=== PATIENT | male | born 1985 | race Caucasian/White ===

== ENCOUNTER → 2016-08-17 | Outpatient (REF) | payer OTHER ==
[~2016-08-17] MED LIST: /ESCI10TA PEG; ABIL5TAB5 PO; Escitalopram Oxalate PO; LEXA1TAB PO; LEXA1TAB2 PO; MULTCAP PO; VIST25CA PO; VITA200015 PO
[2016-08-17 17:10] LABS: MEAN CORPUSCULAR HEMOGLOBIN 29.7 pg (27.0-33.0); MEAN CORPUSCULAR HGB CONC 34.7 g/dl (32.0-36.5); MEAN CORPUSCULAR VOLUME 85.6 fl (80.0-96.0); RED CELL DISTRIBUTION WIDTH 13.1 % (11.5-14.5); WHITE BLOOD COUNT 6.6 K/mm3 (4.0-10.0)
[2016-08-17 17:11] LABS: ALBUMIN 3.9 GM/DL (3.2-5.2); ALBUMIN/GLOBULIN RATIO 1.15 (1.00-1.93); ALKALINE PHOSPHATASE 95 U/L (45-117); ALT/SGPT 34 U/L (12-78); ANION GAP 6 MEQ/L (8-16); AST/SGOT 20 U/L (15-37); BILIRUBIN,TOTAL 0.6 MG/DL (0.2-1.0); BLOOD UREA NITROGEN 13 MG/DL (7-18); CALCIUM LEVEL 8.6 MG/DL (8.5-10.1); CARBON DIOXIDE LEVEL 30 MEQ/L (21-32); CHLORIDE LEVEL 105 MEQ/L (98-107); CREATININE FOR GFR 1.03 MG/DL (0.70-1.30); GLOMERULAR FILTRATION RATE > 60.0 (>60); GLUCOSE, FASTING 92 MG/DL (70-105); POTASSIUM SERUM 4.3 MEQ/L (3.5-5.1); SODIUM LEVEL 141 MEQ/L (136-145); TOTAL PROTEIN 7.3 GM/DL (6.4-8.2)
== END ==
LOC: M SFHCLERA 10:53
PROVIDERS: ATTEND Family Medicine
DX: Z85.51 Personal history of malignant neoplasm of bladder (principal); Z87.898 Personal history of other specified conditions; F19.10 Other psychoactive substance abuse, uncomplicated

== ENCOUNTER → 2016-09-19 | Outpatient (REF) | payer BC, OTHER ==
[~2016-09-19] MED LIST changes: +ABIL1TAB11 PO; -ABIL5TAB5 PO
== END ==
LOC: M SMT 13:11
PROVIDERS: ATTEND Nurse Practitioner Women's Health
DX: Z85.51 Personal history of malignant neoplasm of bladder (principal)

== ENCOUNTER 2017-05-07 17:02 | Inpatient (IN) | payer OTHER, BC ==
[2017-05-07] MEDS: NS 1,000 ML IV ×3 (17:44→23:15)
[2017-05-07 17:49] LABS: HEMATOCRIT 43.1 % (42.0-52.0); HEMOGLOBIN 15.3 g/dl (14.0-18.0); MEAN CORPUSCULAR HEMOGLOBIN 28.6 pg (27.0-33.0); MEAN CORPUSCULAR HGB CONC 35.5 g/dl (32.0-36.5); MEAN CORPUSCULAR VOLUME 80.6 fl (80.0-96.0); PLATELET COUNT, AUTOMATED 224 10^3/uL (150-450); RED BLOOD COUNT 5.35 10^6/uL (4.30-6.10); RED CELL DISTRIBUTION WIDTH 12.2 % (11.5-14.5); WHITE BLOOD COUNT 8.1 10^3/uL (4.0-10.0)
[2017-05-07 18:18] LABS: AMPHETAMINES LEVEL URINE NEGATIVE (NEGATIVE); BARBITURATES URINE NEGATIVE (NEGATIVE); BENZODIAZEPINES URINE POSITIVE (NEGATIVE); CANNABINOIDS URINE NEGATIVE (NEGATIVE); COCAINE METABOLITE URINE NEGATIVE (NEGATIVE); METHADONE URINE NEGATIVE (NEGATIVE); OPIATES URINE NEGATIVE (NEGATIVE); PHENCYCLIDINE URINE NEGATIVE (NEGATIVE)
[2017-05-07] MEDS: ONDANSETRON 4MG/2ML VIAL (J2405) IV (18:18)
[2017-05-07] MEDS: LORazepam 2 MG/ML VIAL (J2060) IV ×5 (18:20→21:52)
[2017-05-07] MEDS: CHARCOAL ACTIVATED LIQUID 25 GM/120 ML BTL PO (18:20)
[2017-05-07 18:27] LABS: ALBUMIN 3.7 GM/DL (3.2-5.2); ALBUMIN/GLOBULIN RATIO 1.03 (1.00-1.93); ALKALINE PHOSPHATASE 120 U/L (45-117); ALT/SGPT 157 U/L (12-78); ANION GAP 10 MEQ/L (8-16); AST/SGOT 46 U/L (7-37); BILIRUBIN,DIRECT 0.2 MG/DL (0.0-0.2); BILIRUBIN,TOTAL 0.6 MG/DL (0.2-1.0); BLOOD UREA NITROGEN 8 MG/DL (7-18); CALCIUM LEVEL 8.3 MG/DL (8.5-10.1); CARBON DIOXIDE LEVEL 25 MEQ/L (21-32); CHLORIDE LEVEL 108 MEQ/L (98-107); CREATININE FOR GFR 0.84 MG/DL (0.70-1.30); ETHYL ALCOHOL (ETHANOL) < 0.003 % (0.000-0.010); GLOMERULAR FILTRATION RATE > 60.0 (>60); GLUCOSE, FASTING 91 MG/DL (70-100); POTASSIUM SERUM 3.6 MEQ/L (3.5-5.1); SALICYLATE LEVEL < 1.7 MG/DL (5.0-30.0); SODIUM LEVEL 143 MEQ/L (136-145); TOTAL PROTEIN 7.3 GM/DL (6.4-8.2)
[2017-05-07 18:30] LABS: INR 1.07
[2017-05-07 18:34] LABS: ACETAMINOPHEN LEVEL 352.6 UG/ML (10.0-30.0)
[2017-05-07] MEDS: ACETYLCYSTEINE IV ×2 (19:34→21:37)
[2017-05-07] MEDS: D5W IV ×2 (19:34→21:37)
[2017-05-07 20:02] LABS: ACETAMINOPHEN LEVEL 646.5 UG/ML (10.0-30.0)
[2017-05-07 21:05] LABS: CPK CREATINE PHOSPHOKINASE 239 U/L (39-308); MB/CK RELATIVE INDEX 0.41 (< OR =4)
[2017-05-07 22:14] LABS: VENOUS BASE EXCESS -5.5 (-2.0-2.0); VENOUS HCO3 19.2 MEQ/L (23.0-27.0); VENOUS O2 SATURATION 96.4 % (60.0-80.0); VENOUS PARTIAL PRESSURE O2 79.8 mmHg (30.0-50.0); VENOUS PH 7.356 UNITS (7.330-7.430); VENOUS TOTAL CO2 20.2 MEQ/L (24.0-28.0)
[2017-05-07] MEDS: ACETYLCYSTEINE 20% 30 ML VIAL PO (22:18)
[2017-05-07 22:31] LABS: INR 1.35
[2017-05-07 22:32] LABS: PARTIAL THROMBOPLASTIN TIME 36.4 SECONDS (26.8-37.9)
[2017-05-07 22:42] LABS: ALBUMIN 3.4 GM/DL (3.2-5.2); ALBUMIN/GLOBULIN RATIO 0.89 (1.00-1.93); ALKALINE PHOSPHATASE 99 U/L (45-117); ALT/SGPT 142 U/L (12-78); ANION GAP 10 MEQ/L (8-16); AST/SGOT 36 U/L (7-37); BILIRUBIN,TOTAL 0.6 MG/DL (0.2-1.0); BLOOD UREA NITROGEN 6 MG/DL (7-18); CALCIUM LEVEL 7.1 MG/DL (8.5-10.1); CARBON DIOXIDE LEVEL 24 MEQ/L (21-32); CHLORIDE LEVEL 111 MEQ/L (98-107); CREATININE FOR GFR 0.95 MG/DL (0.70-1.30); GLOMERULAR FILTRATION RATE > 60.0 (>60); GLUCOSE, FASTING 194 MG/DL (70-100); PHOSPHORUS LEVEL 1.9 MG/DL (2.5-4.9); POTASSIUM SERUM 3.3 MEQ/L (3.5-5.1); SODIUM LEVEL 145 MEQ/L (136-145); TOTAL PROTEIN 7.2 GM/DL (6.4-8.2)
[2017-05-07 22:48] LABS: LACTIC ACID SEPSIS PROTOCOL 3.4 MMOL/L (0.4-2.0)
[2017-05-07] MEDS ORDERED: ACETYLCYSTEINE IV (23:45)
[2017-05-07] MEDS ORDERED: D5W IV (23:45)
[2017-05-08] MEDS: SODIUM PHOSPHATE INJ 30 MMOL in D5W 500 ML IV (00:35)
[2017-05-08] MEDS: KCL 40MEQ in NS 1000ML 1,000 ML IV (00:39)
[2017-05-08 01:34] LABS: INR 1.34; PROTHROMBIN TIME 16.9 SECONDS (12.4-14.5)
[2017-05-08 01:35] LABS: PARTIAL THROMBOPLASTIN TIME 37.1 SECONDS (26.8-37.9)
[2017-05-08 01:43] LABS: ALBUMIN 3.4 GM/DL (3.2-5.2); ALBUMIN/GLOBULIN RATIO 0.89 (1.00-1.93); ALKALINE PHOSPHATASE 102 U/L (45-117); ALT/SGPT 152 U/L (12-78); ANION GAP 9 MEQ/L (8-16); AST/SGOT 35 U/L (7-37); BILIRUBIN,TOTAL 0.5 MG/DL (0.2-1.0); BLOOD UREA NITROGEN 5 MG/DL (7-18); CALCIUM LEVEL 7.3 MG/DL (8.5-10.1); CARBON DIOXIDE LEVEL 23 MEQ/L (21-32); CHLORIDE LEVEL 112 MEQ/L (98-107); CPK CREATINE PHOSPHOKINASE 273 U/L (39-308); GLOMERULAR FILTRATION RATE > 60.0 (>60); GLUCOSE, FASTING 169 MG/DL (70-100); PHOSPHORUS LEVEL 2.2 MG/DL (2.5-4.9); POTASSIUM SERUM 3.5 MEQ/L (3.5-5.1); SODIUM LEVEL 144 MEQ/L (136-145); TOTAL PROTEIN 7.2 GM/DL (6.4-8.2)
[2017-05-08 01:44] LABS: ACETAMINOPHEN LEVEL 394.1 UG/ML (10.0-30.0)
[2017-05-08] MEDS: D5W IV ×2 (01:49→17:38)
[2017-05-08] MEDS: ACETYLCYSTEINE 20% 30 ML VIAL PO ×5 (01:49→18:19)
[2017-05-08] MEDS: ACETYLCYSTEINE IV ×2 (01:49→17:38)
[2017-05-08 02:34] LABS: LACTIC ACID SEPSIS PROTOCOL 2.6 MMOL/L (0.4-2.0)
[2017-05-08 05:58] LABS: BEDSIDE GLUCOSE 125 MG/DL (70-105)
[2017-05-08 06:02] LABS: VENOUS BASE EXCESS -4.1 (-2.0-2.0); VENOUS HCO3 20.3 MEQ/L (23.0-27.0); VENOUS O2 SATURATION 99.3 % (60.0-80.0); VENOUS PARTIAL PRESSURE CO2 35.3 mmHg (38.0-50.0); VENOUS PARTIAL PRESSURE O2 158.4 mmHg (30.0-50.0); VENOUS PH 7.378 UNITS (7.330-7.430); VENOUS STANDARD HCO3 21.2 MEQ/L; VENOUS TOTAL CO2 21.4 MEQ/L (24.0-28.0)
[2017-05-08 06:03] LABS: BASO % 0.3 % (0.0-1.0); HEMATOCRIT 40.9 % (42.0-52.0); HEMOGLOBIN 14.3 g/dl (14.0-18.0); IMMATURE GRANULOCYTE % 0.3 % (0-0); LYMPH # 2.5 10^3/uL (1.5-6.5); MEAN CORPUSCULAR HEMOGLOBIN 28.3 pg (27.0-33.0); MONO # 0.8 10^3/uL (0.0-0.8); MONO % 11.4 % (0.0-5.0); NEUTROPHILS # 3.8 10^3/uL (1.8-7.7); PLATELET COUNT, AUTOMATED 210 10^3/uL (150-450); RED BLOOD COUNT 5.05 10^6/uL (4.30-6.10); RED CELL DISTRIBUTION WIDTH 12.5 % (11.5-14.5); WHITE BLOOD COUNT 7.2 10^3/uL (4.0-10.0)
[2017-05-08 06:20] LABS: INR 1.38; PROTHROMBIN TIME 17.3 SECONDS (12.4-14.5)
[2017-05-08 06:21] LABS: PARTIAL THROMBOPLASTIN TIME 40.5 SECONDS (26.8-37.9)
[2017-05-08 06:24] LABS: ALBUMIN 3.4 GM/DL (3.2-5.2); ALBUMIN/GLOBULIN RATIO 0.97 (1.00-1.93); ALKALINE PHOSPHATASE 98 U/L (45-117); ALT/SGPT 139 U/L (12-78); ANION GAP 12 MEQ/L (8-16); AST/SGOT 33 U/L (7-37); BILIRUBIN,TOTAL 0.5 MG/DL (0.2-1.0); BLOOD UREA NITROGEN 5 MG/DL (7-18); CALCIUM LEVEL 7.2 MG/DL (8.5-10.1); CARBON DIOXIDE LEVEL 22 MEQ/L (21-32); CHLORIDE LEVEL 111 MEQ/L (98-107); CREATININE FOR GFR 0.73 MG/DL (0.70-1.30); GLOMERULAR FILTRATION RATE > 60.0 (>60); GLUCOSE, FASTING 116 MG/DL (70-100); MAGNESIUM LEVEL 2.1 MG/DL (1.8-2.4); PHOSPHORUS LEVEL 4.1 MG/DL (2.5-4.9); POTASSIUM SERUM 3.3 MEQ/L (3.5-5.1); SODIUM LEVEL 145 MEQ/L (136-145); TOTAL PROTEIN 6.9 GM/DL (6.4-8.2)
[2017-05-08] MEDS: POTASSIUM CHLORIDE 10 MEQ SR TABLET PO ×4 (09:02→15:44)
[2017-05-08 11:44] LABS: BEDSIDE GLUCOSE 124 MG/DL (70-105)
[2017-05-08 12:28] LABS: INR 1.31; PROTHROMBIN TIME 16.6 SECONDS (12.4-14.5)
[2017-05-08 12:29] LABS: PARTIAL THROMBOPLASTIN TIME 40.7 SECONDS (26.8-37.9)
[2017-05-08 12:44] LABS: ALBUMIN 3.4 GM/DL (3.2-5.2); ALKALINE PHOSPHATASE 96 U/L (45-117); ALT/SGPT 128 U/L (12-78); ANION GAP 9 MEQ/L (8-16); AST/SGOT 31 U/L (7-37); BILIRUBIN,TOTAL 0.5 MG/DL (0.2-1.0); BLOOD UREA NITROGEN 6 MG/DL (7-18); CALCIUM LEVEL 7.7 MG/DL (8.5-10.1); CARBON DIOXIDE LEVEL 24 MEQ/L (21-32); CHLORIDE LEVEL 109 MEQ/L (98-107); CREATININE FOR GFR 0.83 MG/DL (0.70-1.30); GLOMERULAR FILTRATION RATE > 60.0 (>60); GLUCOSE, FASTING 94 MG/DL (70-100); PHOSPHORUS LEVEL 2.4 MG/DL (2.5-4.9); POTASSIUM SERUM 3.3 MEQ/L (3.5-5.1); SODIUM LEVEL 142 MEQ/L (136-145); TOTAL PROTEIN 6.8 GM/DL (6.4-8.2)
[2017-05-08 18:17] LABS: INR 1.31; PROTHROMBIN TIME 16.6 SECONDS (12.4-14.5)
[2017-05-08 18:19] LABS: PARTIAL THROMBOPLASTIN TIME 40.5 SECONDS (26.8-37.9)
[2017-05-08 18:36] LABS: ALBUMIN 3.4 GM/DL (3.2-5.2); ALBUMIN/GLOBULIN RATIO 1.06 (1.00-1.93); ALKALINE PHOSPHATASE 93 U/L (45-117); ALT/SGPT 117 U/L (12-78); ANION GAP 10 MEQ/L (8-16); AST/SGOT 30 U/L (7-37); BILIRUBIN,TOTAL 0.6 MG/DL (0.2-1.0); BLOOD UREA NITROGEN 4 MG/DL (7-18); CALCIUM LEVEL 7.8 MG/DL (8.5-10.1); CARBON DIOXIDE LEVEL 21 MEQ/L (21-32); CHLORIDE LEVEL 111 MEQ/L (98-107); CREATININE FOR GFR 0.78 MG/DL (0.70-1.30); GLOMERULAR FILTRATION RATE > 60.0 (>60); GLUCOSE, FASTING 107 MG/DL (70-100); PHOSPHORUS LEVEL 2.5 MG/DL (2.5-4.9); POTASSIUM SERUM 3.4 MEQ/L (3.5-5.1); SODIUM LEVEL 142 MEQ/L (136-145); TOTAL PROTEIN 6.6 GM/DL (6.4-8.2)
[2017-05-08 18:39] LABS: ACETAMINOPHEN LEVEL 32.3 UG/ML (10.0-30.0)
[2017-05-09 00:20] LABS: INR 1.42; PROTHROMBIN TIME 17.7 SECONDS (12.4-14.5)
[2017-05-09 00:21] LABS: PARTIAL THROMBOPLASTIN TIME 41.1 SECONDS (26.8-37.9)
[2017-05-09 00:25] LABS: ACETAMINOPHEN LEVEL 7.8 UG/ML (10.0-30.0)
[2017-05-09 00:39] LABS: ALBUMIN 3.1 GM/DL (3.2-5.2); ALBUMIN/GLOBULIN RATIO 0.94 (1.00-1.93); ALKALINE PHOSPHATASE 90 U/L (45-117); ALT/SGPT 103 U/L (12-78); ANION GAP 8 MEQ/L (8-16); AST/SGOT 25 U/L (7-37); BILIRUBIN,TOTAL 0.7 MG/DL (0.2-1.0); BLOOD UREA NITROGEN 4 MG/DL (7-18); CALCIUM LEVEL 7.3 MG/DL (8.5-10.1); CARBON DIOXIDE LEVEL 25 MEQ/L (21-32); CHLORIDE LEVEL 110 MEQ/L (98-107); CREATININE FOR GFR 0.68 MG/DL (0.70-1.30); GLOMERULAR FILTRATION RATE > 60.0 (>60); GLUCOSE, FASTING 98 MG/DL (70-100); PHOSPHORUS LEVEL 2.5 MG/DL (2.5-4.9); POTASSIUM SERUM 3.4 MEQ/L (3.5-5.1); SODIUM LEVEL 143 MEQ/L (136-145); TOTAL PROTEIN 6.4 GM/DL (6.4-8.2)
[2017-05-09 06:03] LABS: INR 1.44; PROTHROMBIN TIME 17.9 SECONDS (12.4-14.5)
[2017-05-09 06:04] LABS: PARTIAL THROMBOPLASTIN TIME 40.5 SECONDS (26.8-37.9)
[2017-05-09] MEDS: PHYTONADIONE 5 MG TAB PO (06:17)
[2017-05-09 06:30] LABS: ACETAMINOPHEN LEVEL 2.1 UG/ML (10.0-30.0); ALBUMIN 3.1 GM/DL (3.2-5.2); ALBUMIN/GLOBULIN RATIO 0.94 (1.00-1.93); ALKALINE PHOSPHATASE 85 U/L (45-117); ALT/SGPT 102 U/L (12-78); ANION GAP 9 MEQ/L (8-16); AST/SGOT 30 U/L (7-37); BILIRUBIN,TOTAL 0.8 MG/DL (0.2-1.0); BLOOD UREA NITROGEN 3 MG/DL (7-18); CALCIUM LEVEL 7.7 MG/DL (8.5-10.1); CARBON DIOXIDE LEVEL 24 MEQ/L (21-32); CHLORIDE LEVEL 110 MEQ/L (98-107); CREATININE FOR GFR 0.68 MG/DL (0.70-1.30); GLOMERULAR FILTRATION RATE > 60.0 (>60); GLUCOSE, FASTING 110 MG/DL (70-100); PHOSPHORUS LEVEL 2.4 MG/DL (2.5-4.9); POTASSIUM SERUM 3.4 MEQ/L (3.5-5.1); SODIUM LEVEL 143 MEQ/L (136-145); TOTAL PROTEIN 6.4 GM/DL (6.4-8.2)
[2017-05-09 10:25] LABS: KETONE, URINE AUTO RFX NEGATIVE (NEGATIVE); LEUKOCYTE ESTERASE UR AUTO RFX NEGATIVE (NEGATIVE); MUCUS, URINE RFX SMALL (NEGATIVE); NITRITE, URINE AUTO RFX NEGATIVE (NEGATIVE); RBC, URINE AUTO RFX 2 /HPF (0-3); SPECIFIC GRAVITY UR AUTO RFX 1.002 (1.002-1.035); SQUAM EPITHELIAL CELL UR AURFX 0 /HPF (0-6); WBC, URINE AUTO RFX 1 /HPF (0-3)
[2017-05-09 12:50] LABS: INR 1.34; PROTHROMBIN TIME 16.9 SECONDS (12.4-14.5)
[2017-05-09 12:51] LABS: PARTIAL THROMBOPLASTIN TIME 38.1 SECONDS (26.8-37.9)
[2017-05-09 13:11] LABS: ACETAMINOPHEN LEVEL < 2.0 UG/ML (10.0-30.0)
[2017-05-09 13:13] LABS: ALBUMIN 3.7 GM/DL (3.2-5.2); ALBUMIN/GLOBULIN RATIO 1.03 (1.00-1.93); ALKALINE PHOSPHATASE 99 U/L (45-117); ALT/SGPT 105 U/L (12-78); ANION GAP 9 MEQ/L (8-16); AST/SGOT 32 U/L (7-37); BILIRUBIN,TOTAL 0.7 MG/DL (0.2-1.0); BLOOD UREA NITROGEN 2 MG/DL (7-18); CALCIUM LEVEL 8.1 MG/DL (8.5-10.1); CARBON DIOXIDE LEVEL 26 MEQ/L (21-32); CHLORIDE LEVEL 107 MEQ/L (98-107); CREATININE FOR GFR 0.63 MG/DL (0.70-1.30); GLOMERULAR FILTRATION RATE > 60.0 (>60); GLUCOSE, FASTING 83 MG/DL (70-100); POTASSIUM SERUM 3.5 MEQ/L (3.5-5.1); SODIUM LEVEL 142 MEQ/L (136-145); TOTAL PROTEIN 7.3 GM/DL (6.4-8.2)
[2017-05-09] MEDS: NICOTINE 14 MG/24 HR TRANSDERMAL TD (14:26)
[2017-05-09 18:56] LABS: INR 1.24; PROTHROMBIN TIME 15.8 SECONDS (12.4-14.5)
[2017-05-09 19:04] LABS: ACETAMINOPHEN LEVEL < 2.0 UG/ML (10.0-30.0)
[2017-05-09 19:04] LABS: ALBUMIN 3.7 GM/DL (3.2-5.2); ALBUMIN/GLOBULIN RATIO 1.12 (1.00-1.93); ALKALINE PHOSPHATASE 108 U/L (45-117); ALT/SGPT 102 U/L (12-78); ANION GAP 10 MEQ/L (8-16); AST/SGOT 28 U/L (7-37); BILIRUBIN,TOTAL 0.5 MG/DL (0.2-1.0); BLOOD UREA NITROGEN 4 MG/DL (7-18); CALCIUM LEVEL 8.1 MG/DL (8.5-10.1); CARBON DIOXIDE LEVEL 24 MEQ/L (21-32); CHLORIDE LEVEL 109 MEQ/L (98-107); CREATININE FOR GFR 0.77 MG/DL (0.70-1.30); GLOMERULAR FILTRATION RATE > 60.0 (>60); GLUCOSE, FASTING 144 MG/DL (70-100); PHOSPHORUS LEVEL 2.1 MG/DL (2.5-4.9); POTASSIUM SERUM 3.3 MEQ/L (3.5-5.1); SODIUM LEVEL 143 MEQ/L (136-145)
[2017-05-10 00:15] LABS: ALBUMIN 3.6 GM/DL (3.2-5.2); ALKALINE PHOSPHATASE 98 U/L (45-117); ALT/SGPT 96 U/L (12-78); ANION GAP 7 MEQ/L (8-16); AST/SGOT 23 U/L (7-37); BILIRUBIN,TOTAL 0.5 MG/DL (0.2-1.0); BLOOD UREA NITROGEN 4 MG/DL (7-18); CALCIUM LEVEL 7.9 MG/DL (8.5-10.1); CARBON DIOXIDE LEVEL 27 MEQ/L (21-32); CHLORIDE LEVEL 108 MEQ/L (98-107); CREATININE FOR GFR 0.67 MG/DL (0.70-1.30); GLOMERULAR FILTRATION RATE > 60.0 (>60); GLUCOSE, FASTING 93 MG/DL (70-100); PHOSPHORUS LEVEL 3.4 MG/DL (2.5-4.9); POTASSIUM SERUM 3.4 MEQ/L (3.5-5.1); SODIUM LEVEL 142 MEQ/L (136-145); TOTAL PROTEIN 7.2 GM/DL (6.4-8.2)
[2017-05-10 00:16] LABS: INR 1.17; PROTHROMBIN TIME 15.1 SECONDS (12.4-14.5)
[2017-05-10 00:17] LABS: PARTIAL THROMBOPLASTIN TIME 37.2 SECONDS (26.8-37.9)
[2017-05-10 07:10] LABS: BASO % 0.5 % (0.0-1.0); EOS # 0.3 10^3/uL (0.0-0.50); EOS % 5.4 % (0.0-3.0); HEMATOCRIT 40.6 % (42.0-52.0); HEMOGLOBIN 14.4 g/dl (14.0-18.0); IMMATURE GRANULOCYTE % 0.3 % (0-3.0); LYMPH # 1.7 10^3/uL (1.5-6.5); LYMPH % 28.2 % (24.0-44.0); MEAN CORPUSCULAR HEMOGLOBIN 28.9 pg (27.0-33.0); MEAN CORPUSCULAR HGB CONC 35.5 g/dl (32.0-36.5); MEAN CORPUSCULAR VOLUME 81.5 fl (80.0-96.0); MONO # 0.5 10^3/uL (0.0-0.8); MONO % 8.6 % (0.0-5.0); NEUTROPHILS # 3.5 10^3/uL (1.8-7.7); PLATELET COUNT, AUTOMATED 194 10^3/uL (150-450); RED BLOOD COUNT 4.98 10^6/uL (4.30-6.10); RED CELL DISTRIBUTION WIDTH 12.7 % (11.5-14.5); WHITE BLOOD COUNT 6.1 10^3/uL (4.0-10.0)
[2017-05-10 07:17] LABS: ALBUMIN 3.4 GM/DL (3.2-5.2); ALBUMIN/GLOBULIN RATIO 0.94 (1.00-1.93); ALKALINE PHOSPHATASE 96 U/L (45-117); ALT/SGPT 84 U/L (12-78); ANION GAP 6 MEQ/L (8-16); AST/SGOT 22 U/L (7-37); BILIRUBIN,TOTAL 0.7 MG/DL (0.2-1.0); BLOOD UREA NITROGEN 5 MG/DL (7-18); C REACTIVE PROTEIN QUANTITATIV < 0.30 MG/DL (0.00-0.30); CALCIUM LEVEL 8.2 MG/DL (8.5-10.1); CARBON DIOXIDE LEVEL 28 MEQ/L (21-32); CHLORIDE LEVEL 108 MEQ/L (98-107); CREATININE FOR GFR 0.54 MG/DL (0.70-1.30); GLOMERULAR FILTRATION RATE > 60.0 (>60); GLUCOSE, FASTING 94 MG/DL (70-100); POTASSIUM SERUM 3.4 MEQ/L (3.5-5.1); SODIUM LEVEL 142 MEQ/L (136-145)
[2017-05-10 07:19] LABS: INR 1.14; PROTHROMBIN TIME 14.8 SECONDS (12.4-14.5)
[2017-05-10 08:52] LABS: ERYTHROCYTE SEDIMENTATION RATE 4 mm/hr (0-15)
[2017-05-10] MEDS: NICOTINE 14 MG/24 HR TRANSDERMAL TD (09:02)
[2017-05-10] MEDS: PHYTONADIONE 5 MG TAB PO (09:02)
== END 2017-05-10 11:15 | DRG 812 ==
LOC: M MSPAV 05-09 18:14 → M ICU 05-08 02:24 → M ED 17:02 → M ED INP 20:00
DX: T39.1X2A Poisoning by 4-Aminophenol derivatives, intentional self-harm, initial encounter (principal); E87.2 Acidosis; R45.851 Suicidal ideations; T43.222A Poisoning by selective serotonin reuptake inhibitors, intentional self-harm, initial encounter; F32.9 Major depressive disorder, single episode, unspecified; F11.90 Opioid use, unspecified, uncomplicated; F10.10 Alcohol abuse, uncomplicated; Z79.899 Other long term (current) drug therapy; Z85.51 Personal history of malignant neoplasm of bladder; I10 Essential (primary) hypertension; F17.200 Nicotine dependence, unspecified, uncomplicated; F60.89 Other specific personality disorders; B18.2 Chronic viral hepatitis C; X83.8XXA Intentional self-harm by other specified means, initial encounter; Y92.009 Unspecified place in unspecified non-institutional (private) residence as the place of occurrence of the external cause

== ENCOUNTER 2017-05-10 11:26 | Inpatient (IN) | payer OTHER ==
[2017-05-10] MEDS ORDERED: IBUPROFEN 400 MG TAB PO (17:00)
[2017-05-10] MEDS ORDERED: MAALOX 30 ML SUSP *UDC PO (17:00)
[2017-05-10] MEDS: SERTRALINE HCL 25 MG TABLET PO (17:46)
[2017-05-10] MEDS: hydrOXYzine 25 MG TAB PO ×2 (17:47→21:58)
[2017-05-11] MEDS: SERTRALINE HCL 25 MG TABLET PO (08:31)
[2017-05-11] MEDS: INFLUENZA QUADRIVALENT PF VACCINE 0.5ML SYRINGE (90686) IM (08:32)
[2017-05-11] MEDS: hydrOXYzine 25 MG TAB PO ×2 (11:16→21:06)
[2017-05-11] MEDS: NICOTINE 21MG/24HR 1 EA TRANSDERMAL TD (11:16)
[2017-05-11 12:01] LABS: ALBUMIN 3.7 GM/DL (3.2-5.2); ALBUMIN/GLOBULIN RATIO 1.06 (1.00-1.93); ALKALINE PHOSPHATASE 103 U/L (45-117); ALT/SGPT 68 U/L (12-78); ANION GAP 7 MEQ/L (8-16); AST/SGOT 19 U/L (7-37); BILIRUBIN,TOTAL 0.5 MG/DL (0.2-1.0); BLOOD UREA NITROGEN 11 MG/DL (7-18); CALCIUM LEVEL 8.6 MG/DL (8.5-10.1); CARBON DIOXIDE LEVEL 31 MEQ/L (21-32); CHLORIDE LEVEL 103 MEQ/L (98-107); CREATININE FOR GFR 0.79 MG/DL (0.70-1.30); GLOMERULAR FILTRATION RATE > 60.0 (>60); GLUCOSE, FASTING 89 MG/DL (70-100); POTASSIUM SERUM 3.7 MEQ/L (3.5-5.1); SODIUM LEVEL 141 MEQ/L (136-145); TOTAL PROTEIN 7.2 GM/DL (6.4-8.2)
[2017-05-11] MEDS: MOM 30ML SUSPENSION UDC PO (16:38)
[2017-05-12 07:50] LABS: ALBUMIN 3.5 GM/DL (3.2-5.2); ALBUMIN/GLOBULIN RATIO 1.09 (1.00-1.93); ALKALINE PHOSPHATASE 94 U/L (45-117); ALT/SGPT 54 U/L (12-78); ANION GAP 7 MEQ/L (8-16); AST/SGOT 14 U/L (7-37); BILIRUBIN,TOTAL 0.4 MG/DL (0.2-1.0); BLOOD UREA NITROGEN 10 MG/DL (7-18); CALCIUM LEVEL 8.2 MG/DL (8.5-10.1); CARBON DIOXIDE LEVEL 29 MEQ/L (21-32); CHLORIDE LEVEL 107 MEQ/L (98-107); GLOMERULAR FILTRATION RATE > 60.0 (>60); GLUCOSE, FASTING 87 MG/DL (70-100); POTASSIUM SERUM 4.1 MEQ/L (3.5-5.1); SODIUM LEVEL 143 MEQ/L (136-145); TOTAL PROTEIN 6.7 GM/DL (6.4-8.2)
[2017-05-12] MEDS: SERTRALINE HCL 25 MG TABLET PO (08:11)
[2017-05-12] MEDS: NICOTINE 21MG/24HR 1 EA TRANSDERMAL TD (08:12)
[2017-05-12] MEDS: traZODone 50 MG TAB PO (21:07)
[2017-05-12] MEDS: hydrOXYzine 25 MG TAB PO (21:08)
[2017-05-13] MEDS: SERTRALINE HCL 25 MG TABLET PO (08:11)
[2017-05-13] MEDS: NICOTINE 21MG/24HR 1 EA TRANSDERMAL TD (08:13)
[2017-05-13] MEDS: traZODone 50 MG TAB PO (21:02)
[2017-05-14] MEDS: NICOTINE 21MG/24HR 1 EA TRANSDERMAL TD (08:31)
[2017-05-14] MEDS: SERTRALINE HCL 25 MG TABLET PO (08:32)
[2017-05-14 10:35] LABS: HEPATITIS B SURFACE ANTIBODY POSITIVE (POSITIVE)
[2017-05-14 10:42] LABS: HEPATITIS B SURFACE ANTIGEN NEGATIVE (NEGATIVE)
[2017-05-14] MEDS: hydrOXYzine 25 MG TAB PO (17:30)
[2017-05-14] MEDS: traZODone 50 MG TAB PO (20:43)
[2017-05-15 07:40] LABS: HEMATOCRIT 44.4 % (42.0-52.0); HEMOGLOBIN 14.7 g/dl (14.0-18.0); MEAN CORPUSCULAR HEMOGLOBIN 27.9 pg (27.0-33.0); MEAN CORPUSCULAR HGB CONC 33.1 g/dl (32.0-36.5); MEAN CORPUSCULAR VOLUME 84.3 fl (80.0-96.0); PLATELET COUNT, AUTOMATED 234 10^3/uL (150-450); RED BLOOD COUNT 5.27 10^6/uL (4.30-6.10); WHITE BLOOD COUNT 6.3 10^3/uL (4.0-10.0)
[2017-05-15 08:06] LABS: ALPHA 2-MACROGLOBULIN 91 mg/dL (110-276); ALT 57 IU/L (0-55); APOLIPOPROTEIN A-1 117 mg/dL (101-178); FIBROSIS SCORE 0.03 (0.00-0.21); GGT 27 IU/L (0-65); HAPTOGLOBIN 166 mg/dL (34-200); HEPATITIS B CORE ANTIBODY IGG Negative (Negative); NECROINFLAM SCORE 0.25 (0.00-0.17); NECROINFLAMM GRADE A0-A1 (.); TOTAL BILIRUBIN 0.3 mg/dL (0.0-1.2)
[2017-05-15 08:13] LABS: ALBUMIN 3.6 GM/DL (3.2-5.2); ALBUMIN/GLOBULIN RATIO 0.95 (1.00-1.93); ALKALINE PHOSPHATASE 93 U/L (45-117); ALT/SGPT 40 U/L (12-78); ANION GAP 3 MEQ/L (8-16); AST/SGOT 15 U/L (7-37); BILIRUBIN,TOTAL 0.3 MG/DL (0.2-1.0); BLOOD UREA NITROGEN 6 MG/DL (7-18); CALCIUM LEVEL 8.3 MG/DL (8.5-10.1); CARBON DIOXIDE LEVEL 33 MEQ/L (21-32); CHLORIDE LEVEL 107 MEQ/L (98-107); CREATININE FOR GFR 0.76 MG/DL (0.70-1.30); GLOMERULAR FILTRATION RATE > 60.0 (>60); GLUCOSE, FASTING 86 MG/DL (70-100); POTASSIUM SERUM 4.1 MEQ/L (3.5-5.1); SODIUM LEVEL 143 MEQ/L (136-145); TOTAL PROTEIN 7.4 GM/DL (6.4-8.2)
[2017-05-15] MEDS: NICOTINE 21MG/24HR 1 EA TRANSDERMAL TD (08:18)
[2017-05-15] MEDS: SERTRALINE HCL 25 MG TABLET PO (08:18)
[2017-05-15] MEDS: MULTIVITAMINS/MINERALS THERAP 1 TAB PO (10:37)
[2017-05-15] MEDS: hydrOXYzine 25 MG TAB PO ×3 (10:37→21:35)
[2017-05-15] MEDS: traZODone 50 MG TAB PO (21:35)
[2017-05-16] MEDS: MULTIVITAMINS/MINERALS THERAP 1 TAB PO (08:25)
[2017-05-16] MEDS: SERTRALINE HCL 25 MG TABLET PO (08:25)
[2017-05-16] MEDS: NICOTINE 21MG/24HR 1 EA TRANSDERMAL TD (08:26)
[2017-05-16] MEDS: hydrOXYzine 25 MG TAB PO ×3 (09:24→18:46)
[2017-05-16] MEDS: traZODone 50 MG TAB PO (20:36)
[2017-05-17 07:46] LABS: ANION GAP 4 MEQ/L (8-16); BLOOD UREA NITROGEN 7 MG/DL (7-18); CALCIUM LEVEL 8.7 MG/DL (8.5-10.1); CARBON DIOXIDE LEVEL 32 MEQ/L (21-32); CHLORIDE LEVEL 107 MEQ/L (98-107); CREATININE FOR GFR 0.78 MG/DL (0.70-1.30); GLOMERULAR FILTRATION RATE > 60.0 (>60); GLUCOSE, FASTING 87 MG/DL (70-100); POTASSIUM SERUM 4.4 MEQ/L (3.5-5.1); SODIUM LEVEL 143 MEQ/L (136-145)
[2017-05-17] MEDS: MULTIVITAMINS/MINERALS THERAP 1 TAB PO (08:36)
[2017-05-17] MEDS: SERTRALINE HCL 25 MG TABLET PO ×2 (08:36→11:08)
[2017-05-17] MEDS: NICOTINE 21MG/24HR 1 EA TRANSDERMAL TD (08:37)
[2017-05-17] MEDS: hydrOXYzine 25 MG TAB PO ×2 (10:08→14:01)
[2017-05-17] MEDS: ARIPiprazole MONOHYDRATE 400 MG INJ (ABILIFY)(J0401) IM (14:02)
[2017-05-17] MEDS: traZODone 50 MG TAB PO (21:41)
[2017-05-18 00:06] LABS: HEPATITIS C QUANTITATION 1160 IU/mL (.); HEPATITIS C VIRUS GENOTYPE 3 (.)
[2017-05-18] MEDS: MULTIVITAMINS/MINERALS THERAP 1 TAB PO (08:19)
[2017-05-18] MEDS: SERTRALINE HCL 50 MG TAB PO (08:19)
[2017-05-18] MEDS: NICOTINE 21MG/24HR 1 EA TRANSDERMAL TD (08:20)
[2017-05-18] MEDS: hydrOXYzine 25 MG TAB PO ×2 (10:07→16:19)
[2017-05-19] MEDS: SERTRALINE HCL 50 MG TAB PO (08:18)
[2017-05-19] MEDS: NICOTINE 21MG/24HR 1 EA TRANSDERMAL TD (08:18)
[2017-05-19] MEDS: MULTIVITAMINS/MINERALS THERAP 1 TAB PO (08:18)
[2017-05-19] MEDS: hydrOXYzine 25 MG TAB PO ×2 (09:11→13:54)
[2017-05-19] MEDS: OLANZapine 5 MG TAB PO (17:11)
[2017-05-20] MEDS: MULTIVITAMINS/MINERALS THERAP 1 TAB PO (08:08)
[2017-05-20] MEDS: OLANZapine 5 MG TAB PO ×2 (08:08→15:11)
[2017-05-20] MEDS: SERTRALINE HCL 50 MG TAB PO (08:08)
[2017-05-20] MEDS: NICOTINE 21MG/24HR 1 EA TRANSDERMAL TD (08:08)
[2017-05-21] MEDS: SERTRALINE HCL 50 MG TAB PO (08:16)
[2017-05-21] MEDS: MULTIVITAMINS/MINERALS THERAP 1 TAB PO (08:16)
[2017-05-21] MEDS: NICOTINE 21MG/24HR 1 EA TRANSDERMAL TD (08:17)
[2017-05-21] MEDS: hydrOXYzine 25 MG TAB PO ×2 (09:35→17:04)
[2017-05-21] MEDS: OLANZapine 5 MG TAB PO (20:17)
[2017-05-21] MEDS: traZODone 50 MG TAB PO (20:17)
[2017-05-22] MEDS: MULTIVITAMINS/MINERALS THERAP 1 TAB PO (08:06)
[2017-05-22] MEDS: SERTRALINE HCL 50 MG TAB PO (08:06)
[2017-05-22] MEDS: NICOTINE 21MG/24HR 1 EA TRANSDERMAL TD (08:07)
[2017-05-22] MEDS: hydrOXYzine 25 MG TAB PO ×2 (09:48→20:19)
[2017-05-22] MEDS: OLANZapine 5 MG TAB PO ×2 (13:05→20:18)
[2017-05-22] MEDS: traZODone 50 MG TAB PO (20:19)
[2017-05-23] MEDS: SERTRALINE HCL 50 MG TAB PO (08:55)
[2017-05-23] MEDS: NICOTINE 21MG/24HR 1 EA TRANSDERMAL TD (08:56)
[2017-05-23] MEDS: MULTIVITAMINS/MINERALS THERAP 1 TAB PO (08:56)
[2017-05-23] MEDS: hydrOXYzine 25 MG TAB PO ×3 (11:36→20:24)
[2017-05-23] MEDS: traZODone 50 MG TAB PO (20:24)
[2017-05-23] MEDS: OLANZapine 5 MG TAB PO (20:24)
[2017-05-24] MEDS: SERTRALINE HCL 50 MG TAB PO (05:33)
[2017-05-24] MEDS: NICOTINE 21MG/24HR 1 EA TRANSDERMAL TD (05:33)
[2017-05-24] MEDS: OLANZapine 5 MG TAB PO (05:33)
[2017-05-24] MEDS: hydrOXYzine 25 MG TAB PO (05:33)
[2017-05-24] MEDS: MULTIVITAMINS/MINERALS THERAP 1 TAB PO (05:33)
== END 2017-05-24 06:00 | DRG 753 ==
LOC: M PSY 11:26
DX: F31.9 Bipolar disorder, unspecified (principal); F10.10 Alcohol abuse, uncomplicated; F41.9 Anxiety disorder, unspecified; F15.90 Other stimulant use, unspecified, uncomplicated; B18.2 Chronic viral hepatitis C; F17.200 Nicotine dependence, unspecified, uncomplicated; E87.6 Hypokalemia

== ENCOUNTER 2017-08-06 08:08 | Inpatient (IN) | payer OTHER ==
[2017-08-06] MEDS: NS 1,000 ML IV ×3 (08:15→12:45)
[2017-08-06 08:19] LABS: BASO % 0.5 % (0.0-1.0); EOS # 0.1 10^3/uL (0.0-0.50); EOS % 1.4 % (0.0-3.0); HEMATOCRIT 48.7 % (42.0-52.0); HEMOGLOBIN 17.1 g/dl (13.5-17.5); IMMATURE GRANULOCYTE % 0.5 % (0-3.0); LYMPH # 2.2 10^3/uL (1.5-6.5); LYMPH % 26.3 % (24.0-44.0); MEAN CORPUSCULAR HEMOGLOBIN 28.2 pg (27.0-33.0); MEAN CORPUSCULAR HGB CONC 35.1 g/dl (32.0-36.5); MEAN CORPUSCULAR VOLUME 80.4 fl (80.0-96.0); MONO # 0.8 10^3/uL (0.0-0.8); MONO % 9.5 % (0.0-5.0); NEUTROPHILS # 5.1 10^3/uL (1.8-7.7); NEUTROPHILS % 61.8 % (36.0-66.0); PLATELET COUNT, AUTOMATED 225 10^3/uL (150-450); RED BLOOD COUNT 6.06 10^6/uL (4.30-6.10); RED CELL DISTRIBUTION WIDTH 13.2 % (11.5-14.5); WHITE BLOOD COUNT 8.3 10^3/uL (4.0-10.0)
[2017-08-06] MEDS: CHARCOAL ACTIVATED LIQUID 25 GM/120 ML BTL PO (08:40)
[2017-08-06 08:54] LABS: ALBUMIN 4.3 GM/DL (3.2-5.2); ALBUMIN/GLOBULIN RATIO 1.02 (1.00-1.93); ALKALINE PHOSPHATASE 131 U/L (45-117); ALT/SGPT 188 U/L (12-78); ANION GAP 8 MEQ/L (8-16); AST/SGOT 78 U/L (7-37); BILIRUBIN,DIRECT 0.5 MG/DL (0.0-0.2); BILIRUBIN,TOTAL 1.5 MG/DL (0.2-1.0); BLOOD UREA NITROGEN 15 MG/DL (7-18); CALCIUM LEVEL 8.8 MG/DL (8.5-10.1); CARBON DIOXIDE LEVEL 25 MEQ/L (21-32); CHLORIDE LEVEL 107 MEQ/L (98-107); ETHYL ALCOHOL (ETHANOL) < 0.003 % (0.000-0.010); GLOMERULAR FILTRATION RATE > 60.0 (>60); GLUCOSE, FASTING 122 MG/DL (70-100); POTASSIUM SERUM 3.8 MEQ/L (3.5-5.1); SALICYLATE LEVEL < 1.7 MG/DL (5.0-30.0); SODIUM LEVEL 140 MEQ/L (136-145); TOTAL PROTEIN 8.5 GM/DL (6.4-8.2)
[2017-08-06 08:57] LABS: ACETAMINOPHEN LEVEL < 2.0 UG/ML (10.0-30.0)
[2017-08-06 13:07] LABS: AMPHETAMINES LEVEL URINE POSITIVE (NEGATIVE); BARBITURATES URINE NEGATIVE (NEGATIVE); BENZODIAZEPINES URINE NEGATIVE (NEGATIVE); CANNABINOIDS URINE NEGATIVE (NEGATIVE); COCAINE METABOLITE URINE NEGATIVE (NEGATIVE); METHADONE URINE NEGATIVE (NEGATIVE); OPIATES URINE NEGATIVE (NEGATIVE); PHENCYCLIDINE URINE NEGATIVE (NEGATIVE)
[2017-08-06 13:12] LABS: ALBUMIN 3.3 GM/DL (3.2-5.2); ALBUMIN/GLOBULIN RATIO 0.92 (1.00-1.93); ALKALINE PHOSPHATASE 101 U/L (45-117); ALT/SGPT 146 U/L (12-78); AST/SGOT 55 U/L (7-37); BILIRUBIN,DIRECT 0.3 MG/DL (0.0-0.2); CPK CREATINE PHOSPHOKINASE 238 U/L (39-308); TOTAL PROTEIN 6.9 GM/DL (6.4-8.2); TROPONIN I < 0.02 NG/ML (< 0.10)
[2017-08-06 13:14] LABS: CK-MB VALUE MASS < 1.0 NG/ML (<3.6); MB/CK RELATIVE INDEX 0.42 (< OR =4)
[2017-08-06] MEDS ORDERED: ACETAMINOPHEN TAB 650MG DOSE (2X325MG) PO (15:30)
[2017-08-06] MEDS ORDERED: MOM 30ML SUSPENSION UDC PO (15:30)
[2017-08-06] MEDS ORDERED: traZODone 50 MG TAB PO (15:30)
[2017-08-06] MEDS ORDERED: MAALOX 30 ML SUSP *UDC PO (15:30)
[2017-08-07] MEDS ORDERED: traZODone 100 MG TAB PO (12:15)
[2017-08-07] MEDS ORDERED: PILL CRUSHER/CUTTER 1 EACH XX (12:30)
[2017-08-07] MEDS: buPROPion **XL** TABLET 150MG (WELLBUTRIN XL) PO (12:51)
[2017-08-07] MEDS: lamoTRIgine 100MG TAB PO (12:51)
[2017-08-07] MEDS: NICOTINE 21MG/24HR 1 EA TRANSDERMAL TD (12:52)
[2017-08-07] MEDS: busPIRone 10 MG TAB PO (16:17)
[2017-08-07] MEDS: MIRTAZAPINE 7.5MG PER 1/2 TABLET PO (20:26)
[2017-08-08] MEDS: NICOTINE 21MG/24HR 1 EA TRANSDERMAL TD (09:15)
[2017-08-08] MEDS: buPROPion **XL** TABLET 150MG (WELLBUTRIN XL) PO (09:15)
[2017-08-08] MEDS: lamoTRIgine 100MG TAB PO (09:15)
[2017-08-08] MEDS: busPIRone 10 MG TAB PO (09:15)
[2017-08-08] MEDS: OLANZapine 5 MG TAB PO ×2 (11:38→21:32)
[2017-08-08] MEDS: MIRTAZAPINE 7.5MG PER 1/2 TABLET PO (21:32)
[2017-08-09] MEDS: buPROPion **XL** TABLET 150MG (WELLBUTRIN XL) PO (08:59)
[2017-08-09] MEDS: lamoTRIgine 100MG TAB PO (08:59)
[2017-08-09] MEDS: NICOTINE 21MG/24HR 1 EA TRANSDERMAL TD (08:59)
[2017-08-09] MEDS: OLANZapine 5 MG TAB PO (09:56)
[2017-08-09] MEDS: ARIPiprazole MONOHYDRATE 400 MG INJ (ABILIFY)(J0401) IM (14:24)
[2017-08-13] MEDS ORDERED: ARIPiprazole MONOHYDRATE 400 MG INJ (ABILIFY)(J0401) IM (09:00)
== END 2017-08-09 14:27 | disposition home or self-care (01) | DRG 753 ==
LOC: M ED 08:08 → M ED INP 15:15 → M PSY 16:15
DX: F31.9 Bipolar disorder, unspecified (principal); G47.00 Insomnia, unspecified; F41.9 Anxiety disorder, unspecified; F10.10 Alcohol abuse, uncomplicated; F11.90 Opioid use, unspecified, uncomplicated; Z79.899 Other long term (current) drug therapy; I10 Essential (primary) hypertension; B18.2 Chronic viral hepatitis C; F17.200 Nicotine dependence, unspecified, uncomplicated

== ENCOUNTER → 2018-01-14 | Outpatient (CLI) | payer OTHER | LOC: M OUTALCOH 09:16 | DX: F15.20 Other stimulant dependence, uncomplicated (principal) ==

== ENCOUNTER → 2018-01-14 | Outpatient (CLI) | payer OTHER ==
[2018-01-14 20:44] LABS: ALBUMIN 4.2 GM/DL (3.2-5.2); ALKALINE PHOSPHATASE 115 U/L (45-117); ALT/SGPT 417 U/L (12-78); ANION GAP 9 MEQ/L (8-16); AST/SGOT 54 U/L (7-37); BILIRUBIN,TOTAL 0.7 MG/DL (0.2-1.0); BLOOD UREA NITROGEN 9 MG/DL (7-18); CALCIUM LEVEL 9.2 MG/DL (8.5-10.1); CARBON DIOXIDE LEVEL 28 MEQ/L (21-32); CHLORIDE LEVEL 105 MEQ/L (98-107); CREATININE FOR GFR 1.13 MG/DL (0.70-1.30); GLOMERULAR FILTRATION RATE > 60.0 (>60); GLUCOSE, FASTING 94 MG/DL (70-100); POTASSIUM SERUM 4.3 MEQ/L (3.5-5.1); SODIUM LEVEL 142 MEQ/L (136-145); TOTAL PROTEIN 7.7 GM/DL (6.4-8.2)
== END ==
LOC: M LRY 15:00
DX: K72.90 Hepatic failure, unspecified without coma (principal)
CPT/HCPCS: 80053

== ENCOUNTER 2018-01-25 11:19 | Outpatient (RCR) | payer OTHER | END 2018-01-30 | LOC: M OUTALCOH 11:19 | DX: F15.20 Other stimulant dependence, uncomplicated (principal); F17.200 Nicotine dependence, unspecified, uncomplicated ==

== ENCOUNTER → 2018-01-30 | Outpatient (REF) | payer MEDICAID ==
[2018-01-30 20:07] LABS: ALBUMIN/GLOBULIN RATIO 1.03 (1.00-1.93); ALKALINE PHOSPHATASE 102 U/L (45-117); ALT/SGPT 141 U/L (12-78); ANION GAP 9 MEQ/L (8-16); AST/SGOT 56 U/L (7-37); BILIRUBIN,TOTAL 0.7 MG/DL (0.2-1.0); BLOOD UREA NITROGEN 11 MG/DL (7-18); CARBON DIOXIDE LEVEL 27 MEQ/L (21-32); CHLORIDE LEVEL 105 MEQ/L (98-107); GLOMERULAR FILTRATION RATE > 60.0 (>60); GLUCOSE, FASTING 64 MG/DL (70-100); POTASSIUM SERUM 4.3 MEQ/L (3.5-5.1); SODIUM LEVEL 141 MEQ/L (136-145); TOTAL PROTEIN 7.9 GM/DL (6.4-8.2)
[2018-01-30 20:18] LABS: AMORPHOUS SEDIMENT LARGE (NEGATIVE); APPEARANCE, URINE TURBID (CLEAR); BACTERIA, URINE AUTO NEGATIVE (NEGATIVE); BILIRUBIN, URINE AUTO NEGATIVE (NEGATIVE); BLOOD, URINE BLOOD NEGATIVE (NEGATIVE); COLOR, URINE YELLOW (YELLOW); GLUCOSE, URINE (UA) AUTO NEGATIVE (NEGATIVE); KETONE, URINE AUTO NEGATIVE (NEGATIVE); LEUKOCYTE ESTERASE, URINE AUTO NEGATIVE (NEGATIVE); MUCUS, URINE SMALL (NEGATIVE); NITRITE, URINE AUTO NEGATIVE (NEGATIVE); PROTEIN, URINE AUTO NEGATIVE (NEGATIVE); RBC, URINE AUTO 1 /HPF (0-3); SPECIFIC GRAVITY URINE AUTO 1.029 (1.002-1.035); SQUAMOUS EPITHELIAL CELL UR AU 0 /HPF (0-6); WBC, URINE AUTO 1 /HPF (0-3)
[2018-02-04 14:09] LABS: HEPATITIS C QUANTITATION 263940 IU/mL (.)
== END ==
LOC: M SFHCLERA 16:56
DX: B19.20 Unspecified viral hepatitis C without hepatic coma (principal); Z85.51 Personal history of malignant neoplasm of bladder

== ENCOUNTER 2018-02-01 15:00 | Outpatient (RCR) | payer OTHER | END 2018-03-01 | LOC: M OUTALCOH 02-05 09:00 | DX: F15.20 Other stimulant dependence, uncomplicated (principal); F17.200 Nicotine dependence, unspecified, uncomplicated ==

== ENCOUNTER → 2018-02-13 | Outpatient (REF) | payer MEDICAID ==
[2018-02-13 12:03] LABS: ALBUMIN 3.9 GM/DL (3.2-5.2); ALBUMIN/GLOBULIN RATIO 1.05 (1.00-1.93); ALKALINE PHOSPHATASE 99 U/L (45-117); ALT/SGPT 118 U/L (12-78); AST/SGOT 32 U/L (7-37); BILIRUBIN,DIRECT 0.1 MG/DL (0.0-0.2); BILIRUBIN,TOTAL 0.4 MG/DL (0.2-1.0); TOTAL PROTEIN 7.6 GM/DL (6.4-8.2)
== END ==
LOC: M SFHCLERA 07:51
DX: B19.20 Unspecified viral hepatitis C without hepatic coma (principal)

== ENCOUNTER → 2018-02-28 | Outpatient (REF) | payer MEDICAID, OTHER ==
[2018-02-28 14:18] LABS: APPEARANCE, URINE CLEAR (CLEAR); BACTERIA, URINE AUTO NEGATIVE (NEGATIVE); BILIRUBIN, URINE AUTO NEGATIVE (NEGATIVE); BLOOD, URINE BLOOD NEGATIVE (NEGATIVE); COLOR, URINE AMBER (YELLOW); GLUCOSE, URINE (UA) AUTO NEGATIVE (NEGATIVE); KETONE, URINE AUTO NEGATIVE (NEGATIVE); LEUKOCYTE ESTERASE, URINE AUTO NEGATIVE (NEGATIVE); MUCUS, URINE SMALL (NEGATIVE); NITRITE, URINE AUTO NEGATIVE (NEGATIVE); PROTEIN, URINE AUTO 1+ mg/dL (NEGATIVE); RBC, URINE AUTO 0 /HPF (0-3); SQUAMOUS EPITHELIAL CELL UR AU 0 /HPF (0-6); WBC, URINE AUTO 0 /HPF (0-3)
== END ==
LOC: M SMT 13:18
DX: Z85.51 Personal history of malignant neoplasm of bladder (principal)

== ENCOUNTER → 2018-03-04 | Outpatient (REF) | payer OTHER, MEDICAID ==
[2018-03-04 12:56] LABS: ANION GAP 4 MEQ/L (8-16); BLOOD UREA NITROGEN 15 MG/DL (7-18); CALCIUM LEVEL 8.9 MG/DL (8.5-10.1); CARBON DIOXIDE LEVEL 29 MEQ/L (21-32); CHLORIDE LEVEL 104 MEQ/L (98-107); CREATININE FOR GFR 0.88 MG/DL (0.70-1.30); GLOMERULAR FILTRATION RATE > 60.0 (>60); GLUCOSE, FASTING 96 MG/DL (70-100); POTASSIUM SERUM 4.7 MEQ/L (3.5-5.1); SODIUM LEVEL 137 MEQ/L (136-145)
[2018-03-04 12:57] LABS: ALBUMIN/GLOBULIN RATIO 1.08 (1.00-1.93); ALKALINE PHOSPHATASE 99 U/L (45-117); ALT/SGPT 221 U/L (12-78); AST/SGOT 80 U/L (7-37); BILIRUBIN,TOTAL 0.7 MG/DL (0.2-1.0); TOTAL PROTEIN 7.7 GM/DL (6.4-8.2)
[2018-03-04 14:36] LABS: HIV 1&2 SCREEN CENTAUR NEGATIVE (NEGATIVE)
[2018-03-04 14:42] LABS: CHLAMYDIA DNA AMPLIFICATION NEGATIVE (NEGATIVE); GC DNA AMPLIFICATION NEGATIVE (NEGATIVE)
[2018-03-05 08:06] LABS: RPR Non Reactive (Non Reactive)
[2018-03-05 08:06] LABS: HEPATITIS A IgG TOTAL Negative (Negative)
== END ==
LOC: M SFHCPLAZ 09:15
DX: B18.2 Chronic viral hepatitis C (principal); Z86.19 Personal history of other infectious and parasitic diseases
CPT/HCPCS: 80053

== ENCOUNTER → 2018-03-08 | Outpatient (REF) | payer OTHER, MEDICAID ==
[2018-03-08 19:42] LABS: CHLAMYDIA DNA AMPLIFICATION NEGATIVE (NEGATIVE); GC DNA AMPLIFICATION NEGATIVE (NEGATIVE)
== END ==
LOC: M SMT 17:06
DX: Z85.51 Personal history of malignant neoplasm of bladder (principal); N32.9 Bladder disorder, unspecified
CPT/HCPCS: 87086

== ENCOUNTER → 2018-03-19 | Outpatient (REF) | payer OTHER ==
[~2018-03-19] MED LIST changes: +ABIL400I IM; +ARIP10TAB NG; +ARIP5TA PO; +ATOM40CA PO; +BACT800T5 PO; +BUPR150T3 PO; +BUPR1TAB53 PO; +BUPR50TA; +BUSP10TA PO; +COLA100C5 PO; +ESCI10TA2 PO; +ESCI20TA; +ESCI20TA PO; +HYDR-3363 PO; +HYDR50TA70 PO; +IBUP40TA PO; +LAMO100T PO; +LAMO10TA PO; +MAVY1TAB PO; +MIRT15TA3 PO; +NICO21PAT TD; +NICO2GUM34 PO; +NICO2GUM8 MT; +OLAN5TAB PO; +PANT40TA3 PO; +PHYT5TA PO; +SERT-138 PO; +SERT50TA PO; +TRAZ-163 PO; +TRAZO50TA PO; +TRUVTAB PO; +VITMTA PO
[2018-03-19 13:27] LABS: BASO % 0.4 % (0.0-1.0); EOS # 0.1 10^3/uL (0.0-0.50); EOS % 1.8 % (0.0-3.0); HEMATOCRIT 47.6 % (42.0-52.0); HEMOGLOBIN 16.1 g/dl (13.5-17.5); LYMPH # 2.5 10^3/uL (1.5-4.5); LYMPH % 36.7 % (24.0-44.0); MEAN CORPUSCULAR HEMOGLOBIN 28.3 pg (27.0-33.0); MEAN CORPUSCULAR HGB CONC 33.8 g/dl (32.0-36.5); MEAN CORPUSCULAR VOLUME 83.7 fl (80.0-96.0); MONO # 0.7 10^3/uL (0.0-0.8); MONO % 10.3 % (0.0-5.0); NEUTROPHILS # 3.4 10^3/uL (1.8-7.7); NEUTROPHILS % 50.4 % (36.0-66.0); PLATELET COUNT, AUTOMATED 263 10^3/uL (150-450); RED BLOOD COUNT 5.69 10^6/uL (4.30-6.10); WHITE BLOOD COUNT 6.8 10^3/uL (4.0-10.0)
[2018-03-19 13:36] LABS: INR 1.1; PROTHROMBIN TIME 14.3 SECONDS (12.1-14.4)
[2018-03-19 13:37] LABS: PARTIAL THROMBOPLASTIN TIME 33.8 SECONDS (25.4-37.6)
[2018-03-19 14:09] LABS: ALBUMIN 3.9 GM/DL (3.2-5.2); ALT/SGPT 41 U/L (12-78); BILIRUBIN,TOTAL 0.7 MG/DL (0.2-1.0); BLOOD UREA NITROGEN 16 MG/DL (7-18); CALCIUM LEVEL 9.2 MG/DL (8.5-10.1); CARBON DIOXIDE LEVEL 28 MEQ/L (21-32); CHLORIDE LEVEL 104 MEQ/L (98-107); CREATININE FOR GFR 0.95 MG/DL (0.70-1.30); GLOMERULAR FILTRATION RATE > 60.0 (>60); GLUCOSE, FASTING 78 MG/DL (70-100); SODIUM LEVEL 139 MEQ/L (136-145); TOTAL PROTEIN 7.7 GM/DL (6.4-8.2)
[2018-03-19 15:24] LABS: CHLAMYDIA DNA AMPLIFICATION NEGATIVE (NEGATIVE); GC DNA AMPLIFICATION NEGATIVE (NEGATIVE)
[2018-03-20 09:31] LABS: HEPATITIS B SURFACE ANTIGEN NEGATIVE (NEGATIVE)
[2018-03-20 09:59] LABS: HEPATITIS B CORE ANTIBODY IGM NEGATIVE (NEGATIVE)
[2018-03-20 10:00] LABS: HEPATITIS A ANTIBODY IGM NEGATIVE (NEGATIVE)
[2018-03-20 10:26] LABS: HEPATITIS C VIRUS ABY INDEX > 11.0 INDEX (<0.8)
== END ==
LOC: M LABSMT 11:33
PROVIDERS: ATTEND Urology Pediatric Urology
DX: N32.9 Bladder disorder, unspecified (principal); F14.10 Cocaine abuse, uncomplicated; Z85.51 Personal history of malignant neoplasm of bladder; Z86.19 Personal history of other infectious and parasitic diseases

== ENCOUNTER → 2018-03-19 | Outpatient (CLI) | payer OTHER ==
--- NOTE | 2018-03-20 04:28 | REP ---
Clinical: Bladder mass . Comparison: 05/09/2017 . Technique: PA and lateral. Findings: The mediastinum and cardiac silhouette are normal. The lung andrea are clear and without acute consolidation, effusion, or pneumothorax. The skeletal structures are intact and normal. Impression: 1. No acute cardiopulmonary process. Electronically Signed by Nicola Long MD 03/20/2018 04:20 A
== END ==
LOC: M LRY 11:36
PROVIDERS: ATTEND Urology Pediatric Urology
DX: N32.9 Bladder disorder, unspecified (principal); F14.10 Cocaine abuse, uncomplicated; Z85.51 Personal history of malignant neoplasm of bladder; Z86.19 Personal history of other infectious and parasitic diseases

== ENCOUNTER → 2018-03-20 | Outpatient (REF) | payer OTHER ==
[2018-03-23 00:26] LABS: ANA (HEP2) Negative (.)
== END ==
LOC: M SFHCLERA 10:46
PROVIDERS: ATTEND Family Medicine
DX: Z82.69 Family history of other diseases of the musculoskeletal system and connective tissue (principal)

== ENCOUNTER → 2018-03-25 | Outpatient (REF) | payer OTHER | LOC: M LABSMT 12:03 | PROVIDERS: ATTEND Urology | DX: Z01.818 Encounter for other preprocedural examination (principal); N39.0 Urinary tract infection, site not specified ==

== ENCOUNTER → 2018-03-27 | Outpatient (CLI) | payer OTHER ==
[~2018-03-27] MED LIST changes: +ISOVUE-370 76% 100ML VIAL (Q9967) As Ordered ONE
--- NOTE | 2018-03-27 16:30 | REP ---
CT urography: Without and with multiphase postcontrast imaging. CT abdomen and pelvis. History: Bladder lesion. Comparison CT study May 22, 2013. CT contrast dose: 100 ml of intravenous Isovue [address] findings: Digital preliminary certified master safe technician radiograph is unremarkable. The lung bases are clear on axial CT images. The liver and the spleen are borderline enlarged with 16 cm midclavicular vertical span for the liver and 14 cm greatest diameter for the spleen. No focal hepatic or splenic lesion is appreciated. No adrenal lesion is observed on either side. The pancreas is unremarkable. There is no evidence of hydronephrosis. No intrarenal calculus is seen on either side. No mass lesion is observed. The kidneys enhance symmetrically. No retroperitoneal mass or adenopathy is seen. Small and large intestinal bowel loops are normal in the abdomen and pelvis. Prostate, seminal vesicles, and urinary bladder are unremarkable on CT images. Delayed scan images show no filling defect in the urinary bladder to suggest a mass lesion. Bladder tirado are smooth. No filling defect is visible in the upper tracts on either side. The ureters describe a normal course to the urinary bladder. Impression: Negative CT urography. No bladder or other urinary tract lesion seen. Electronically Signed by Dylan Torres MD 03/27/2018 05:06 P
== END ==
LOC: M RAD 15:27
PROVIDERS: ATTEND Urology Pediatric Urology
DX: N32.9 Bladder disorder, unspecified (principal)
CPT/HCPCS: 74178; Q9967

== ENCOUNTER 2018-03-30 18:03 | Inpatient (IN) | payer OTHER ==
[~2018-03-30] VITALS: Ht 180.3 cm; Wt 77.0 kg
[~2018-03-30 18:03] MED LIST changes: -ARIP10TAB NG; -BACT800T5 PO; -BUPR1TAB53 PO; -ESCI10TA2 PO; -HYDR-3363 PO; -ISOVUE-370 76% 100ML VIAL (Q9967) As Ordered ONE; -NICO2GUM8 MT; -PANT40TA3 PO; -TRUVTAB PO
[2018-03-30] MEDS ORDERED: PANT40TA3 PO (18:18)
[2018-03-30] MEDS ORDERED: TRUVTAB PO (18:18)
[2018-03-30] MEDS ORDERED: LORazepam 2 MG TAB PO STA (18:57)
[2018-03-30 19:07] LABS: HEMATOCRIT 48.4 % (42.0-52.0); HEMOGLOBIN 16.6 g/dl (13.5-17.5); MEAN CORPUSCULAR HEMOGLOBIN 27.9 pg (27.0-33.0); MEAN CORPUSCULAR HGB CONC 34.3 g/dl (32.0-36.5); MEAN CORPUSCULAR VOLUME 81.2 fl (80.0-96.0); PLATELET COUNT, AUTOMATED 266 10^3/uL (150-450); RED BLOOD COUNT 5.96 10^6/uL (4.30-6.10); WHITE BLOOD COUNT 8.6 10^3/uL (4.0-10.0)
--- NOTE | 2018-03-30 19:11 | REP ---
Clinical: Hallucinations . Comparison: 09/12/2014 . Findings: The ventricles, sulci, and cisterns are normal in position and appearance. Phillip-white differentiation is maintained. No acute intracranial hemorrhage, mass/mass effect, pathology or trauma/injury. No evidence for acute infarction. No extra-axial fluid collection. Calvarium is intact. Paranasal sinuses and mastoid air cells are clear. Impression: Normal noncontrast head CT. No evidence for acute intracranial pathology or trauma/injury. Electronically Signed by Nicola Long MD 03/30/2018 07:03 P
[2018-03-30 19:25] LABS: AMPHETAMINES LEVEL URINE NEGATIVE (NEGATIVE); BARBITURATES URINE NEGATIVE (NEGATIVE); BENZODIAZEPINES URINE NEGATIVE (NEGATIVE); CANNABINOIDS URINE NEGATIVE (NEGATIVE); COCAINE METABOLITE URINE NEGATIVE (NEGATIVE); METHADONE URINE NEGATIVE (NEGATIVE); OPIATES URINE NEGATIVE (NEGATIVE); PHENCYCLIDINE URINE NEGATIVE (NEGATIVE)
[2018-03-30 19:36] LABS: ALBUMIN 4.2 GM/DL (3.2-5.2); ALT/SGPT 21 U/L (12-78); BILIRUBIN,DIRECT < 0.1 MG/DL (0.0-0.2); BILIRUBIN,TOTAL 0.3 MG/DL (0.2-1.0); BLOOD UREA NITROGEN 15 MG/DL (7-18); CALCIUM LEVEL 8.6 MG/DL (8.5-10.1); CARBON DIOXIDE LEVEL 27 MEQ/L (21-32); CHLORIDE LEVEL 105 MEQ/L (98-107); CREATININE FOR GFR 1.23 MG/DL (0.70-1.30); ETHYL ALCOHOL (ETHANOL) 0.003 % (0.000-0.010); GLOMERULAR FILTRATION RATE > 60.0 (>60); GLUCOSE, FASTING 92 MG/DL (70-100); POTASSIUM SERUM 4.7 MEQ/L (3.5-5.1); SALICYLATE LEVEL < 1.7 MG/DL (5.0-30.0); SODIUM LEVEL 139 MEQ/L (136-145); THYROID STIMULATING HORMONE 0.934 uIU/ML (0.358-3.740); TOTAL PROTEIN 8.3 GM/DL (6.4-8.2)
[2018-03-30 19:37] LABS: ACETAMINOPHEN LEVEL < 2.0 UG/ML (10.0-30.0)
[2018-03-30] MEDS ORDERED: ACETAMINOPHEN TAB 650MG DOSE (2X325MG) PO PRN (20:30)
[2018-03-30] MEDS ORDERED: MOM 30ML SUSPENSION UDC PO PRN (20:30)
[2018-03-30] MEDS ORDERED: MAALOX 30 ML SUSP *UDC PO PRN (20:30)
[2018-03-30] MEDS ORDERED: BACT800T5 PO (21:19)
[2018-03-30] MEDS ORDERED: BUPR1TAB53 PO (21:19)
[2018-03-30] MEDS ORDERED: NICO2GUM8 MT (21:20)
[2018-03-30] MEDS: OLANZapine ORAL DISINTEGRATING TAB 5MG PO PRN (22:11)
[2018-03-30 23:07] VITALS: BP 138/90
[2018-03-31] MEDS: traZODone 50 MG TAB PO PRN ×2 (00:29→21:25)
[2018-03-31] MEDS: BACTRIM 160MG/800MG DS TAB PO SCH ×3 (00:29→21:25)
[2018-03-31 06:40] VITALS: BP 116/81
[2018-03-31] MEDS: buPROPion **XL** TABLET 150MG (WELLBUTRIN XL) PO SCH (08:54)
[2018-03-31] MEDS: ESCITALOPRAM OXALATE 10 MG TAB (LEXAPRO) PO SCH (08:54)
[2018-03-31] MEDS: PANTOPRAZOLE 40MG TAB (PROTONIX) PO SCH (08:54)
[2018-03-31] MEDS: NICOTINE 21MG/24HR 1 EA TRANSDERMAL TD SCH (08:57)
[2018-03-31] MEDS ORDERED: BACTRIM 160MG/800MG DS TAB PO SCH (09:00)
[2018-03-31] MEDS ORDERED: MAVYRET PO SCH (09:00)
[2018-03-31] MEDS ORDERED: TRUVADA 200MG/300MG TABLET PO SCH (09:00)
[2018-03-31] MEDS: ARIPiprazole 10 MG TAB NG SCH (12:44)
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
[2018-03-31 18:00] VITALS: BP 132/66
[2018-04-01 06:21] VITALS: BP 135/59
[2018-04-01] MEDS: BACTRIM 160MG/800MG DS TAB PO SCH ×2 (08:40→21:28)
[2018-04-01] MEDS: ARIPiprazole 10 MG TAB NG SCH (08:40)
[2018-04-01] MEDS: PANTOPRAZOLE 40MG TAB (PROTONIX) PO SCH (08:40)
[2018-04-01] MEDS: buPROPion **XL** TABLET 150MG (WELLBUTRIN XL) PO SCH (08:40)
[2018-04-01] MEDS: ESCITALOPRAM OXALATE 10 MG TAB (LEXAPRO) PO SCH (08:40)
[2018-04-01] MEDS: NICOTINE 21MG/24HR 1 EA TRANSDERMAL TD SCH (08:41)
[2018-04-01] MEDS ORDERED: hydrOXYzine 25 MG TAB PO PRN (10:45)
--- NOTE | 2018-04-01 10:45 | MHIPNPDOC ---
[facility] Progress Note Progress Note DATE OF SERVICE: 04/01/18 HISTORY: Per Dr. Jorge's admit note: "The patient has been diagnosed with bipolar disorder and depressive disorder in the past. Currently, he is on Lexapro and Wellbutrin. Since last week he has been having paranoia that people are talking about him and they are following him and they send messages through television to him. He also started hearing voices, which are unable to understand and it became worse yesterday when he came to the hospital. Complains of decreased sleep, decreased energy and poor self esteem. However, had no suicidal thoughts. He denies any manic episodes in the past or currently. He has a history of depression and anxiety, mostly generalized anxiety. His current stressors are that he has been suffering from bladder cancer. It was treated with surgery. He has financial problems. He reports that he lost his house, he lost his car, and two weeks ago he had a breakup with his boyfriend." VITAL SIGNS: See below. NEW TEST RESULTS: See below. CURRENT MEDICATIONS: See below. MENTAL STATUS EXAMINATION: He is casually dressed in hospital clothes. Personal hygiene is fair. Cooperative. Made good eye contact. Psychomotor activity is normal. Speech rate, rhythm and volume are good. Mood is depressed. Affect is constricted. Thought process is linear, goal directed, coherent. Thought content: Denies any suicidal or homicidal ideas. Continues to have vague paranoid thoughts that others follow him. He is alert, oriented to time, place, person. Memory, immediate, remote and recent are good. Insight and judgment are good. DIAGNOSES: - Lexapro 10 mg once daily - trazodone 50 mg qhs as needed - atarax 25mg q6hr prn anxiety - Bactrim DS one twice a day - abilify 10mg daily ASSESSMENT:Pt seen and states that his mood and paranoia are improved with start of abilify. C/o anxiety though. Agreeable to d/c wellbutin as can cause anxiety and start of atarax prn anxiety as he states he's taken it before and it was beneficial. States he slept well last night. Feels he is tolerating his medications and they're beneficial. Encouraged to attend groups and learn coping skills as he admits he hasn't been to one yet. He denies insomnia, SI/HI, hallucinations, delusions, paranoia. Pt feels safe here. MANAGEMENT PLAN: d/c wellbutin. Start atarax 25mg q6hr prn anxiety TIME SPENT: 30 minutes. Vital Signs Vital Signs Date Time Temp Pulse Resp B/P (MAP) Pulse Ox O2 Delivery O2 Flow Rate FiO2 04/01/18 06:21 99.3 82 14 135/59 (84) Room Air 03/30/18 18:03 96 Current Medications Current Medications Acetaminophen (Tylenol Tab) 650 mg Q6HP PRN PO HEADACHE or DISCOMFORT; Start 03/30/18 at 20:30 Al Hydrox/Mg Hydrox/Simethicone (Mylanta) 30 ml Q4HP PRN PO HE ARTBURN/INDIGESTION; Start 03/30/18 at 20:30 Aripiprazole (AbiLIFY) 10 mg DAILY NG Last administered on 04/01/18at 08:40; Start 03/31/18 at 09:00 Bupropion HCl (Wellbutrin Xl) 150 mg DAILY PO Last administered on 04/01/18at 08:40; Start 03/31/18 at 09:00 Emtricitabine/ Tenofovir (Truvada) 1 tab DAILY PO Last administered on 03/31/18at 18:54; Start 03/31/18 at 09:00; Stop 03/31/18 at 21:22; Status DC Emtricitabine/ Tenofovir (Truvada) 1 tab DAILY@1800 PO ; Start 04/01/18 at 18:00 Escitalopram Oxalate (Lexapro) 10 mg DAILY PO Last administered on 04/01/18at 08:40; Start 03/31/18 at 09:00 Home Med (Med Rec Complete!) ASDIRECTED XX ; Start 03/30/18 at 21:30; Stop 03/30/18 at 21:37; Status DC Lorazepam (Ativan) 2 mg STAT STAT PO Last administered on 03/30/18at 19:11; Start 03/30/18 at 18:57; Stop 03/30/18 at 18:58; Status DC Magnesium Hydroxide (Milk Of Magnesia) 30 ml DAILYPRN PRN PO CONSTIPATION; Start 03/30/18 at 20:30 Miscellaneous (Unresolved Patient Own Med Order) SEE LABEL COMMENTS DAILY XX ; Start 03/31/18 at 09:00; Stop 03/31/18 at 18:26; Status DC Nicotine (Nicoderm Cq 21mg) 1 patch DAILY TD ; Start 03/31/18 at 09:00 Olanzapine (ZyPREXA ZYDIS) 5 mg Q4HP PRN PO AGITATION Last administered on 03/30/18at 22:11; Start 03/30/18 at 20:30 Pantoprazole Sodium (Protonix) 40 mg DAILY PO Last administered on 04/01/18at 08:40; Start 03/31/18 at 09:00 Patient Own Medication (Patient'S Own Med) Mavyret (Glencaprevir ... DAILY PO Last administered on 03/31/18at 18:54; Start 03/31/18 at 09:00; Stop 03/31/18 at 21:22; Status DC Patient Own Medication (Patient'S Own Med) Mavyret (Glencaprevir ... DAILY@1800 PO ; Start 04/01/18 at 18:00; Stop 04/01/18 at 18:00; Status DC Patient Own Medication (Patient'S Own Med) Mavyret (Glencaprevir ... DAILY@1800 PO ; Start 04/01/18 at 18:00 Trazodone HCl (Desyrel) 50 mg QHSP PRN PO INSOMNIA Last administered on 03/31/18at 21:25; Start 03/30/18 at 23:15 Trimethoprim/ Sulfamethoxazole (Bactrim Ds, Septra Ds 160mg/ 800mg) 1 tab BID PO Last administered on 04/01/18at 08:40; Start 03/30/18 at 23:15 Trimethoprim/ Sulfamethoxazole (Bactrim Ds, Septra Ds 160mg/ 800mg) 1 tab BID PO ; Start 03/31/18 at 09:00; Stop 03/31/18 at 09:00; Status DC Allergies Coded Allergies: Clindamycin (Verified Allergy, Unknown, 03/27/18) WILL HARDY DO Apr 01, 2018 10:45 am
[2018-04-01] MEDS: MAVYRET PO SCH (17:52)
[2018-04-01] MEDS: TRUVADA 200MG/300MG TABLET PO SCH (17:52)
[2018-04-01 18:00] VITALS: BP 127/61
[2018-04-01] MEDS ORDERED: ENTER DRUG NAME HERE (PATIENT'S OWN MED) PO SCH (18:00)
[2018-04-01 21:00] VITALS: BP 124/70
[2018-04-01] MEDS: traZODone 50 MG TAB PO PRN (21:27)
[2018-04-01] MEDS: OLANZapine ORAL DISINTEGRATING TAB 5MG PO PRN (21:28)
[2018-04-02 06:48] VITALS: BP 119/55
[2018-04-02 08:03] LABS: ALBUMIN 3.1 GM/DL (3.2-5.2); ALT/SGPT 18 U/L (12-78); BILIRUBIN,DIRECT < 0.1 MG/DL (0.0-0.2); BILIRUBIN,TOTAL 0.3 MG/DL (0.2-1.0); TOTAL PROTEIN 6.3 GM/DL (6.4-8.2)
[2018-04-02] MEDS: PANTOPRAZOLE 40MG TAB (PROTONIX) PO SCH (08:24)
[2018-04-02] MEDS: ESCITALOPRAM OXALATE 10 MG TAB (LEXAPRO) PO SCH (08:24)
[2018-04-02] MEDS: NICOTINE 21MG/24HR 1 EA TRANSDERMAL TD SCH (08:24)
[2018-04-02] MEDS: BACTRIM 160MG/800MG DS TAB PO SCH ×2 (08:24→21:00)
[2018-04-02] MEDS: ARIPiprazole 10 MG TAB NG SCH (08:24)
--- NOTE | 2018-04-02 11:30 | HPE ---
DATE OF ADMISSION: 03/30/2018 Please refer to the psychiatric history and evaluation for further details on this admission. This examination and history is intended for medical issues which may need treatment, followup, or consult on this 32-year-old male. ALLERGIES: CLINDAMYCIN. SOCIAL HISTORY: He lives in [place]. He is single. He lives with his mother. He vapes, smokes electronic cigarettes. Alcohol: He has had none since July. Illicit drugs: He used methamphetamines, he states he has had none since December of 2017. FAMILY HISTORY: Mother alive, history of lupus. Father alive and well. EKG done on 08/06/2017 showed sinus tachycardia, incomplete right bundle branch block, similar to 05/09/2017. LABORATORY STUDIES: CBC is normal. Electrolytes were normal. BUN was 15, creatinine 1.23, alkaline phosphatase 131, total protein 8.3. Toxicology was negative. Head CT was done, showed normal noncontrast head CT. HOME MEDICATIONS: - Nicorette 2 mg every 2 hours as needed - glecaprevir-pibrentasvir 100-40 mg three tablets by mouth daily - bupropion 150 mg by mouth daily - Truvada 200-300 one by mouth daily - Lexapro 10 mg by mouth daily - pantoprazole 40 mg by mouth daily - Septra DS one by mouth twice a day PAST MEDICAL HISTORY: Depression, anxiety, multiple suicide attempts, hepatitis C being treated, history of bladder cancer, follows with [facility] ([facility] Urology with recent recurrence, history of Clostridium (C) difficile, none currently, history of substance abuse, history of tobacco abuse, history of alcohol abuse, hypertension. PAST SURGICAL HISTORY: Bladder tumor removal 2013. PHYSICAL EXAMINATION: 32-year-old male, no acute distress. Height 71 inches, weight 77 kg, body mass index (BMI) 23.7. Blood pressure 132/66, pulse 83, respirations 18, temperature 98.7. Patient is alert and oriented times three. Pupils equal and reactive to light. Extraocular movements are intact. Cornea and sclerae clear. Conjunctivae is normal. No facial asymmetry. Pharynx, tongue, gums pink and moist. Tongue is midline. Neck is supple without lymphadenopathy, no thyromegaly. no goiter. Carotids 2+ without bruit. Chest clear to auscultation without wheeze or retraction. Heart is regular. Abdomen is benign. Bowel sounds positive. Genitourinary/rectal not done. Extremities show equal strength, full range of motion. No cyanosis, clubbing, or edema. Peripheral pulses equal and palpable bilaterally. Skin is warm and dry. IMPRESSION/PLAN: 1. Psychiatric plan per psychiatry. 2. Hypertension. Continue current medications. 3. Hepatitis. Continue current medications. 4. Recurrent bladder cancer. Continue to followup with Dr. Akers.
--- NOTE | 2018-04-02 15:12 | MHIPN ---
DATE: 04/02/2018 SUBJECTIVE: "I'm doing better, I don't have any auditory hallucinations, I'm not paranoid." OBJECTIVE: He is a 32-year-old male, living with his mother, self-referred for depression and auditory hallucinations. The patient has significant substance abuse history. Currently, he is improving. MENTAL STATUS EXAMINATION: Casually dressed with clean clothes, good personal hygiene, cooperative, made eye contact. Psychomotor activity is normal. Speech: Rate, rhythm and volume are good. Mood is euthymic. Affect is mood congruent. Thought process: Linear, goal-directed, incoherent. Thought content: Denied any suicidal or homicidal ideas. Denied any delusions. Insight and judgment are fair. VITAL SIGNS: Temperature is 98.4, pulse is 64, respiratory rate is 16, blood pressure is 119/55. ASSESSMENT: 1. Bipolar disorder by history. 2. Generalized anxiety disorder. 3. Alcohol use disorder. 4. Amphetamine use disorder. PLAN: Continue current medication. Continue individual and group therapy.
[2018-04-02] MEDS: OLANZapine ORAL DISINTEGRATING TAB 5MG PO PRN (15:26)
[2018-04-02] MEDS: MAVYRET PO SCH (17:16)
[2018-04-02] MEDS: TRUVADA 200MG/300MG TABLET PO SCH (17:16)
[2018-04-02 18:00] VITALS: BP 135/87
[2018-04-03 07:00] VITALS: BP 128/62
[2018-04-03] MEDS: NICOTINE 21MG/24HR 1 EA TRANSDERMAL TD SCH (08:44)
[2018-04-03] MEDS: ARIPiprazole 10 MG TAB NG SCH (08:45)
[2018-04-03] MEDS: BACTRIM 160MG/800MG DS TAB PO SCH (08:46)
[2018-04-03] MEDS: ESCITALOPRAM OXALATE 10 MG TAB (LEXAPRO) PO SCH (08:46)
[2018-04-03] MEDS: PANTOPRAZOLE 40MG TAB (PROTONIX) PO SCH (08:46)
--- NOTE | 2018-04-03 10:55 | MHDSPDOC ---
[facility] Discharge Summary Discharge Summary DATE OF ADMISSION: Mar 30, 2018 at 8:24 pm DATE OF DISCHARGE: Apr 03, 2018 DISCHARGE DIAGNOSES: 1. Bipolar disorder by history. 2. Depressive disorder, not otherwise specified. 3. Generalized anxiety disorder. REASON FOR ADMISSION: Per Dr. Jorge's admit note: "The patient has been diagnosed with bipolar disorder and depressive disorder in the past. Currently, he is on Lexapro and Wellbutrin. Since last week he has been having paranoia that people are talking about him and they are following him and they send messages through television to him. He also started hearing voices, which are unable to understand and it became worse yesterday when he came to the hospital. Complains of decreased sleep, decreased energy and poor self esteem. However, had no suicidal thoughts. He denies any manic episodes in the past or currently. He has a history of depression and anxiety, mostly generalized anxiety. His current stressors are that he has been suffering from bladder cancer. It was treated with surgery. He has financial problems. He reports that he lost his house, he lost his car, and two weeks ago he had a breakup with his boyfriend." CONSULTANTS INVOLVED: none TREATMENT AND PROGRESS ON THE UNIT : Pt was admitted to [facility], seen for psychiatric assessment and his outpatient wellbutrin xl was discontinued due to side effect of anxiety. He was continued on his outpatient lexapro 10mg daily. He was started on abilify increased to 10mg daily for paranoia and AH. He was given abilify maintana 400mg im prior d/c for improved med compliance. He was provided atarax 25mg q6hr prn anxiety and trazodone 50mg qhs prn insomnia. He attended groups daily during his stay. His symptoms improved with treatment. On day of discharge he denied depression, anxiety, insomnia, SI/HI, hallucinations, delusions, psychosis, paranoia. He was discharged home after family meeting with his aunt with follow-up at [facility]. He felt safe for discharge. DISCHARGE ASSESSMENT: Pt seen and states that his mood and paranoia are improved with start of abilify. Agreeable to Abilify maintana prior d/c for improved med compliance. (risks/benefits discussed.) States his anxiety has been improved since wellbutrin was discontinued and he was provided atarax prn anxiety. States he slept well last night. Feels he is tolerating his medications and they're beneficial. He has been attending groups and learning coping skills that are beneficial for him. He denies depression, anxiety, insomnia, SI/HI, hallucinations, delusions, psychosis, paranoia.. Pt feels safe for discharged home today. MENTAL STATUS EXAMINATION ON DISCHARGE: He is casually dressed in hospital clothes. Personal hygiene is fair. Cooperative. Made good eye contact. Psychomotor activity is normal. Speech rate, rhythm and volume are good. Mood is "good". Affect is "euthymic". Thought process is linear, goal directed, coherent. Thought content: Denies any suicidal or homicidal ideas. Denies paranoia, AH, psychosis. He is alert, oriented to time, place, person. Memory, immediate, remote and recent are good. Insight and judgment are good MEDICATIONS ON DISCHARGE: - Lexapro 10 mg once daily - trazodone 50 mg qhs as needed - atarax 25mg q6hr prn anxiety - Bactrim DS one twice a day - abilify maintana 400mg im q4wks PLAN/FOLLOWUP ARRANGEMENTS: D/c home with follow-up at [facility]. The amount of time spent in the coordination of care for this patient was approximately 30 minutes. Vital Signs/I&Os Vital Signs Date Time Temp Pulse Resp B/P (MAP) Pulse Ox O2 Delivery O2 Flow Rate FiO2 04/03/18 07:00 97.7 62 18 128/62 (84) 04/01/18 06:21 Room Air 03/30/18 18:03 96 Medications Scheduled Aripiprazole Monohydrate (Abilify Maintena) 400 Mg Inj, 400 MG IM Q4WKS for psychosis, #400 Emtricitabine/Tenofovir (Truvada 200-300 mg) 1 Tab Tab, 1 TAB PO DAILY, (Reported) Escitalopram Oxalate (Escitalopram Oxalate) 10 Mg Tab, 10 MG PO DAILY for mood, #10 Glecaprevir/Pibrentasvir (Mavyret 100-40 mg) 1 Tab Tab, 3 TAB PO DAILY, (Reported) Pantoprazole Sodium (Pantoprazole Sodium) 40 Mg Tab, 40 MG PO DAILY, (Reported) Trimethoprim/Sulfamethoxazole (Bactrim Ds 800-160 mg) 1 Tab Tab, 1 TAB PO BID, (Reported) Scheduled PRN Hydroxyzine HCl (Hydroxyzine HCl) 25 Mg Tab, 25 MG PO Q6HP PRN for ANXIETY, #30 Nicotine Polacrilex (Nicorette) 2 Mg Gum, 2 MG MT Q2H PRN for NICOTINE WITHDRAWAL, (Reported) Trazodone HCl (Trazodone HCl) 50 Mg Tab, 50 MG PO QHSP PRN for INSOMNIA, #10 Allergies Coded Allergies: Clindamycin (Verified Allergy, Unknown, 03/27/18) WILL HARDY DO Apr 03, 2018 10:55 am
[2018-04-03] MEDS ORDERED: TRAZO50TA PO (10:58)
[2018-04-03] MEDS ORDERED: ESCI10TA2 PO (10:58)
[2018-04-03] MEDS ORDERED: HYDR-3363 PO (10:58)
[2018-04-03] MEDS ORDERED: ARIP10TAB NG (10:58)
[2018-04-03] MEDS ORDERED: ABIL400I IM (11:07)
[2018-04-03] MEDS ORDERED: ARIPiprazole MONOHYDRATE 400 MG INJ (ABILIFY)(J0401) IM ONE (12:00)
== END 2018-04-03 14:20 | disposition home or self-care (01) | DRG 753 ==
LOC: M ED 18:03 → M ED INP 20:24 → M PSY 21:55
PROVIDERS: ADMIT Psychiatry & Neurology Psychiatry; ATTEND Psychiatry & Neurology Psychiatry
DX: F31.9 Bipolar disorder, unspecified (principal); I10 Essential (primary) hypertension; K75.9 Inflammatory liver disease, unspecified; C67.9 Malignant neoplasm of bladder, unspecified; F32.9 Major depressive disorder, single episode, unspecified; F41.1 Generalized anxiety disorder; Z79.899 Other long term (current) drug therapy; Z59.8 Other problems related to housing and economic circumstances; F17.210 Nicotine dependence, cigarettes, uncomplicated; Z88.1 Allergy status to other antibiotic agents

== ENCOUNTER 2018-04-08 07:12 | Day surgery (SDC) | payer OTHER ==
[~2018-04-08] VITALS: Ht 180.3 cm; Wt 82.6 kg
[~2018-04-08 07:12] MED LIST changes: +ARIP10TAB NG; +BACT800T5 PO; +BUPR1TAB53 PO; +ESCI10TA2 PO; +HYDR-3363 PO; +LR 1,000 ML IV SCH; +NICO2GUM8 MT; +PANT40TA3 PO; +TRUVTAB PO
[2018-04-08] MEDS ORDERED: PROPOFOL 200 MG/20 ML VIAL As Ordered ONE (10:04)
[2018-04-08] MEDS ORDERED: fentaNYL 100 MCG/2 ML INJECTION (J3010) As Ordered ONE ×2 (10:04→10:49)
[2018-04-08] MEDS ORDERED: ROCURONIUM BROMIDE 50 MG/5 ML VIAL As Ordered ONE ×2 (10:04→10:28)
[2018-04-08] MEDS ORDERED: LIDOCAINE 2% INJ 100 MG/5 ML SDV (FOR ANES.) As Ordered ONE (10:04)
[2018-04-08] MEDS ORDERED: dexameTHASONE 4 MG/ML 1ML VIAL (J1100) As Ordered ONE (10:49)
[2018-04-08] MEDS ORDERED: ONDANSETRON 4MG/2ML VIAL (J2405) As Ordered ONE (10:49)
[2018-04-08] MEDS ORDERED: KETOROLAC 60 MG/2 ML VIAL (J1885) As Ordered ONE (10:49)
--- NOTE | 2018-04-08 11:18 | RO ---
DATE OF PROCEDURE: 04/08/2018 PREPROCEDURE DIAGNOSIS: History of bladder cancer. POSTPROCEDURE DIAGNOSIS: History of bladder cancer. PROCEDURE: Cystoscopy. SURGEON: Dr. Jesus Akers DIRECTOR OF ANALYTICS: None. ANESTHESIA: General. OPERATIVE INDICATIONS: This is a 32-year-old male with a history of low-grade urothelial carcinoma of the bladder, who on recent office cystoscopy was found to have two lesions that were somewhat concerning for early bladder tumors versus hemangiomas or other benign bladder lesions. It was recommended that he be brought to the operating room today to take another look in the bladder and if anything is seen resect those areas of concern. DESCRIPTION OF PROCEDURE: The patient was brought to the operating room, and general anesthesia was induced. Prophylactic antibiotics were infused. He was then placed in the dorsal lithotomy position, prepped and draped in the usual sterile fashion. A rigid cystoscope was inserted into the urethral meatus and advanced into the bladder. Once inside the bladder, it was thoroughly examined with both the 30- and the 70-degree lenses. Of note, the bladder was examined several times, and no abnormalities were seen. There were absolutely no areas of concern for tumors. Therefore, no resection was done. Bilateral ureteral orifices were orthotopic, and both effluxed clear urine. The prostatic urethra was unremarkable. The remainder of the urethra was also unremarkable, and there were no lesions seen. At this point, the cystoscope was completely removed, and this ended the procedure. The patient was then taken out of the dorsal lithotomy position, awakened from anesthesia, and transported to the recovery room in stable condition. ESTIMATED BLOOD LOSS: 5 mL. COMPLICATIONS: None. SPECIMENS: None. PLAN: The patient will followup in the clinic in 6 months for surveillance cystoscopy. [facility]
[2018-04-08] MEDS ORDERED: fentaNYL 100 MCG/2 ML INJECTION (J3010) IV PRN (11:45)
[2018-04-08] MEDS ORDERED: LR 1,000 ML IV SCH (11:45)
[2018-04-08] MEDS ORDERED: ONDANSETRON 4MG/2ML VIAL (J2405) IV PRN (11:45)
[2018-04-08] MEDS ORDERED: ACETAMINOPHEN TAB 650MG DOSE (2X325MG) PO PRN (11:45)
[2018-04-08 11:56] VITALS: BP 134/82
== END 2018-04-08 12:13 | disposition home or self-care (01) ==
LOC: M SDC 07:12
PROVIDERS: ATTEND Urology
DX: Z85.51 Personal history of malignant neoplasm of bladder (principal); I10 Essential (primary) hypertension; K21.9 Gastro-esophageal reflux disease without esophagitis; B18.2 Chronic viral hepatitis C; F41.9 Anxiety disorder, unspecified; F32.9 Major depressive disorder, single episode, unspecified; A53.0 Latent syphilis, unspecified as early or late; F17.290 Nicotine dependence, other tobacco product, uncomplicated; Z86.19 Personal history of other infectious and parasitic diseases; Z92.21 Personal history of antineoplastic chemotherapy; Z87.898 Personal history of other specified conditions; Z86.59 Personal history of other mental and behavioral disorders; Z82.69 Family history of other diseases of the musculoskeletal system and connective tissue
CPT/HCPCS: 52000; J0690; J1100; J1885; J2405; J3010

== ENCOUNTER → 2018-04-15 | Outpatient (REF) | payer OTHER ==
[~2018-04-15] MED LIST changes: -LR 1,000 ML IV SCH; +TRAZ1TAB14 PO
== END ==
LOC: M SFHCLERA 14:44
PROVIDERS: ATTEND Family Medicine
DX: L08.9 Local infection of the skin and subcutaneous tissue, unspecified (principal)

== ENCOUNTER 2018-04-21 12:18 | Inpatient (IN) | payer OTHER ==
[~2018-04-21] VITALS: Ht 180.3 cm; Wt 81.8 kg
[~2018-04-21 12:18] MED LIST changes: -TRAZ1TAB14 PO
[2018-04-21 13:19] LABS: HEMATOCRIT 43.8 % (42.0-52.0); HEMOGLOBIN 15.2 g/dl (13.5-17.5); MEAN CORPUSCULAR HEMOGLOBIN 27.7 pg (27.0-33.0); MEAN CORPUSCULAR HGB CONC 34.7 g/dl (32.0-36.5); MEAN CORPUSCULAR VOLUME 79.8 fl (80.0-96.0); PLATELET COUNT, AUTOMATED 266 10^3/uL (150-450); RED BLOOD COUNT 5.49 10^6/uL (4.30-6.10); WHITE BLOOD COUNT 10.3 10^3/uL (4.0-10.0)
[2018-04-21 13:32] LABS: AMPHETAMINES LEVEL URINE NEGATIVE (NEGATIVE); BARBITURATES URINE NEGATIVE (NEGATIVE); BENZODIAZEPINES URINE NEGATIVE (NEGATIVE); CANNABINOIDS URINE NEGATIVE (NEGATIVE); COCAINE METABOLITE URINE NEGATIVE (NEGATIVE); METHADONE URINE NEGATIVE (NEGATIVE); OPIATES URINE NEGATIVE (NEGATIVE); PHENCYCLIDINE URINE NEGATIVE (NEGATIVE)
[2018-04-21 14:02] LABS: ACETAMINOPHEN LEVEL < 2.0 UG/ML (10.0-30.0); ALBUMIN 3.7 GM/DL (3.2-5.2); ALT/SGPT 25 U/L (12-78); BILIRUBIN,DIRECT 0.1 MG/DL (0.0-0.2); BILIRUBIN,TOTAL 0.4 MG/DL (0.2-1.0); BLOOD UREA NITROGEN 10 MG/DL (7-18); CALCIUM LEVEL 8.5 MG/DL (8.5-10.1); CARBON DIOXIDE LEVEL 26 MEQ/L (21-32); CHLORIDE LEVEL 105 MEQ/L (98-107); CREATININE FOR GFR 0.82 MG/DL (0.70-1.30); ETHYL ALCOHOL (ETHANOL) < 0.003 % (0.000-0.010); GLOMERULAR FILTRATION RATE > 60.0 (>60); GLUCOSE, FASTING 91 MG/DL (70-100); POTASSIUM SERUM 3.9 MEQ/L (3.5-5.1); SALICYLATE LEVEL < 1.7 MG/DL (5.0-30.0); SODIUM LEVEL 139 MEQ/L (136-145); TOTAL PROTEIN 7.5 GM/DL (6.4-8.2)
[2018-04-21] MEDS ORDERED: TRAZ1TAB14 PO (16:24)
[2018-04-21] MEDS ORDERED: LEXA1TAB PO (16:24)
[2018-04-21] MEDS ORDERED: ABIL400I IM (16:24)
[2018-04-21] MEDS ORDERED: traZODone 50 MG TAB PO ONE (19:45)
[2018-04-22] MEDS ORDERED: PANTOPRAZOLE 40MG TAB (PROTONIX) PO ONE (08:30)
[2018-04-22] MEDS ORDERED: ESCITALOPRAM OXALATE 10 MG TAB (LEXAPRO) PO ONE (08:30)
[2018-04-22] MEDS: TRUVADA 200MG/300MG TABLET PO SCH (10:23)
--- NOTE | 2018-04-22 19:05 | ECGEPIP ---
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
[2018-04-22] MEDS ORDERED: ENTER DRUG NAME HERE (PATIENT'S OWN MED) PO ONE (20:30)
[2018-04-22] MEDS ORDERED: MAVYRET PO ONE (21:00)
[2018-04-22] MEDS ORDERED: traZODone 50 MG TAB PO ONE (21:00)
[2018-04-23] MEDS ORDERED: HYDROCORTISONE 1% CREAM 30 GM TOP ONE (04:15)
[2018-04-23] MEDS ORDERED: ESCITALOPRAM OXALATE 10 MG TAB (LEXAPRO) PO ONE (09:15)
[2018-04-23] MEDS ORDERED: PANTOPRAZOLE 40MG TAB (PROTONIX) PO ONE (09:15)
[2018-04-23] MEDS: TRUVADA 200MG/300MG TABLET PO SCH (09:29)
[2018-04-23] MEDS ORDERED: hydrOXYzine 25 MG TAB PO ONE (12:00)
[2018-04-23] MEDS ORDERED: MOM 30ML SUSPENSION UDC PO PRN (12:15)
[2018-04-23] MEDS ORDERED: traZODone 50 MG TAB PO PRN (12:15)
[2018-04-23] MEDS ORDERED: ACETAMINOPHEN TAB 650MG DOSE (2X325MG) PO PRN (12:15)
[2018-04-23] MEDS ORDERED: MAALOX 30 ML SUSP *UDC PO PRN (12:15)
[2018-04-23 12:35] VITALS: BP 130/67
[2018-04-23] MEDS ORDERED: NICOTINE 21MG/24HR 1 EA TRANSDERMAL TD ONE (14:00)
[2018-04-23] MEDS: hydrOXYzine 50 MG TAB PO PRN ×2 (14:19→22:03)
[2018-04-23] MEDS: ANUSOL HC CREAM 30GM TOP SCH ×2 (16:00→21:00)
[2018-04-23] MEDS ORDERED: MAVYRET 100MG/40MG TABLET PO SCH (18:00)
[2018-04-23 18:29] VITALS: BP 132/81
[2018-04-23] MEDS ORDERED: traZODone 50 MG TAB PO SCH (21:00)
[2018-04-24 07:00] VITALS: BP 100/58
[2018-04-24] MEDS: ANUSOL HC CREAM 30GM TOP SCH (08:48)
[2018-04-24] MEDS ORDERED: NICOTINE 21MG/24HR 1 EA TRANSDERMAL TD SCH (09:00)
[2018-04-24] MEDS ORDERED: TRUVADA 200MG/300MG TABLET PO SCH (09:00)
[2018-04-24] MEDS ORDERED: PANTOPRAZOLE 40MG TAB (PROTONIX) PO SCH (09:00)
[2018-04-24] MEDS ORDERED: ESCITALOPRAM OXALATE 10 MG TAB (LEXAPRO) PO SCH (09:00)
[2018-04-24] MEDS ORDERED: ATOMOXETINE HCL 40 MG CAP (STRATTERA) PO SCH (09:00)
--- NOTE | 2018-04-24 09:39 | HPEPDOC ---
[facility] Medical History & Physical Date of Admission Apr 23, 2018 History and Physical PCP: Dr Mario Oliveros ATTENDING: Dr. Jessika Wyman HPI: 32 yo M admitted to [facility] for depressive disorder, being medically examined today. No acute medical complaints today. Denies any fevers, chills, weakness, fatigue, [place], CP, SOB, cough, palpitations, abdominal pain, N/V/D or changes in bowel or bladder habits. PMHx: Anxiety Depression Bipolar disorder History of SI/SA Substance use History of bladder cancer treated at [facility] with chemotherapy and surgical resection History of C. difficile Hemorrhoids/anal fissure Chronic constipation Hepatitis C Past surgical history TURBT 06/04/2013. Surveillance cystoscopy 04/20 Dr Akers, F/U 10/18. SOCHX: Resides in: [facility] Marital Status: Single Kids: None Employment: Unemployed Tobacco use: Vape ETOH: Denies Illicit Drugs: Methamphetamine, triple C FAMHX: Mother: Alive, history of lupus Father: Alive, well ROS: As noted in HPI, otherwise 11pt ROS of systems reviewed and unremarkable. PE: GEN: 32 yo M, appears stated age. Well-nourished, well developed. No acute distress. Alert and oriented x 3. Pleasant, interactive. HEENT: Normocephalic, atraumatic. Pupils are equal, round, and reactive to light. Extraocular movements are intact. No nystagmus appreciated. Sclera are nonicteric. Conjunctiva without injection. Nose midline. Nasal turbinates witho ut bogginess. EACs both patent BL. TMs both visualized and potter with good cone of light, no bulging or erythema. No facial asymmetry. Moist mucous membranes. Dentition fair. Pharynx pink and moist, no cobblestoning. Neck supple, trachea midline. No lymphadenopathy or thyromegaly appreciated. CHEST: Regular rate and rhythm, +S1, +S2 LUNGS: Clear to auscultation bilaterally. No wheezes, rales, or rhonchi. Breathing appears symmetric and easy. Patient is speaking in full sentences. No accessory muscle use. ABD: Round, soft, non-tender, non-distended. +Bowel sounds throughout. No rebound or guarding. No costovertebral angle tenderness. EXT: Pulses 2+ bilaterally dorsalis pedis and radial. No lower extremity edema appreciated. SKIN: [place], dry, warm. Capillary refill <2sec. No rashes. NEURO: Alert and oriented x 3. Cranial nerves III-XII are intact. No focal deficits appreciated. EKG: SINUS RHYTHM DELAYED R WAVE PROGRESSION CW 08/06/[address] T WAVE CHANGES Electronically Signed On 04-22-2018 19:05:42 EST by James Fields A&P: 32 yo M admitted to [facility] for depressive disorder 1. Psych. Plan per Psychiatry. EKG on file. 2. Nicotine dependence. Patch available. 3. Hepatitis C. Continue mgmt as per ID, Dr Oliveros. Continue outpatient follow-up. 4. Follow up with PCP on discharge. 5. History of Substance abuse. Management per psychiatry. 6. GERD. Continue Protonix 40 mg by mouth daily. 7. Staff member Collin present throughout exam. Vital Signs Vital Signs Date Time Temp Pulse Resp B/P (MAP) Pulse Ox O2 Delivery O2 Flow Rate FiO2 04/24/18 07:00 98.0 71 14 100/58 (72) 04/23/18 12:06 99 Room Air Laboratory Data Labs 24H Item Value Date Time White Blood Count 10.3 10^3/uL H 04/21/18 1301 Red Blood Count 5.49 10^6/uL 04/21/18 1301 Hemoglobin 15.2 g/dl 04/21/18 1301 Hematocrit 43.8 % 04/21/18 1301 Mean Corpuscular Volume 79.8 fl L 04/21/18 1301 Mean Corpuscular Hemoglobin Concent 34.7 g/dl 04/21/18 1301 Mean Corpuscular Hemoglobin 27.7 pg 04/21/18 1301 Red Cell Distribution Width 12.1 % 04/21/18 1301 Platelet Count 266 10^3/uL 04/21/18 1301 Sodium Level 139 MEQ/L 04/21/18 1301 Potassium Level 3.9 MEQ/L 04/21/18 1301 Chloride Level 105 MEQ/L 04/21/18 1301 Carbon Dioxide Level 26 MEQ/L 04/21/18 1301 Anion Gap 8 MEQ/L 04/21/18 1301 Blood Urea Nitrogen 10 MG/DL 04/21/18 1301 Creatinine 0.82 MG/DL 04/21/18 1301 Glomerular Filtration Rate > 60.0 04/21/18 1301 Fasting Glucose 91 MG/DL 04/21/18 1301 Calcium Level 8.5 MG/DL 04/21/18 1301 Total Bilirubin 0.4 MG/DL 04/21/18 1301 Direct Bilirubin 0.1 MG/DL 04/21/18 1301 Aspartate Amino Transf (AST/SGOT) 22 U/L 04/21/18 1301 Alanine Aminotransferase (ALT/SGPT) 25 U/L 04/21/18 1301 Alkaline Phosphatase 130 U/L H 04/21/18 1301 Total Protein 7.5 GM/DL 04/21/18 1301 Albumin 3.7 GM/DL 04/21/18 1301 Albumin/Globulin Ratio 0.97 L 04/21/18 1301 Thyroid Stimulating Hormone (TSH) 1.040 uIU/ML 04/21/18 1301 Salicylates Level < 1.7 MG/DL L 04/21/18 1301 Urine Opiates Screen NEGATIVE 04/21/18 1302 Urine Methadone Screen NEGATIVE 04/21/18 1302 Acetaminophen Level < 2.0 UG/ML L 04/21/18 1301 Urine Barbiturates Screen NEGATIVE 04/21/18 1302 Urine Phencyclidine Screen NEGATIVE 04/21/18 1302 Urine Amphetamines Screen NEGATIVE 04/21/18 1302 Urine Benzodiazepines Screen NEGATIVE 04/21/18 1302 Urine Cocaine Metabolite Screen NEGATIVE 04/21/18 1302 Urine Cannabinoids Screen NEGATIVE 04/21/18 1302 Ethyl Alcohol Level < 0.003 % 04/21/18 1301 Home Medications Scheduled Aripiprazole Monohydrate (Abilify Maintena) 400 Mg Inj, 400 MG IM Q4WKS Emtricitabine/Tenofovir (Truvada 200-300 mg) 1 Tab Tab, 1 TAB PO DAILY Escitalopram Oxalate (Lexapro) 10 Mg Tab, 10 MG PO DAILY Glecaprevir/Pibrentasvir (Mavyret 100-40 mg) 1 Tab Tab, 3 TAB PO QHS Pantoprazole Sodium (Pantoprazole Sodium) 40 Mg Tab, 40 MG PO DAILY Trazodone HCl (Trazodone HCl) 150 Mg Tab, 150 MG PO QHS Allergies Coded Allergies: Clindamycin (Verified Allergy, Unknown, 04/21/18) DIARRHEA Ewa Glover Apr 24, 2018 09:39
[2018-04-24] MEDS: hydrOXYzine 50 MG TAB PO PRN (12:07)
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
[2018-04-24] MEDS ORDERED: NICO21PAT TD (13:15)
[2018-04-24] MEDS ORDERED: HYDRO50TAB PO (13:15)
[2018-04-24] MEDS ORDERED: ATOM40CA PO (13:15)
--- NOTE | 2018-04-24 17:05 | MHDSPDOC ---
[facility] Discharge Summary Discharge Summary DATE OF ADMISSION: Apr 23, 2018 at 12:08 DATE OF DISCHARGE: Apr 24, 2018 at 13:53 DISCHARGE DIAGNOSES: 1. Bipolar disorder 2. Alcohol use disorder 3. Methamphetamine use disorder 4. Polysubstance abuse 5. Anxiety 6. Insomnia REASON FOR ADMISSION: Patient says he had passive suicidal ideation and as per ED report: "Pt presented to ED after taking 20 Neurontin and a Cream Liquor on Sunday pm, and took 5 Abilify with a bottle of cough syrup yesterday. Pt stated if going to kill himself would use crystal meth and Triple C because his "life is so shitty". Pt reproted depressed, hopeless, and feeling guilty because he relapsed. Pt has a long hx of SI attempts, last attempt was 08/06/17. Pt reported was clean for a long time, vague about when he relapsed". CONSULTANTS INVOLVED: None TREATMENT AND PROGRESS ON THE UNIT : Patient was admitted on 04/23/2018. He spent two days in the ED. He said he felt that he was ready for an administrative hearing yesterday because he wanted to be discharged but then, he calmed down and he said he wanted to stay. he told me today that he had passive suicidal thoughts before he came to the hospital, they were not active and he d idn't have a plan. He says he is disappointed of himself because he relapsed and he started using drugs. he mentioned that his relationship with his mother is one of the main triggers of his mood fluctuations as he feels that she carroll him but he has not been able to leave her house because he doesn't have a job and he can't be independent. he describes his mother as cold-warm, not the mother that he had in his mind years ago, but he loves her, he knows she loves him although they have a difficult relationship. He says that she is very supportive and she called [employer] earlier saying that if he wanted to be discharged, she had no issues by allowing him to come back home. 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 He says if he would feel unsafe at home, with active SI, he would tell his mother and he would come back to the hospital. He wanted to be started on Strattera for ADHD ( he took medications as a child), because he is going back to school. HOSPITAL COURSE: As above DISCHARGE ASSESSMENT: Patient was not suicidal, not homicidal and not psychotic. MENTAL STATUS EXAMINATION ON DISCHARGE: General Appearance: well groomed, appears stated age, hospital scubs/clothing, other (multiple professional tattoos ) Demeanor: average Eye Contact: fair Activity: restless, doesn't stop moving his right leg Behavior: cooperative, pleasant Speech: clear, reg/rate,rhythm,volume Mood: depressed Affect: sad, but he laughs and smiles at times (his affect is reactive and appropriate). His affect is congruent with mood. Thought Process: anxious, sad, linear, coherent Thought Content (Other): goal directed, he wants to go to college, he is very positive about that. He denies passive or active suicidal thoughts at this time, denies homicidal thoughts, denies psychosis Thought Content (Aggressive): none reported Perception (Hallucinations): none reported Perception (Other): none reported Cognition (Impairment of): none reported Cognition(Intelligence Est.): average Oriented: Awake, Oriented times three Insight: good Judgment: improving MEDICATIONS ON DISCHARGE: Scheduled Aripiprazole Monohydrate (Abilify Maintena) 400 Mg Inj, 400 MG IM Q4WKS, (Reported) Atomoxetine HCl (Strattera) 40 Mg Cap, 40 MG PO QAM for ADHD, #7 Emtricitabine/Tenofovir (Truvada 200-300 mg) 1 Tab Tab, 1 TAB PO DAILY, (Reported) Escitalopram Oxalate (Lexapro) 10 Mg Tab, 10 MG PO DAILY, (Reported) Glecaprevir/Pibrentasvir (Mavyret 100-40 mg) 1 Tab Tab, 3 TAB PO QHS, (Reported) Nicotine (Nicotine Transdermal Syst) 21 Mg/24 Hr Dis, 1 PATCH TD DAILY for smoking cessation, #7 Pantoprazole Sodium (Pantoprazole Sodium) 40 Mg Tab, 40 MG PO DAILY, (Reported) Trazodone HCl (Trazodone HCl) 150 Mg Tab, 150 MG PO QHS, (Reported) Scheduled PRN Hydroxyzine HCl (Hydroxyzine HCl) 50 Mg Tab, 50 MG PO Q4HP PRN for ANXIETY/SALVADOR TATION, #42 PLAN/FOLLOWUP ARRANGEMENTS: Follow Up Care Education Label * Mental Health Appt 1 * Mental [facility] * Established With This Provider Yes * Therapist JUAN * Date Apr 26, 2018 * Time 13:00 * Address of Clinic or Practice [address] [facility] * Follow Up Care Education Label * Chemical Dependency Appt1 * Chemical Dependency [facility] * Address of Clinic or Practice [address] [facility] * * Additional information walk in hours Mon - Fri 8-4 Follow Up Care Education Label * Care Coordination * Care Coordination/Case Management/Supervision [facility] * Established With This Provider Yes * Blast Furnace Supervisor Nicole * * Additional information Call to follow up on referral for care management. Follow Up Care Education Label * [facility] * Therapist Irma Jimenez * Date Apr 25, 2018 * Time 13:00 * Address of Clinic or Practice [place] [address] [facility] [place], Back side of campus next to [address] * * Additional information Come over right after 1230 class, there is an intake to complete prior. Follow Up Care Education Label * Mental Health Appt 2 * Mental [facility] * Established With This Provider Yes * Therapist ASIM * Date Apr 25, 2018 * Time 11:00 * Address of Clinic or Practice [address] [place] [address] * Follow Up Care Education Label * Medical * Medical Follow Up [facility] * Established With This Provider Yes * Therapist DR. SARMIENTO * Follow Up Care Education Label * Mental Health Appt 3 * Mental [facility] * Established With This Provider Yes * Therapist JAMES * Date May 03, 2018 * Time 13:00 * Address of Clinic or Practice [address] [place] [address] * The amount of time spent in the coordination of care for this patient was approx imately 30 minutes. Vital Signs/I&Os Vital Signs Date Time Temp Pulse Resp B/P (MAP) Pulse Ox O2 Delivery O2 Flow Rate FiO2 04/24/18 07:00 98.0 71 14 100/58 (72) 04/23/18 12:06 99 Room Air Medications Scheduled Aripiprazole Monohydrate (Abilify Maintena) 400 Mg Inj, 400 MG IM Q4WKS, (Reported) Atomoxetine HCl (Strattera) 40 Mg Cap, 40 MG PO QAM for ADHD, #7 Emtricitabine/Tenofovir (Truvada 200-300 mg) 1 Tab Tab, 1 TAB PO DAILY, (Reported) Escitalopram Oxalate (Lexapro) 10 Mg Tab, 10 MG PO DAILY, (Reported) Glecaprevir/Pibrentasvir (Mavyret 100-40 mg) 1 Tab Tab, 3 TAB PO QHS, (Reported) Nicotine (Nicotine Transdermal Syst) 21 Mg/24 Hr Dis, 1 PATCH TD DAILY for smoking cessation, #7 Pantoprazole Sodium (Pantoprazole Sodium) 40 Mg Tab, 40 MG PO DAILY, (Reported) Trazodone HCl (Trazodone HCl) 150 Mg Tab, 150 MG PO QHS, (Reported) Scheduled PRN Hydroxyzine HCl (Hydroxyzine HCl) 50 Mg Tab, 50 MG PO Q4HP PRN for ANXIETY/ AGITATION, #42 Allergies Coded Allergies: Clindamycin (Verified Allergy, Unknown, 04/21/18) DIARRHEA JORGE A MEYERS MD Apr 24, 2018 17:02
[2018-05-04] MEDS ORDERED: ARIPiprazole MONOHYDRATE 400 MG INJ (ABILIFY)(J0401) IM SCH (09:00)
== END 2018-04-24 13:53 | disposition home or self-care (01) | DRG 753 ==
LOC: M ED 12:18 → M ED INP 04-23 12:08 → M PSY 04-23 12:25
PROVIDERS: ADMIT Psychiatry & Neurology Psychiatry; ATTEND Psychiatry & Neurology Psychiatry
DX: F31.9 Bipolar disorder, unspecified (principal); I10 Essential (primary) hypertension; F10.10 Alcohol abuse, uncomplicated; F15.10 Other stimulant abuse, uncomplicated; B19.20 Unspecified viral hepatitis C without hepatic coma; F17.290 Nicotine dependence, other tobacco product, uncomplicated; K21.9 Gastro-esophageal reflux disease without esophagitis; F41.9 Anxiety disorder, unspecified; G47.00 Insomnia, unspecified; K59.09 Other constipation; Z91.5 Personal history of self-harm; Z85.51 Personal history of malignant neoplasm of bladder; Z81.8 Family history of other mental and behavioral disorders; Z81.1 Family history of alcohol abuse and dependence; Z81.3 Family history of other psychoactive substance abuse and dependence; Z62.810 Personal history of physical and sexual abuse in childhood; Z79.899 Other long term (current) drug therapy; Z88.1 Allergy status to other antibiotic agents

== ENCOUNTER → 2018-07-30 | Outpatient (REF) | payer OTHER ==
[~2018-07-30] MED LIST changes: -/ESCI10TA PEG; -ARIP10TAB NG; +ARIP1TAB NG; +ARIP1TAB6 PO; -ARIP5TA PO; +B121000T PO; +BENZ0.5T PO; +GABA-843 PO; +HALO5TA PO; +HYDRO50TAB PO; +LAMO100T80 PO; -LAMO10TA PO; +LEXA1TAB PEG; +LIDO5TD TD; -NICO2GUM34 PO; +NICO2GUM50 PO; +QUET5TAB PO; +SERT-141 PO; +SERT25TA85 PO; -SERT50TA PO; +SULF1TAB93 PO; +TRAZ1TAB14 PO
[2018-08-02 14:11] LABS: HEPATITIS C QUANTITATION HCV Not Detected IU/mL (.)
== END ==
LOC: M SFHCLERA 17:14
PROVIDERS: ATTEND Family Medicine
DX: B18.2 Chronic viral hepatitis C (principal)

== ENCOUNTER 2018-10-02 13:07 | Emergency (ER) | payer OTHER ==
[~2018-10-02] VITALS: Ht 180.3 cm; Wt 70.5 kg
[~2018-10-02 13:07] MED LIST changes: -BENZ0.5T PO; +BENZ0.5T23 PO; +HYDR1TAB33 PO; -HYDRO50TAB PO; -LAMO100T PO; +LAMO100T3 PO; -TRAZ-163 PO; +TRAZ-257 PO; +TRAZ1TAB10 PO; -TRAZO50TA PO
[2018-10-02] MEDS ORDERED: PRAZ5CAP PO (13:22)
[2018-10-02] MEDS ORDERED: ZOLO100T PO (13:22)
[2018-10-02] MEDS ORDERED: GABA-845 PO (13:22)
[2018-10-02 14:12] LABS: HEMATOCRIT 45.8 % (42.0-52.0); HEMOGLOBIN 15.6 g/dl (13.5-17.5); MEAN CORPUSCULAR HEMOGLOBIN 28.1 pg (27.0-33.0); MEAN CORPUSCULAR HGB CONC 34.1 g/dl (32.0-36.5); MEAN CORPUSCULAR VOLUME 82.5 fl (80.0-96.0); PLATELET COUNT, AUTOMATED 267 10^3/uL (150-450); RED BLOOD COUNT 5.55 10^6/uL (4.30-6.10); WHITE BLOOD COUNT 8.4 10^3/uL (4.0-10.0)
[2018-10-02 15:03] LABS: ACETAMINOPHEN LEVEL < 2.0 UG/ML (10.0-30.0); ALBUMIN 4.3 GM/DL (3.2-5.2); ALT/SGPT 14 U/L (12-78); BILIRUBIN,DIRECT 0.2 MG/DL (0.0-0.2); BILIRUBIN,TOTAL 0.5 MG/DL (0.2-1.0); BLOOD UREA NITROGEN 9 MG/DL (7-18); CARBON DIOXIDE LEVEL 29 MEQ/L (21-32); CHLORIDE LEVEL 107 MEQ/L (98-107); CREATININE FOR GFR 1.13 MG/DL (0.70-1.30); ETHYL ALCOHOL (ETHANOL) < 0.003 % (0.000-0.010); GLOMERULAR FILTRATION RATE > 60.0 (>60); GLUCOSE, FASTING 91 MG/DL (70-100); POTASSIUM SERUM 3.8 MEQ/L (3.5-5.1); SALICYLATE LEVEL < 1.7 MG/DL (5.0-30.0); SODIUM LEVEL 142 MEQ/L (136-145)
[2018-10-02 15:16] LABS: AMPHETAMINES LEVEL URINE POSITIVE (NEGATIVE); BARBITURATES URINE NEGATIVE (NEGATIVE); BENZODIAZEPINES URINE NEGATIVE (NEGATIVE); CANNABINOIDS URINE POSITIVE (NEGATIVE); COCAINE METABOLITE URINE POSITIVE (NEGATIVE); METHADONE URINE NEGATIVE (NEGATIVE); OPIATES URINE NEGATIVE (NEGATIVE); PHENCYCLIDINE URINE NEGATIVE (NEGATIVE)
[2018-10-02] MEDS ORDERED: LORazepam 1 MG TAB PO ONE (15:30)
[2018-10-02 17:21] VITALS: BP 132/82
== END 2018-10-02 17:26 | disposition home or self-care (01) ==
LOC: M ED 13:07
DX: F19.10 Other psychoactive substance abuse, uncomplicated (principal); Z91.5 Personal history of self-harm; F31.9 Bipolar disorder, unspecified; B19.20 Unspecified viral hepatitis C without hepatic coma; Z85.51 Personal history of malignant neoplasm of bladder; Z87.891 Personal history of nicotine dependence; Z88.1 Allergy status to other antibiotic agents; Z79.899 Other long term (current) drug therapy
CPT/HCPCS: 36415; 80048; 80076; 80307; 84443; 85027; 99284; G0480

== ENCOUNTER 2018-10-04 11:40 | Emergency (ER) | payer OTHER ==
[~2018-10-04] VITALS: Ht 180.3 cm; Wt 74.7 kg
[~2018-10-04 11:40] MED LIST changes: +GABA-845 PO; -HYDR1TAB33 PO; +HYDRO50TAB PO; +LAMO100T PO; -LAMO100T3 PO; +PRAZ5CAP PO; +TRAZ-163 PO; -TRAZ-257 PO; +ZOLO100T PO
--- NOTE | 2018-10-04 12:35 | REP ---
Clinical: Trauma. Technique: AP and lateral views of the right tibia / fibula. Findings: No acute fracture dislocation. Skeletal structures, joint spaces, and surrounding soft tissues are normal. Impression: No acute fracture or dislocation. Electronically Signed by Nicola Long MD 10/04/2018 12:26 P
--- NOTE | 2018-10-04 12:36 | REP ---
Clinical: Trauma. Technique: Neutral and frog lateral views of the right femur. Findings: No acute fracture dislocation. Skeletal structures, joint spaces, and surrounding soft tissues are normal. Impression: No acute fracture or dislocation. Electronically Signed by Nicola Long MD 10/04/2018 12:27 P
--- NOTE | 2018-10-04 12:43 | REP ---
Clinical: Trauma. Technique: AP, lateral, bilateral oblique and sunrise views right knee . Findings: The osseous structures and joint spaces are intact and normal. There is no evidence for acute fracture or dislocation. No joint effusion is appreciated. Surrounding soft tissues are unremarkable. No subcutaneous emphysema or radiodense foreign body. Impression: Normal right knee examination. No acute fracture or dislocation. Electronically Signed by Nicola Long MD 10/04/2018 12:34 P
[2018-10-04] MEDS ORDERED: IBUP-1022 PO (13:01)
[2018-10-04 13:16] VITALS: BP 102/72
== END 2018-10-04 13:17 | disposition home or self-care (01) ==
LOC: M ED 11:40
DX: S80.01XA Contusion of right knee, initial encounter (principal); W21.11XA Struck by baseball bat, initial encounter; Y92.89 Other specified places as the place of occurrence of the external cause; B19.20 Unspecified viral hepatitis C without hepatic coma; F17.200 Nicotine dependence, unspecified, uncomplicated; Z88.1 Allergy status to other antibiotic agents

== ENCOUNTER → 2018-11-12 | Outpatient (CLI) | payer OTHER ==
[~2018-11-12] MED LIST changes: +HYDR1TAB33 PO; -HYDRO50TAB PO; +IBUP-1022 PO; -LAMO100T PO; +LAMO100T3 PO; -TRAZ-163 PO; +TRAZ-252 PO; +TRAZ-257 PO
== END ==
LOC: M OUTALCOH 08:46
PROVIDERS: ATTEND Psychiatry & Neurology Psychiatry
DX: F15.20 Other stimulant dependence, uncomplicated (principal)

== ENCOUNTER 2018-12-29 20:00 | Inpatient (IN) | payer OTHER ==
[~2018-12-29] VITALS: Ht 180.3 cm; Wt 78.0 kg
[~2018-12-29 20:00] MED LIST changes: +LAMO100T PO; -LAMO100T3 PO; +TRAZ-163 PO; -TRAZ-252 PO; -TRAZ-257 PO
[2018-12-29 20:42] LABS: HEMATOCRIT 46.5 % (42.0-52.0); HEMOGLOBIN 15.7 g/dl (13.5-17.5); MEAN CORPUSCULAR HEMOGLOBIN 27.4 pg (27.0-33.0); MEAN CORPUSCULAR HGB CONC 33.8 g/dl (32.0-36.5); PLATELET COUNT, AUTOMATED 285 10^3/uL (150-450); RED BLOOD COUNT 5.74 10^6/uL (4.30-6.10); WHITE BLOOD COUNT 6.3 10^3/uL (4.0-10.0)
[2018-12-29 21:16] LABS: ACETAMINOPHEN LEVEL < 2.0 UG/ML (10.0-30.0); ALBUMIN 3.7 GM/DL (3.2-5.2); ALT/SGPT 15 U/L (12-78); BILIRUBIN,DIRECT 0.1 MG/DL (0.0-0.2); BILIRUBIN,TOTAL 0.4 MG/DL (0.2-1.0); BLOOD UREA NITROGEN 8 MG/DL (7-18); CALCIUM LEVEL 8.1 MG/DL (8.5-10.1); CARBON DIOXIDE LEVEL 30 MEQ/L (21-32); CHLORIDE LEVEL 106 MEQ/L (98-107); CREATININE FOR GFR 0.99 MG/DL (0.70-1.30); ETHYL ALCOHOL (ETHANOL) < 0.003 % (0.000-0.010); GLOMERULAR FILTRATION RATE > 60.0 (>60); GLUCOSE, FASTING 82 MG/DL (70-100); POTASSIUM SERUM 3.7 MEQ/L (3.5-5.1); SALICYLATE LEVEL < 1.7 MG/DL (5.0-30.0); SODIUM LEVEL 143 MEQ/L (136-145); THYROID STIMULATING HORMONE 0.448 uIU/ML (0.358-3.740); TOTAL PROTEIN 6.9 GM/DL (6.4-8.2)
[2018-12-29 22:24] LABS: AMPHETAMINES LEVEL URINE POSITIVE (NEGATIVE); BARBITURATES URINE NEGATIVE (NEGATIVE); BENZODIAZEPINES URINE NEGATIVE (NEGATIVE); CANNABINOIDS URINE NEGATIVE (NEGATIVE); COCAINE METABOLITE URINE POSITIVE (NEGATIVE); METHADONE URINE NEGATIVE (NEGATIVE); OPIATES URINE NEGATIVE (NEGATIVE); PHENCYCLIDINE URINE NEGATIVE (NEGATIVE)
[2018-12-29 22:56] LABS: CK-MB VALUE MASS 1.1 NG/ML (<3.6); CPK CREATINE PHOSPHOKINASE 136 U/L (39-308); MB/CK RELATIVE INDEX 0.81 (< OR =4); TROPONIN I < 0.02 NG/ML (< 0.10)
--- NOTE | 2018-12-30 08:29 | ECGEPIP ---
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
[2018-12-30] MEDS: NICOTINE 21MG/24HR 1 EA TRANSDERMAL TD SCH (09:00)
[2018-12-30] MEDS ORDERED: MAALOX 30 ML SUSP *UDC PO PRN (15:45)
[2018-12-30] MEDS ORDERED: ACETAMINOPHEN TAB 650MG DOSE (2X325MG) PO PRN (15:45)
[2018-12-30 18:13] VITALS: BP 133/82
[2018-12-31 07:02] VITALS: BP 99/55
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
[2018-12-31] MEDS: NICOTINE 21MG/24HR 1 EA TRANSDERMAL TD SCH (09:00)
[2018-12-31] MEDS ORDERED: hydrOXYzine 50 MG TAB PO PRN (11:45)
[2018-12-31] MEDS ORDERED: ESCITALOPRAM OXALATE 10 MG TAB (LEXAPRO) PO ONE (12:15)
--- NOTE | 2018-12-31 15:29 | HPEPDOC ---
General Date of Admission Dec 30, 2018 at 15:35 Date of Service: Dec 31, 2018 Chief Complaint The patient is a 33-year-old male Who presented to the emergency room with complaints of suicidal ideation History of Present Illness Patient is a 33-year-old male with a past medical history of hepatitis C (status post treatment with Dr. Oliveros), and Badder cancer (status post surgery and chemotherapy), who presented to the emergency room with complaints of suicidal ideation. This is currently being managed by psychiatry. Hospitalist service was consultation for medical screening evaluation. Currently patient denies any headache, nausea, vomiting, chest pain, shortness of breath, cough, abdominal pain, constipation or urinary discomfort. Does report 1 episode of diarrhea. Patient reports that he has been experiencing a mild weight loss, which he is unable to quantify. Does report a poor appetite and poor sleep. Home Medications No Active Prescriptions or Reported Meds Allergies Coded Allergies: clindamycin (Verified Adverse Reaction, Intermediate, diarrhea, 10/02/18) Past Medical History Medical History Hepatitis C - s/p treatment with Dr. Oliveros Bladder CA - s/p Surgery and Intravesicular chemotherapy Surgical History Bladder surgery 2013 Family History - Mother with a history of lupus - Father without any reported medical problems Social History - Patient reports that he is an active smoker for about 17 years at 1 pack per day; reports social alcohol use; reports the use of Crystal Meth - Denies recent travel or sick contacts - Lives with parents - Occupation; patient is currently unemployed Review of Systems Other systems 10 point review of systems complete, all negative otherwise stated in HPI Vital Signs - Vitals: BP 133/82, HR 82, RR 19, Sat 98%RA, Temp 97.9F - General: Lying in bed, No acute distress, Speaking in full sentences, AAOx3 - HEENT: NC, AT, PERRLA, EOMI - CVS: RRR, +S1S2 - Lungs: Fair air entry bilaterally, No appreciated wheezing / rales / rhonchi - Abdomen: Soft, Non-distended, Non-tender - Extremities: No lower extremity edema, No calf tenderness - Neuro: No focal motor or sensory deficit - Skin: No visible rashes Plan / VTE VTE Prophylaxis Ordered?: Yes Plan Plan Suicidal ideation - Currently being managed by Psychiatry Hepatitis C - s/p treatment with Dr. Oliveros Bladder CA - s/p Surgery and Intravesicular chemotherapy DVT prophylaxis - c/w early ambulation Custom Shop Worker was present for the duration of this history and physical examination Please re-consult as needed MARKO CORDOBA MD Dec 31, 2018 15:29
[2018-12-31 16:52] VITALS: BP 110/68
[2018-12-31 16:54] VITALS: BP 114/62
[2019-01-01 06:34] VITALS: BP 112/67
[2019-01-01] MEDS ORDERED: INFLUENZA QUADRIVALENT PF VACCINE 0.5ML SYRINGE (90686) IM ONE (09:00)
[2019-01-01] MEDS: NICOTINE 21MG/24HR 1 EA TRANSDERMAL TD SCH (09:00)
[2019-01-01] MEDS: ESCITALOPRAM OXALATE 10 MG TAB (LEXAPRO) PO SCH (09:29)
--- NOTE | 2019-01-01 09:56 | MHIPNPDOC ---
[facility] Progress Note Progress Note DATE OF SERVICE: 01/01/19 HISTORY: Patient states he has been having thoughts to kill himself by taking an overdose. He states he has been having SI for past two days. Patient states he recently got back with his ex and it is not a good relationship. He reports he has been using meth again, almost daily for past 2-3 months and used suboxone yesterday. He reports decreased sleep and appetite. Patient states he has not gone to outpatient at [facility] in past three weeks and has not been taking any meds for past month. Patient usually stays with his parents, but left home and "went on a meth binge and smoked a lot of crack". He stopped all his medication and has been off of that for about a month (prazosin, abilify maintena, zoloft). He presented to the ED because he was feeling suicidal with a plan to overdose on heroin. He has prior history of overdoses in the past with tylenol before. Currently he feels tired, depressed, but denies feeling suicidal. He feels as though his medications were helping him before but feels like lexapro was helping him more than the Zoloft, he does not recall precisely why he was switched off, their may have been some sexual side effects but they weren't horrible. States he was also taking abilify in the past that he found beneficial as well. Agreeable to restarting lexapro and abilify for mood. Would like vistaril prn anxiety as he doesn't endorse occasional anxiety. He denies any symptoms of withdrawal but does feel like his "equilibrium is off and feels like he is having little brain shocks." He states he has been sleeping a lot, but is unsure of how much as he sleeps throughout most of the day. He is interested in getting better and exp ressed interest in participating with group and trying to be more active. He denies SI/HI, hallucinations, delusions. Feels safe here. VITAL SIGNS: See below. NEW TEST RESULTS: See below. CURRENT MEDICATIONS: See below. MENTAL STATUS EXAMINATION: General Appearance: disheveled, appears stated age, hospital scubs/clothing Build: thin Demeanor: withdrawn Eye Contact: avoidant Activity: average Behavior: cooperative, withdrawn Speech: clear, spontaneous, low in volume Mood: depressed, constricted, flat Mood "better" Affect: dysthymic, constricted Thought Process: logical/linear, depressed, slow Thought Content (Delusions): none reported, denies SI, HI, AVH Thought Content (Other): none reported, appropriate Thought Content (Aggressive): none reported Perception (Hallucinations): none reported Perception (Other): none reported Cognition (Impairment of): none reported Cognition(Intelligence Est.): average Oriented: Awake, Alert Insight: fair Judgment: Fair Psychosis: Denies DIAGNOSES: Unspecified Depression R/O Major depressive disorder R/O substance induced mood d/o with depressed mood secondary stimulant use Cocaine/Methamphetamine use d/o ASSESSMENT:Pt seen and states that his mood is better with the restart of his medication and lack of stimulant use. Continues to endorse daytime fatigue secondary recent stimulant use but that it is improving w/o use now. States he tolerating his medication and feels it's beneficial. Denies SI today. Still appears withdrawn, fatigued, and depressed today when seen and will monitor for improvement with treatment. States he slept well last night. He is attending some groups and finding them helpful, encouraged to go to all of them for mood improvement. He denies SI/HI, hallucinations, delusions. Pt feels safe here. MANAGEMENT PLAN: continue plan lexapro 20mg daily abilify 5mg qhs vistaril 50mg q6hr prn anxiety TIME SPENT: 30 minutes. Vital Signs Vital Signs Date Time Temp Pulse Resp B/P (MAP) Pulse Ox O2 Delivery O2 Flow Rate FiO2 01/01/19 08:31 Room Air 01/01/19 06:34 97.9 70 16 112/67 (82) 12/30/18 14:15 98 Current Medications Current Medications Medications (Trade) Dose Ordered Sig/Torie Route PRN Reason Start Time Stop Time Status Last Admin Dose Admin Acetaminophen (Tylenol Tab) 650 mg Q6HP PRN PO HEADACHE or DISCOMFORT 12/30/18 15:45 Al Hydrox/Mg Hydrox/Simethicone (Mylanta) 30 ml Q4HP PRN PO HEARTBURN/INDIGESTION 12/30/18 15:45 Aripiprazole (AbiLIFY) 5 mg QHS PO 12/31/18 21:00 Escitalopram Oxalate (Lexapro) 20 mg DAILY PO 01/01/19 09:00 10/2/19 09:29 Home Med (Med Rec Complete!) ASDIRECTED XX 12/30/18 06:15 12/30/18 06:08 DC Hydroxyzine HCl (Atarax) 50 mg Q6HP PRN PO ANXIETY/AGITATION 12/31/18 11:45 Magnesium Hydroxide (Milk Of Magnesia) 30 ml DAILYPRN PRN PO CONSTIPATION 12/30/18 15:45 Nicotine (Nicoderm Cq 21mg) 1 patch DAILY TD 12/30/18 09:00 Trazodone HCl (Desyrel) 50 mg QHSP PRN PO INSOMNIA 12/30/18 15:45 Allergies Coded Allergies: clindamycin (Verified Adverse Reaction, Intermediate, diarrhea, 10/02/18) WILL HARDY DO Jan 01, 2019 9:56 am
[2019-01-01 16:17] VITALS: BP 125/74
[2019-01-01] MEDS: traZODone 50 MG TAB PO PRN (20:49)
[2019-01-02 06:00] VITALS: BP 110/63
--- NOTE | 2019-01-02 09:53 | MHIPNPDOC ---
[facility] Progress Note Progress Note DATE OF SERVICE: 01/02/19 HISTORY: Patient states he has been having thoughts to kill himself by taking an overdose. He states he has been having SI for past two days. Patient states he recently got back with his ex and it is not a good relationship. He reports he has been using meth again, almost daily for past 2-3 months and used suboxone yesterday. He reports decreased sleep and appetite. Patient states he has not gone to outpatient at [facility] in past three weeks and has not been taking any meds for past month. Patient usually stays with his parents, but left home and "went on a meth binge and smoked a lot of crack". He stopped all his medication and has been off of that for about a month (prazosin, abilify maintena, zoloft). He presented to the ED because he was feeling suicidal with a plan to overdose on heroin. He has prior history of overdoses in the past with tylenol before. Currently he feels tired, depressed, but denies feeling suicidal. He feels as though his medications were helping him before but feels like lexapro was helping him more than the Zoloft, he does not recall precisely why he was switched off, their may have been some sexual side effects but they weren't horrible. States he was also taking abilify in the past that he found beneficial as well. Agreeable to restarting lexapro and abilify for mood. Would like vistaril prn anxiety as he doesn't endorse occasional anxiety. He denies any symptoms of withdrawal but does feel like his "equilibrium is off and feels like he is having little brain shocks." He states he has been sleeping a lot, but is unsure of how much as he sleeps throughout most of the day. He is interested in getting better and exp ressed interest in participating with group and trying to be more active. He denies SI/HI, hallucinations, delusions. Feels safe here. VITAL SIGNS: See below. NEW TEST RESULTS: See below. CURRENT MEDICATIONS: See below. MENTAL STATUS EXAMINATION: roughly no change General Appearance: disheveled, appears stated age, hospital scrubs/clothing Build: thin Demeanor: withdrawn Eye Contact: avoidant Activity: average Behavior: cooperative, withdrawn Speech: clear, spontaneous, low in volume Mood: depressed, constricted, flat Mood "getting better" Affect: dysthymic, constricted Thought Process: logical/linear, depressed, slow Thought Content (Delusions): none reported, denies SI, HI, AVH Thought Content (Other): none reported, appropriate Thought Content (Aggressive): none reported Perception (Hallucinations): none reported Perception (Other): none reported Cognition (Impairment of): none reported Cognition(Intelligence Est.): average Oriented: Awake, Alert Insight: fair Judgment: Fair Psychosis: Denies DIAGNOSES: Unspecified Depression R/O Major depressive disorder R/O substance induced mood d/o with depressed mood secondary stimulant use Cocaine/Methamphetamine use d/o ASSESSMENT:Pt seen and states that his mood continues to "get better" with the restart of his medication and lack of stimulant use. Continues to endorse daytime fatigue secondary recent stimulant use but that it is improving w/o use now. States he tolerating his medication and feels it's beneficial. Denies SI today. Continues to appear withdrawn, fatigued, and depressed today when seen and will monitor for improvement with treatment. States he slept well last night. He is attending some groups and finding them helpful, encouraged to go to all of them for mood improvement. States he told d/c systems planner that he'd like to go to inpatient rehab from treatment here for his substance abuse and that d/c systems planner making referrals for him and he's looking forward to calling rehabs after referrals to sent to aid process of acceptance to rehab upon D/C [facility]. He denies SI/HI, hallucinations, delusions. Pt feels safe here. MANAGEMENT PLAN: continue plan. refer to inpatient rehab for substance abuse. lexapro 20mg daily abilify 5mg qhs vistaril 50mg q6hr prn anxiety TIME SPENT: 30 minutes. Vital Signs Vital Signs Date Time Temp Pulse Resp B/P (MAP) Pulse Ox O2 Delivery O2 Flow Rate FiO2 01/02/19 08:14 Room Air 01/02/19 06:00 99.4 58 16 110/63 (79) 12/30/18 14:15 98 Current Medications Current Medications Medications (Trade) Dose Ordered Sig/Torie Route PRN Reason Start Time Stop Time Status Last Admin Dose Admin Acetaminophen (Tylenol Tab) 650 mg Q6HP PRN PO HEADACHE or DISCOMFORT 12/30/18 15:45 Al Hydrox/Mg Hydrox/Simethicone (Mylanta) 30 ml Q4HP PRN PO HEARTBURN/INDIGESTION 12/30/18 15:45 Aripiprazole (AbiLIFY) 5 mg QHS PO 12/31/18 21:00 01/01/19 20:49 Escitalopram Oxalate (Lexapro) 20 mg DAILY PO 01/01/19 09:00 01/01/19 09:29 Home Med (Med Rec Complete!) ASDIRECTED XX 12/30/18 06:15 12/30/18 06:08 DC Hydroxyzine HCl (Atarax) 50 mg Q6HP PRN PO ANXIETY/AGITATION 12/31/18 11:45 Magnesium Hydroxide (Milk Of Magnesia) 30 ml DAILYPRN PRN PO CONSTIPATION 12/30/18 15:45 Nicotine (Nicoderm Cq 21mg) 1 patch DAILY TD 12/30/18 09:00 Trazodone HCl (Desyrel) 50 mg QHSP PRN PO INSOMNIA 12/30/18 15:45 01/01/19 20:49 Allergies Coded Allergies: clindamycin (Verified Adverse Reaction, Intermediate, diarrhea, 10/02/18) WILL HARDY DO Jan 02, 2019 9:53 am
[2019-01-02] MEDS: NICOTINE 21MG/24HR 1 EA TRANSDERMAL TD SCH (10:44)
[2019-01-02] MEDS: ESCITALOPRAM OXALATE 10 MG TAB (LEXAPRO) PO SCH (10:44)
[2019-01-02 18:00] VITALS: BP 118/79
[2019-01-03 06:44] VITALS: BP 109/65
--- NOTE | 2019-01-03 08:42 | MHIPNPDOC ---
[facility] Progress Note Progress Note DATE OF SERVICE: 01/03/19 HISTORY: Patient states he has been having thoughts to kill himself by taking an overdose. He states he has been having SI for past two days. Patient states he recently got back with his ex and it is not a good relationship. He reports he has been using meth again, almost daily for past 2-3 months and used suboxone yesterday. He reports decreased sleep and appetite. Patient states he has not gone to outpatient at [facility] in past three weeks and has not been taking any meds for past month. Patient usually stays with his parents, but left home and "went on a meth binge and smoked a lot of crack". He stopped all his medication and has been off of that for about a month (prazosin, abilify maintena, zoloft). He presented to the ED because he was feeling suicidal with a plan to overdose on heroin. He has prior history of overdoses in the past with tylenol before. Currently he feels tired, depressed, but denies feeling suicidal. He feels as though his medications were helping him before but feels like lexapro was helping him more than the Zoloft, he does not recall precisely why he was switched off, their may have been some sexual side effects but they weren't horrible. States he was also taking abilify in the past that he found beneficial as well. Agreeable to restarting lexapro and abilify for mood. Would like vistaril prn anxiety as he doesn't endorse occasional anxiety. He denies any symptoms of withdrawal but does feel like his "equilibrium is off and feels like he is having little brain shocks." He states he has been sleeping a lot, but is unsure of how much as he sleeps throughout most of the day. He is interested in getting better and exp ressed interest in participating with group and trying to be more active. He denies SI/HI, hallucinations, delusions. Feels safe here. VITAL SIGNS: See below. NEW TEST RESULTS: See below. CURRENT MEDICATIONS: See below. MENTAL STATUS EXAMINATION: roughly no change General Appearance: disheveled, appears stated age, hospital scrubs/clothing Build: thin Demeanor: withdrawn Eye Contact: avoidant Activity: average Behavior: cooperative, withdrawn Speech: clear, spontaneous, low in volume Mood: depressed, constricted, flat Mood "ok" Affect: dysthymic, constricted Thought Process: logical/linear, depressed, slow Thought Content (Delusions): none reported, denies SI, HI, AVH Thought Content (Other): none reported, appropriate Thought Content (Aggressive): none reported Perception (Hallucinations): none reported Perception (Other): none reported Cognition (Impairment of): none reported Cognition(Intelligence Est.): average Oriented: Awake, Alert Insight: fair Judgment: Fair Psychosis: Denies DIAGNOSES: Unspecified Depression R/O Major depressive disorder R/O substance induced mood d/o with depressed mood secondary stimulant use Cocaine/Methamphetamine use d/o ASSESSMENT:Pt seen and states that his mood is "alright" today. States daytime fatigue secondary recent stimulant use is improving w/o use now. States he tolerating his medication and feels it's beneficial. Denies SI today. Cont inues to appear withdrawn, fatigued, and depressed still when seen and will monitor for improvement with treatment. States he slept well last night. He is attending some groups and finding them helpful, encouraged to go to all of them for mood improvement. D/c habitat conservation planner made referrals to inpatient rehabs yesterday and pt encouraged to start calling them today for acceptance which he states he'll do. He denies SI/HI, hallucinations, delusions. Pt feels safe here. MANAGEMENT PLAN: continue plan. refer to inpatient rehab for substance abuse. lexapro 20mg daily abilify 5mg qhs vistaril 50mg q6hr prn anxiety TIME SPENT: 30 minutes. Vital Signs Vital Signs Date Time Temp Pulse Resp B/P (MAP) Pulse Ox O2 Delivery O2 Flow Rate FiO2 01/03/19 06:44 98.9 73 16 109/65 (80) 01/02/19 08:14 Room Air 12/30/18 14:15 98 Current Medications Current Medications Medications (Trade) Dose Ordered Sig/Torie Route PRN Reason Start Time Stop Time Status Last Admin Dose Admin Acetaminophen (Tylenol Tab) 650 mg Q6HP PRN PO HEADACHE or DISCOMFORT 12/30/18 15:45 Al Hydrox/Mg Hydrox/Simethicone (Mylanta) 30 ml Q4HP PRN PO HEARTBURN/INDIGESTION 12/30/18 15:45 Aripiprazole (AbiLIFY) 5 mg QHS PO 12/31/18 21:00 01/01/19 20:49 Escitalopram Oxalate (Lexapro) 20 mg DAILY PO 01/01/19 09:00 01/02/19 10:44 Home Med (Med Rec Complete!) ASDIRECTED XX 12/30/18 06:15 12/30/18 06:08 DC Hydroxyzine HCl (Atarax) 50 mg Q6HP PRN PO ANXIETY/AGITATION 12/31/18 11:45 Magnesium Hydroxide (Milk Of Magnesia) 30 ml DAILYPRN PRN PO CONSTIPATION 12/30/18 15:45 Nicotine (Nicoderm Cq 21mg) 1 patch DAILY TD 12/30/18 09:00 Trazodone HCl (Desyrel) 50 mg QHSP PRN PO INSOMNIA 12/30/18 15:45 01/01/19 20:49 Allergies Coded Allergies: clindamycin (Verified Adverse Reaction, Intermediate, diarrhea, 10/02/18) WILL HARDY DO Jan 03, 2019 8:42 am
[2019-01-03] MEDS: NICOTINE 21MG/24HR 1 EA TRANSDERMAL TD SCH (09:00)
[2019-01-03] MEDS: ESCITALOPRAM OXALATE 10 MG TAB (LEXAPRO) PO SCH (09:32)
[2019-01-03 15:45] VITALS: BP 116/59
[2019-01-03] MEDS: MOM 30ML SUSPENSION UDC PO PRN (17:15)
[2019-01-03] MEDS: traZODone 50 MG TAB PO PRN (21:19)
[2019-01-04 07:00] VITALS: BP 108/64
[2019-01-04] MEDS: NICOTINE 21MG/24HR 1 EA TRANSDERMAL TD SCH (09:00)
[2019-01-04] MEDS: ESCITALOPRAM OXALATE 10 MG TAB (LEXAPRO) PO SCH (09:47)
[2019-01-04] MEDS: OMEPRAZOLE 20 MG CAP PO SCH (11:45)
[2019-01-04 16:08] VITALS: BP 112/64
[2019-01-04] MEDS: MOM 30ML SUSPENSION UDC PO PRN (18:31)
[2019-01-04] MEDS: traZODone 50 MG TAB PO PRN (21:36)
[2019-01-05 06:45] VITALS: BP 108/58
[2019-01-05] MEDS: ESCITALOPRAM OXALATE 10 MG TAB (LEXAPRO) PO SCH (08:43)
[2019-01-05] MEDS: OMEPRAZOLE 20 MG CAP PO SCH (08:43)
[2019-01-05] MEDS: NICOTINE 21MG/24HR 1 EA TRANSDERMAL TD SCH (08:43)
[2019-01-05 16:08] VITALS: BP 119/74
[2019-01-05] MEDS: MOM 30ML SUSPENSION UDC PO PRN (19:46)
[2019-01-05] MEDS: traZODone 50 MG TAB PO PRN (20:52)
[2019-01-06 06:34] VITALS: BP 109/67
[2019-01-06] MEDS: NICOTINE 21MG/24HR 1 EA TRANSDERMAL TD SCH (09:00)
[2019-01-06] MEDS: ESCITALOPRAM OXALATE 10 MG TAB (LEXAPRO) PO SCH (09:12)
[2019-01-06] MEDS: OMEPRAZOLE 20 MG CAP PO SCH (09:12)
--- NOTE | 2019-01-06 09:49 | MHIPNPDOC ---
[facility] Progress Note Progress Note DATE OF SERVICE: 01/06/19 HISTORY: Patient states he has been having thoughts to kill himself by taking an overdose. He states he has been having SI for past two days. Patient states he recently got back with his ex and it is not a good relationship. He reports he has been using meth again, almost daily for past 2-3 months and used suboxone yesterday. He reports decreased sleep and appetite. Patient states he has not gone to outpatient at [facility] in past three weeks and has not been taking any meds for past month. Patient usually stays with his parents, but left home and "went on a meth binge and smoked a lot of crack". He stopped all his medication and has been off of that for about a month (prazosin, abilify maintena, zoloft). He presented to the ED because he was feeling suicidal with a plan to overdose on heroin. He has prior history of overdoses in the past with tylenol before. Currently he feels tired, depressed, but denies feeling suicidal. He feels as though his medications were helping him before but feels like lexapro was helping him more than the Zoloft, he does not recall precisely why he was switched off, their may have been some sexual side effects but they weren't horrible. States he was also taking abilify in the past that he found beneficial as well. Agreeable to restarting lexapro and abilify for mood. Would like vistaril prn anxiety as he doesn't endorse occasional anxiety. He denies any symptoms of withdrawal but does feel like his "equilibrium is off and feels like he is having little brain shocks." He states he has been sleeping a lot, but is unsure of how much as he sleeps throughout most of the day. He is interested in getting better and expr essed interest in participating with group and trying to be more active. He denies SI/HI, hallucinations, delusions. Feels safe here. VITAL SIGNS: See below. NEW TEST RESULTS: See below. CURRENT MEDICATIONS: See below. MENTAL STATUS EXAMINATION: roughly no change General Appearance: disheveled, appears stated age, hospital scrubs/clothing Build: thin Demeanor: withdrawn Eye Contact: avoidant Activity: average Behavior: cooperative, withdrawn Speech: clear, spontaneous, low in volume Mood: depressed, constricted, flat Mood "feeling better" Affect: dysthymic, constricted Thought Process: logical/linear, depressed, slow Thought Content (Delusions): none reported, denies SI, HI, AVH Thought Content (Other): none reported, appropriate Thought Content (Aggressive): none reported Perception (Hallucinations): none reported Perception (Other): none reported Cognition (Impairment of): none reported Cognition(Intelligence Est.): average Oriented: Awake, Alert Insight: fair Judgment: Fair Psychosis: Denies DIAGNOSES: Unspecified Depression R/O Major depressive disorder R/O substance induced mood d/o with depressed mood secondary stimulant use Cocaine/Methamphetamine use d/o ASSESSMENT:States he is feeling better, mood improved, no thoughts for self- harm. Ready for D/C tomorrow, plans on staying sober, going to meetings when he is discharged. Was encouraged to reach out to people and attending meetings when he felt the need to use. He will reach out to his sponsor or a close friend in the program who he feels comfortable reaching out toward. He is sleeping better. Feels like he is tolerating his medications and finding them beneficial. Denies SI, HI, AVH. States he feels safe here. Attending daily groups. MANAGEMENT PLAN: continue plan. refer to inpatient rehab for substance abuse. lexapro 20mg daily abilify 5mg qhs vistaril 50mg q6hr prn anxiety Vital Signs Vital Signs Date Time Temp Pulse Resp B/P (MAP) Pulse Ox O2 Delivery O2 Flow Rate FiO2 01/06/19 06:34 97.4 61 12 109/67 (81) 01/03/19 09:00 Room Air Current Medications Current Medications Medications (Trade) Dose Ordered Sig/Torie Route PRN Reason Start Time Stop Time Status Last Admin Dose Admin Acetaminophen (Tylenol Tab) 650 mg Q6HP PRN PO HEADACHE or DISCOMFORT 12/30/18 15:45 Al Hydrox/Mg Hydrox/Simethicone (Mylanta) 30 ml Q4HP PRN PO HEARTBURN/INDIGESTION 12/30/18 15:45 Aripiprazole (AbiLIFY) 5 mg QHS PO 12/31/18 21:00 01/05/19 20:52 Escitalopram Oxalate (Lexapro) 20 mg DAILY PO 01/01/19 09:00 01/06/19 09:12 Home Med (Med Rec Complete!) ASDIRECTED XX 12/30/18 06:15 12/30/18 06:08 DC Hydroxyzine HCl (Atarax) 50 mg Q6HP PRN PO ANXIETY/AGITATION 12/31/18 11:45 Magnesium Hydroxide (Milk Of Magnesia) 30 ml DAILYPRN PRN PO CONSTIPATION 12/30/18 15:45 01/05/19 19:46 Nicotine (Nicoderm Cq 21mg) 1 patch DAILY TD 12/30/18 09:00 Omeprazole (PriLOSEC) 40 mg DAILY PO 01/04/19 09:00 01/06/19 09:12 Trazodone HCl (Desyrel) 50 mg QHSP PRN PO INSOMNIA 12/30/18 15:45 01/05/19 20:52 Allergies Coded Allergies: clindamycin (Verified Adverse Reaction, Intermediate, diarrhea, 10/02/18) WILL HARDY DO Jan 06, 2019 09:49
[2019-01-06 15:46] VITALS: BP 98/54
[2019-01-06] MEDS: MOM 30ML SUSPENSION UDC PO PRN (21:16)
[2019-01-06] MEDS: traZODone 50 MG TAB PO PRN (21:16)
[2019-01-07 06:39] VITALS: BP 116/58
[2019-01-07] MEDS ORDERED: ABIL1TAB11 PO (08:41)
[2019-01-07] MEDS ORDERED: ESCI10TA2 PO (08:41)
[2019-01-07] MEDS ORDERED: HYDR50TA70 PO (08:41)
[2019-01-07] MEDS ORDERED: TRAZ-252 PO (08:41)
[2019-01-07] MEDS: OMEPRAZOLE 20 MG CAP PO SCH (08:53)
[2019-01-07] MEDS: ESCITALOPRAM OXALATE 10 MG TAB (LEXAPRO) PO SCH (08:53)
[2019-01-07] MEDS: NICOTINE 21MG/24HR 1 EA TRANSDERMAL TD SCH (08:54)
--- NOTE | 2019-01-07 08:54 | MHDSPDOC ---
[facility] Discharge Summary Discharge Summary DATE OF ADMISSION: Dec 30, 2018 at 3:35 pm DATE OF DISCHARGE: Jan 07, 2019 DISCHARGE DIAGNOSES: Unspecified Depression R/O Major depressive disorder R/O substance induced mood d/o with depressed mood secondary stimulant use Cocaine/Methamphetamine use d/o REASON FOR ADMISSION: Patient states he has been having thoughts to kill himself by taking an overdose. He states he has been having SI for past two days. Patient states he recently got back with his ex and it is not a good relationship. He reports he has been using meth again, almost daily for past 2-3 months and used suboxone yesterday. He reports decreased sleep and appetite. Patient states he has not gone to outpatient at [facility] in past three weeks and has not been taking any meds for past month. Patient usually stays with his parents, but left home and "went on a meth binge and smoked a lot of crack". He stopped all his medication and has been off of that for about a month (prazosin, abilify maintena, zoloft). He presented to the ED because he was feeling suicidal with a plan to overdose on heroin. He has prior history of overdoses in the past with tylenol before. Currently he feels tired, depressed, but denies feeling suicidal. He feels as though his medications were helping him before but feels like lexapro was helping him more than the Zoloft, he does not recall precisely why he was switched off, their may have been some sexual side effects but they weren't horrible. States he was also taking abilify in the past that he found beneficial as well. Agreeable to restarting lexapro and abilify for mood. Would like vistaril prn anxiety as he doesn't endorse occasional anxiety. He denies any symptoms of withdrawal but does feel like his "equilibrium is off and feels like he is having little brain shocks." He states he has been sleeping a lot, but is unsure of how much as he sleeps throughout most of the day. He is interested in getting better and expres sed interest in participating with group and trying to be more active. He denies SI/HI, hallucinations, delusions. Feels safe here. CONSULTANTS INVOLVED: none TREATMENT AND PROGRESS ON THE UNIT : Pt was admitted to [facility], seen for psychiatric assessment and started on lexapro 20mg daily for mood and abilify 5mg qhs for antidepressant augmentation. He was provided vistaril 50mg q6hr and trazodone 50mg qhs prn insomnia. Pt found his medications beneficial and tolerated them well. He attended groups daily during his stay. He was referred to inpatient rehab and was discharged with plan for him to continue to call reha bs for admission date to start upon d/c. His symptoms improved with treatment. On day of discharge he denied depression, anxiety, insomnia, SI/HI, hallucinations, delusions. He was discharged home with follow-up at [facility] and eventual inpatient rehab once he founds out admission date thru follow-up calling. He felt safe for discharge. DISCHARGE ASSESSMENT: Pt seen and states he is feeling "good" and looking forward to going home as he awaits admission date to inpatient rehab by calling on his own for a date. He states his moodis improved, he has no thoughts for self-harm.He plans on staying sober, going to meetings, and call supports/his sponsor when he is discharged. Was encouraged to reach out to people and attending meetings when he felt the need to use. He is sleeping well at night. Feels like he is tolerating his medications and finding them beneficial. He has been attending groups and finding them beneficial thru out his stay. He denies depression, anxiety, insomnia, SI, HI, hallucinations, delusions. States he feels safe to discharge home today. MENTAL STATUS EXAMINATION ON DISCHARGE: General Appearance: disheveled, appears stated age, hospital scrubs/clothing Build: thin Demeanor: withdrawn Eye Contact: avoidant Activity: average Behavior: cooperative Speech: clear, spontaneous, reg volume Mood: euthymic, full range Mood "good" Affect: euthymic, congruent Thought Process: logical/linear, future oriented toward going to rehab Thought Content (Delusions): none reported, denies SI, HI, AVH Thought Content (Other): none reported, appropriate Thought Content (Aggressive): none reported Perception (Hallucinations): none reported Perception (Other): none reported Cognition (Impairment of): none reported Cognition(Intelligence Est.): average Oriented: Awake, Alert Insight: good Judgment: good Psychosis: Denies MEDICATIONS ON DISCHARGE: lexapro 20mg daily abilify 5mg qhs vistaril 50mg q6hr prn anxiety trazodone 50mg qhs prn insomnia PLAN/FOLLOWUP ARRANGEMENTS: D/c home with follow-up at [facility] and eventual inpatient rehab once he founds out admission date thru follow-up calling. The amount of time spent in the coordination of care for this patient was approximately 30 minutes. Vital Signs/I&Os Vital Signs Date Time Temp Pulse Resp B/P (MAP) Pulse Ox O2 Delivery O2 Flow Rate FiO2 01/07/19 06:39 98.6 60 12 116/58 (77) 01/03/19 09:00 Room Air Medications Scheduled Aripiprazole (Abilify) 5 Mg Tablet, 5 MG PO QHS for antidepressant augmentation, #10 Escitalopram Oxalate (Escitalopram Oxalate) 10 Mg Tablet, 20 MG PO DAILY for mood, #10 Scheduled PRN Hydroxyzine HCl (Hydroxyzine HCl) 50 Mg Tablet, 50 MG PO Q6HP PRN for ANXIETY/AGITATION, #30 Trazodone HCl (Trazodone HCl) 50 Mg Tablet, 50 MG PO QHSP PRN for INSOMNIA, #10 Allergies Coded Allergies: clindamycin (Verified Adverse Reaction, Intermediate, diarrhea, 10/02/18) WILL HARDY DO Jan 07, 2019 8:54 am
== END 2019-01-07 10:20 | disposition home or self-care (01) | DRG 754 ==
LOC: M ED 20:00 → M ED INP 12-30 15:35 → M PSY 12-30 16:49
PROVIDERS: ADMIT Psychiatry & Neurology Psychiatry; ATTEND Psychiatry & Neurology Psychiatry
DX: F32.9 Major depressive disorder, single episode, unspecified (principal); F15.14 Other stimulant abuse with stimulant-induced mood disorder; F14.10 Cocaine abuse, uncomplicated; Z62.810 Personal history of physical and sexual abuse in childhood; Z91.410 Personal history of adult physical and sexual abuse; Z81.8 Family history of other mental and behavioral disorders; Z81.1 Family history of alcohol abuse and dependence; Z56.0 Unemployment, unspecified; Z91.5 Personal history of self-harm; F17.210 Nicotine dependence, cigarettes, uncomplicated; F43.10 Post-traumatic stress disorder, unspecified; Z85.51 Personal history of malignant neoplasm of bladder; I10 Essential (primary) hypertension; Z91.14 Patient's other noncompliance with medication regimen; Z88.1 Allergy status to other antibiotic agents; Z86.19 Personal history of other infectious and parasitic diseases; K21.9 Gastro-esophageal reflux disease without esophagitis; Z92.21 Personal history of antineoplastic chemotherapy; R45.851 Suicidal ideations

== ENCOUNTER 2019-04-23 16:27 | Emergency (ER) | payer OTHER ==
[~2019-04-23] VITALS: Ht 180.3 cm; Wt 72.7 kg
[~2019-04-23 16:27] MED LIST changes: -LAMO100T PO; +LAMO100T3 PO; -TRAZ-163 PO; +TRAZ-252 PO; +TRAZ-257 PO
[2019-04-23] MEDS ORDERED: ARIP1TAB (16:44)
[2019-04-23] MEDS ORDERED: OLANZapine 5 MG TAB PO ONE (18:15)
[2019-04-23 20:48] VITALS: BP 139/85
== END 2019-04-23 21:10 | disposition home or self-care (01) ==
LOC: M ED 16:27
DX: F15.20 Other stimulant dependence, uncomplicated (principal); Z86.19 Personal history of other infectious and parasitic diseases; F17.200 Nicotine dependence, unspecified, uncomplicated; Z88.1 Allergy status to other antibiotic agents

== ENCOUNTER 2019-05-07 00:14 | Inpatient (IN) | payer OTHER ==
[~2019-05-07 00:14] MED LIST changes: +ARIP1TAB
[2019-05-07 01:55] LABS: HEMATOCRIT 46.6 % (42.0-52.0); HEMOGLOBIN 15.9 g/dl (13.5-17.5); MEAN CORPUSCULAR HEMOGLOBIN 27.8 pg (27.0-33.0); MEAN CORPUSCULAR HGB CONC 34.1 g/dl (32.0-36.5); MEAN CORPUSCULAR VOLUME 81.6 fl (80.0-96.0); PLATELET COUNT, AUTOMATED 286 10^3/uL (150-450); RED BLOOD COUNT 5.71 10^6/uL (4.30-6.10); WHITE BLOOD COUNT 12.2 10^3/uL (4.0-10.0)
[2019-05-07 02:15] LABS: AMPHETAMINES LEVEL URINE POSITIVE (NEGATIVE); BARBITURATES URINE NEGATIVE (NEGATIVE); BENZODIAZEPINES URINE NEGATIVE (NEGATIVE); CANNABINOIDS URINE NEGATIVE (NEGATIVE); COCAINE METABOLITE URINE NEGATIVE (NEGATIVE); METHADONE URINE NEGATIVE (NEGATIVE); OPIATES URINE NEGATIVE (NEGATIVE); PHENCYCLIDINE URINE NEGATIVE (NEGATIVE)
[2019-05-07 02:24] LABS: ACETAMINOPHEN LEVEL < 2.0 UG/ML (10.0-30.0); ALBUMIN 4.4 GM/DL (3.2-5.2); ALT/SGPT 12 U/L (12-78); BILIRUBIN,DIRECT 0.3 MG/DL (0.0-0.2); BILIRUBIN,TOTAL 0.7 MG/DL (0.2-1.0); BLOOD UREA NITROGEN 13 MG/DL (7-18); CALCIUM LEVEL 8.7 MG/DL (8.5-10.1); CARBON DIOXIDE LEVEL 29 MEQ/L (21-32); CHLORIDE LEVEL 107 MEQ/L (98-107); CREATININE FOR GFR 1.23 MG/DL (0.70-1.30); ETHYL ALCOHOL (ETHANOL) < 0.003 % (0.000-0.010); GLOMERULAR FILTRATION RATE > 60.0 (>60); GLUCOSE, FASTING 95 MG/DL (70-100); POTASSIUM SERUM 3.6 MEQ/L (3.5-5.1); SALICYLATE LEVEL < 1.7 MG/DL (5.0-30.0); SODIUM LEVEL 141 MEQ/L (136-145); TOTAL PROTEIN 7.8 GM/DL (6.4-8.2)
[2019-05-07] MEDS ORDERED: MOM 30ML SUSPENSION UDC PO PRN (04:15)
[2019-05-07] MEDS ORDERED: traZODone 50 MG TAB PO PRN (04:15)
[2019-05-07] MEDS ORDERED: OLANZapine ORAL DISINTEGRATING TAB 5MG PO PRN ×2 (04:15→10:15)
[2019-05-07] MEDS ORDERED: MAALOX 30 ML SUSP *UDC PO PRN (04:15)
[2019-05-07] MEDS ORDERED: ACETAMINOPHEN TAB 650MG DOSE (2X325MG) PO PRN (04:15)
[2019-05-07] MEDS ORDERED: haloperidoL 5 MG TAB PO ONE (06:22)
[2019-05-07 07:25] VITALS: BP 138/87
[2019-05-07] MEDS: NICOTINE 21MG/24HR 1 EA TRANSDERMAL TD SCH (09:00)
[2019-05-07] MEDS ORDERED: PALIPERIDONE 3 MG ER TAB (INVEGA) PO SCH ×2 (09:00→21:00)
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
[2019-05-07 23:15] VITALS: BP 128/64
[2019-05-08 06:20] VITALS: BP 141/67
[2019-05-08] MEDS: NICOTINE 21MG/24HR 1 EA TRANSDERMAL TD SCH (09:00)
--- NOTE | 2019-05-08 09:28 | MHIPNPDOC ---
[facility] Progress Note Progress Note DATE OF SERVICE: 05/08/19 HISTORY: Patient is a 33 -year-old , male, with a history of polysubstance abuse (amphetamines/methampetamines/sal" and [facility] for [facility] secondary to drug abuse (sal) who was brought to ED by PD under 9.45 after pt had previously that day eloped from the ED after his mother brought him in for worsening psychosis and paranoia for the past 2wks. Pt endorsed the belief that others were trying to harm him and his family stating "they're trying to hurt us and it's my fault" in the ED. Pt also endorsed AH of hearing people talking and laughing at him when he's at home and HI toward his girlfriend to some ED staff but not U interviewer. Per ED, pt believes his girlfriend is stealing his and his mothers items but mother confirmed that nothing had been stolen in the ED. Pt appeared anxious, guarded, and answered many questions with "I don't know". Pt admitted to medication noncompliance and possibly use of Sal and methamphetamine use recently. He denied SI in the ED. Unable to assess pt as heavily sedated after receiving zyprexa and haldol for psychosis this am to bring [facility] as was attempting to escape unit adm ission per staff. VITAL SIGNS: See below. NEW TEST RESULTS: See below. CURRENT MEDICATIONS: See below. MENTAL STATUS EXAMINATION: General Appearance: clean, appears stated age, hospital scrubs/clothing, in bed Build: thin Demeanor: withdrawn Eye Contact: avoidant Activity: average Behavior: cooperative, withdrawn Speech: clear, spontaneous, low in volume Mood: depressed, constricted, flat Mood "better" Affect: dysthymic, constricted Thought Process: logical/linear, depressed, slow Thought Content (Delusions): none reported, denies SI, HI, AVH Thought Content (Other): none reported, appropriate Thought Content (Aggressive): none reported Perception (Hallucinations): none reported Perception (Other): none reported Cognition (Impairment of): none reported Cognition(Intelligence Est.): average Oriented: Awake, Alert Insight: fair Judgment: Fair Psychosis: Denies DIAGNOSES: 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 States he doesn't need any medication and refuses to take any as he believes his paranoia and psychosis were due to his recent sal and amphetamine abuse which is very likely and a common occurrence with the pt when [facility]. States he slept well last night. He is not attending groups as he's laying in bed most of the day sleeping off his recent drug use. Encouraged to go to groups today as part of his treatment. He denies SI/HI, hallucinations, delusions. Pt feels safe here. MANAGEMENT PLAN: d/c invega as pt refuses to take. continue plan zyprexa zydis 10mg q4hr prn anxiety/agitation TIME SPENT: 30 minutes. Vital Signs Vital Signs Date Time Temp Pulse Resp B/P (MAP) Pulse Ox O2 Delivery O2 Flow Rate FiO2 05/08/19 06:20 97.6 75 16 141/67 (91) 05/07/19 07:25 Room Air 05/07/19 04:28 100 Current Medications Current Medications Medications (Trade) Dose Ordered Sig/Torie Route PRN Reason Start Time Stop Time Status Last Admin Dose Admin Acetaminophen (Tylenol Tab) 650 mg Q6HP PRN PO HEADACHE or DISCOMFORT 05/07/19 04:15 Al Hydrox/Mg Hydrox/Simethicone (Mylanta) 30 ml Q4HP PRN PO HEARTBURN/INDIGESTION 05/07/19 04:15 Home Med (Med Rec Complete!) ASDIRECTED XX 05/07/19 02:00 05/07/19 01:56 DC Magnesium Hydroxide (Milk Of Magnesia) 30 ml DAILYPRN PRN PO CONSTIPATION 05/07/19 04:15 Nicotine (Nicoderm Cq 21mg) 1 patch DAILY TD 05/07/19 09:00 Olanzapine (ZyPREXA ZYDIS) 5 mg Q4HP PRN PO AGITATION 05/07/19 04:15 05/07/19 10:05 DC 05/07/19 06:50 Olanzapine (ZyPREXA ZYDIS) 10 mg Q4HP PRN PO ANXIETY/AGITATION 05/07/19 10:15 Paliperidone (Invega) 3 mg QAM PO 05/07/19 09:00 Paliperidone (Invega) 3 mg QHS PO 05/07/19 21:00 Trazodone HCl (Desyrel) 50 mg QHSP PRN PO INSOMNIA 05/07/19 04:15 Allergies Coded Allergies: clindamycin (Verified Adverse Reaction, Intermediate, diarrhea, 10/02/18) WILL HARDY DO May 08, 2019 8:53 am
[2019-05-08] MEDS ORDERED: LORazepam 2 MG TAB PO ONE (15:00)
--- NOTE | 2019-05-08 18:05 | CR.PDOC ---
General Date of Consultation: May 08, 2019 Consultation REASON FOR CONSULTATION/CHIEF COMPLAINT: Physical examination HISTORY OF PRESENT ILLNESS: Patient is 33 years old male with past medical history of syphilis, treated in 2018, Bladder cancer, hepatitis C, who was admitted in the hospital with delusions. Of note patient stated that he was not retested for syphilis, hepatitis and HIV. He denied any cardiovascular problem, breathing problem, GI problem or dysuria. He denies fever, chills, nausea, vomiting, shortness of breath, palpitations, diarrhea or dysuria ALLERGIES: Please see below. HOME MEDICATIONS: Please see below. PAST MEDICAL HISTORY: syphilis, treated in 2018, Bladder cancer treated with surgery and chemotherapy in 2017, hepatitis C PAST SURGICAL HISTORY: Cystoscopy with bladder cancer resection FAMILY HISTORY: Father: Healthy Mother: Lupus, skin cancer SOCIAL HISTORY: Marital status and/or living arrangements: Single Tobacco use: Smokes 1 pack a day ETOH: Occasional Illicit drug use: heroin and crystal meth PHYSICAL EXAMINATION: VITAL SIGNS: Please see below. GENERAL APPEARANCE: NAD HEENT: PERRLA, EOMI RESPIRATORY: CTA CARDIOVASCULAR: S1-S2 ABDOMEN: Nontender nondistended EXTREMITIES: No swelling NEUROLOGICAL: Cranial nerves from 2-12 intact LABORATORY DATA: Please see below. ASSESSMENT/PLAN: Patient does not have any acute complaints about his general health. Due to multiple episodes of unprotected sex patient is in the high risk of sexual transmitted diseases. Patient agreed to be test for syphilis, HIV, hepatitis, and other STD Vital Signs/I&O Vital Signs Date Time Temp Pulse Resp B/P (MAP) Pulse Ox O2 Delivery O2 Flow Rate FiO2 05/08/19 06:20 97.6 75 16 141/67 (91) 05/07/19 07:25 Room Air 05/07/19 04:28 100 Allergies Coded Allergies: clindamycin (Verified Adverse Reaction, Intermediate, diarrhea, 10/02/18) Home Medications No Active Prescriptions or Reported Meds NATHALIE BARAJAS DO May 08, 2019 18:05
[2019-05-08 18:38] VITALS: BP 116/80
[2019-05-09 06:05] VITALS: BP 95/52
[2019-05-09] MEDS: NICOTINE 21MG/24HR 1 EA TRANSDERMAL TD SCH (08:47)
--- NOTE | 2019-05-09 09:42 | MHDSPDOC ---
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 Pt endorsed the belief that others were trying to harm him and his family stating "they're trying to hurt us and it's my fault" in the ED. Pt also endorsed AH of hearing people talking and laughing at him when he's at home and HI toward his girlfriend to some ED staff but not U interviewer. Per ED, pt believes his girlfriend is stealing his and his mothers items but mother confirmed that nothing had been stolen in the ED. Pt appeared anxious, guarded, and answered many questions with "I don't know". Pt admitted to medication noncompliance and possibly use of Sal and methamphetamine use recently. He denied SI in the ED. Unable to assess pt as heavily sedated after receiving zyprexa and haldol for psychosis this am to bring [facility] as was attempting to escape unit admission per staff. CONSULTANTS INVOLVED: none TREATMENT AND PROGRESS ON THE UNIT : Pt was [facility], seen for psychiatric assessment and started on invega 3mg bid that he refused to take and therefor it was discontinued. He was provided zyprexa zydis 10mg q4hr prn anxiety/agitation and trazodone 50mg qhs prn insomnia. Pt's symptoms of paranoia and psychosis improved to none as he came off his recent sal and amphetamine abuse. He did not attend groups as he preferred to stay in bed most of the day sleeping off recent stimulant abuse. His symptoms improved with treatment and safety monitoring. On day of discharge he denied depression, anxiety, insomnia, SI/HI, hallucinations, delusions, paranoia. He was discharged to the [facility] in [place]. Pt declined outpatient substance abuse treatment and given walk-in hours for substance abuse clinic in [place].. He felt safe for discharge. DISCHARGE ASSESSMENT: Pt seen and states that his mood feels "good" and that he wants to go to the [facility] in [facility] and declined any for of outpatinet substance abuse treatment or medication as he admitted he was not interested in sobriety and would continue to abuse drugs. Denies paranoid or that people are out to hurt him or his mother. States he doesn't need any medication and refuses to take any as he believes his paranoia and psychosis were due to his recent sal and amphetamine abuse which is very likely and a common occurrence with the pt when [facility]. States he slept well last night. He is not attending groups as he's laying in bed most of the day sleeping off his recent drug use. He denies depression, anxiety, insomnia, SI/HI, hallucinations, delusions, paranoia. Pt feels safe to d/c to [facility] in [place]. MENTAL STATUS EXAMINATION ON DISCHARGE: General Appearance: clean, appears stated age, hospital scrubs/clothing, in bed Build: thin Demeanor: cooperative Eye Contact: fair Activity: average Behavior: cooperative Speech: clear, spontaneous, reg volume Mood: euthymic, flat Mood "good" Affect: euthymic, appropriate Thought Process: logical/linear Thought Content (Delusions): none reported, denies SI, HI, AVH Thought Content (Other): none reported, appropriate Thought Content (Aggressive): none reported Perception (Hallucinations): none reported Perception (Other): none reported Cognition (Impairment of): none reported Cognition(Intelligence Est.): average Oriented: Awake, Alert Insight: poor regarding substance abuse, fair regarding safety Judgment: poor regarding substance abuse, fair regarding safety Psychosis: Denies MEDICATIONS ON DISCHARGE: refused PLAN/FOLLOWUP ARRANGEMENTS: D/c to the [facility] in [place]. Pt declined outpatient substance abuse treatment and given walk-in hours for substance abuse clinic in [place]. The amount of time spent in the coordination of care for this patient was approximately 30 minutes. Vital Signs/I&Os Vital Signs Date Time Temp Pulse Resp B/P (MAP) Pulse Ox O2 Delivery O2 Flow Rate FiO2 05/09/19 06:05 98.1 60 18 95/52 (66) 2/5/20 07:25 Room Air 05/07/19 04:28 100 Laboratory Data Labs 24H Laboratory Tests 2 05/09/19 07:11: Medications No Active Prescriptions or Reported Meds Allergies Coded Allergies: clindamycin (Verified Adverse Reaction, Intermediate, diarrhea, 10/02/18) WILL HARDY DO May 09, 2019 9:42 am
[2019-05-09 12:54] LABS: HEPATITIS A ANTIBODY IGM NEGATIVE (NEGATIVE); HEPATITIS B CORE ANTIBODY IGM NEGATIVE (NEGATIVE); HEPATITIS B SURFACE ANTIGEN NEGATIVE (NEGATIVE); HIV 1&2 SCREEN CENTAUR NEGATIVE (NEGATIVE)
[2019-05-09 12:58] LABS: HEPATITIS C VIRUS ABY INDEX > 11.0 INDEX (<0.8)
== END 2019-05-09 12:20 | disposition home or self-care (01) | DRG 773 ==
LOC: M ED 00:14 → M ED INP 04:04 → M PSY 06:30
PROVIDERS: ADMIT Psychiatry & Neurology Psychiatry; ATTEND Psychiatry & Neurology Psychiatry
DX: F15.259 Other stimulant dependence with stimulant-induced psychotic disorder, unspecified (principal); Z91.14 Patient's other noncompliance with medication regimen; Z88.1 Allergy status to other antibiotic agents; Z62.810 Personal history of physical and sexual abuse in childhood; Z91.410 Personal history of adult physical and sexual abuse; Z56.0 Unemployment, unspecified; Z85.51 Personal history of malignant neoplasm of bladder; B19.20 Unspecified viral hepatitis C without hepatic coma; Z92.21 Personal history of antineoplastic chemotherapy; F17.210 Nicotine dependence, cigarettes, uncomplicated; F11.20 Opioid dependence, uncomplicated

== ENCOUNTER 2019-05-17 18:42 | Inpatient (IN) | payer OTHER ==
[~2019-05-17] VITALS: Ht 180.3 cm; Wt 69.2 kg
[2019-05-17] MEDS ORDERED: HYDR50TA70 PO (19:27)
[2019-05-17] MEDS ORDERED: ARIP1TAB PO (19:27)
[2019-05-17] MEDS ORDERED: TRAZ-252 PO (19:27)
[2019-05-17] MEDS ORDERED: ESCI20TA PO (19:27)
[2019-05-17 20:33] LABS: HEMATOCRIT 47.9 % (42.0-52.0); HEMOGLOBIN 16.8 g/dl (13.5-17.5); MEAN CORPUSCULAR HEMOGLOBIN 28.2 pg (27.0-33.0); MEAN CORPUSCULAR HGB CONC 35.1 g/dl (32.0-36.5); MEAN CORPUSCULAR VOLUME 80.5 fl (80.0-96.0); PLATELET COUNT, AUTOMATED 303 10^3/uL (150-450); RED BLOOD COUNT 5.95 10^6/uL (4.30-6.10); WHITE BLOOD COUNT 17.2 10^3/uL (4.0-10.0)
[2019-05-17 21:03] LABS: AMPHETAMINES LEVEL URINE POSITIVE (NEGATIVE); BARBITURATES URINE NEGATIVE (NEGATIVE); BENZODIAZEPINES URINE NEGATIVE (NEGATIVE); CANNABINOIDS URINE POSITIVE (NEGATIVE); COCAINE METABOLITE URINE POSITIVE (NEGATIVE); METHADONE URINE NEGATIVE (NEGATIVE); OPIATES URINE NEGATIVE (NEGATIVE); PHENCYCLIDINE URINE NEGATIVE (NEGATIVE)
[2019-05-17 21:06] LABS: ACETAMINOPHEN LEVEL < 2.0 UG/ML (10.0-30.0); ALBUMIN 4.6 GM/DL (3.2-5.2); ALT/SGPT 15 U/L (12-78); BILIRUBIN,DIRECT 0.3 MG/DL (0.0-0.2); BILIRUBIN,TOTAL 1.4 MG/DL (0.2-1.0); BLOOD UREA NITROGEN 16 MG/DL (7-18); CALCIUM LEVEL 9.2 MG/DL (8.5-10.1); CARBON DIOXIDE LEVEL 29 MEQ/L (21-32); CHLORIDE LEVEL 106 MEQ/L (98-107); CREATININE FOR GFR 1.22 MG/DL (0.70-1.30); ETHYL ALCOHOL (ETHANOL) < 0.003 % (0.000-0.010); GLOMERULAR FILTRATION RATE > 60.0 (>60); GLUCOSE, FASTING 115 MG/DL (70-100); POTASSIUM SERUM 3.7 MEQ/L (3.5-5.1); SALICYLATE LEVEL < 1.7 MG/DL (5.0-30.0); SODIUM LEVEL 141 MEQ/L (136-145)
[2019-05-17] MEDS ORDERED: traZODone 50 MG TAB PO PRN (21:15)
[2019-05-17] MEDS ORDERED: MAALOX 30 ML SUSP *UDC PO PRN (21:15)
[2019-05-17] MEDS ORDERED: MOM 30ML SUSPENSION UDC PO PRN (21:15)
[2019-05-17] MEDS ORDERED: ACETAMINOPHEN TAB 650MG DOSE (2X325MG) PO PRN (21:15)
[2019-05-17] MEDS ORDERED: PRAZ1CAP PO (22:18)
[2019-05-17 23:57] VITALS: BP 136/90
[2019-05-18] MEDS ORDERED: LORazepam 2 MG TAB PO ONE
[2019-05-18] MEDS ORDERED: diphenhydrAMINE 50 MG CAP PO ONE
--- NOTE | 2019-05-18 02:03 | IPNPDOC ---
Text Note Date of Service The patient was seen on 05/18/19. NOTE Called to evaluate left hand wound by nursing. 33 year old male with ~2cm laceration on the medial/palmar aspect of his left hand. There is surrounding erythema, but the skin is not warm to touch, and there is no fluctuance appreciated. Pulses and capillary refill are appropriate, not lymphangitis appreciated. He was cooperative with my exam. Would recommend either Keflex or Bactrim, however patient did refuse. Would also recommend warm compresses, bacitracin ointment, and tylenol or motrin if it pains him. VS,Fishbone, I+O VS, Fishbone, I+O Laboratory Tests 05/17/19 19:56 Vital Signs Date Time Temp Pulse Resp B/P (MAP) Pulse Ox O2 Delivery O2 Flow Rate FiO2 05/17/19 23:57 97.7 100 18 136/90 (105) 100 Room Air GME ATTESTATION GME ATTESTATION My faculty preceptor for this patient encounter was physically present during the encounter and was fully available. All aspects of the patient interview, examination, medical decision making process, and medical care plan development were reviewed and approved by the faculty preceptor. The faculty preceptor is aware and concurs with the plan as stated in the body of this note and will attest to such by his/her cosignature. CAMRON PALMER D.O. May 18, 2019 02:03
[2019-05-18 06:10] VITALS: BP 108/60
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
[2019-05-18] MEDS: CEPHALEXIN 500 MG CAP PO SCH ×2 (15:00→21:00)
[2019-05-18 15:24] VITALS: BP 136/88
[2019-05-18] MEDS ORDERED: OLANZapine ORAL DISINTEGRATING TAB 5MG PO PRN (17:30)
--- NOTE | 2019-05-19 08:29 | MHIPNPDOC ---
[facility] Progress Note Progress Note DATE OF SERVICE: 05/19/19 HISTORY: . VITAL SIGNS: See below. NEW TEST RESULTS: . CURRENT MEDICATIONS: See below. MENTAL STATUS EXAMINATION: Patient is a -year old male, who is . Speech: Is . Language skills are . Thought processes including: . Thought content: . Abstract reasoning, and computation: . Description of associ ations: . Description of abnormal or psychotic thoughts: . Judgment: . Insight: [very limited, good, fair. poor]. Orientation: . Recent and remote memory: . Attention span and concentration: . Language: . Fund of knowledge: . Mood: . Affect: . DIAGNOSES: 1. . 2. . 3. . ASSESSMENT: MANAGEMENT PLAN: . TIME SPENT: minutes. Vital Signs Vital Signs Date Time Temp Pulse Resp B/P (MAP) Pulse Ox O2 Delivery O2 Flow Rate FiO2 05/18/19 15:24 98.0 100 18 136/88 (104) 05/17/19 23:57 100 Room Air Current Medications Current Medications Medications (Trade) Dose Ordered Sig/Torie Route PRN Reason Start Time Stop Time Status Last Admin Dose Admin Acetaminophen (Tylenol Tab) 650 mg Q6HP PRN PO HEADACHE or DISCOMFORT 05/17/19 21:15 Al Hydrox/Mg Hydrox/Simethicone (Mylanta) 30 ml Q4HP PRN PO HEARTBURN/INDIGESTION 05/17/19 21:15 Cephalexin Monohydrate (Keflex) 500 mg BID PO 05/18/19 15:00 05/23/19 14:59 Home Med (Med Rec Complete!) ASDIRECTED XX 05/17/19 22:30 05/17/19 22:27 DC Magnesium Hydroxide (Milk Of Magnesia) 30 ml DAILYPRN PRN PO CONSTIPATION 05/17/19 21:15 Olanzapine (ZyPREXA ZYDIS) 10 mg Q4HP PRN PO ANXIETY/AGITATION 05/18/19 17:30 Trazodone HCl (Desyrel) 50 mg QHSP PRN PO INSOMNIA 05/17/19 21:15 Allergies Coded Allergies: clindamycin (Verified Adverse Reaction, Intermediate, diarrhea, 10/02/18) RAJESH DESHPANDE DO May 19, 2019 08:29
--- NOTE | 2019-05-19 10:15 | MHDSPDOC ---
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 Cocaine use disorder, severe. Opioid use disorder, unspecified. Alcohol use disorder, unspecified. Tobacco use disorder, moderate. Antisocial personality disorder. History of Present Illness The patient, a well known 33-year-old man who presents after becoming intoxicated with various substances including methamphetamine presents again to our ER psychotic after he was picked up after what appears to be using a number of different hallucinogens stimulants. He is quite psychotic and unable to be met with today. He was recently discharged from our care unit for very similar presentation. The patient was unable to be met with today as he bizarrely walked away whenever approached having some moments clarity, interspersed with his inability to discuss any meaningful information on how he came in. Information below is extracted from previous notes and updated as appropriate. Consultants Involved Hospitalist/PCP screening Treatment and Progress On The Unit The patient was admitted to the inpatient unit with likely substance-related psychosis. He was observed with little supportive treatment and returned to his baseline mental status. The patient has a notable history of antisocial personality and generally enjoys asking for various things in order to reject them. When I met with him, he was generally pleasant with me as he had wanted to be discharged, consistent with his previous admissions of when he generally resloves from his substance-induced psychosis. He is generally amenable but otherwise can be quite demeaning to staff. The patient did not have any significant behavioral problems during his observation or psychotic and was resigned to his room. He eventually requested discharge after he returned to a normal mental status and was discharged in good noa. Discharge Assessment 33-year-old man with likely antisocial personality disorder and drug abuse, presents after being found psychotic after doing Brooke and methamphetamine. The patient at the time of discharge did not meet criteria for involuntary admission/extension due to having a normal mental status exam, fair insight into the situation, They are engaged in the discharge process, as well as being friendly and amenable in behavioral control and havent been engaging in any observed concerning behavior or ideation recently. They decline voluntary extension/admission at this time and must be discharged in good noa, as Im unable to make a case for holding the patient against their will. They may have historical risk factors of admissions and other interactions with psychiatry however, those are not modifiable from a clinical perspective. The patient will need to be discharged in good noa. Mental Status Examination General: Well dressed with good hygiene Speech: Spontaneous and fluid Thought processes: Linear and logical MSK: Smooth and coordinated gait, no signs of tremors or involuntary orofacial movements Thought content: Future orientated Abstract reasoning, and computation: Intact Description of associations: Intact Description of abnormal or psychotic thoughts: Denies any suicidal or homicidal ideation. Denies any auditory or visual hallucinations. Does not appear to be responding to internal stimuli. Does not appear to be endorsing any bizarre or paranoid ideation. Judgment: limited Insight: limited at baseline Orientation: Alert and orientated 3 Cognition: Grossly normal Recent and remote memory: Intact Attention span and concentration: Intact Fund of knowledge: Adequate Mood: "okay" Affect: Euthymic with a full range Follow Up The social work team worked during the predischarge meeting in order to evaluate for further issues of lethality address them fully before discharge. They worked on safety planning with the patient's family members in order to ensure that the patient will have a safe and effective discharge. Time Spent The amount of time spent in the coordination of care for this patient was approximately 40 minutes. Sunday Vital Signs/I&Os Vital Signs Date Time Temp Pulse Resp B/P (MAP) Pulse Ox O2 Delivery O2 Flow Rate FiO2 05/18/19 15:24 98.0 100 18 136/88 (104) 05/17/19 23:57 100 Room Air Laboratory Data Microbiology Microbiology 05/18/19 Blood Culture, Received Pending Medications Scheduled Aripiprazole (Aripiprazole) 10 Mg Tablet, 10 MG PO DAILY, (Reported) Cephalexin (Cephalexin) 500 Mg Capsule, 500 MG PO BID for hand for 7 Days, #14 Escitalopram Oxalate (Escitalopram Oxalate) 20 Mg Tablet, 20 MG PO DAILY, (Reported) Prazosin Hcl (Prazosin HCl) 1 Mg Capsule, 2 MG PO QHS, (Reported) Scheduled PRN Hydroxyzine HCl (Hydroxyzine HCl) 50 Mg Tablet, 50 MG PO Q6H PRN for AGITATION, (Reported) Trazodone HCl (Trazodone HCl) 50 Mg Tablet, 50 MG PO QHS PRN for SLEEP, (Reported) Allergies Coded Allergies: clindamycin (Verified Adverse Reaction, Intermediate, diarrhea, 10/02/18) RAJESH DESHPANDE DO May 19, 2019 10:15
[2019-05-19] MEDS ORDERED: CEPH500C PO (10:21)
[2019-05-19] MEDS ORDERED: ARIPiprazole MONOHYDRATE 400 MG INJ (ABILIFY)(J0401) IM ONE (13:00)
[2019-05-19 13:18] LABS: HEMATOCRIT 43.3 % (42.0-52.0); HEMOGLOBIN 14.9 g/dl (13.5-17.5); MEAN CORPUSCULAR HEMOGLOBIN 28.5 pg (27.0-33.0); MEAN CORPUSCULAR HGB CONC 34.4 g/dl (32.0-36.5); PLATELET COUNT, AUTOMATED 245 10^3/uL (150-450); RED BLOOD COUNT 5.22 10^6/uL (4.30-6.10); WHITE BLOOD COUNT 7.6 10^3/uL (4.0-10.0)
--- NOTE | 2019-05-19 18:36 | CR ---
DATE OF CONSULTATION: 05/18/2019 REASON FOR CONSULTATION: Medical evaluation of inpatient psychiatric patient. HISTORY OF PRESENT ILLNESS: Mr. Mendoza is a 33-year-old gentleman who has had multiple admissions to the inpatient psychiatric unit for attempted suicide. He has history of polysubstance abuse with intravenous drug use. His last time using drugs was approximately four days ago. He usually shoots up into veins in his arms or sometimes in the skin if he misses. He also has a history of polysubstance abuse. He had been brought in by the police to the emergency room for threatening suicidal ideation. In the emergency room (ER) department, his urine testing was positive for amphetamines, cocaine, as well as marijuana. He was noted to have a white count of 17,000, but was afebrile with stable hemodynamics. Overnight, the medicine team was called by the inpatient psychiatry nursing staff to evaluate the laceration on his left hand. The patient has hyperemia both of his hands, but no evidence of any cellulitis, since the wound has been there for several weeks and actually is healing. ALLERGIES: CLINDAMYCIN. MEDICATION LIST: Has been reviewed in the electronic record. PAST MEDICAL HISTORY: Notable for: 1. Hepatitis C, for which he completed treatment approximately one year ago, 2. History of suicidal ideation. 3. History of suicide attempt secondary to overdoses. 4. History of polysubstance abuse. 5. History of bladder cancer status post chemotherapy and surgery. 6. History of Clostridium (C) difficile colitis. 7. History of hypertension. 8. History of chronic constipation. PAST SURGICAL HISTORY: Notable for bladder resection. SOCIAL HISTORY: Patient smokes cigarettes, abuses drugs and occasionally uses alcohol. FAMILY HISTORY: Notable for lupus in his mom. PHYSICAL EXAMINATION: The patient's temperature is 98, pulse is 100, respirations 18, blood pressure 136/80, oxygen saturation 100% on room air. GENERAL: Patient is alert and oriented times three. He is anxious. He appears to otherwise be in no acute distress. He is a young male who appears older than his stated age. His skin did show evidence of a rash for skin findings of endocarditis. He does have hyperemia of both hands that improve with elevation of his arms. He has a healing gash on his left palm on the ulnar side, which is healed. No fluctuance or pustular discharge is expressed with manipulation. His pupils are symmetric and reactive to light. Oropharynx is clear. Neck is supple. LUNGS: Sounds are present without rales or rhonchi. HEART: S1, S2. No murmurs or gallops. ABDOMEN: Soft, nontender. EXTREMITIES: Without any cyanosis, clubbing or edema. PERTINENT DIAGNOSTICS: Urine toxicology positive for amphetamines, cocaine, marijuana, salicylates, Tylenol. Alcohol levels were normal. Sodium 141, potassium 3.7, chloride 106, bicarbonate 29, BUN 16, creatinine 1.22, glucose 100. TSH 1.16. White count 17.2, hemoglobin 16.1, hematocrit 47.9, platelet count 303. IMPRESSION: 1. Leukocytosis, unspecified. 2. Polysubstance abuse with intravenous drug use. 3. Suicidal ideation. 4. History of hepatitis C, treated. RECOMMENDATIONS: At this time, I would repeat patient's complete blood count (CBC), as well as check blood cultures. Would resume patient's home medications, per recommendations of psychiatry service. Will monitor white blood cell count and repeat CBC in the morning. Will await the results of the cultures, should they be normal, we are fine; however, if they turn positive, he will be need to be admitted to the hospital.
== END 2019-05-19 14:50 | disposition home or self-care (01) | DRG 751 ==
LOC: M ED 18:42 → M ED INP 21:13 → M PSY 23:55
PROVIDERS: ADMIT Psychiatry & Neurology Addiction Medicine; ATTEND Psychiatry & Neurology Addiction Medicine
DX: F29 Unspecified psychosis not due to a substance or known physiological condition (principal); F15.20 Other stimulant dependence, uncomplicated; F14.20 Cocaine dependence, uncomplicated; F11.90 Opioid use, unspecified, uncomplicated; F10.10 Alcohol abuse, uncomplicated; F17.200 Nicotine dependence, unspecified, uncomplicated

== ENCOUNTER 2019-07-24 16:24 | Inpatient (IN) | payer OTHER ==
[~2019-07-24] VITALS: Ht 180.3 cm; Wt 72.7 kg
[~2019-07-24 16:24] MED LIST changes: +ARIP1TAB PO; -ATOM40CA PO; +ATOM40CA16 PO; +CEPH500C PO; +PRAZ1CAP PO
[2019-07-24] MEDS ORDERED: PANT40TA3 PO (16:39)
[2019-07-24] MEDS ORDERED: PROP20TA72 PO (16:39)
[2019-07-24 17:33] LABS: HEMATOCRIT 46.1 % (42.0-52.0); HEMOGLOBIN 16.3 g/dl (13.5-17.5); MEAN CORPUSCULAR HEMOGLOBIN 28.5 pg (27.0-33.0); MEAN CORPUSCULAR HGB CONC 35.4 g/dl (32.0-36.5); MEAN CORPUSCULAR VOLUME 80.6 fl (80.0-96.0); PLATELET COUNT, AUTOMATED 310 10^3/uL (150-450); RED BLOOD COUNT 5.72 10^6/uL (4.30-6.10); WHITE BLOOD COUNT 8.7 10^3/uL (4.0-10.0)
[2019-07-24 17:59] LABS: AMPHETAMINES LEVEL URINE POSITIVE (NEGATIVE); BARBITURATES URINE NEGATIVE (NEGATIVE); BENZODIAZEPINES URINE NEGATIVE (NEGATIVE); CANNABINOIDS URINE NEGATIVE (NEGATIVE); COCAINE METABOLITE URINE POSITIVE (NEGATIVE); METHADONE URINE NEGATIVE (NEGATIVE); OPIATES URINE NEGATIVE (NEGATIVE); PHENCYCLIDINE URINE NEGATIVE (NEGATIVE)
[2019-07-24 18:08] LABS: ALBUMIN 4.5 GM/DL (3.2-5.2); ALT/SGPT 20 U/L (12-78); BILIRUBIN,DIRECT 0.3 MG/DL (0.0-0.2); BILIRUBIN,TOTAL 1.1 MG/DL (0.2-1.0); BLOOD UREA NITROGEN 16 MG/DL (7-18); CALCIUM LEVEL 9.7 MG/DL (8.5-10.1); CARBON DIOXIDE LEVEL 25 MEQ/L (21-32); CHLORIDE LEVEL 106 MEQ/L (98-107); CPK CREATINE PHOSPHOKINASE 102 U/L (39-308); CREATININE FOR GFR 1.43 MG/DL (0.70-1.30); ETHYL ALCOHOL (ETHANOL) < 0.003 % (0.000-0.010); GLOMERULAR FILTRATION RATE > 60.0 (>60); GLUCOSE, FASTING 109 MG/DL (70-100); POTASSIUM SERUM 3.5 MEQ/L (3.5-5.1); SALICYLATE LEVEL < 1.7 MG/DL (5.0-30.0); SODIUM LEVEL 140 MEQ/L (136-145); TOTAL PROTEIN 8.3 GM/DL (6.4-8.2)
[2019-07-24 18:09] LABS: ACETAMINOPHEN LEVEL < 2.0 UG/ML (10.0-30.0)
[2019-07-24 19:43] LABS: CHLAMYDIA DNA AMPLIFICATION NEGATIVE (NEGATIVE); GC DNA AMPLIFICATION NEGATIVE (NEGATIVE)
[2019-07-24] MEDS ORDERED: OLANZapine ORAL DISINTEGRATING TAB 5MG PO ONE (20:00)
[2019-07-24] MEDS ORDERED: MOM 30ML SUSPENSION UDC PO PRN (20:15)
[2019-07-24] MEDS ORDERED: traZODone 50 MG TAB PO PRN (20:15)
[2019-07-24] MEDS ORDERED: hydrOXYzine 50 MG TAB PO PRN (20:15)
[2019-07-24] MEDS ORDERED: MAALOX 30 ML SUSP *UDC PO PRN (20:15)
[2019-07-24] MEDS ORDERED: ACETAMINOPHEN TAB 650MG DOSE (2X325MG) PO PRN (20:15)
[2019-07-24] MEDS ORDERED: HALOPERIDOL 5MG/ML VIAL (J1630 PER 1) IM STA ×2 (20:55→21:42)
[2019-07-24] MEDS ORDERED: diphenhydrAMINE 50MG/ML VIAL (J1200) IM STA ×2 (20:55→21:42)
[2019-07-24] MEDS ORDERED: LORazepam 2 MG/ML VIAL (J2060) IM STA ×2 (20:55→21:42)
[2019-07-24] MEDS: PROPRANOLOL 20 MG TAB PO SCH (21:00)
[2019-07-24 21:45] VITALS: BP 157/100
[2019-07-24 23:30] VITALS: BP 135/80
[2019-07-24 23:45] VITALS: BP 135/70
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
[2019-07-25] MEDS: PANTOPRAZOLE 40MG TAB (PROTONIX) PO SCH (10:26)
[2019-07-25] MEDS: ESCITALOPRAM OXALATE 10 MG TAB (LEXAPRO) PO SCH (10:26)
[2019-07-25] MEDS: ARIPiprazole 10 MG TAB PO SCH (10:27)
[2019-07-25] MEDS: PROPRANOLOL 20 MG TAB PO SCH ×2 (10:28→21:00)
--- NOTE | 2019-07-25 13:23 | HPEPDOC ---
General Date of Admission Jul 24, 2019 at 20:01 Date of Service: Jul 25, 2019 Chief Complaint The patient is a 33-year-old male admitted with a reason for visit of Unspecified Psychotic Disorder. Source: Patient History of Present Illness 33 year old male with PMH of syphilis, Hep C treated in 2018, bladder cancer treated in 2017, IV heroin use, polysubstance abuse with Meth amphetamine, marijuana, cocaine etc was admitted to [facility] for acute psychosis after use of methamphetamine and cocaine. Says feeling very tired and sleepy this morning and wants to sleep more. Denied any medical complaints. Home Medications Scheduled Aripiprazole (Aripiprazole) 10 Mg Tablet, 10 MG PO DAILY, (Reported) Escitalopram Oxalate (Escitalopram Oxalate) 20 Mg Tablet, 20 MG PO DAILY, (Reported) Pantoprazole Sodium (Pantoprazole Sodium) 40 Mg Tablet.dr, 1 TAB PO DAILY, (Reported) Propranolol HCl (Propranolol HCl) 20 Mg Tablet, 1 TAB PO BID, (Reported) Scheduled PRN Hydroxyzine HCl (Hydroxyzine HCl) 50 Mg Tablet, 50 MG PO Q6H PRN for AGITATION, (Reported) Trazodone HCl (Trazodone HCl) 50 Mg Tablet, 50 MG PO QHS PRN for SLEEP, (Reported) Allergies Coded Allergies: clindamycin (Verified Adverse Reaction, Intermediate, diarrhea, 10/02/18) Past Medical History Medical History Syphilis, treated in 2018 in residential Hepatitis C treated in 2018 Bladder cancer treated with surgery and chemotherapy in 2017, H/o liver failure Anxiety Depression Bipolar disorder Polysubstance abuse Suicidal attempt int he past. Surgical History Cystoscopy with bladder cancer resection Family History Father: Healthy Mother: Lupus, skin cancer, MELANOMA X 2, Hypertension Social History * Smoker: current smoker Alcohol: occationally Tobacco use: Smokes 1 pack a day ETOH: Occasional Illicit drug use: heroin and crystal meth,cocaine, marijuana A-FIB/CHADSVASC A-FIB History Current/History of A-Fib/PAF?: No Review of Systems Constitutional: Denies: Chills, Fever, Night Sweats Eyes: Denies: Pain, Vision change ENT: Denies: Head Aches, Ear Pain, Dysphagia Skin: Denies: Rash, Lesions, Breakdown Pulmonary: Denies: Dyspnea, Cough Cardiovascular: Denies: Chest Pain, Palpitations, Orthopnea, Paroxysmal Noc. Dyspnea, Lt Headedness Gastrointestinal: Denies: Nausea, Vomiting, Abdominal Pain, Diarrhea Genitourinary: Denies: Dysuria, Frequency, Incontinence, Retention Musculoskeletal: Denies: Neck Pain, Back Pain, Joint Pain, Muscle Pain, Spasms Physical Examination General Exam: Positive: Alert, Cooperative, No Acute Distress Eye Exam: Positive: PERRLA, Conjunctiva & lids normal, EOMI; Negative: Sclera icteric ENT Exam: Positive: Atraumatic, Mucous membr. moist/pink, Pharynx Normal Neck Exam: Positive: Supple; Negative: JVD, thyromegaly Chest Exam: Positive: Clear to auscultation, Normal air movement Heart Exam: Positive: Rate Normal, Regular Rhythm, Normal S1, Normal S2; Negative: Murmurs, Rubs Abdomen Exam: Positive: Normal bowel sounds, Soft; Negative: Tenderness, Hepatospenomegaly Extremity Exam: Positive: Normal pulses; Negative: Clubbing, Cyanosis, Edema Vital Signs Vital Signs Date Time Temp Pulse Resp B/P (MAP) Pulse Ox O2 Delivery O2 Flow Rate FiO2 07/25/19 10:28 81 135/70 07/24/19 23:45 97.2 14 97 Room Air Laboratory Data Labs 24H Laboratory Tests 2 07/24/19 17:18: Nucleated Red Blood Cells % (auto) 0.0, Urine Color BRET, Urine Appearance HAZY, Urine pH 6.0, Urine Specific [place] 1.028, Urine Protein 1+H, Urine Glucose (UA) NEGATIVE, Urine Ketones 1+H, Urine Blood NEGATIVE, Urine Nitrite NEGATIVE, Urine Bilirubin NEGATIVE, Urine Urobilinogen 4.0H, Urine Leukocyte Esterase NEGATIVE, Urine WBC (Auto) 1, Urine RBC (Auto) 2, Urine Hyaline Casts (Auto) 0, Urine Bacteria (Auto) NEGATIVE, Urine Squamous Epithelial Cells 0, Urine Calcium Oxalate Cryst (Auto) SMALL, Urine Mucus (Auto) LARGE, Urine Sperm (Auto) SMALLH, Anion Gap 9, Glomerular Filtration Rate > 60.0, Calcium Level 9.7, Total Bilirubin 1.1H, Direct Bilirubin 0.3H, Aspartate Amino Transf (AST/SGOT) 11, Alanine Aminotransferase (ALT/SGPT) 20, Alkaline Phosphatase 105, Total Creatine Kinase 102, Total Protein 8.3H, Albumin 4.5, Albumin/Globulin Ratio 1.18, Thyroid Stimulating Hormone (TSH) 1.180, Salicylates Level < 1.7L, Urine Opiates Screen NEGATIVE, Urine Methadone Screen NEGATIVE, Acetaminophen Level < 2.0L, Urine Barbiturates Screen NEGATIVE, Urine Phencyclidine Screen NEGATIVE, Urine Amphetamines Screen POSITIVEH, Urine Benzodiazepines Screen NEGATIVE, Urine Cocaine Metabolite Screen POSITIVEH, Urine Cannabinoids Screen NEGATIVE, Ethyl Alcohol Level < 0.003, Chlamydia trachomatis DNA (ALLAN) NEGATIVE, Neisseria gonorrhoeae DNA (ALLAN) NEGATIVE CBC/BMP Laboratory Tests 07/24/19 17:18 Assessment/Plan 33 year old male with PMH of syphilis, Hep C treated in 2018, bladder cancer treated in 2017, IV heroin use, polysubstance abuse with Meth amphetamine, marijuana, cocaine etc was admitted to [facility] for acute psychosis after use of methamphetamine and cocaine. Acute psychosis management as per psychiatry No medical complains at this time with sign off. Plan / VTE VTE Prophylaxis Ordered?: No LOLLY GAYLE MD Jul 25, 2019 10:41
--- NOTE | 2019-07-25 14:00 | ECGEPIP ---
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
[2019-07-25 18:16] VITALS: BP 106/60
[2019-07-26 06:47] VITALS: BP 101/55
[2019-07-26] MEDS: PROPRANOLOL 20 MG TAB PO SCH ×2 (09:38→22:01)
[2019-07-26] MEDS: ARIPiprazole 10 MG TAB PO SCH (09:38)
[2019-07-26] MEDS: PANTOPRAZOLE 40MG TAB (PROTONIX) PO SCH (09:38)
[2019-07-26] MEDS: ESCITALOPRAM OXALATE 10 MG TAB (LEXAPRO) PO SCH (09:38)
[2019-07-26] MEDS ORDERED: OLANZapine ORAL DISINTEGRATING TAB 5MG PO ONE (16:45)
--- NOTE | 2019-07-26 19:26 | MHIPNPDOC ---
[facility] Progress Note Progress Note DATE OF SERVICE: 07/26/19 HISTORY: He sleeps a lot, appetite is "I don't know", he denies feeling depressed, he denies feeling very anxious, he reports feeling annoyed. He denies feeling suicidal and although he denies feeling homicidal, he can't stop talking about how evil his mother has been. He says he doesn't knnow how she was able to disappear his ID and other forms of identity. He thinks I'm part of a reality show and he thiks the other patients are actors VITAL SIGNS: See below. NEW TEST RESULTS: See below CURRENT MEDICATIONS: See below. MENTAL STATUS EXAMINATION: Patient is a 33-year old male, who is alert, dressed in hospital clothes, thinner that he used to be, restless, fidgety. Speech: Is loud at times, normal tone, rapid. Spontaneous, fluent. Language skills are good Thought processes including: linear, but not coherent. Thought content: Paranoid thoughts, angry thoughts a Abstract reasoning, and computation: not assessed at this time, the patient is angry, agitated.. Description of associations: fair Description of abnormal or psychotic thoughts: He is very paranoid, he blames his mother for hiding all his ID's, he says she will do it for money. She thinks [facility] is the set for amovie and that all the patients are actors. Judgment: Poor Insight: Poor Orientation: x 3 Recent and remote memory: fair but is clouded by his delusions Attention span and concentration: fair Language: adequate Fund of knowledge: average Mood: Irritable, angry Affect: Congruent with mood DIAGNOSES: 1. . 2. . 3. . ASSESSMENT: He is very irritable,, he is very restless, he doesn't stop moving, he scratches his head, his arms, he says his head itches. He is paranoid, delusional and unfortunately this seems to be his baseline now. He is not reporting homicidal thoughts, denies suicidal ideation, denies TAV halluciations and I basically think that all of this presentation is the result of his drug use. He has had several admissions recently, he has been discharged and comes back with the same presentation. This young man has lost weight and his mental health has deteriorated. I e ordered a oe time dose of Zyprexa Zydis 10 mgs and 10 mgs PO BID of the same medication, scheduled. MANAGEMENT PLAN: He is very paranoid and angry. This is the result of his drug abuse. I knew this patient and this was not his personality. Will evaluate his response to zyprexa Zydis and if he is stable tomorrow to be discharged, he will be discharged. the only reason he was kept today at [facility] is because he is very irritable TIME SPENT: 15 minutes. Vital Signs Vital Signs Date Time Temp Pulse Resp B/P (MAP) Pulse Ox O2 Delivery O2 Flow Rate FiO2 07/26/19 09:38 95 126/81 07/26/19 06:47 99.2 16 99 Room Air Current Medications Current Medications Medications (Trade) Dose Ordered Sig/Torie Route PRN Reason Start Time Stop Time Status Last Admin Dose Admin Acetaminophen (Tylenol Tab) 650 mg Q6HP PRN PO HEADACHE or DISCOMFORT 07/24/19 20:15 Al Hydrox/Mg Hydrox/Simethicone (Mylanta) 30 ml Q4HP PRN PO HEARTBURN/INDIGESTION 07/24/19 20:15 Aripiprazole (AbiLIFY) 10 mg DAILY PO 07/25/19 09:00 07/26/19 09:38 Diphenhydramine HCl (Benadryl) 50 mg STAT STAT IM 07/24/19 20:55 07/24/19 20:56 DC Diphenhydramine HCl (Benadryl) 50 mg STAT STAT IM 07/24/19 21:42 07/24/19 21:44 DC 07/24/19 21:56 Escitalopram Oxalate (Lexapro) 20 mg DAILY PO 07/25/19 09:00 07/26/19 09:38 Haloperidol (Haldol) 5 mg STAT STAT IM 07/24/19 20:55 07/24/19 20:57 DC Haloperidol (Haldol) 5 mg STAT STAT IM 07/24/19 21:42 07/24/19 21:44 DC 07/24/19 21:57 Hydroxyzine HCl (Atarax) 50 mg Q6HP PRN PO AGITATION 07/24/19 20:15 Lorazepam (Ativan) 2 mg STAT STAT IM 07/24/19 20:55 07/24/19 20:56 DC Lorazepam (Ativan) 2 mg STAT STAT IM 07/24/19 21:42 07/24/19 21:44 DC 07/24/19 21:56 Magnesium Hydroxide (Milk Of Magnesia) 30 ml DAILYPRN PRN PO CONSTIPATION 07/24/19 20:15 Pantoprazole Sodium (Protonix) 40 mg DAILY PO 07/25/19 09:00 07/26/19 09:38 Propranolol HCl (Inderal) 20 mg BID PO 07/24/19 21:00 07/26/19 09:38 Trazodone HCl (Desyrel) 50 mg QHSP PRN PO INSOMNIA 07/24/19 20:15 Allergies Coded Allergies: clindamycin (Verified Adverse Reaction, Intermediate, diarrhea, 10/02/18) JORGE A MEYERS MD Jul 26, 2019 16:22
[2019-07-26] MEDS: OLANZapine ORAL DISINTEGRATING TAB 5MG PO SCH (22:01)
[2019-07-27 06:45] VITALS: BP 136/79
[2019-07-27] MEDS: OLANZapine ORAL DISINTEGRATING TAB 5MG PO SCH ×2 (09:00→21:05)
[2019-07-27] MEDS: PROPRANOLOL 20 MG TAB PO SCH ×2 (09:54→21:05)
[2019-07-27] MEDS: ESCITALOPRAM OXALATE 10 MG TAB (LEXAPRO) PO SCH (09:54)
[2019-07-27] MEDS: ARIPiprazole 10 MG TAB PO SCH (09:54)
[2019-07-27] MEDS: PANTOPRAZOLE 40MG TAB (PROTONIX) PO SCH (09:54)
[2019-07-27 16:30] VITALS: BP 115/56
--- NOTE | 2019-07-27 22:22 | MHIPNPDOC ---
[facility] Progress Note Progress Note DATE OF SERVICE: 07/27/19 HISTORY: He sleeps a lot, appetite is "I don't know", he denies feeling depressed, he denies feeling very anxious, he reports feeling annoyed. He denies feeling suicidal and although he denies feeling homicidal, he can't stop talking about how evil his mother has been. He says he doesn't knnow how she was able to disappear his ID and other forms of identity. He thinks I'm part of a reality show and he thiks the other patients are actors VITAL SIGNS: See below. NEW TEST RESULTS: See below CURRENT MEDICATIONS: See below. MENTAL STATUS EXAMINATION: Patient is a 33-year old male, who is alert, dressed in hospital clothes, looking thinner, less restless, less fidgety. Speech: Spontaneous, fluent. Normal rate, tone and volume Language skills are good Thought processes including: linear, coherent Thought content: He denies suicidal ideation, denies homicidal ideation, he denies feeling paranoid today Description of associations: fair Description of abnormal or psychotic thoughts: He is less paranoid, he says he knows where his SS card is, he says he probably can find his other forms of identification if he goes to his mother's house, he says he knows that his mother is not hiding them. He denies feeling paranoid about his mother. He denies auditory, visual or tactile hallucinations Judgment: Improving Insight: Improving Orientation: x 3 Recent and remote memory: Fair Attention span and concentration: fair Language: adequate Fund of knowledge: average Mood: "less irritable" Affect: Congruent with mood DIAGNOSES: 1. Substance induced psychotic disorder 2. Methamphetamine use disorder 3. ETOH use disorder 4. Cluster B Personality disorder ASSESSMENT: Patient has improved, his thoughts are a little bit more clear, he is less paranoid, less irritable, less aggressive, MANAGEMENT PLAN: Will continue with current treatment plan TIME SPENT: 20 minutes. Vital Signs Vital Signs Date Time Temp Pulse Resp B/P (MAP) Pulse Ox O2 Delivery O2 Flow Rate FiO2 07/27/19 09:54 95 133/80 07/27/19 06:45 99.2 14 97 Room Air Current Medications Current Medications Medications (Trade) Dose Ordered Sig/Torie Route PRN Reason Start Time Stop Time Status Last Admin Dose Admin Acetaminophen (Tylenol Tab) 650 mg Q6HP PRN PO HEADACHE or DISCOMFORT 07/24/19 20:15 Al Hydrox/Mg Hydrox/Simethicone (Mylanta) 30 ml Q4HP PRN PO HEARTBURN/INDIGESTION 07/24/19 20:15 Aripiprazole (AbiLIFY) 10 mg DAILY PO 07/25/19 09:00 07/27/19 09:54 Diphenhydramine HCl (Benadryl) 50 mg STAT STAT IM 07/24/19 20:55 07/24/19 20:56 DC Diphenhydramine HCl (Benadryl) 50 mg STAT STAT IM 07/24/19 21:42 07/24/19 21:44 DC 07/24/19 21:56 Escitalopram Oxalate (Lexapro) 20 mg DAILY PO 07/25/19 09:00 07/27/19 09:54 Haloperidol (Haldol) 5 mg STAT STAT IM 07/24/19 20:55 07/24/19 20:57 DC Haloperidol (Haldol) 5 mg STAT STAT IM 07/24/19 21:42 07/24/19 21:44 DC 07/24/19 21:57 Hydroxyzine HCl (Atarax) 50 mg Q6HP PRN PO AGITATION 07/24/19 20:15 07/26/19 16:17 Lorazepam (Ativan) 2 mg STAT STAT IM 07/24/19 20:55 07/24/19 20:56 DC Lorazepam (Ativan) 2 mg STAT STAT IM 07/24/19 21:42 07/24/19 21:44 DC 07/24/19 21:56 Magnesium Hydroxide (Milk Of Magnesia) 30 ml DAILYPRN PRN PO CONSTIPATION 07/24/19 20:15 Olanzapine (ZyPREXA ZYDIS) 10 mg BID PO 07/26/19 21:00 Pantoprazole Sodium (Protonix) 40 mg DAILY PO 07/25/19 09:00 07/27/19 09:54 Propranolol HCl (Inderal) 20 mg BID PO 07/24/19 21:00 07/27/19 09:54 Trazodone HCl (Desyrel) 50 mg QHSP PRN PO INSOMNIA 07/24/19 20:15 Allergies Coded Allergies: clindamycin (Verified Adverse Reaction, Intermediate, diarrhea, 10/02/18) JORGE A MEYERS MD Jul 27, 2019 11:50
--- NOTE | 2019-07-28 09:13 | MHDSPDOC ---
[facility] Discharge Summary Discharge Summary DATE OF ADMISSION: Jul 24, 2019 at 20:01 DATE OF DISCHARGE: 07/28/19 Discharge Marbin Mendoza MRN: N/A Date of : N/A Date of Service: 07/28/2019 Diagnoses Polysubstance use. Antisocial personality disorder. Unspecified psychosis likely substance induced. History of Present Illness The patient a well-known 33-year-old man presents to [facility] using methamphetamine again becoming psychotic and bizarre. He is brought in by police immediate out of an abundance of caution. He refuses to meet today as he was sleeping generally quite irritable. He has attempted to be rouse, but he has been making some improvements more able to cooperate. He generally presents in this very same setting using methamphetamine becoming psychotic and then subsequently improving quickly without any major treatment. He underlies some antisocial traits and becomes upset when he is not allowed to leave at his best. He generally had no behavioral problems overnight and generally refuses any extensive interview. Psychosocial information taking my previous assessment and update as appropriate. Consultants Involved Hospitalist/PCP screening Treatment and Progress On The Unit The patient was admitted to the inpatient mental health unit. Initially, he was not interested in gauging. He was resumed on his home medications of Abilify, Lexapro, Inderal and trazodone. He made slower progress and returned to its baseline level of irritability. He generally is considered antisocial and had been only mildly paranoid which rapidly vanished. He was slated for discharge on the following Sunday and was subsequently discharged with no major incident after he had requested to be discharged. Discharge Assessment 33-year-old man with likely antisocial personality significant drug use presents with some paranoid and psychosis after using methamphetamine, a common presentation. He resolves well without any major changes, any medication suggesting a substance-induced problem. He elects to leave and declines further voluntary admission. He does not meet involuntary criteria as he has returned to his previous baseline state with no noticeable irritability on today's exam. Mental Status Examination General: Well dressed with good hygiene Speech: Spontaneous and fluid Thought processes: Linear and logical MSK: Smooth and coordinated gait, no signs of tremors or involuntary orofacial movements Thought content: Future orientated Abstract reasoning, and computation: Intact Description of associations: Intact Description of abnormal or psychotic thoughts: Denies any suicidal or homicidal ideation. Denies any auditory or visual hallucinations. Does not appear to be responding to internal stimuli. Does not appear to be endorsing any bizarre or paranoid ideation. Judgment: Chronic and limited Insight: Chronic and limited Orientation: Alert and orientated 3 Cognition: Grossly normal Recent and remote memory: Intact Attention span and concentration: Intact Fund of knowledge: Adequate Mood: "okay" Affect: Euthymic with a full range Follow Up The social work team worked during the predischarge meeting in order to evaluate for further issues of lethality address them fully before discharge. They worked on safety planning with the patient's family members in order to ensure that the patient will have a safe and effective discharge. Time Spent The amount of time spent in the coordination of care for this patient was approximately 45 minutes. Sunday Vital Signs/I&Os Vital Signs Date Time Temp Pulse Resp B/P (MAP) Pulse Ox O2 Delivery O2 Flow Rate FiO2 07/27/19 21:05 78 115/56 07/27/19 16:30 99.5 16 07/27/19 06:45 97 Room Air Medications Scheduled Aripiprazole (Aripiprazole) 10 Mg Tablet, 10 MG PO DAILY for mood for 7 Days, #7 Escitalopram Oxalate (Escitalopram Oxalate) 20 Mg Tablet, 20 MG PO DAILY for mood for 7 Days, #7 Pantoprazole Sodium (Pantoprazole Sodium) 40 Mg Tablet.dr, 1 TAB PO DAILY for gerd for 7 Days, #7 Propranolol HCl (Propranolol HCl) 20 Mg Tablet, 1 TAB PO BID for anxiety for 7 Days, #7 Scheduled PRN Hydroxyzine HCl (Hydroxyzine HCl) 50 Mg Tablet, 50 MG PO Q6H PRN for AGITATION for 7 Days, #7 Trazodone HCl (Trazodone HCl) 50 Mg Tablet, 50 MG PO QHS PRN for SLEEP for 7 Days, #7 Allergies Coded Allergies: clindamycin (Verified Adverse Reaction, Intermediate, diarrhea, 10/02/18) RAJESH DESHPANDE DO Jul 28, 2019 09:13
[2019-07-28 09:37] VITALS: BP 115/56
[2019-07-28] MEDS: PANTOPRAZOLE 40MG TAB (PROTONIX) PO SCH (09:37)
[2019-07-28] MEDS: PROPRANOLOL 20 MG TAB PO SCH (09:37)
[2019-07-28] MEDS: ESCITALOPRAM OXALATE 10 MG TAB (LEXAPRO) PO SCH (09:37)
[2019-07-28] MEDS: OLANZapine ORAL DISINTEGRATING TAB 5MG PO SCH (09:37)
[2019-07-28] MEDS: ARIPiprazole 10 MG TAB PO SCH (09:38)
[2019-07-28] MEDS ORDERED: TRAZ-252 PO (13:58)
[2019-07-28] MEDS ORDERED: ARIP1TAB PO (13:58)
[2019-07-28] MEDS ORDERED: PROP20TA72 PO (13:58)
[2019-07-28] MEDS ORDERED: PANT40TA3 PO (13:58)
[2019-07-28] MEDS ORDERED: HYDR50TA70 PO (13:58)
[2019-07-28] MEDS ORDERED: ESCI20TA PO (13:58)
== END 2019-07-28 14:57 | disposition home or self-care (01) | DRG 752 ==
LOC: M ED 16:24 → M ED INP 20:01 → M PSY 21:33
PROVIDERS: ADMIT Psychiatry & Neurology Psychiatry; ATTEND Psychiatry & Neurology Addiction Medicine
DX: F60.2 Antisocial personality disorder (principal); F19.94 Other psychoactive substance use, unspecified with psychoactive substance-induced mood disorder; F15.90 Other stimulant use, unspecified, uncomplicated; Z79.899 Other long term (current) drug therapy; Z88.8 Allergy status to other drugs, medicaments and biological substances; F12.90 Cannabis use, unspecified, uncomplicated; F14.90 Cocaine use, unspecified, uncomplicated; Z85.51 Personal history of malignant neoplasm of bladder; Z86.19 Personal history of other infectious and parasitic diseases; F41.9 Anxiety disorder, unspecified; F17.200 Nicotine dependence, unspecified, uncomplicated

== ENCOUNTER 2020-02-22 10:22 | Emergency (ER) | payer MEDICAID, OTHER, SELFPAY ==
[~2020-02-22 10:22] MED LIST changes: +BUPR-69; -BUPR50TA; +PANT40TA29 PO; -PANT40TA3 PO; +PROP20TA72 PO
[2020-02-22] MEDS ORDERED: LORazepam 1 MG TAB PO STA (11:28)
[2020-02-22 12:16] LABS: HEMATOCRIT 45.9 % (42.0-52.0); HEMOGLOBIN 15.5 g/dl (13.5-17.5); MEAN CORPUSCULAR HEMOGLOBIN 27.7 pg (27.0-33.0); MEAN CORPUSCULAR HGB CONC 33.8 g/dl (32.0-36.5); PLATELET COUNT, AUTOMATED 245 10^3/uL (150-450); WHITE BLOOD COUNT 7.1 10^3/uL (4.0-10.0)
[2020-02-22 12:51] LABS: ACETAMINOPHEN LEVEL < 2.0 UG/ML (10.0-30.0); ALBUMIN 4.4 GM/DL (3.2-5.2); ALT/SGPT 13 U/L (12-78); BILIRUBIN,DIRECT 0.2 MG/DL (0.0-0.2); BILIRUBIN,TOTAL 0.9 MG/DL (0.2-1.0); BLOOD UREA NITROGEN 13 MG/DL (7-18); CALCIUM LEVEL 8.9 MG/DL (8.5-10.1); CARBON DIOXIDE LEVEL 29 MEQ/L (21-32); CHLORIDE LEVEL 106 MEQ/L (98-107); CREATININE FOR GFR 0.99 MG/DL (0.70-1.30); ETHYL ALCOHOL (ETHANOL) < 0.003 % (0.000-0.010); GLOMERULAR FILTRATION RATE > 60.0 (>60); GLUCOSE, FASTING 96 MG/DL (70-100); POTASSIUM SERUM 3.8 MEQ/L (3.5-5.1); SALICYLATE LEVEL < 1.7 MG/DL (5.0-30.0); SODIUM LEVEL 139 MEQ/L (136-145); TOTAL PROTEIN 7.7 GM/DL (6.4-8.2)
[2020-02-22 13:36] LABS: AMPHETAMINES LEVEL URINE POSITIVE (NEGATIVE); BARBITURATES URINE NEGATIVE (NEGATIVE); BENZODIAZEPINES URINE NEGATIVE (NEGATIVE); CANNABINOIDS URINE NEGATIVE (NEGATIVE); COCAINE METABOLITE URINE NEGATIVE (NEGATIVE); METHADONE URINE NEGATIVE (NEGATIVE); OPIATES URINE NEGATIVE (NEGATIVE); PHENCYCLIDINE URINE NEGATIVE (NEGATIVE)
[2020-02-22] MEDS ORDERED: TOPI25TA10 PO (14:28)
[2020-02-22] MEDS ORDERED: MELA3TAB67 PO (17:17)
[2020-02-22] MEDS ORDERED: HYDR50TA70 PO (17:24)
[2020-02-22] MEDS ORDERED: ARIP1TAB PO (17:24)
[2020-02-22] MEDS ORDERED: ABIL1INJ2 IM (17:24)
[2020-02-22] MEDS ORDERED: MELA5TAB7 PO (17:24)
--- NOTE | 2020-02-22 20:08 | ECGEPIP ---
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
[2020-02-22] MEDS ORDERED: TOPIRAMATE (TopAMAX) 25 MG TAB PO ONE (21:00)
[2020-02-23] MEDS ORDERED: TOPIRAMATE (TopAMAX) 25 MG TAB PO ONE (09:30)
[2020-02-23] MEDS ORDERED: ARIPiprazole 10 MG TAB PO ONE (09:30)
[2020-02-23 15:15] VITALS: BP 125/78
== END 2020-02-23 15:19 ==
LOC: M ED 10:22
DX: F29 Unspecified psychosis not due to a substance or known physiological condition (principal); I10 Essential (primary) hypertension; F41.9 Anxiety disorder, unspecified; F31.89 Other bipolar disorder; Z87.440 Personal history of urinary (tract) infections; Z86.19 Personal history of other infectious and parasitic diseases; F17.290 Nicotine dependence, other tobacco product, uncomplicated; Z79.899 Other long term (current) drug therapy; Z88.1 Allergy status to other antibiotic agents
CPT/HCPCS: 80048; 80076; 80307; 84443; 85027; 93005; 99284; G0480; U0002

== ENCOUNTER → 2020-06-04 | Outpatient (CLI) | payer OTHER ==
[~2020-06-04] MED LIST changes: +ABIL1INJ2 IM; +BUPR150T12 PO; -BUPR150T3 PO; +ESCI10TA16 PO; -ESCI10TA2 PO; -ESCI20TA; -ESCI20TA PO; +ESCI20TA16; +ESCI20TA16 PO; +GABA-282 PO; -GABA-843 PO; +IBUP1TAB5 PO; -IBUP40TA PO; +MELA3TAB67 PO; +MELA5TAB7 PO; +QUET50TA3 PO; -QUET5TAB PO; +TOPI25TA10 PO
== END ==
LOC: M OUTALCOH 13:30
PROVIDERS: ATTEND Psychiatry & Neurology Psychiatry
DX: Z02.89 Encounter for other administrative examinations (principal)

== ENCOUNTER 2020-06-16 08:45 | Outpatient (RCR) | payer OTHER | END 2020-06-30 | LOC: M OUTALCOH 08:45 | PROVIDERS: ATTEND Psychiatry & Neurology Psychiatry | DX: F15.20 Other stimulant dependence, uncomplicated (principal); F19.20 Other psychoactive substance dependence, uncomplicated; F12.10 Cannabis abuse, uncomplicated; Z72.0 Tobacco use ==

== ENCOUNTER → 2020-10-15 | Outpatient (CLI) | payer OTHER ==
[~2020-10-15] MED LIST changes: +ARIP10TA32; +ARIP10TA32 PO; -ARIP1TAB; +BACTDSTA PO; +EMTR1TAB16 PO; +GABA-283 PO; -GABA-845 PO; +OLAN1TAB16 PO; -OLAN5TAB PO; -SULF1TAB93 PO; -TRUVTAB PO
== END ==
LOC: M OUTALCOH 09:51
PROVIDERS: ATTEND Psychiatry & Neurology Psychiatry
DX: Z13.39 Encounter for screening examination for other mental health and behavioral disorders (principal)

== ENCOUNTER 2020-10-22 08:45 | Outpatient (RCR) | payer OTHER ==
[2020-10-24] MEDS ORDERED: LITH150C (12:22)
[2020-10-24] MEDS ORDERED: LITH300C (12:22)
[2020-10-24] MEDS ORDERED: TRAZ-257 (12:22)
== END 2020-10-30 ==
LOC: M OUTALCOH 08:45
PROVIDERS: ATTEND Psychiatry & Neurology Psychiatry
DX: F15.20 Other stimulant dependence, uncomplicated (principal); F16.20 Hallucinogen dependence, uncomplicated; F10.20 Alcohol dependence, uncomplicated

== ENCOUNTER 2020-10-24 11:45 | Emergency (ER) | payer MEDICAID, OTHER ==
[~2020-10-24] VITALS: Ht 180.3 cm; Wt 75.0 kg
[2020-10-24] MEDS ORDERED: LITH300C (12:22)
[2020-10-24] MEDS ORDERED: LITH150C (12:22)
[2020-10-24] MEDS ORDERED: TRAZ-257 (12:22)
[2020-10-24 13:23] LABS: HEMOGLOBIN 16.2 g/dl (13.5-17.5); MEAN CORPUSCULAR HEMOGLOBIN 28.3 pg (27.0-33.0); MEAN CORPUSCULAR HGB CONC 34.5 g/dl (32.0-36.5); MEAN CORPUSCULAR VOLUME 82.2 fl (80.0-96.0); PLATELET COUNT, AUTOMATED 267 10^3/uL (150-450); RED BLOOD COUNT 5.72 10^6/uL (4.30-6.10); WHITE BLOOD COUNT 7.2 10^3/uL (4.0-10.0)
[2020-10-24 13:59] LABS: ACETAMINOPHEN LEVEL < 2.0 UG/ML (10.0-30.0); ALBUMIN 3.9 GM/DL (3.2-5.2); ALT/SGPT 22 U/L (12-78); BILIRUBIN,DIRECT 0.2 MG/DL (0.0-0.2); BILIRUBIN,TOTAL 0.5 MG/DL (0.2-1.0); BLOOD UREA NITROGEN 11 MG/DL (7-18); CALCIUM LEVEL 8.6 MG/DL (8.5-10.1); CARBON DIOXIDE LEVEL 27 MEQ/L (21-32); CHLORIDE LEVEL 109 MEQ/L (98-107); CREATININE FOR GFR 1.04 MG/DL (0.70-1.30); ETHYL ALCOHOL (ETHANOL) < 0.003 % (0.000-0.010); GLOMERULAR FILTRATION RATE > 60.0 (>60); GLUCOSE, FASTING 90 MG/DL (70-100); LITHIUM LEVEL 0.33 MEQ/L (0.60-1.20); POTASSIUM SERUM 4.1 MEQ/L (3.5-5.1); SALICYLATE LEVEL < 1.7 MG/DL (5.0-30.0); SODIUM LEVEL 142 MEQ/L (136-145); THYROID STIMULATING HORMONE 0.362 uIU/ML (0.358-3.740); TOTAL PROTEIN 7.6 GM/DL (6.4-8.2)
[2020-10-24 15:23] LABS: AMPHETAMINES LEVEL URINE POSITIVE (NEGATIVE); BARBITURATES URINE NEGATIVE (NEGATIVE); BENZODIAZEPINES URINE NEGATIVE (NEGATIVE); CANNABINOIDS URINE NEGATIVE (NEGATIVE); COCAINE METABOLITE URINE NEGATIVE (NEGATIVE); METHADONE URINE NEGATIVE (NEGATIVE); OPIATES URINE NEGATIVE (NEGATIVE); PHENCYCLIDINE URINE NEGATIVE (NEGATIVE)
[2020-10-24 17:25] VITALS: BP 140/91
== END 2020-10-24 17:40 | disposition home or self-care (01) ==
LOC: M ED 11:45 → EEVIPCON 11:45 → M ED 17:40
DX: F43.0 Acute stress reaction (principal); I10 Essential (primary) hypertension; F31.9 Bipolar disorder, unspecified; F43.10 Post-traumatic stress disorder, unspecified; F17.200 Nicotine dependence, unspecified, uncomplicated; F19.10 Other psychoactive substance abuse, uncomplicated; Z79.899 Other long term (current) drug therapy; Z88.1 Allergy status to other antibiotic agents

== ENCOUNTER → 2020-11-11 | Outpatient (REF) | payer MEDICAID ==
[~2020-11-11] MED LIST changes: +LITH150C; +LITH300C; -QUET50TA3 PO; +QUET50TA4 PO; +TRAZ-257
[2020-11-11 13:42] LABS: HEMATOCRIT 44.8 % (42.0-52.0); HEMOGLOBIN 15.1 g/dl (13.5-17.5); MEAN CORPUSCULAR HEMOGLOBIN 28.4 pg (27.0-33.0); MEAN CORPUSCULAR HGB CONC 33.7 g/dl (32.0-36.5); MEAN CORPUSCULAR VOLUME 84.2 fl (80.0-96.0); PLATELET COUNT, AUTOMATED 193 10^3/uL (150-450); RED BLOOD COUNT 5.32 10^6/uL (4.30-6.10); WHITE BLOOD COUNT 5.4 10^3/uL (4.0-10.0)
[2020-11-11 14:09] LABS: ALBUMIN 3.9 GM/DL (3.2-5.2); ALT/SGPT 17 U/L (12-78); BILIRUBIN,TOTAL 0.3 MG/DL (0.2-1.0); BLOOD UREA NITROGEN 9 MG/DL (7-18); CALCIUM LEVEL 8.8 MG/DL (8.5-10.1); CARBON DIOXIDE LEVEL 28 MEQ/L (21-32); CHLORIDE LEVEL 108 MEQ/L (98-107); CHOLESTEROL LEVEL 100 MG/DL (<200); CHOLESTEROL RISK RATIO 2.702 (<5); CREATININE FOR GFR 0.97 MG/DL (0.70-1.30); GLOMERULAR FILTRATION RATE > 60.0 (>60); GLUCOSE, FASTING 86 MG/DL (70-100); HDL CHOLESTEROL 37 MG/DL (>40); LDL CHOLESTEROL 42 MG/DL (<100); LITHIUM LEVEL 0.32 MEQ/L (0.60-1.20); NON-HDL-C 63 MG/DL; POTASSIUM SERUM 3.8 MEQ/L (3.5-5.1); SODIUM LEVEL 141 MEQ/L (136-145); TOTAL PROTEIN 7.1 GM/DL (6.4-8.2); TRIGLYCERIDES LEVEL 104 MG/DL (<150)
== END ==
LOC: M LAB REF 13:07
PROVIDERS: ATTEND Nurse Practitioner Family
DX: F25.9 Schizoaffective disorder, unspecified (principal)

== ENCOUNTER 2020-11-26 12:35 | Emergency (ER) | payer MEDICAID ==
[~2020-11-26] VITALS: Ht 180.3 cm; Wt 70.5 kg
[~2020-11-26 12:35] MED LIST changes: -LITH150C; +LITH150C PO; -LITH300C; +LITH300C PO; -TRAZ-257
[2020-11-26] MEDS ORDERED: PRAZ2CAP PO (12:46)
[2020-11-26] MEDS ORDERED: TOPA100T12 PO (12:46)
[2020-11-26 13:04] LABS: HEMATOCRIT 45.5 % (42.0-52.0); HEMOGLOBIN 15.5 g/dl (13.5-17.5); MEAN CORPUSCULAR HEMOGLOBIN 28.2 pg (27.0-33.0); MEAN CORPUSCULAR HGB CONC 34.1 g/dl (32.0-36.5); MEAN CORPUSCULAR VOLUME 82.7 fl (80.0-96.0); PLATELET COUNT, AUTOMATED 289 10^3/uL (150-450); WHITE BLOOD COUNT 9.4 10^3/uL (4.0-10.0)
[2020-11-26 13:51] LABS: BLOOD UREA NITROGEN 11 MG/DL (7-18); CREATININE FOR GFR 0.96 MG/DL (0.70-1.30); GLUCOSE, FASTING 97 MG/DL (70-100)
[2020-11-26 13:52] LABS: ACETAMINOPHEN LEVEL < 2.0 UG/ML (10.0-30.0); ALT/SGPT 19 U/L (12-78); BILIRUBIN,DIRECT 0.2 MG/DL (0.0-0.2); BILIRUBIN,TOTAL 0.6 MG/DL (0.2-1.0); CARBON DIOXIDE LEVEL 27 MEQ/L (21-32); CHLORIDE LEVEL 112 MEQ/L (98-107); ETHYL ALCOHOL (ETHANOL) 0.003 % (0.000-0.010); GLOMERULAR FILTRATION RATE > 60.0 (>60); POTASSIUM SERUM 3.6 MEQ/L (3.5-5.1); SALICYLATE LEVEL < 1.7 MG/DL (5.0-30.0); SODIUM LEVEL 144 MEQ/L (136-145); TOTAL PROTEIN 7.5 GM/DL (6.4-8.2)
[2020-11-26 16:14] LABS: AMPHETAMINES LEVEL URINE POSITIVE (NEGATIVE); BARBITURATES URINE NEGATIVE (NEGATIVE); BENZODIAZEPINES URINE NEGATIVE (NEGATIVE); CANNABINOIDS URINE NEGATIVE (NEGATIVE); COCAINE METABOLITE URINE NEGATIVE (NEGATIVE); METHADONE URINE NEGATIVE (NEGATIVE); OPIATES URINE NEGATIVE (NEGATIVE); PHENCYCLIDINE URINE NEGATIVE (NEGATIVE)
[2020-11-26] MEDS ORDERED: LORazepam 2 MG TAB PO STA (17:15)
[2020-11-26] MEDS ORDERED: TOPI50TA9 PO (19:49)
[2020-11-26] MEDS ORDERED: med rec comment (19:49)
[2020-11-26] MEDS ORDERED: HOME MED LIST COMPLETE! XX SCH (19:50)
[2020-11-27] MEDS ORDERED: TOPIRAMATE (TopAMAX) 25 MG TAB PO ONE (10:20)
[2020-11-27] MEDS ORDERED: LITHIUM CARBONATE 150 MG CAP PO ONE (10:20)
[2020-11-27 14:56] LABS: RSV AMPLIFICATION NEGATIVE (NEGATIVE)
[2020-11-27 20:17] VITALS: BP 108/59
--- NOTE | 2020-11-27 20:38 | ECGEPIP ---
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
== END 2020-11-27 20:19 | disposition short-term general hospital (02) ==
LOC: M ED 12:35 → EEVIPCON 12:35 → M ED 11-27 20:19
DX: F29 Unspecified psychosis not due to a substance or known physiological condition (principal); F31.9 Bipolar disorder, unspecified; F19.10 Other psychoactive substance abuse, uncomplicated; F17.290 Nicotine dependence, other tobacco product, uncomplicated; Z86.19 Personal history of other infectious and parasitic diseases; Z91.5 Personal history of self-harm; Z85.51 Personal history of malignant neoplasm of bladder; Z92.21 Personal history of antineoplastic chemotherapy; Z79.899 Other long term (current) drug therapy; Z88.1 Allergy status to other antibiotic agents

== ENCOUNTER 2021-03-14 13:50 | Emergency (ER) | payer MEDICAID, OTHER ==
[~2021-03-14] VITALS: Ht 180.3 cm; Wt 78.8 kg
[~2021-03-14 13:50] MED LIST changes: +PRAZ2CAP PO; +TOPA100T12 PO; +TOPI50TA9 PO; +med rec comment
--- OUTSIDE RECORDS SUMMARY | 2021-03-14 13:58 | CCD ---
Author Author Marbin Phan Organization Unknown Address [address] [address] Phone Care Team Providers Care Real Estate Transaction Coordinator Name Role Phone Ga Phanmond PCP Allergies, Adverse Reactions, Alerts Concept Allergy Name Reaction Severity Onset Date Status Documentation Date Phone Number Npid Taxonomy Code Taxonomy Desc Author Last Name Author Fi rst Name Concept Type 309065 nkda Active 05/15/2018 RXNORM Problem List Concept Problem Description Status Start Date Created Date Resolv ed Date Snomed Code F25.0 Schizoaffective Disorder, Bipolar type Active 1 04/10/2020 F10.20 Alcohol Use Disorder, Moderate Active F15.20 Stimulant Use Disorder, Severe: Amphetamine-type subst ance Active 02/08/2021 F15.20 Stimulant Use Disorder, Severe: Amphetamine-type subst ance Active 02/08/2021 Medications Rx Norm Medication Route Route Concept Start Date Stop Date Dosage Patrick quency Duration Formula Strength Dosage Form Dosage Form Code Dosage Description Medication Id Account Npid Author First Name Author Last Name Taxonomy Code Taxonomy Desc Phone Number [phone] Aristada 07/13/2020 06/14/2021 56 882 mg /3.2 mL suspension,extended rel syring [id number] David Saleh [id number] Nurse Practitioner [id number] Social History Social History Element Description Concept Effective Date Smoking Status Current every day smoker [id number] 6293754 9 Immunizations No Data in Section Vital Signs No Data in Section Procedures Date Concept Id Description Targeted Site Concept Targeted Site Concept Type 02/08/2021 AOT EVAL AOT Evaluation CPT Patient has no history of implantable de vices Encounters Encounter Start Date End Date Encounter Type Description Diagnosis Di agnosis Desc Location Author First Name Author Last Name Npid Taxonomy Cod e Taxonomy Desc Phone Number Location Addr1 Location Addr2 Location [facility] Location [facility] Location [place] [id number] 02/08/2021 02/08/2021 AOT EVAL AOT Evaluation F25.0 Torie izoaffective disorder, bipolartype [facility] [id number] Psychiatry [id number] [address] [address] Plan of Treatment No Data in Section Lab Results No Data in Section Instructions No Data in Section Insurance Providers Insurance Id Policy Effective Date Policy Thru Date Company N luis [id number] 2020 [facility] [id number] 2021 2021 [facility]. [place] Local Gov.
--- OUTSIDE RECORDS SUMMARY | 2021-03-14 13:58 | CCD ---
Author Author Marbin Sweet Organization [facility] Case Management Address Unknown Phone Unavailable Care Team Providers Care [employer] French Teacher Name Role Phone Daphney Sweet PCP Unavailable Allergies, Adverse Reactions, Alerts Allergy Substance Code C odeSystem Reaction Severity Critic ality Status Start Date Moderate Medications Medication Medication Code Medication CodeSystem Start Date Stop Date Route Dose Status Fill Instructions RxNorm Problems Problem Name Code CodeSy stem Alternate Code Alternate CodeSystem Start Date End Date Status Narrative Unspecified nonorganic psychosis 77652146 9 SNOMED-CT 2020-02-18 Active Unspecified nonorganic psychosis 24950986 9 SNOMED-CT 2020-02-18 Active Relevant diagnostic tests/laboratory data Narrative No Information Procedures Procedure Name Code Code System Target Site Date of Procedure Status Service Delivery Location Device Cod e Device Name Device UID SNOMED-CT () 2020-04-02 completed [facility] [address] [place] [address], [id number] SNOMED-CT () 2020-05-03 completed [facility] [address] [place] [address], [id number] SNOMED-CT () 2020-04-02 [address] [facility] [address] [place] [address], [id number] SNOMED-CT () 2020-05-03 completed [facility] [address] [place] [address], [id number] SNOMED-CT () 2020-07-01 completed [facility] [address] [place] [address], [id number] SNOMED-CT () 2020-10-31 completed [facility] [address] [place] [address], [id number] SNOMED-CT () 2020-12-01 completed [facility] [address] [place] [address], [id number] SNOMED-CT () 2020-12-31 completed [facility] [address] [place], [id number] SNOMED-CT () 2021-01-31 completed [facility] [address] [place], [id number] SNOMED-CT () 2020-04-02 completed [facility] [address] [place], [id number] SNOMED-CT () 2020-05-03 completed [facility] [address] [place] [address], [id number] SNOMED-CT () 2020-07-01 completed [facility] [address] [place] [address], [id number] SNOMED-CT () 2020-10-31 completed [facility] [address] [place] [address], [id number] SNOMED-CT () 2020-12-01 completed [facility] [address] [place] [address], [id number] SNOMED-CT () 2020-12-31 completed [facility] [address] [place] [address], [id number] SNOMED-CT () 2020-03-02 completed [facility] [address] [place] [address], [id number] SNOMED-CT () 2021-01-31 completed [facility] [address] [place] [address], [id number] SNOMED-CT () 2020-05-31 completed [facility] [address] [place] [address], [id number] SNOMED-CT () 2020-02-20 completed [facility] [address] [place], [id number] SNOMED-CT () 2020-09-30 completed [facility] [address] [place] [address], [id number] SNOMED-CT () 2020-08-31 completed [facility] [address] [place], [id number] SNOMED-CT () 2020-07-31 completed [facility] [address] [place], [id number] Encounters/Encounter Diagnoses Encounter Name Encounter Code Diagnosis Code Diagnosis Name Diagnosis CodeSystem Date of Diagnosis Service Delivery L ocation non-billable 82458 54833 5009 Unspecified nonorganic psychosis SNO MED-CT 2021-02-01 [facility] , , , Vital Signs No Information Social History Element Description Description Start Date End Date Code CodeSystem AdditionalInfo SexAssignedAtBirth Male 1985 M AdministrativeGender Hospital Discharge Instructions * Reason For Referral Medical Equipment * FDA Assessments * Goals Section Goals Planned DateTime I want to reduce my irrational beliefs a md develop better coping skills 2020-03-19 I want to increase my self confidence an d my ability to advocate for my own needs 2020-03-19 I want to sustain my sobriety and unders tand the dangers of self - sabotaging behavior 2020-03-19
--- OUTSIDE RECORDS SUMMARY | 2021-03-14 13:58 | CCD ---
Author Author Marbin Sweet Organization [facility] Case Management Address Unknown Phone Unavailable Care Team Providers Care Antenna Specialist Name Role Phone Daphney Sweet PCP Unavailable Allergies, Adverse Reactions, Alerts Allergy Substance Code C odeSystem Reaction Severity Critic ality Status Start Date Moderate Medications Medication Medication Code Medication CodeSystem Start Date Stop Date Route Dose Status Fill Instructions RxNorm Problems Problem Name Code CodeSy stem Alternate Code Alternate CodeSystem Start Date End Date Status Narrative Unspecified nonorganic psychosis 60853301 9 SNOMED-CT 2020-02-18 Active Unspecified nonorganic psychosis 09870450 9 SNOMED-CT 2020-02-18 Active Relevant diagnostic tests/laboratory data Narrative No Information Procedures Procedure Name Code Code System Target Site Date of Procedure Status Service Delivery Location Device Cod e Device Name Device UID SNOMED-CT () 2020-04-02 completed [facility] [address] [place] [address], [id number] SNOMED-CT () 2020-05-03 completed [facility] [address] [place] [address], [id number] SNOMED-CT () 2020-04-02 completed [facility] [address] [place] [address], [id number] SNOMED-CT () 2020-05-03 completed [facility] [address] [place] [address], [id number] SNOMED-CT () 2020-07-01 completed [facility] [address] [place] [address], [id number] SNOMED-CT () 2020-10-31 completed [facility] [address] [place] [address], [id number] SNOMED-CT () 2020-12-01 completed [facility] [address] [place] [address], [id number] SNOMED-CT () 2020-12-31 completed [facility] [address] [place], [place], [id number] SNOMED-CT () 2020-04-02 completed [facility] [address] [place], [place], [id number] SNOMED-CT () 2020-05-03 completed [facility] [address] [place], [place], [id number] SNOMED-CT () 2020-07-01 completed [facility] [address] [place] [address], [id number] SNOMED-CT () 2020-10-31 completed [facility] [address] [place] [address], [id number] SNOMED-CT () 2020-12-01 completed [facility] [address] [place] [address], [id number] SNOMED-CT () 2020-12-31 completed [facility] [address] [place] [address], [id number] SNOMED-CT () 2020-05-31 completed [facility] [address] [place] [address], [id number] SNOMED-CT () 2020-02-20 completed [facility] [address] [place] [address], [id number] SNOMED-CT () 2020-09-30 completed [facility] [address] [place] [address], [id number] SNOMED-CT () 2020-08-31 completed [facility] [address] [place] [address], [id number] SNOMED-CT () 2020-07-31 completed [facility] [address] [place] [address], [id number] SNOMED-CT () 2020-03-02 completed [facility] [address] [place] [address], [id number] [phone] Encounters/Encounter Diagnoses Encounter Name Encounter Code Diagnosis Code Diagnosis Name Diagnosis CodeSystem Date of Diagnosis Service Delivery L ocation non-billable 03271 37137 5009 Unspecified nonorganic psychosis SNO MED-CT [facility] , , , Vital Signs [...]
--- OUTSIDE RECORDS SUMMARY | 2021-03-14 13:58 | CCD ---
Author Author Marbin Phan Organization Unknown Address [address] [address] Phone Care Team Providers Care Vp Scientific Name Role Phone Ga Phanmond PCP Allergies, Adverse Reactions, Alerts Concept Allergy Name Reaction Severity Onset Date Status Documentation Date Phone Number Npid Taxonomy Code Taxonomy Desc Author Last Name Author Fi rst Name Concept Type 320683 nkda Active 05/15/2018 RXNORM Problem List Concept [...] Name Taxonomy Code Taxonomy Desc Phone Number [phone] Aristada 07/13/2020 06/14/2021 56 882 mg /3.2 mL suspension,extended rel syring [id number] David Saleh [id number] Nurse Practitioner [phone] Social History Social History Element Description Concept Effective Date Smoking Status Current every day smoker [id number] Immunizations No Data in Section Vital [...] Phone Number Location Addr1 Location Addr2 Location [facility] Location [facility] Location [facility] [id number] 02/08/2021 02/08/2021 AOT EVAL AOT Evaluation F25.0 Torie izoaffective disorder, bipolartype [facility] [id number] Psychiatry [id number] [address] [address] Plan of Treatment No Data in Section Lab Results No Data in Section Instructions No Data in Section Insurance Providers Insurance Id Policy Effective Date Policy Thru Date Company N luis [id number] 2020 [facility] [id number] 2021 2021 [facility]
--- OUTSIDE RECORDS SUMMARY | 2021-03-14 13:58 | CCD ---
Author Organization Unknown Address [address] [place] [address] Phone [phone] Care Team Providers Care Customer Service Leader Name Role Phone [facility] [phone] Allergies Code Code System Name Reaction Severity Status Onset NKDA Medications Name Status Start Date Stop Date Abilify Maintena 400 mg intramuscular rm spension,extended release inject 400 milligrams into THE muscle ONCE a MONTH Completed 12/17/2020 aripiprazole 10 mg tablet TAKE ONE TABLET BY MOUTH EVERY DAY FOR MOOD Completed 12/17/2020 aripiprazole 30 mg tablet Completed 2020 Aristada 1,064 mg/3.9 mL suspension, extend.rel. IM syringe Acti ve Not available Aristada 882 mg/3.2 mL suspension, exten d.rel. IM syringe INJECT ONCE EVERY 8 WEEKS Active Not available benztropine 1 mg tablet TAKE ONE TABLET BY MOUTH EVERY MORNING Completed 12/17/2020 escitalopram 20 mg tablet TAKE ONE TABLET BY MOUTH EVERY DAY FOR MOOD Completed 12/17/2020 Fiber-Lax 625 mg tablet Active Not avai lable guanfacine ER 2 mg tablet,extended relea se 24 hr TAKE ONE TABLET BY MOUTH AT BEDTIME Active Not available hydroxyzine HCl 50 mg tablet TAKE ONE TABLET BY MOUTH EVERY 6 HOURS NEEDED FOR AGITATION Completed 12/17/2020 lithium carbonate 150 mg capsule TAKE ONE CAPSULE BY MOUTH EVERY MORNING Completed 12/17/2020 lithium carbonate 300 mg capsule TAKE ONE CAPSULE BY MOUTH AT BEDTIME Completed Narcan 4 mg/actuation nasal spray Active Not available nicotine (polacrilex) 2 mg buccal lozenge Active Not available olanzapine 7.5 mg tablet TAKE ONE TABLET BY MOUTH THREE TIMES DAILY Completed 12/17/2020 pantoprazole 40 mg tablet,delayed releas e TAKE ONE TABLET BY MOUTH EVERY DAY FOR GERD Completed 12/17/2020 prazosin 2 mg capsule TAKE ONE CAPSULE BY MOUTH AT BEDTIME NEEDED Completed 12/17/2020 Procto-Med HC 2.5 % topical cream perineal applicator Active Not available propranolol 20 mg tablet TAKE ONE TABLET BY MOUTH TWICE A DAY FOR ANXIETY Completed 12/17/2020 topiramate 25 mg tablet TAKE ONE TABLET BY MOUTH TWICE DAILY Completed topiramate 50 mg tablet TAKE ONE TABLET BY MOUTH TWICE DAILY Completed trazodone 100 mg tablet TAKE ONE TABLET BY MOUTH AT BEDTIME Active Not available trazodone 50 mg tablet TAKE ONE TABLET BY MOUTH EVERY DAY AT BEDTIME NEEDED FOR SLEEP Completed 12/17/2020 Truvada 200 mg-300 mg tablet TAKE ONE TABLET BY MOUTH EVERY DAY Completed 12/01 Problems Name Status Onset Date Source Mixed Anxiety and Depressive Disorder Active 12/20/2020 Psychoactive Substance Abuse Active 12/20/2020 Adult Health Examination Active 12/20/2020 Tobacco Dependence Caused by Cigarettes Active 12/21/19 21 Procedures Notes: Bladder tumor removed, widsom catherine th removed Results Lab Results Date Name Specimen Result Interpretation Description Value Range Status Address 11/27/2020 Avalon, Serum Low Avalon Level < 0.20 mEq/L 0.60-1.20 mEq/L Final [facility]: [address] [facility] 11/27/2020 Influenza A/B RSV Covid Amp Normal Influenza a Amplification negative negative Final [facility] nter: [address] [facility] Normal Influenza B Amplification negative n egative Final [facility]: [address] [facility] Normal RSV Amplification negative negative Final [facility]: [address] [facility] Normal Sars Covid-19 Amplification negative negative Final [facility]: [address] [facility] Past Encounters 12/17/2020 Tobacco Dependence Caused by Cigarettes; Adult Health Examination; Mixed Anxiety and Depressive Disorder; Psychoactive Substance Abuse RAGINI Arrington: [address] [place] [address], Ph. 03/31/2020 SARS-CoV-2 Vaccination Collin Kuhn MD: [address] [place] [address], Ph. Social History Tobacco Smoking Status Heavy Tobacco Smoker (1/2 pack per a day) Vaccine List Vaccine Type COVID-19, mRNA, LNP-S, PF, 100 mcg/0.5 m L dose .5 mL Plan of Care Patient Instructions You have had your annual physical exam d one today. Please continue medications as prescribed. Please continue healthy diet and physical activities. Please try to limit sugars and carbohydrates in your diet. Please try to maintain adequate intake of water daily. Please continue to follow with your specialist as scheduled. Reminders Provider Appointments None recorded. Lab None recorded. Referral None recorded. Procedures None recorded. Surgeries None recorded. Imaging None recorded. Vitals 12/17/2020 11:20AM NEW PATIENT (14yrs - OLDER) Height Weight BMI Blood Pressure 71 in 154 lbs 8 oz 21.5 kg/m2 125/84 mm[Hg] 05/27/2018 Blood Pressure 121/81 mm[Hg]
--- OUTSIDE RECORDS SUMMARY | 2021-03-14 13:59 | CCD ---
Author Author [facility] Organization [facility] Address Unknown Phone Unavailable Care Team Providers Care Dimension Specification Inspector Name Role Phone Na Kuhn MD Unavailable Unavailable Na Kuhn MD Unavailable Unavailable Na Kuhn MD Unavailable Unavailable Na Kuhn MD Unavailable Unavailable Na Kuhn MD Unavailable Unavailable Na Kuhn MD Unavailable Unavailable Na Kuhn MD Unavailable Unavailable Na Kuhn MD Unavailable Unavailable Na Kuhn MD Unavailable Unavailable Na Kuhn MD Unavailable Unavailable Na Kuhn MD Unavailable Unavailable Na Kuhn MD Unavailable Unavailable Na Kuhn MD Unavailable Unavailable Na Kuhn MD Unavailable Unavailable Na Kuhn MD Unavailable Unavailable Na Kuhn MD Unavailable Unavailable Na Kuhn MD Unavailable Unavailable Na Kuhn MD Unavailable Unavailable Na Kuhn MD Unavailable Unavailable Na Kuhn MD Unavailable Unavailable Na Kuhn MD Unavailable Unavailable Na Kuhn MD Unavailable Unavailable Na Kuhn MD Unavailable Unavailable Na Kuhn MD Unavailable Unavailable Na Kuhn MD Unavailable Unavailable Na Kuhn MD Unavailable Unavailable Na Kuhn MD Unavailable Unavailable Na Kuhn MD Unavailable Unavailable Na Kuhn MD Unavailable Unavailable Na Kuhn MD Unavailable Unavailable Na Kuhn MD Unavailable Unavailable Na Kuhn MD Unavailable Unavailable Na Kuhn MD Unavailable Unavailable Na Kuhn MD Unavailable Unavailable Na Kuhn MD Unavailable Unavailable Na Kuhn MD Unavailable Unavailable Na Kuhn MD Unavailable Unavailable Na Kuhn MD Unavailable Unavailable Na Kuhn MD Unavailable Unavailable Na Kuhn MD Unavailable Unavailable Na Kuhn MD Unavailable Unavailable Na Kuhn MD Unavailable Unavailable Na Kuhn MD Unavailable Unavailable Na Kuhn MD Unavailable Unavailable Na Kuhn MD Unavailable Unavailable Na Kuhn MD Unavailable Unavailable Na Kuhn MD Unavailable Unavailable Na Kuhn MD Unavailable Unavailable Na Kuhn MD Unavailable Unavailable Na Kuhn MD Unavailable Unavailable Na Kuhn MD Unavailable Unavailable Na Kuhn MD Unavailable Unavailable Na Kuhn MD Unavailable Unavailable Na Kuhn MD Unavailable Unavailable Na Kuhn MD Unavailable Unavailable Na Kuhn MD Unavailable Unavailable Na Kuhn MD Unavailable Unavailable Na Kuhn MD Unavailable Unavailable Na Kuhn MD Unavailable Unavailable Na Kuhn MD Unavailable Unavailable Na Kuhn MD Unavailable Unavailable Na Kuhn MD Unavailable Unavailable Na Kuhn MD Unavailable Unavailable Na Kuhn MD Unavailable Unavailable Na Kuhn MD Unavailable Unavailable Na Kuhn MD Unavailable Unavailable Na Kuhn MD Unavailable Unavailable Na Kuhn MD Unavailable Unavailable Na Kuhn MD Unavailable Unavailable Na Kuhn MD Unavailable Unavailable Na Kuhn MD Unavailable Unavailable Na Kuhn MD Unavailable Unavailable Na Kuhn MD Unavailable Unavailable Na Kuhn MD Unavailable Unavailable Na Kuhn MD Unavailable Unavailable Na Kuhn MD Unavailable Unavailable Na Kuhn MD Unavailable Unavailable Na Kuhn MD Unavailable Unavailable Na Kuhn MD Unavailable Unavailable Na Kuhn MD Unavailable Unavailable Na Kuhn MD Unavailable Unavailable Na Kuhn MD Unavailable Unavailable Na Kuhn MD Unavailable Unavailable Na Kuhn MD Unavailable Unavailable Na Kuhn MD Unavailable Unavailable Na Kuhn MD Unavailable Unavailable Na Kuhn MD Unavailable Unavailable Na Kuhn MD Unavailable Unavailable Na Kuhn MD Unavailable Unavailable Na Kuhn MD Unavailable Unavailable Na Kuhn MD Unavailable Unavailable Na Kuhn MD Unavailable Unavailable Na Kuhn MD Unavailable Unavailable Na Kuhn MD Unavailable Unavailable Phreesia, Default Unavailable Unavailable Saleh, R Jose Manuel BOAT DECKHAND Unavailable Unavailable Saleh, R Jose Manuel BOAT DECKHAND Unavailable Unavailable Saleh, R Jose Manuel BOAT DECKHAND Unavailable Unavailable NUÑEZ, D VANESSA DO Unavailable Unavailable NUÑEZ, D VANESSA DO Unavailable Unavailable NUÑEZ, D VANESSA DO Unavailable Unavailable NUÑEZ, D VANESSA DO Unavailable Unavailable NUÑEZ, D VANESSA DO Unavailable Unavailable NUÑEZ, D VANESSA DO Unavailable Unavailable NUÑEZ, D VANESSA DO Unavailable Unavailable NUÑEZ, D VANESSA DO Unavailable Unavailable NUÑEZ, D VANESSA DO Unavailable Unavailable NUÑEZ, D VANESSA DO Unavailable Unavailable NUÑEZ, D VANESSA DO Unavailable Unavailable NUÑEZ, D VANESSA DO Unavailable Unavailable NUÑEZ, D VANESSA DO Unavailable Unavailable NUÑEZ, D VANESSA DO Unavailable Unavailable NUÑEZ, D VANESSA DO Unavailable Unavailable NUÑEZ, D VANESSA DO Unavailable Unavailable NUÑEZ, D VANESSA DO Unavailable Unavailable NUÑEZ, D VANESSA DO Unavailable Unavailable NUÑEZ, D VANESSA DO Unavailable Unavailable NUÑEZ, D VANESSA DO Unavailable Unavailable NUÑEZ, D VANESSA DO Unavailable Unavailable NUÑEZ, D VANESSA DO Unavailable Unavailable Anastasia Hyatt Unavailable Na SÁNCHEZ Unavailable Unavailable Brian WONG MD Unavailable Unavailable Brian WONG MD Unavailable Unavailable Brian WONG MD Unavailable Unavailable Brian WONG MD Unavailable Unavailable Brian WONG MD Unavailable Unavailable Brian WONG MD Unavailable Unavailable Brian WONG MD Unavailable Unavailable Brian WONG MD Unavailable Unavailable Brian WONG MD Unavailable Unavailable Haleigh Ozuna MD Unavailable Unavailable Haleigh Ozuna MD Unavailable Unavailable Haleigh Ozuna MD Unavailable Unavailable Haleigh Ozuna MD Unavailable Unavailable Haleigh Ozuna MD Unavailable Unavailable Haleigh Ozuna MD Unavailable Unavailable Haleigh Ozuna MD Unavailable Unavailable Haleigh Ozuna MD Unavailable Unavailable Haleigh Ozuna MD Unavailable Unavailable Haleigh Ozuna MD Unavailable Unavailable Haleigh Ozuna MD Unavailable Unavailable Haleigh Ozuna MD Unavailable Unavailable Haleigh Ozuna MD Unavailable Unavailable GORADIA VIRAL MD Unavailable Unavailable GORADIA, VIRAL MD Unavailable Unavailable GORADIA, VIRAL MD Unavailable Unavailable GORADIA, VIRAL MD Unavailable Unavailable GORADIA, VIRAL MD Unavailable Unavailable GORADIA VIRAL MD Unavailable Unavailable GORADIA VIRAL MD Unavailable Unavailable GORJUSTO VIRAL MD Unavailable Unavailable ANETTE QUEEN MD Unavailable Unavailable ANETTE QUEEN MD Unavailable Unavailable ANETTE QUEEN MD Unavailable Unavailable ANETTE QUEEN MD Unavailable Unavailable ANETTE QUEEN MD Unavailable Unavailable ANETTE QUEEN MD Unavailable Unavailable Yakov DENISE MD Unavailable Unavailable Yakov DENISE MD Unavailable Unavailable Yakov DENISE MD Unavailable Unavailable Yakov DENISE MD Unavailable Unavailable Yakov DENISE MD Unavailable Unavailable Yakov DENISE MD Unavailable Unavailable Yakov DENISE MD Unavailable Unavailable Yakov DENISE MD Unavailable Unavailable Yakov DENISE MD Unavailable Unavailable Yakov DENISE MD Unavailable Unavailable Yakov DENISE MD Unavailable Unavailable Yakov DENISE MD Unavailable Unavailable Yakov DENISE MD Unavailable Unavailable Yakov DENISE MD Unavailable Unavailable Yakov DENISE MD Unavailable Unavailable Megna, L Samuel PA-C Unavailable Unavailable Megna, L Samuel PA-C Unavailable Unavailable Megna, L Samuel PA-C Unavailable Unavailable Megna, L Samuel PA-C Unavailable Unavailable Megna, L Samuel PA-C Unavailable Unavailable Megna, L Samuel PA-C Unavailable Unavailable Megna, L Samuel PA-C Unavailable Unavailable Megna, L Samuel PA-C Unavailable Unavailable Megna, L Samuel PA-C Unavailable Unavailable Megna, L Samuel PA-C Unavailable Unavailable Megna, L Samuel PA-C Unavailable Unavailable Campoli, A Kim Unavailable Unavailable Campoli, A Kim Unavailable Unavailable Campoli, A Kim Unavailable Unavailable Campoli, A Kim Unavailable Unavailable Campoli, A Kim Unavailable Unavailable Campoli, A Kim Unavailable Unavailable Campoli, A Kim Unavailable Unavailable DIANE FUNES MD Unavailable Unavailable DIANE FUNES MD Unavailable Unavailable DIANE FUNES MD Unavailable Unavailable DIANE FUNES MD Unavailable Unavailable Ann-Marie GARSIA MD Unavailable Unavailable ULBERG, Ann-Marie DEL ROSARIO MD Unavailable Unavailable ULBERGAnn-Marie MD Unavailable Unavailable ULAnn-Marie IGNACIO MD Unavailable Unavailable ULAnn-Marie IGNACIO MD Unavailable Unavailable ULAnn-Marie IGNACIO MD Unavailable Unavailable Ann-Marie GARSIA MD Unavailable Unavailable ULAnn-Marie IGNACIO MD Unavailable Unavailable ULAnn-Marie IGNACIO MD Unavailable Unavailable ULBERGAnn-Marie MD Unavailable Unavailable ULBERGAnn-Marie MD Unavailable Unavailable ULBERGAnn-Marie MD Unavailable Unavailable ULAnn-Marie IGNACIO MD Unavailable Unavailable ULAnn-Marie IGNACIO MD Unavailable Unavailable Ann-Marie GARSIA MD Unavailable Unavailable Ann-Marie GARSIA MD Unavailable Unavailable Ann-Marie GARSIA MD Unavailable Unavailable [facility], CVANHOY Unavailable Unavailable Maryam Kumar Unavailable Unavailable Kiki Phan MD Unavailable Unavailable Kiki Phan MD Unavailable Unavailable Kiki Phan MD Unavailable Unavailable Kiki Phan MD Unavailable Unavailable Claudio, A Mouna MANAGER SEMICONDUCTOR Unavailable Unavailable Claudio, A Mouna MANAGER SEMICONDUCTOR Unavailable Unavailable Claudio, A Mouna MANAGER SEMICONDUCTOR Unavailable Unavailable Claudio, A Mouna MANAGER SEMICONDUCTOR Unavailable Unavailable Claudio, A Mouna MANAGER SEMICONDUCTOR Unavailable Unavailable Claudio, A Mouna MANAGER SEMICONDUCTOR Unavailable Unavailable Claudio, A Mouna MANAGER SEMICONDUCTOR Unavailable Unavailable Claudio, A Mouna MANAGER SEMICONDUCTOR Unavailable Unavailable Claudio, A Mouna MANAGER SEMICONDUCTOR Unavailable Unavailable Claudio, A Mouna MANAGER SEMICONDUCTOR Unavailable Unavailable Claudio, A Mouna MANAGER SEMICONDUCTOR Unavailable Unavailable Claudio, A Mouna MANAGER SEMICONDUCTOR Unavailable Unavailable Claudio, A Mouna MANAGER SEMICONDUCTOR Unavailable Unavailable Claudio, A Mouna MANAGER SEMICONDUCTOR Unavailable Unavailable Claudio, A Mouna MANAGER SEMICONDUCTOR Unavailable Unavailable Claudio, A Mouna MANAGER SEMICONDUCTOR Unavailable Unavailable Claudio, A Mouna MANAGER SEMICONDUCTOR Unavailable Unavailable Claudio, A Mouna MANAGER SEMICONDUCTOR Unavailable Unavailable Claudio, A Mouna MANAGER SEMICONDUCTOR Unavailable Unavailable Claudio, A Mouna MANAGER SEMICONDUCTOR Unavailable Unavailable Claudio, A Mouna MANAGER SEMICONDUCTOR Unavailable Unavailable Claudoi, A Mouna MANAGER SEMICONDUCTOR Unavailable Unavailable Claudio, A Mouna MANAGER SEMICONDUCTOR Unavailable Unavailable Claudio, A Mouna MANAGER SEMICONDUCTOR Unavailable Unavailable Claudio, A Mouna MANAGER SEMICONDUCTOR Unavailable Unavailable Claudio, A Mouna MANAGER SEMICONDUCTOR Unavailable Unavailable Claudio, A Mouna MANAGER SEMICONDUCTOR Unavailable Unavailable Claudio, A Mouna MANAGER SEMICONDUCTOR Unavailable Unavailable Claudio, A Mouna MANAGER SEMICONDUCTOR Unavailable Unavailable Claudio, A Mouna MANAGER SEMICONDUCTOR Unavailable Unavailable Claudio, A Mouna MANAGER SEMICONDUCTOR Unavailable Unavailable Na Sánchez Unavailable NUÑEZ, L VANESSA BOAT DECKHAND Unavailable Unavailable NUÑEZ, L VANESSA BOAT DECKHAND Unavailable Unavailable NUÑEZ, L VANESSA BOAT DECKHAND Unavailable Unavailable NUÑEZ, L VANESSA BOAT DECKHAND Unavailable Unavailable NUÑEZ, L VANESSA BOAT DECKHAND Unavailable Unavailable NUÑEZ, L VANESSA BOAT DECKHAND Unavailable Unavailable NUÑEZ, L VANESSA BOAT DECKHAND Unavailable Unavailable NUÑEZ, L VANESSA BOAT DECKHAND Unavailable Unavailable NUÑEZ, L VANESSA BOAT DECKHAND Unavailable Unavailable NUÑEZ, L VANESSA BOAT DECKHAND Unavailable Unavailable NUÑEZ, L VANESSA BOAT DECKHAND Unavailable Unavailable NUÑEZ, L VANESSA BOAT DECKHAND Unavailable Unavailable NUÑEZ, L VANESSA BOAT DECKHAND Unavailable Unavailable NUÑEZ, L VANESSA BOAT DECKHAND Unavailable Unavailable NUÑEZ, L VANESSA BOAT DECKHAND Unavailable Unavailable NUÑEZ, L VANESSA BOAT DECKHAND Unavailable Unavailable Kai OSBORN Unavailable Unavailable Re-disclosure Warning The records that you are about to access may contain information from federally-assisted alcohol or drug abuse programs. If such information is present, then the following federally mandated warning applies: This information has been disclosed to you from records protected by federal confidentiality rules (42 CFR part 2). The federal rules prohibit you from making any further disclosure of this information unless further disclosure is expressly permitted by the written consent of the person to whom it pertains or as otherwise permitted by 42 CFR part 2. A general authorization for the release of medical or other information is NOT sufficient for this purpose. The Federal rules restrict any use of the information to criminally investigate or prosecute any alcohol or drug abuse patient.The records that you are about to access may contain highly sensitive health information, the redisclosure of which is protected by Article 27-F of the [facility] Public Health law. If you continue you may have access to information: Regarding HIV / AIDS; Provided by facilities licensed or operated by the [facility] Office of Mental Health; or Provided by the [facility] Office for People With Developmental Disabilities. If such information is present, then the following [facility] mandated warning applies: This information has been disclosed to you from confidential records which are protected by state law. State law prohibits you from making any further disclosure of this information without the specific written consent of the person to whom it pertains, or as otherwise permitted by law. Any unauthorized further disclosure in violation of state law may result in a fine or alf sentence or both. A general authorization for the release of medical or other information is NOT sufficient authorization for further disc losure. Allergies and Adverse Reactions Type Description Substance Reaction Status Data Source(s ) Propensity to adverse reactions to substance nkda 24 HR Bupropion Hydrochloride 150 MG Extended Release Oral Tablet Active [facility] ([facility]) Propensity to adverse reactions to substance nkda 24 HR Bupropion Hydrochloride 150 MG Extended Release Oral Tablet Active [facility] ([facility]) Allergy to substance Allergy to substance No known drug allergy NETSMART ([facility]) Allergy to substance Allergy to substance Allergy to substance [facility] ([facility]) Allergy to substance Allergy to substance Allergy to substance [facility] ([facility]) Family History Family Member Name Family Member Gender Family Member Status Date o f Status Description Data Source(s) Unknown Male Diagnosis 12/10/2015 12:00:00 AM EDT [facility] ([facility]) Unknown Male Diagnosis 12/10/2015 12:00:00 AM EDT [facility] ([facility]) Encounters Encounter Providers Location Date Indications Data Source(s ) AOT Evaluation Attender: Pa Phan MD [facility] [place] 02/08/2021 02:00:00 AM EST - 02/08/2021 02:00:00 AM EST [facility] ([facility]) Attender: Pa Phan MD 02/08/2021 12:00:00 AM EST [facility] ([facility]) [facility]billable [facility] 02/01/2021 12:00:00 AM EDT [facility]) non-billable [facility] 12/29/2020 12:00:00 AM EDT [facility] ([facility]) CHERYLE Arrington-: [address], [place] [phone], Ph. Attender: Mouna LOBATO [place] - [facility] Medical 12/17/2020 12:00:00 AM EDT [facility] ([facility]) non-billable [facility] 11/30/2020 12:00:00 AM EDT [facility] ([facility]) Inpatient Attender: Collin Irving tim: COLLIN Quinterosender: Samuel VELASCOCAttender: EMMANUELLE PATINO MDAdmitter: Samuel VELASCOCReferrer: Samuel Workman PA-C [id number] 11/27/2020 12:00:00 AM EDT - 12/02/2020 12:00:00 AM [facility] Patient discharged. non-billable [facility] 10/25/2020 12:00:00 AM EDT [facility] ([facility]) Crisis Intervention - Brief Attender: Anastasia Mcclellan [facility] 09/17/2020 08:30:00 AM EDT - 09/17/2020 08:30:00 AM EDT [facility] ([facility]) Attender: Anastasia Hyatt 09/17/2020 12:00:00 AM E DT [facility] ([facility]) Attender: Anastasia Hyatt 09/15/2020 12:00:00 AM E DT [facility] ([facility]) Brief Individual Psychotherapy - 30 min Attender: Anastasia segovia [facility] 09/14/2020 08:30:00 AM EDT - 09/14/2020 08:30:00 AM EDT [facility] ([facility]) Extended Individual Psychotherapy - 45 min Attender: Amando Hyatt [facility] 09/08/2020 09:00:00 AM EDT - 09/08/2020 09:00:00 AM EDT [facility] ([facility]) Outpatient Attender: Jose Manuel Saleh NP [facility] 09/08/2020 08:30:00 AM EDT - 09/08/2020 08:30:00 AM EDT [facility] ([facility]) Attender: Anastasia Hyatt 09/08/2020 12:00:00 AM E DT [facility] ([facility]) Attender: Jose Manuel Saleh NP 09/08/2020 12:00:00 AM EDT [facility] ([facility]) Crisis Intervention - Brief Attender: Anastasia Hyatt [facility] 09/03/2020 08:30:00 AM EDT - 09/03/2020 08:30:00 AM EDT [facility] ([facility]) Attender: Anastasia Hyatt 09/03/2020 12:00:00 AM E DT [facility] ([facility]) Extended Individual Psychotherapy - 45 min Attender: Amando Hyatt [facility] 08/26/2020 09:45:00 AM EDT - 08/26/2020 09:45:00 AM EDT [facility] ([facility]) Attender: Anastasia Hyatt 08/26/2020 12:00:00 AM E DT [facility] ([facility]) Crisis Intervention - Brief Attender: Anastasia Hyatt [facility] 08/17/2020 08:45:00 AM EDT - 08/17/2020 08:45:00 AM EDT [facility] ([facility]) Attender: Anastasia Hyatt 08/17/2020 12:00:00 AM E DT [facility] ([facility]) Outpatient Attender: Jose Manuel Saleh NP [facility] 08/12/2020 08:30:00 AM EDT - 08/12/2020 08:30:00 AM EDT [facility] ([facility]) Attender: Jose Manuel Saleh NP 08/12/2020 12:00:00 AM EDT [facility] ([facility]) Nursing Home - Case Management Attender: Anastasia Hyatt [facility] J ail 07/21/2020 02:00:00 AM EDT - 07/21/2020 02:00:00 AM EDT [facility] ([facility]) Attender: Anastasia Hyatt 07/21/2020 12:00:00 AM E DT [facility] ([facility]) Telemed Diagnostic Eval Attender: Jose Manuel Saleh NP [facility] Nursing Home 07/13/2020 09:00:00 AM EDT - 07/13/2020 09:00:00 AM EDT [facility] ([facility]) Attender: Jose Manuel Saleh NP 07/13/2020 12:00:00 AM EDT [facility] ([facility]) Attender: Anastasia Hyatt 07/02/2020 12:00:00 AM E DT [facility] ([facility]) Brief Individual Psychotherapy - 30 min Attender: Anastasia segovia [facility] 07/01/2020 01:00:00 AM EDT - 07/01/2020 01:00:00 AM EDT [facility] ([facility]) Unlisted evaluation and management service Performer: Swati Kumar 05/06/2020 03:49:00 PM EST - 05/27/2020 02:11:00 PM EST [facility] ([facility]) Unlisted evaluation and management service 04/22/2020 01:29:00 PM EST - 05/06/2020 03:48:00 PM EST [facility] ([facility]) Collin Kuhn MD: [address] [place] [phone], Ph. Attender: Collin Kuhn MD [facility] Medical 03/31/2020 12:00:00 AM EST [facility] ([facility]) Collin Kuhn MD: [address] [place] [phone], Ph. Attender: Collin Kuhn MD [facility] Medical 03/31/2020 12:00:00 AM EST [facility] ([facility]) Collin Kuhn MD: [address] [place] [phone], Ph. Attender: Collin Kuhn MD [place] - [facility] Medical 03/31/2020 12:00:00 AM EST [facility] ([facility]) Attender: Scar PALENCIA [place] 03/02 10:05:00 AM EST - 03/16/2020 10:05:00 AM EST [facility] ([facility]) Outpatient [address] [id number] Integration Team 03/16/2020 12:00:00 AM EST [facility] ([facility]) Patient admitted. Outpatient Attender: JERRY [facility] 03/07/2020 05:33:[address] [facility] Attender: COLLIN GARSIA MD 02/02/2020 12:00:00 A M EST [facility] ([facility]) Inpatient Attender: Kim Vasquez tender: Samuel KRISHNAMURTHY-CAttender: BILLY DENISE MDAttender: OMAR WONG MDAttender: Willem Ozuna MDAttender: DIANE FUNES MDAdmitter: Samuel KRISHNAMURTHY-CReferrer: KAYLYNN OSBORN [id number] 01/31/2020 12:00:00 AM EDT - 02/10/2020 12:18:00 PM EST Unspecified psychosis not due to a substance or known physiological condition [facility] Unspecified psychosis not due to a subst ance or known physiological condition Patient discharged. Emergency Attender: ANETTE QUEEN MD ER-ER 1 03:48:00 PM EDT - 01/31/2020 08:13:[address] [facility] Patient discharged. AOT Evaluation Attender: COLLIN GARSIA MD [facility] 01/29/2020 02:00:00 AM EDT - 01/29/2020 02:00:00 AM EDT [facility] ([facility]) Outpatient Attender: VANESSA NUÑEZ DOAttender: VANESSA BLEVINS BOAT DECKHAND ER-LAB-PNP 01/22/2020 09:24:[address] [facility] Nursing Home - Case Management Attender: Anastasia Hyatt [facility] J ail 01/15/2020 08:50:00 AM EDT - 01/15/2020 08:50:00 AM EDT [facility] ([facility]) Attender: Anastasia Hyatt 01/15/2020 12:00:00 AM E DT [facility] ([facility]) Attender: Anastasia Hyatt 01/15/2020 12:00:00 AM E DT [facility] ([facility]) Brief Individual Psychotherapy - 30 min Attender: Anastasiawinsome segovia [facility] 01/14/2020 10:00:00 AM EDT - 01/14/2020 10:00:00 AM EDT [facility] ([facility]) Functional Status Immunizations Vaccine Date Status Description Data Source(s) COVID-19, mRNA, LNP-S, PF, 100 mcg/0.5 mL dose 03/31/2020 03 :19:23 PM EST completed 03/31/20200.5 mL [facility] ([facility]) COVID-19, mRNA, LNP-S, PF, 100 mcg/0.5 mL dose 03/31/2020 03 :19:23 PM EST completed 03/31/20200.5 mL [facility] ([facility]) COVID-19, mRNA, LNP-S, PF, 100 mcg/0.5 mL dose 03/31/2020 03 :19:23 PM EST completed 03/31/20200.5 mL [facility] ([facility]) COVID-19 VACCINE Moderna 03/31/2020 12:00:00 AM EST completed [place] Vaccine Series Complete: NOThis Data was Submitted to [facility] Via [facility]. New in 2011. IIV4 02/02/2020 12:00:00 AM EST completed <t d ID="[id number]">Influenza Quad IM Pres Free (0.5 mL dose)</td><td>02/02/2020</td><td></td> [facility] Medications Medication Brand Name Start Date Product Form Dose Route Admi nistrative Instructions Pharmacy Instructions Status Indications Reaction Description Data Source(s) Guanfacine 1 MG Oral Tablet guanFACINE (TENEX) tablet 2 mg guanFACINE (TENEX) tablet 2 mg 12/02/2020 08:00:00 AM EDT 2 mg Oral active 2 mg, Oral, Daily Standard, First dose on Sun12/02/20 at 0800, For 30 days
Check vital signs before administering. Hold for BP <100/60
[facility] Medication administered onsite Guanfacine 1 MG Oral Tablet guanFACINE HCl 1 MG Oral T ablet (TENEX) guanFACINE HCl 1 MG Oral Tablet (TENEX) 12/02/2020 12:00:00 AM EDT 1 mg Oral active Take 1 tablet by mouth Two T imes Daily for 7 daysTake 1 tablet in the morning and 1 tablet in the afternoon. Monitor for side effects including dizziness, light-headedness, slurred speech and defer dose if symptomatic. Avoid taking before bedtime. [facility] Prazosin 2 MG Oral Capsule Prazosin HCl 2 MG Oral Caps ule (MINIPRESS) Prazosin HCl 2 MG Oral Capsule (MINIPRESS) 12/02/2020 12:00:00 AM EDT 2 mg Oral active Take 1 capsule by mo uth nightly as needed (for nightmares) for up to 7 days [facility] Melatonin 1 MG Oral Tablet Melatonin 1 MG Oral Tablet 2020 12:00:00 AM EDT 10 mg Oral active Take 10 tablets b y mouth nightly as needed (Sleep) [facility] Nicotine 2 MG Oral Lozenge Nicotine Uriah crilex 2 MG Mouth/Throat Lozenge (NICORETTE) Nicotine Polacrilex 2 MG Mouth/Throat Lozenge (NICORET TE) 12/02/2020 12:00:00 AM EDT [address] 1 lozenge inside cheek every 4 (four) hours as needed for Smoking cessation for up to 7 days [facility] Guanfacine 1 MG Oral Tablet guanFACINE (TENEX) tablet 1 mg guanFACINE (TENEX) tablet 1 mg 12/01/2020 02:00:00 PM EDT 1 mg Oral active 1 mg, Oral, Daily Standard, First dose (after last modification) on Sun12/01/20 at 1400, For 30 doses
Check vital signs before administering. Hold for BP <100/60
[facility] Medication administered onsite Diphenhydramine Hydrochloride 50 MG Oral Capsule diphenhydrAMINE (BENADRYL) capsule 50 mg diphenhydrAMINE (BENADRYL) capsule 50 mg 12/01/2020 12 :33:45 PM EDT 50 mg Oral active 50 mg, O ral, Every 6 hours PRN, for agitation and sleep, Starting on Sun12/01/20 at 1233, For 671 hours [facility] Medication administered onsite Prazosin 1 MG Oral Capsule prazosin (MINIPRESS) capsul e 1 mg prazosin (MINIPRESS) capsule 1 mg 12/01/2020 10:59:26 AM EDT 1 mg Oral active 1 mg, Oral, Nightly PRN, for nightmares, Starting on Sun12/01/20 at 1059, For 30 doses
Check vital signs before administering. Hold for BP <100/60
[facility] Medication administered onsite Melatonin 5 MG Oral Tablet melatonin tablet 10 mg melatonin tablet 10 mg 11/30/2020 10:00:00 PM EDT 10 mg Oral active 10 mg, Oral, Nightly, First dose on Sun11/30/20 at 2200, For 30 doses [facility] Medication administered onsite Diphenhydramine Hydrochloride 50 MG Oral Capsule diphenhydrAMINE (BENADRYL) capsule 50 mg diphenhydrAMINE (BENADRYL) capsule 50 mg 11/29/2020 10 :00:00 PM EDT 50 mg Oral aborted 50 mg, O ral, Nightly, First dose on Sun11/29/20 at 2200, For 30 days [facility] Medication administered onsite Haloperidol 5 MG Oral Tablet haloperidol (HALDOL) tabl et 7.5 mg haloperidol (HALDOL) tablet 7.5 mg 11/29/2020 08:00:00 PM EDT 7.5 mg Oral completed 7.5 mg, Oral, Once, On Sun11/29/20 at 2000, For 1 dose [facility] Medication administered onsite Guanfacine 1 MG Oral Tablet guanFACINE (TENEX) tablet 1 mg guanFACINE (TENEX) tablet 1 mg 11/29/2020 02:00:00 PM EDT 1 mg Oral aborte d 1 mg, Oral, 2 Times Daily, First dose on Sun11/29/20 at 1400, For 30 days
Check vital signs before administering
[facility] Medication administered onsite Haloperidol 5 MG Oral Tablet haloperidol (HALDOL) tabl et 2.5 mg haloperidol (HALDOL) tablet 2.5 mg 11/29/2020 12:30:00 PM EDT 2.5 mg Oral completed 2.5 mg, Oral, Once, On Sun11/29/20 at 1230, For 1 dose [facility] Medication administered onsite Prazosin 2 MG Oral Capsule prazosin (MINIPRESS) capsul e 2 mg prazosin (MINIPRESS) capsule 2 mg 11/28/2020 10:00:00 PM EDT 2 mg Oral aborted 2 mg, Oral, Nightly, First dose on Sun11/28/20 at 2200, For 30 days
Check vital signs before administering
[facility] Medication administered onsite topiramate 100 MG Oral Tablet topiramate (TOPAMAX) tab let 100 mg topiramate (TOPAMAX) tablet 100 mg 11/28/2020 08:00:00 AM EDT 100 mg Oral aborted 100 mg, Oral, Every 12 hours Standard (2 times per day), First dose on Sun11/28/20 at 0800, For 30 days [facility] Medication administered onsite Nicotine 2 MG Oral Lozenge nicotine (NICORETTE) lozeng e 2 mg nicotine (NICORETTE) lozenge 2 mg 11/28/2020 01:49:20 AM EDT 2 mg Mouth/Th roat active 2 mg, Mouth/Throat, Every 4 hours PRN, Smoking cessation, Starting on Sun11/28/20 at 0149, For 30 days
Should not be chewed or swallowed; allow to dissolve slowly (~20-30 minutes)
[facility] Medication administered onsite [place] Carbonate 300 MG Oral Capsule lithium carbonate 12:00:00 AM EDT 300 mg by mouth completed <td ID="MedicationRxNorm_3">206042</td><td ID="MedicationMedication_3">lithium carbonate</td><td ID="MedicationRoute_3">by mouth</td><td ID="MedicationRouteConcept_3">O93660</td><td ID="MedicationStartDate_3">09/08/2020</td><td ID="MedicationStopDate_3">03/07/2021</td><td ID="MedicationDosageFrequency_3">at bedtime</td><td ID="MedicationDuration_3">30</td><td ID="MedicationFormulaStrength_3">300 mg</td><td ID="MedicationDosageForm_3">capsule</td><td ID="MedicationDosageFormCode_3"></td><td ID="MedicationDosageDescription_3"></td><td ID="MedicationMedicationId_3">[id number]</td><td ID="MedicationAccount_3">[id number]</td><td ID="MedicationNpid_3">[id number]</td><td ID="MedicationAuthorFirstName_3">Jose Manuel</td><td ID="MedicationAuthorLastName_3">Saleh</td><td ID="MedicationTaxonomyCode_3">[id number]</td><td ID="MedicationTaxonomyDesc_3">Nurse Practitioner</td><td ID="MedicationPhoneNumber_3">[phone]</td> [facility] [place] Carbonate 150 MG Oral Capsule lithium carbonate 12:00:00 AM EDT 150 mg by mouth completed <td ID="MedicationRxNorm_2">[id number]</td><td ID="MedicationMedication_2">lithium carbonate</td><td ID="MedicationRoute_2">by mouth</td><td ID="MedicationRouteConcept_2">M45838</td><td ID="MedicationStartDate_2">09/08/2020</td><td ID="MedicationStopDate_2">03/07/2021</td><td ID="MedicationDosageFrequency_2">every morning</td><td ID="MedicationDuration_2">30</td><td ID="MedicationFormulaStrength_2">150 mg</td><td ID="MedicationDosageForm_2">capsule</td><td ID="MedicationDosageFormCode_2"></td><td ID="MedicationDosageDescription_2"> </td><td ID="MedicationMedicationId_2">[id number]</td><td ID="MedicationAccount_2">[id number]</td><td ID="MedicationNpid_2">[id number]</td><td ID="MedicationAuthorFirstName_2">Jose Manuel</td><td ID="MedicationAuthorLastName_2">Saleh</td><td ID="MedicationTaxonomyCode_2">[id number]</td><td ID="MedicationTaxonomyDesc_2">Nurse Practitioner</td><td ID="MedicationPhoneNumber_2">[phone]</td> [facility] ([facility]) Trazodone Hydrochloride 100 MG Oral Tablet Trazodone HCL 08/12/2020 12:00:00 AM EDT ORAL active [facility] [place] Aristada 07/13/2020 12:00:00 AM EDT activ e MEDENT ([facility]) Aristada Aristada 07/13/2020 12:00:00 AM EDT 882 mg/3.2 completed <td ID="MedicationRxNorm_1">[id number]</td><td ID="MedicationMedication_1">Aristada</td><td ID="MedicationRoute_1"></td><td ID="MedicationRouteConcept_1"></td><td ID="MedicationStartDate_1">07/13/2020</td><td ID="MedicationStopDate_1">06/14/2021</td><td ID="MedicationDosageFrequency_1"></td><td ID="MedicationDuration_1">56</td><td ID="MedicationFormulaStrength_1">882 mg/3.2 mL</td><td ID="MedicationDosageForm_1">suspension,extended rel syring</td><td ID="MedicationDosageFormCode_1"></td><td ID="MedicationDosageDescription_1"></td><td ID="MedicationMedicationId_1">[id number]</td><td ID="MedicationAccount_1">[id number]</td><td ID="MedicationNpid_1">[id number]</td><td ID="MedicationAuthorFirstName_1">Jose Manuel</td><td ID="MedicationAuthorLastName_1">Saleh</td><td ID="MedicationTaxonomyCode_1">[id number]</td><td ID="MedicationTaxonomyDesc_1"> Nurse Practitioner</td><td ID="MedicationPhoneNumber_1">[phone]</td> [facility] ([facility]) Aristada Aristada 07/13/2020 12:00:00 AM EDT 882 mg/3.2 completed <td ID="MedicationRxNorm_4">[id number]</td><td ID="MedicationMedication_4">[place]ada</td><td ID="MedicationRoute_4"></td><td ID="MedicationRouteConcept_4"></td><td ID="MedicationStartDate_4">07/13/2020</td><td ID="MedicationStopDate_4">06/14/2021</td><td ID="MedicationDosageFrequency_4"></td><td ID="MedicationDuration_4">56</td><td ID="MedicationFormulaStrength_4">882 mg/3.2 mL</td><td ID="MedicationDosageForm_4">suspension,extended rel syring</td><td ID="MedicationDosageFormCode_4"></td><td ID="MedicationDosageDescription_4"></td><td ID="MedicationMedicationId_4">[id number]</td><td ID="MedicationAccount_4">[id number]</td><td ID="MedicationNpid_4">[id number]</td><td ID="MedicationAuthorFirstName_4">Ojse Manuel</td><td ID="MedicationAuthorLastName_4">Saleh</td><td ID="MedicationTaxonomyCode_4">[id number]</td><td ID="MedicationTaxonomyDesc_4"> Nurse Practitioner</td><td ID="MedicationPhoneNumber_4">[phone]</td> [facility] [place] 07/13/2020 12:00:00 AM EDT 882 mg/3.2 completed <td ID="MedicationRxNorm_3">[id number]</td><td ID="MedicationMedication_3">[place]ristada</td><td ID="MedicationRoute_3"></td><td ID="MedicationRouteConcept_3"></td><td ID="MedicationStartDate_3">07/13/2020</td><td ID="MedicationStopDate_3">06/14/2021</td><td ID="MedicationDosageFrequency_3"></td><td ID="MedicationDuration_3">56</td><td ID="MedicationFormulaStrength_3">882 mg/3.2 mL</td><td ID="MedicationDosageForm_3">suspension,extended rel syring</td><td ID="MedicationDosageFormCode_3"></td><td ID="MedicationDosageDescription_3"></td><td ID="MedicationMedicationId_3">[id number]</td><td ID="MedicationAccount_3">[id number]</td><td ID="MedicationNpid_3">[id number]</td><td ID="MedicationAuthorFirstName_3">Jose Manuel</td><td ID="MedicationAuthorLastName_3">Saleh</td><td ID="MedicationTaxonomyCode_3">[id number]</td><td ID="MedicationTaxonomyDesc_3"> Nurse Practitioner</td><td ID="MedicationPhoneNumber_3">[phone]</td> [facility] ([facility]) Escitalopram 10 MG Oral Tablet Escitalopram Oxalate 07/13/2020 1 2:00:00 AM EDT ORAL active [facility] Trazodone Hydrochloride 50 MG Oral Tablet Trazodone HCL 07/13/2020 12:00:00 AM EDT ORAL completed MEDENT ([facility]) Escitalopram 10 MG Oral Tablet escitalopram oxalate 07/13/2020 1 2:00:00 AM EDT 10 mg by mouth completed <td ID="Medic ationRxNorm_2">[id number]</td><td ID="MedicationMedication_2">escitalopram oxalate</td><td ID="MedicationRoute_2">by mouth</td><td ID="MedicationRouteConcept_2">R94811</td><td ID="MedicationStartDate_2">07/13/2020</td><td ID="MedicationStopDate_2">01/09/2021</td><td ID="MedicationDosageFrequency_2">at bedtime</td><td ID="MedicationDuration_2">30</td><td ID="MedicationFormulaStrength_2">10 mg</td><td ID="MedicationDosageForm_2">tablet</td><td ID="MedicationDosageFormCode_2"></td><td ID="MedicationDosageDescription_2"></td><td ID="MedicationMedicationId_2">[id number]</td><td ID="MedicationAccount_2">[id number]</td><td ID="MedicationNpid_2">[id number]</td><td ID="MedicationAuthorFirstName_2">Jose Manuel</td><td ID="MedicationAuthorLastName_2">Saleh</td><td ID="MedicationTaxonomyCode_2">[id number]</td><td ID="MedicationTaxonomyDesc_2">Nurse Practitioner</td><td ID="MedicationPhoneNumber_2">[phone]</td> [facility] ([facility]) Escitalopram 10 MG Oral Tablet escitalopram oxalate 07/13/2020 1 2:00:00 AM EDT 10 mg by mouth completed <td ID="Medic ationRxNorm_1">721774</td><td ID="MedicationMedication_1">escitalopram oxalate</td><td ID="MedicationRoute_1">by mouth</td><td ID="MedicationRouteConcept_1">C55056</td><td ID="MedicationStartDate_1">07/13/2020</td><td ID="MedicationStopDate_1">01/09/2021</td><td ID="MedicationDosageFrequency_1">at bedtime</td><td ID="MedicationDuration_1">30</td><td ID="MedicationFormulaStrength_1">10 mg</td><td ID="MedicationDosageForm_1">tablet</td><td ID="MedicationDosageFormCode_1"></td><td ID="MedicationDosageDescription_1"></td><td ID="MedicationMedicationId_1">[id number]</td><td ID="MedicationAccount_1">[id number]</td><td ID="MedicationNpid_1">[id number]</td><td ID="MedicationAuthorFirstName_1">Jose Manuel</td><td ID="MedicationAuthorLastName_1">Saleh</td><td ID="MedicationTaxonomyCode_1">[id number]</td><td ID="MedicationTaxonomyDesc_1">Nurse Practitioner</td><td ID="MedicationPhoneNumber_1">[phone]</td> [facility] ([facility]) topiramate 25 MG Oral Tablet Topiramate 06/17/2020 12:00:00 AM EDT [facility] Prazosin 2 MG Oral Capsule Prazosin HCL 06/17/2020 12:00:00 AM EDT ORAL active MEDENT ([facility]) 2 ML aripiprazole 200 MG/ML Prefilled Sy ringe ARIPiprazole ER 400 MG Intramuscular Prefilled Syringe (ABILIFY MAINTENA) ARIPiprazole ER 400 MG Intramuscular Prefilled Syringe (ABILIFY MAINTENA) 02/10/2020 12:00:00 AM EST 400 mg Intramuscular active Inject 400 mg into the muscle once for 1 dose [facility] aripiprazole 10 MG Oral Tablet ARIPiprazole 10 MG Oral Tablet (ABILIFY) ARIPiprazole 10 MG Oral Tablet (ABILIFY) 02/10/2020 12:00:00 AM EST 10 mg Oral active Take 1 tablet by gardenia th daily [facility] aripiprazole 10 MG Oral Tablet ARIPiprazole 10 MG Oral Tablet (ABILIFY) ARIPiprazole 10 MG Oral Tablet (ABILIFY) 02/10/2020 12:00:00 AM EST 10 mg Oral aborted Take 1 tablet by gardenia th daily [facility] olanzapine 5 MG Oral Tablet OLANZapine (ZYPREXA) table t 5 mg OLANZapine (ZYPREXA) tablet 5 mg 02/09/2020 07:32:03 PM EST 5 mg Oral active 5 mg, Oral, Every 6 hours PRN, For agitation or anxiety, MDD 20 mg daily, Starting 02/09/20 at 1932, For 30 days [facility] Medication administered onsite Hydroxyzine Hydrochloride 50 MG Oral Tab let hydrOXYzine HCl 50 MG Oral Tablet (ATARAX) hydrOXYzine HCl 50 MG Oral Tablet (ATARAX) 02/09/2020 12:00: 00 AM EST 50 mg Oral active Take 1 tablet by mouth every 6 (six) hours as needed (Anxiety or sleep) [facility] Melatonin 1 MG Oral Tablet Melatonin 1 MG Oral Tablet 2019 12:00:00 AM EST 1 mg Oral aborted Take 1 tablet by mouth nightly as needed (Sleep) [facility] Nicotine 2 MG Oral Lozenge Nicotine Uriah crilex 2 MG Mouth/Throat Lozenge (NICORETTE) Nicotine Polacrilex 2 MG Mouth/Throat Lozenge (NICORET TE) 02/09/2020 12:00:00 AM EST [address] 1 lozenge inside cheek every hour as needed for Smoking cessation [facility] olanzapine 5 MG Oral Tablet OLANZapine 5 MG Oral Table t (ZYPREXA) OLANZapine 5 MG Oral Tablet (ZYPREXA) 02/09/2020 12:00:00 AM EST 5 mg Oral active Take 1 tablet by mouth every 6 (six) hours as needed (For agitation or anxiety, MDD 20 mg daily) [facility] topiramate 25 MG Oral Tablet Topiramate 25 MG Oral Tab let (TOPAMAX) Topiramate 25 MG Oral Tablet (TOPAMAX) 02/09/2020 12:00:00 AM EST 25 mg Oral active Take 1 tablet by mouth every 12 (twelve) hours [facility] benztropine mesylate 1 MG Oral Tablet Be nztropine Mesylate 1 MG Oral Tablet (COGENTIN) Benztropine Mesylate 1 MG Oral Tablet (COGENTIN) 02/08 12:00:00 AM EST 1 mg Oral active Take 1 t ablet by mouth every 6 (six) hours as needed (For EPS reversal) [facility] Docusate Sodium 100 MG Oral Capsule Docu sate Sodium 100 MG Oral Capsule (COLACE) Docusate Sodium 100 MG Oral Capsule (COLACE) 02/09/2020 12:00:00 AM EST 100 mg Oral active Take 1 capsule by mouth every evening [facility] Docusate Sodium 100 MG Oral Capsule docusate sodium (C OLACE) capsule 100 mg docusate sodium (COLACE) capsule 100 mg 02/07/2020 09:00:00 PM EST 100 mg Oral active 100 mg, Oral, Every evening, First dose on 02/07/20 at 2100, For 30 days [facility] Medication administered onsite aripiprazole 5 MG Oral Tablet ARIPiprazole (ABILIFY) t ablet 10 mg ARIPiprazole (ABILIFY) tablet 10 mg 02/05/2020 08:00:00 AM EST 10 mg Oral active 10 mg, Oral, Daily Standard, First dose (after last modification) on Sun02/05/20 at 0800, For 28 doses [facility] Medication administered onsite topiramate 25 MG Oral Tablet topiramate (TOPAMAX) tabl et 25 mg topiramate (TOPAMAX) tablet 25 mg 02/04/2020 08:00:00 PM EST 25 mg Oral active 25 mg, Oral, Every 12 hours Standard (2 times per day), First dose on Sun02/04/20 at 2000, For 30 days [facility] Medication administered onsite aripiprazole 5 MG Oral Tablet ARIPiprazole (ABILIFY) t ablet 5 mg ARIPiprazole (ABILIFY) tablet 5 mg 02/03/2020 08:00:00 AM EST 5 mg Oral aborted 5 mg, Oral, Daily Standard, First dose on Sun02/03/20 at 0800, For 30 days [facility] Medication administered onsite Nicotine 4 MG/ACTUAT Inhalant Solution nicotine (NICOT ROL) inhaler 1 puff nicotine (NICOTROL) inhaler 1 puff 02/02/2020 10:03:25 PM EST 1 {puff} Inhalation active 1 puff, Inhala tion, PRN, Smoking cessation, Starting Sun02/02/20 at 2203, For 30 days
May puff cartridge for up to 20 minutes. Each cartridge delivers 4 mg Avoid use between hours of 2200 and 0600 due to stimulant effects Do not exceed 16 cartridges/day
[facility] Medication administered onsite benztropine mesylate 1 MG Oral Tablet benztropine (COG ENTIN) tablet 1 mg benztropine (COGENTIN) tablet 1 mg 02/02/2020 05:20:18 PM EST 1 mg Oral active 1 mg, Oral, Every 6 hours PRN, To give with Haldol for agitation, Starting Sun02/02/20 at 1720, For 30 days [facility] Medication administered onsite Nicotine 2 MG Oral Lozenge nicotine (NICORETTE) lozeng e 2 mg nicotine (NICORETTE) lozenge 2 mg 02/02/2020 03:59:49 PM EST 2 mg Mouth/Th roat active 2 mg, Mouth/Throat, Every 1 hour PRN, Smoking cessation, Starting Sun02/02/20 at 1559, For 30 days
Do NOT exceed 5 in hours or 20/day Should not be chewed or swallowed; allow to dissolve slowly (~20-30 minutes)
[facility] Medication administered onsite Melatonin 1 MG Oral Tablet melatonin tablet 1 mg melatonin t ablet 1 mg 02/02/2020 03:58:59 PM EST 1 mg Oral active 1 mg, Oral, Nightly PRN, Sleep, Starting Sun02/02/20 at 1558, For 30 days [facility] Medication administered onsite influenza vac split quad (FLUARIX) injection 6 months and ol tim 0.5 mL [id number] 02/02/2020 03:12:16 PM EST 0.5 mL Intramuscular complet ed 0.5 mL, Intramuscular, Give Now, Starting Sun02/02/20 at 1512, For 1 dose [facility] Medication administered onsite Acetaminophen 325 MG Oral Tablet acetaminophen (TYLENO L) tablet 650 mg acetaminophen (TYLENOL) tablet 650 mg 02/02/2020 03:10:01 PM EST 65 0 mg Oral active 650 mg, Oral, E very 6 hours PRN, Mild Pain (Pain Scale Score 1- 3), Starting Sun02/02/20 at 1510, For 30 days
Maximum daily dose of acetaminophen is 3,000 mg from all sources in 24 hours.
[facility] Medication administered onsite Hydroxyzine Hydrochloride 50 MG Oral Tablet hydrOXYzin e (ATARAX) tablet 50 mg hydrOXYzine (ATARAX) tablet 50 mg 02/02/2020 03:09:46 PM EST 50 mg Oral active 50 mg, Oral, Every 6 hours PRN, Anxiety, Sleep, Starting 02/02/20 at 1509, For 30 days [facility] Medication administered onsite haloperidol (HALDOL) tablet 2.5 mg 02/02/2020 09:45:00 AM EST 2.5 mg Oral completed 2.5 mg, Oral, Once, Mon 02/01 at 0945, For 1 dose [facility] Medication administered onsite haloperidol (HALDOL) tablet 2.5 mg 02/01/2020 04:30:00 PM EST 2.5 mg Oral completed 2.5 mg, Oral, Once, [place] 01/31 at 1630, For 1 dose [facility] Medication administered onsite Trazodone Hydrochloride 50 MG Oral Tablet trazodone 2018 12:00:00 AM EDT 50 mg completed <td ID="Medica tionRxNorm_2">[id number]</td><td ID="MedicationMedication_2">trazodone</td><td ID="MedicationRoute_2"></td><td ID="MedicationRouteConcept_2"></td><td ID="MedicationStartDate_2">11/05/2018</td><td ID="MedicationStopDate_2">01/09/2021</td><td ID="MedicationDosageFrequency_2"></td><td ID="MedicationDuration_2">30</td><td ID="MedicationFormulaStrength_2">50 mg</td><td ID="MedicationDosageForm_2">tablet</td><td ID="MedicationDosageFormCode_2"></td><td ID="MedicationDosageDescription_2"></td><td ID="MedicationMedicationId_2">[id number]</td><td ID="MedicationAccount_2">[id number]</td><td ID="MedicationNpid_2">[id number]</td><td ID="MedicationAuthorFirstName_2">Jose Manuel</td><td ID="MedicationAuthorLastName_2">Saleh</td><td ID="MedicationTaxonomyCode_2">[id number]</td><td ID="MedicationTaxonomyDesc_2">Nurse Practitioner</td><td ID="MedicationPhoneNumber_2">[phone]</td> [facility]) Trazodone Hydrochloride 100 MG Oral Tablet trazodone 11/05 12:00:00 AM EDT 100 mg completed <td ID="Medica tionRxNorm_1">[id number]</td><td ID="MedicationMedication_1">trazodone</td><td ID="MedicationRoute_1"></td><td ID="MedicationRouteConcept_1"></td><td ID="MedicationStartDate_1">11/05/2018</td><td ID="MedicationStopDate_1">01/09/2021</td><td ID="MedicationDosageFrequency_1"></td><td ID="MedicationDuration_1">30</td><td ID="MedicationFormulaStrength_1">100 mg</td><td ID="MedicationDosageForm_1">tablet</td><td ID="MedicationDosageFormCode_1"></td><td ID="MedicationDosageDescription_1"></td><td ID="MedicationMedicationId_1">[id number]</td><td ID="MedicationAccount_1">[id number]</td><td ID="MedicationNpid_1">[id number]</td><td ID="MedicationAuthorFirstName_1">Jose Manuel</td><td ID="MedicationAuthorLastName_1">Saleh</td><td ID="MedicationTaxonomyCode_1">[id number]</td><td ID="MedicationTaxonomyDesc_1">Nurse Practitioner</td><td ID="MedicationPhoneNumber_1">[phone]</td> [facility] ([facility]) [place] Carbonate 150 MG Oral Capsule li thium carbonate 150 mg capsule TAKE ONE CAPSULE BY MOUTH EVERY MORNING lithium carbonate 150 mg capsule TAKE ON E CAPSULE BY MOUTH EVERY MORNING completed lithium carbonate 150 MG Oral Capsule [facility] ([facility]) Hydroxyzine Hydrochloride 50 MG Oral Tab let hydroxyzine HCl 50 mg tablet TAKE ONE TABLET BY MOUTH EVERY 6 HOURS NEEDED FOR AGITATION hydroxyzine HCl 50 mg tablet TAKE ONE TABLET BY MOUTH EVERY 6 HOURS NEEDED FOR AGITATION completed hydroxyzine hydrochloride 50 MG Oral Tablet [facility] ([facility]) aripiprazole 10 MG Oral Tablet aripipraz ole 10 mg tablet TAKE ONE TABLET BY MOUTH EVERY DAY FOR MOOD aripiprazole 10 mg tablet TAKE ONE TABLE T BY MOUTH EVERY DAY FOR MOOD completed tremaine piprazole 10 MG Oral Tablet [facility] ([facility]) Trazodone Hydrochloride 50 MG Oral Table t trazodone 50 mg tablet TAKE ONE TABLET BY MOUTH EVERY DAY AT BEDTIME NEEDED FOR SLEEP trazodone 50 mg tablet TAKE ONE TABLET BY MOUTH EVERY DAY AT BEDTIME NEEDED FOR SLEEP completed trazodone hydrochloride 50 MG Or al Tablet [facility] ([facility]) [place] Carbonate 300 MG Oral Capsule li thium carbonate 300 mg capsule TAKE ONE CAPSULE BY MOUTH AT BEDTIME lithium carbonate 300 mg capsule TAKE ON E CAPSULE BY MOUTH AT BEDTIME completed lithium carbonate 300 MG Oral Capsule [facility] ([facility]) Prazosin 2 MG Oral Capsule prazosin 2 mg capsule TAKE ONE CAPSULE BY MOUTH AT BEDTIME NEEDED prazosin 2 mg capsule TAKE ONE CAPSULE B Y MOUTH AT BEDTIME NEEDED completed prazosin 2 MG O ral Capsule [facility] ([facility]) olanzapine 7.5 MG Oral Tablet olanzapine 7.5 mg tablet TAKE ONE TABLET BY MOUTH THREE TIMES DAILY olanzapine 7.5 mg tablet TAKE ONE TABLET BY MOUTH THREE TIMES DAILY completed olanzapine 7.5 M G Oral Tablet [place] ([facility]) topiramate 25 MG Oral Tablet topiramate 25 mg tablet TAKE ONE TABLET BY MOUTH TWICE DAILY topiramate 25 mg tablet TAKE ONE TABLET BY MOUTH TWICE DAILY completed topiramate 25 MG Ora l Tablet [place] ([facility]) aripiprazole 400 MG Injection [Abilify] Abilify Maintena 400 mg intramuscular suspension,extended release inject 400 milligrams into THE muscle ONCE a MONTH Abilify Maintena 400 mg intramuscular suspension,extended release inject 400 milligrams into THE muscle ONCE a MONTH completed aripiprazole 400 MG Injection [Abilify] [place] ([facility]) emtricitabine 200 MG / Tenofovir disopro xil fumarate 300 MG Oral Tablet [Truvada] Truvada 200 mg-300 mg tablet TAKE ONE TABLET BY MOUTH EVERY DAY Truvada 200 mg-300 mg tablet TAKE ONE TABLET BY MOUTH EVERY DAY completed emtricitabine 200 MG / tenofovir disoproxil fumarate 300 MG Oral Tablet [Truvada] [place] ([facility]) topiramate 50 MG Oral Tablet topiramate 50 mg tablet TAKE ONE TABLET BY MOUTH TWICE DAILY topiramate 50 mg tablet TAKE ONE TABLET BY MOUTH TWICE DAILY completed topiramate 50 MG Ora l Tablet [place] ([facility]) Propranolol Hydrochloride 20 MG Oral Tab let propranolol 20 mg tablet TAKE ONE TABLET BY MOUTH TWICE A DAY FOR ANXIETY propranolol 20 mg tablet TAKE ONE TABLET BY MOUTH TWICE A DAY FOR ANXIETY comp leted propranolol hydrochloride 20 MG Oral Tablet [place] ([facility]) aripiprazole 30 MG Oral Tablet aripiprazole 30 mg tabl et aripiprazole 30 mg tablet completed aripiprazole 30 MG Oral Tablet [place] ([facility]) benztropine mesylate 1 MG Oral Tablet be nztropine 1 mg tablet TAKE ONE TABLET BY MOUTH EVERY MORNING benztropine 1 mg tablet TAKE ONE TABLET BY MOUTH EVERY MORNING completed benztropine me sylate 1 MG Oral Tablet [place] ([facility]) pantoprazole 40 MG Delayed Release Oral Tablet pantoprazole 40 mg tablet,delayed release TAKE ONE TABLET BY MOUTH EVERY DAY FOR GERD pantoprazole 40 mg tablet,delayed release TAKE ONE TABLET BY MOUTH EVERY DAY FOR GERD completed pantoprazole 40 MG Delayed Relea se Oral Tablet [facility] ([facility]) Escitalopram 20 MG Oral Tablet escitalop kimberlee 20 mg tablet TAKE ONE TABLET BY MOUTH EVERY DAY FOR MOOD escitalopram 20 mg tablet TAKE ONE TABLE T BY MOUTH EVERY DAY FOR MOOD completed esc italopram 20 MG Oral Tablet [facility] ([facility]) Insurance Providers Payer name Policy type / Coverage type Policy ID Covered alliance party ID Covered alliance party's relationship to dolan Policy Dolan Plan Information STEWART [id number] SP [id number] STEWART I [id number] Self [id number] STEWART [id number] SP [id number] Managed Care [place] P [id number] S [id number] MEDICAID M [id number] Self [id number] MEDICAID PROF FEES UNAVAILABLE S UNAVAILABLE MEDICAID UNAVAILABLE S UNAVAILA BLE [facility] OFFICE OF MENTAL HEALTH [id number] S [id number] [facility] OFFICE OF MENTAL HEALTH [id number] S [id number] Medicaid S [id number] S [id number] Managed Care [place] P [id number] S [id number] Managed Care [place] P UNAVAILABLE S UNAVAILABLE Medicaid S UNAVAILABLE S UNAVAILA BLE Medicaid [facility] Part B [id number] Self [id number] [facility] [facility] [place] Medicaid [id number] Self [id number] [facility]-Medicaid [id number] ANSI-Commercial [id number] ANSI-Commercial [id number] ANSI-Medicaid [id number] ANSI-Commercial [id number] ANSI-Medicaid [id number] ANSI-Commercial [id number] ANSI-Medicaid [id number] ANSI-Medicaid [id number] ANSI-Commercial [id number] ANSI-Commercial [id number] ANSI-Medicaid [id number] ANSI-Medicaid [id number] ANSI-Commercial [id number] ANSI-Commercial [id number] [facility]-Medicaid [id number] [facility] [id number] [facility]-Medicaid [id number] [facility]Com[facility] [id number] [facility]-Medicaid [id number] [facility]Com[facility] [id number] [facility]-Medicaid [id number] ANSI-Commercial [id number] [facility]-Medicaid [id number] ANSI-Commercial [id number] ANSI-Medicaid [id number] ANSI-Commercial [id number] [facility] [id number] ANSI-Commercial [id number] ANSI-Medicaid [id number] ANSI-Commercial [id number] [facility] [id number] ANSI-Commercial [id number] ANSI-Medicaid [id number] [facility] [id number] ANSI-Commercial [id number] ANSI-Medicaid [id number] ANSI-Commercial [id number] MEDICAID [id number] SP [id number] ANSI-Commercial [id number] ANSI-Medicaid [id number] ANSI-Commercial [id number] ANSI-Medicaid [id number] ANSI-Commercial [id number]-[id number] ANSI-Medicaid [id number] ANSI-Medicaid [id number] ANSI-Commercial [id number] [facility] [id number] [facility]-Com[facility] [id number] [facility] [id number] ANSI-Commercial [id number] [facility] [id number] ANSI-Commercial [id number] ANSI-Commercial [id number] [facility]-Medicaid [id number] [facility]-Medicaid [id number] ANSI-Medicaid [id number] ANSI-Medicaid [id number] ANSI-Medicaid [id number] ANSI-Medicaid [id number] ANSI-Commercial [id number] [place] [id number] S [id number] [employer] PPO 302/307 [id number] SP [id number] [facility] [id number] SP [id number] SELF PAY ONLY UNAVAILABLE UNAV AILABLE SELF PAY UNAVAILABLE SP UNAVAILA BLE [employer] PPO 302/307 [id number] SP [id number] [employer] BC-BS PPO 306 [id number] SP [id number] [facility] [id number] BCBS [employer] DIV [id number] [facility] [id number] [place] [id number] SP [id number] STEWART [id number] SP [id number] [place] [id number] SP [id number] [place] [id number] SP [id number] SELF PAY ONLY [id number] SP [id number] Problems, Conditions, and Diagnoses Code Display Name Description Problem Type Effective Dates Data Source(s) F32.3 Major depressive disorder, single episod e, severe with psychotic features Major depressive disorder, Single episode, With psychotic features Diagnosis 03/16/2020 12:00:00 AM [facility]) F25.9 Schizoaffective disorder, unspecified Sc hizoaffective disorder, unspecified Diagnosis 02/03/2020 08:49:33 AM [facility] F29 Unspecified psychosis not du e to a substance or known physiological condition Unspecified psychosis not due to a subst ance or known physiological condition Diagnosis 02/03/2020 08:49:33 AM [facility] F32.9 Major depressive disorder, single episod e, unspecified Major depressive disorder, single episode, unspecified Diagnosis 01/31/2020 03:25:26 PM [facility] F22 Delusional disorders Delusional disorders Diagnosis 01/31/2020 10:28:00 AM [facility] Z20.828 Contact with and (suspected) exposure to other viral communicable diseases Contact with and (suspected) exposure to other viral communicable diseases Diagnosis 01/31/2020 10:28:00 AM [facility] Depression Depression Diagnosis 01/31/2020 10:28:00 AM [facility] F43.10 Post-traumatic stress disorder, unspecif ied POST-TRAUMATIC STRESS DISORDER, UNSPECIFIED Diagnosis 01/30/2020 03:48[facility]10 Opioid abuse, uncomplicated OPIOID ABUSE, UNCOMPLICATE D Diagnosis [facility] Schizoaffective disorder, unspecified SC HIZOAFFECTIVE DISORDER, UNSPECIFIED Diagnosis 01/30/2020 03:48:00 PM EDT [facility] F32.9 Major depressive disorder, single episod e, unspecified MAJOR DEPRESSIVE DISORDER, SINGLE EPISODE, UNSPECIFIED Diagnosis 01/30/2020 03:48:00 PM [facility] F15.20 Other stimulant dependence, uncomplicate d OTHER STIMULANT DEPENDENCE, UNCOMPLICATED Diagnosis 01/22/2020 09:24:00 PM EDT [facility]sie F15.20 Other stimulant dependence, uncomplicate d Stimulant Use Disorder, Severe: Amphetamine-type substance Condition 02/08/2021 12:00:00 AM EST [facility] ([facility]) F15.20 Other stimulant dependence, uncomplicate d Stimulant Use Disorder, Severe: Amphetamine-type substance Condition 02/08/2021 12:00:00 AM EST [facility] ([facility]) F10.20 Alcohol dependence, uncomplicated Alcohol Use Di sorder, Moderate Condition 02/08/2021 12:00:00 AM EST [facility] ([facility]) F25.0 Schizoaffective disorder, bipolar type S chizoaffective Disorder, Bipolar type Condition 02/08/2021 12:00:00 AM EST [facility] ( [facility]) [id number] Tobacco dependence caused by cigarettes Tobacco Dependence Caused by Cigarettes Problem 12/20/2020 12:00:00 AM EDT [facility] ([facility]) [id number] Adult health examination Adult Health Examination Prob colin 12/20/2020 12:00:00 AM EDT [facility] ([facility]) [id number] Psychoactive substance abuse Psychoactive Substance Ab use Problem 12/20/2020 [id number] 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 and Depressive Disorder Problem 12/20[facility]2020 [facility] F[facility].9 Reaction to severe stress, unspecified U nspecified Trauma- and Stressor- Related Disorder Condition 09/17/2020 12:00:00 AM EDT [facility] ([facility]) 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 02/18/2020 12:00:00 AM EST [employer] ([facility]) [id number] 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 02/18/2020 12:00:00 AM EST [employer] ([facility]) [id number] 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 02/18/2020 12:00:00 AM EST [employer] ([facility] [id number] 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 02/18/2020 12:00:00 AM EST [employer] ([facility]) 141904013 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) F15.20 Other stimulant dependence, uncomplicate d Stimulant Use Disorder, Severe: Amphetamine-type substance Condition 01/15/2020 12:00:00 AM EDT [facility] ([facility]) Surgeries/Procedures Procedure Description Date Indications Data Source(s) AOT Evaluation 02/08/2021 12:00:00 AM EST - 02/08/2021 12:00:00 AM EST [facility] ([facility]) AOT Evaluation 02/08/2021 12:00:00 AM EST [facility] ([facility]) IAAD EIA HIV-1 AG W/HIV-1&HIV-2 ANTBDY SINGLE <td>HIV AG AB COMBO SCREEN</td><td>Routine</td><td>11/29/2020 9:37 AM EDT</td><td></td><td> </td> 11/[facility] <td>HEPATITIS C ANTIBODY</td ><td>Routine</td><td>11/29/2020 9:37 AM EDT</td><td></td><td> </td> 11/29/2020 09:37:00 AM [facility] HEMOGLOBIN GLYCOSYLATED A1C <td>HEMOGLOBIN A1C</td><td>Routine</td><td>11/29/2020 9:37 AM EDT</td><td></td><td> </td> 11/29/2020 09:37:00 AM [facility] DRUG SCREEN QUALITATIVE LITHIUM <td>LITHIUM LEVEL</td><td>Routine</td><td>11/29/2020 9:37 AM EDT</td><td></td><td> </td> 11/29/2020 09:37:00 AM [facility] LIPID PANEL <td>LIPID PANEL</td><td>Rout ine</td><td>11/29/2020 9:37 AM EDT</td><td></td><td> </td> 11/29/2020 09:37:00 AM [facility] Crisis intervention service, per 15 minutes 09/17/2020 12:00:00 AM EDT - 09/17/2020 12:00:00 AM [facility] Crisis intervention service, per 15 minutes 09/17/2020 12:00:00 AM EDT [facility] ([facility]) Brief Individual Psychotherapy - 30 min 09/15/2020 12:00:00 AM EDT - 09/15/2020 12:00:00 AM EDT [facility] ([facility]) Brief Individual Psychotherapy - 30 min 09/14/2020 12: 00:00 AM EDT [facility] ([facility]) Extended Individual Psychotherapy - 45 min 09/08/2020 12:00:00 AM EDT - 09/08/2020 12:00:00 AM EDT [facility] ([facility]) Extended Individual Psychotherapy - 45 min 12:00:00 AM EDT [facility] ([facility]) MHC Telemed E/M Lvl 3--Est pt 09/08/2020 12:00:00 AM EDT - 09/08/2020 12:00:00 AM EDT [facility] ([facility]) Telemed A/O 30" 09/08/2020 12:00:00 AM EDT [facility] ([facility]) MHC Telemed E/M Lvl 3--Est pt 09/08/2020 12:00:00 AM E DT [facility] ([facility]) Crisis intervention service, per 15 minutes 09/03/2020 12:00:00 AM EDT - 09/03/2020 12:00:00 AM EDT [facility] ([facility]) Crisis intervention service, per 15 minutes 09/03/2020 12:00:00 AM EDT [facility] ([facility]) Extended Individual Psychotherapy - 45 min 08/26/2020 12:00:00 AM EDT - 08/26/2020 12:00:00 AM EDT [facility] ([facility]) Extended Individual Psychotherapy - 45 min 12:00:00 AM EDT [facility] ([facility]) Crisis intervention service, per 15 minutes 08/17/2020 12:00:00 AM EDT - 08/17/2020 12:00:00 AM EDT [facility] ([facility]) Crisis intervention service, per 15 minutes 08/17/2020 12:00:00 AM EDT [facility] ([facility]) MHC Telemed E/M Lvl 3--Est pt 08/12/2020 12:00:00 AM EDT - 08/12/2020 12:00:00 AM EDT [facility] ([facility]) MHC Telemed E/M Lvl 3--Est pt 08/12/2020 12:00:00 AM E DT [facility] ([facility]) Nursing Home - Case Management 07/21/2020 12:00: 00 AM EDT - 07/21/2020 12:00:00 AM EDT [facility] ([facility]) Nursing Home - Case Management 07/21/2020 12:00:00 AM EDT [facility] ([facility]) Telemed Diagnostic Eval 07/13/2020 12:00 :00 AM EDT - 07/13/2020 12:00:00 AM EDT [facility] ([facility]) Telemed Diagnostic Eval 07/13/2020 12:00:00 AM EDT [facility] ([facility]) Brief Individual Psychotherapy - 30 min 07/02/2020 12:00:00 AM EDT - 07/02/2020 12:00:00 AM EDT [facility] ([facility]) Brief Individual Psychotherapy - 30 min 07/01/2020 12: 00:00 AM EDT [facility] ([facility]) DRUGS OF ABUSE, URINE <td>DRUGS OF ABUSE, URINE</t d><td>STAT</td><td>02/08/2020 9:43 AM EST</td><td></td><td> </td> 02/08/2020 09:43:00 AM [facility] CARDIAC REPORT <td>CARDIAC REPORT</td><td>< /td><td>02/03/2020 12:36 PM EST</td><td></td><td></td> 02/03/2020 12:36:54 PM [facility] 25 HYDROXY INCLUDES FRACTIONS IF PERFORMED <td>VITAMIN D 25 HYDROXY, TOTAL</td><td>Routine</td><td>02/03/2020 6:51 AM EST</td><td></td><td> </td> 02/03/2020 06:51:00 AM [facility] BLOOD COUNT COMPLETE AUTO&AUTO DIFRNTL WBC COUNT <td>C BC AND DIFFERENTIAL</td><td>Routine</td><td>02/03/2020 6:51 AM EST</td><td></td><td> </td> 02/03/2020 06:51:00 AM [facility] THYROID STIMULATING HORMONE TSH <td>TSH</td><td>Routin e</td><td>02/03/2020 6:51 AM EST</td><td></td><td> </td> 02/03/2020 06:51:00 AM [facility] THYROXINE FREE <td>T4, FREE</td><td>Routine </td><td>02/03/2020 6:51 AM EST</td><td></td><td> </td> 02/03/2020 06:51:00 AM [facility] LIPID PANEL <td>LIPID PANEL</td><td>Rout ine</td><td>02/03/2020 6:51 AM EST</td><td></td><td> </td> 02/03/2020 06:51:00 AM [facility] COMPREHENSIVE METABOLIC PANEL <td>COMPREHENSIVE METABO LIC PANEL</td><td>Routine</td><td>02/03/2020 6:51 AM EST</td><td></td><td> </td> 02/03/2020 06:51:00 AM [facility] EKG 12-LEAD - CMAXX REPORT <td>EKG 12-LEAD - CMAXX REPORT</td><td></td><td>02/02/2020 6:30 PM EST</td><td></td><td></td> 02/02/2020 06:30:20 PM [facility] EKG 12-LEAD <td>EKG 12-LEAD</td><td>Rout ine</td><td>02/02/2020 6:30 PM EST</td><td></td><td></td> 02/02/2020 06:30:20 PM [facility] EKG 12-LEAD - CMAXX REPORT <td>EKG 12-LEAD - CMAXX REPORT</td><td></td><td>02/02/2020 6:30 PM EST</td><td></td><td></td> 02/02/2020 06:30:03 PM [facility] EKG 12-LEAD - CMAXX REPORT <td>EKG 12-LEAD - CMAXX REPORT</td><td></td><td>02/02/2020 6:30 PM EST</td><td></td><td></td> 02/02/2020 06:30:03 PM [facility] EKG 12-LEAD <td>EKG 12-LEAD</td><td>Rout ine</td><td>02/02/2020 6:30 PM EST</td><td></td><td></td> 02/02/2020 06:30:03 PM [facility] EKG 12-LEAD <td>EKG 12-LEAD</td><td>Rout ine</td><td>02/02/2020 6:30 PM EST</td><td></td><td> </td> 02/02/2020 06:30:03 PM [facility] RESPIRATORY PATHOGEN PANEL <td>RESPIRATORY PATHOGEN PANEL</td><td>Routine</td><td>02/02/2020 1:03 PM EST</td><td></td><td> </td> 02/02/2020 01:03:00 PM [facility] COVID-19 PCR <td>COVID-19 PCR</td><td>Rou moon</td><td>02/02/2020 12:14 PM EST</td><td></td><td> </td> 02/02/2020 12:14:00 PM [facility] AOT Evaluation 02/02/2020 12:00:00 AM EST - 02/02/2020 12:00:00 AM EST [facility] ([facility]) RESPIRATORY PATHOGEN PANEL <td>RESPIRATORY PATHOGEN PANEL</td><td>Routine</td><td>01/31/2020 3:01 PM EDT</td><td></td><td> </td> 01/31/2020 03:01:00 PM EDT [facility] COVID-19 PCR <td>COVID-19 PCR</td><td>Rou moon</td><td>01/31/2020 3:01 PM EDT</td><td></td><td> </td> 01/31/2020 03:01:00 PM EDT [facility] AOT Evaluation 01/29/2020 12:00:00 AM EDT [facility] ([facility]) Nursing Home - Case Management 01/15/2020 12:00: 00 AM EDT - 01/15/2020 12:00:00 AM EDT [facility] ([facility]) Nursing Home - Case Management 01/15/2020 12:00:00 AM EDT [facility] ([facility]) Brief Individual Psychotherapy - 30 min 01/15/2020 12:00:00 AM EDT - 01/15/2020 12:00:00 AM EDT [facility] ([facility]) Brief Individual Psychotherapy - 30 min 01/14/2020 12: 00:00 AM EDT [facility] ([facility]) Results ID Date Data Source [id number] 01/23/2021 12:00:00 AM EDT [facility] Name Value Range Interpretation Code Description Data Cathryn rce(s) Supporting Document(s) SARS-CoV2 Rapid Antigen Positive [facility] This lab was ordered by [facility] and reported by [facility]. ID Date Data Source [id number] 12/03/2020 04:45:29 PM EDT [facility] Name Value Range Interpretation Code Description Data Cathryn rce(s) Supporting Document(s) Discharge Summary [facility] QUXXSw2tZoQBOrZo13/VJTylWFOkt2UiDIkmQCj6PXppZADmQ0IkIIX6gQ2zVQT0XKjUVzCvYsScWUBb lbm [file] i9bK1aM+bzX/qXd/W7t40Io2bDFQmth8B8Axc/09s2nU2P93hfVc2+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/ccyInLCdf//TdTyd/dan6/3 [file] ICAgICAgICAgICAgICAgICAgICAgICAgICAgICAgICAgICAgICAgICAgICAgICAgICAgICAgICAgICAg ICAgICAgICAgICAgICAgICAgICAgDQogICAgICAgIC AgICAgICAgICAgICAgICAgICAgICAgICAgICAgICAgICAgICAgICAgICAgICAgICAgICAgICAgICAgIC AgICAgICAgICAgICAgICAgICAgICAgICAgICAgICAgDQogICAgICAgICAgICAgICAgICAgICAgICAgIC AgICAgICAgICAgICAgICAgICAgICAgICAgICAgICAg ICAgICAgICAgICAgICAgICAgICAgICAgICAgICAgICAgICAgICAgICAgDQogICAgICAgICAgICAgICAg ICAgICAgICAgICAgICAgICAgICAgICAgICAgICAgICAgICAgICAgICAgICAgICAgICAgICAgICAgICAg ICAgICAgICAgICAgICAgICAgICAgICAgDQogICAgIC AgICAgICAgICAgICAgICAgICAgICAgICAgICAgICAgICAgICAgICAgICAgICAgICAgICAgICAgICAgIC AgICAgICAgICAgICAgICAgICAgICAgICAgICAgICAgICAgDQogICAgICAgICAgICAgICAgICAgICAgIC AgICAgICAgICAgICAgICAgICAgICAgICAgICAgICAg ICAgICAgICAgICAgICAgICAgICAgICAgICAgICAgICAgICAgICAgICAgICAgDQogICAgICAgICAgICAg ICAgICAgICAgICAgICAgICAgICAgICAgICAgICAgICAgICAgICAgICAgICAgICAgICAgICAgICAgICAg ICAgICAgICAgICAgICAgICAgICAgICAgICAgDQogIC AgICAgICAgICAgICAgICAgICAgICAgICAgICAgICAgICAgICAgICAgICAgICAgICAgICAgICAgICAgIC AgICAgICAgICAgICAgICAgICAgICAgICAgICAgICAgICAgICAgDQogICAgICAgICAgICAgICAgICAgIC AgICAgICAgICAgICAgICAgICAgICAgICAgICAgICAg ICAgICAgICAgICAgICAgICAgICAgICAgICAgICAgICAgICAgICAgICAgICAgICAgDQogICAgICAgICAg ICAgICAgICAgICAgICAgICAgICAgICAgICAgICAgICAgICAgICAgICAgICAgICAgICAgICAgICAgICAg ICAgICAgICAgICAgICAgICAgICAgICAgICAgICAgDQ a1N6fyXUInESAaHE5vGBd5Fi7+BErWSeMjTII4etYjaB2SQU3qc6MqHIcbEGEts0AtALh7FA7COECoPZ pbGR6CNPfgjx6PTJAdBFBrbFQGb0peLoNmBJL3ELKiGflyHG6VHKTvH9haihQtQCCvXZFIOOvgWNKKNE eyADHVCUOoFWYfPuGoSfRyMFExAEXcKAKKFYB0RZTm VaQrLTAyVMSmOgSmCCYSSO8NXkCuH5MgqH06BJuUBd1+USmnuqDfQfvPOvW3ENZdd5VvVCs8YY6NYWQr Mwjhj8BwWKFuDXJJHXdvNR3YHZQ4OQWxIOToDb9MOMSrU815xvOoGQ6OOp7KVqKcSC0pyy8XVOUdOBTc FakCHae1ZJuhQY6XqBLqHHsIdERwxTDvR3EkK8IbeF QmlHOrlPTXm6FcKF4hMAGBECbpC25bpnttIZHiSDLhOE0yIyLjQdHnTMw6AwopJH5bVMqfNH6SREB5FB dkVMFsWCInU1nZFaCsAUXsZBEdyPmsJS2WYlUpS0ZreeAnbOT1JAQoFJKMTs7+DQplbmRvYmoNCjUxID Vyx2MrDHs6YL9HZSOxPUeqAM9TPGDbxV8qEPqvTE3I BzE3LbEzPEVEHrXxL41raCSxFJi5S3UhVfBpHRFbBprgBHNzXTraWhUoCRIoWiYlQImoLI6+ID4+DQog YI3JAEzqmgQbCOQzHl7ENHEcURLgOQ5fZESvSRHyF8Z1fJebSMMPPxQoI3powcwgQO4xBZRyJ509rYbj igEsLSE1SPAyTd9EVTUfPFX5LQSidKOuFVbfIBCACJ nrCB5JvIBzLAV0eQ9uIVxcALCrYSZxX9zTXoMmcVahKZ54pIbeaqVqtZXsTXw+Qd4NIA5dx9PvSLw6qs YkXAugOAVtHTaiKXVrFICwJOHrYXI7HMF4HYSAMnThPIHaAPXqVEovANYfDRLgkh7JEKGmQXF9CPKlAR VwOMTnTBNhSQdsUSOoACPoSUs6SHScGTFmYK6IJfEs TZCvFROwMPdpNVOfMRJfwn3ZDTKoEPQkDWD1ESAbPAXbQAEgTYuaSSUtQJD4Oni0NUXgESDeEZ9IPoWy ZAZwWOhdGlBsGTRcQZGfwm9SUJAsFKZmIYF6IrDrDHLqEFIeXGmcDVSsNJOgCFzfZUUyGQKwST6DOoTt JANyREPxMPVoKMVxVFMqau0JPXEqEXUmWhv0NZLbSO CbCCSsBXhiCUKeRMR3ESE1VJJrDCPkZJ5SZgVfQHPbEgNqRNzzKSRvWIMudc5AHSZjTFXtDFIdCsDfOK KnBJSxVGshFRBqHZCvGUr2BNAsSENzTA8TAwZqTAXwIrMjCXObHDVaTUWbgk6GCWFoJDGfNjV1YsFeXW PfUCUtCLksBINhSRW8GDLhVOItMIOnZW5PRoFdPPEu CjXhPiQrXPPzDUXiln5PIMNcWAUbJGN8VkCeICLqVGPiNCbpFMCpRLImHKWhMFJpNFDzHR1IPcVkCMSd IaY2LHGvJUXgXJQqxn2MMZZzHEKqINLaArMhKGAtYUAaWGykMZRxLSW4MSInCZAkFHPxUA2QDcDmVSIu TiU9LPSeXQVpRKQspd3BEYYbECYlGSb6OFTkPEJcHK BeKCzfIPBjHIE2OGK7ICTbFMVqQI7LOwJyKNYiTjItYNUgEWPkFKMgni2MDLAwSGNmNuFoIQBpAIWyQI LdIOeyXWPrVEW6ZRMzDUAnJHLuJT6IDmBxMDOaHft4EHEqRVByXAQjua8JTAFiYOI4HJW4CAHtQOJdMU ZtAFfnYCDvDUD7Kpt2RFSmLBOaTV9JBtYiIJBhHDc0 QDaoOETdRWUypg3XAANgCYU6UOrdAtQoMMCgRNTqLPcsKFFxXLZ5CQaxZKCiIBRgMG0BEpTvTGZrARD3 XiUiQMYkGSQumj2SPQBrGZE3JKRsVNJjDSRrBJNwYWwvBQOfDCXyVboaINYzIWJlTR2XXkFcWMEiQOYp VMeeSCTrRNQntw9QRGTnBRZ6WtC9ITEkWPAoIBBtIS ypTVAuBKG5Tzm2PPLfKRSnRT8ZEfKmBLNhDTB0GBruJQFqNYEzgp8MTAHrRWH1VnA4PUNpJIGsNENpXZ czFXZqAZI0VFM8EIDpJKWjZM8BZlCnXZLwWXeiFZPlSEOsOJWexp4EAELuYFE2GNX0ZpRyIVXpNKTcSD vjSPVaRXM0EHS7QLSoPSExEK1SGiAtWOLiByYfFPSt XHRtDXZydi9FLYDdLTH5BJTpDOVvIOUyIPWePHonJBLsURQwWKG6MDNoPNJoCW0TPtHdZCpoDFLKPbt3 UYakD9r3YYV4Vh9ET0Bvy8NnUJWyOIVJLVksBM9ltcHbFLFxWt2HY4cBDsh9LYGdTWZkBUL0TSP8XGAr FFHiEQKlQHgjQohmGUtzQK7qMFd4TNTqQCKmUJDsHo q7PaGqQWQzZZN3VaV6ISX6KGDvCbFdXU2BDi7JJfP3MGI8mLWtPq4WAeU6MHjYJgQwJI4ZGId= ID Date Data Source [id number] 11/29/2020 04:30:20 PM EDT [facility] Name Value Range Interpretation Code Description Data Cathryn rce(s) Supporting Document(s) History and Physical [facility] [facility] JJRDGn2aDlQGDhFi34/DCKesLCFvv5UoGGetNQn8WXhbVWNoU2TcNZB0eV4bBZX7REvLDuWrFiGvKJZg lbm [file] q+[employer]+9tnG2X0/AXm2Wluj5T9VMR2uZ5o5HDUYvBYjW7idNR5rjFvPqmONvtFmylAUyxJR3VLs4TqTU/Z [file] AgICAgICAgICAgICAgICAgICAgICAgICAgICAgICAgICAgICAgICAgICAgICAgICAgICAgICAgICAgIC AgICAgICAgICAgICANCiAgICAgICAgICAgICAgICAg ICAgICAgICAgICAgICAgICAgICAgICAgICAgICAgICAgICAgICAgICAgICAgICAgICAgICAgICAgICAg ICAgICAgICAgICAgICAgICAgICAgICANCiAgICAgICAgICAgICAgICAgICAgICAgICAgICAgICAgICAg ICAgICAgICAgICAgICAgICAgICAgICAgICAgICAgIC AgICAgICAgICAgICAgICAgICAgICAgICAgICAgICAgICANCiAgICAgICAgICAgICAgICAgICAgICAgIC AgICAgICAgICAgICAgICAgICAgICAgICAgICAgICAgICAgICAgICAgICAgICAgICAgICAgICAgICAgIC AgICAgICAgICAgICAgICANCiAgICAgICAgICAgICAg ICAgICAgICAgICAgICAgICAgICAgICAgICAgICAgICAgICAgICAgICAgICAgICAgICAgICAgICAgICAg ICAgICAgICAgICAgICAgICAgICAgICAgICANCiAgICAgICAgICAgICAgICAgICAgICAgICAgICAgICAg ICAgICAgICAgICAgICAgICAgICAgICAgICAgICAgIC AgICAgICAgICAgICAgICAgICAgICAgICAgICAgICAgICAgICANCiAgICAgICAgICAgICAgICAgICAgIC AgICAgICAgICAgICAgICAgICAgICAgICAgICAgICAgICAgICAgICAgICAgICAgICAgICAgICAgICAgIC AgICAgICAgICAgICAgICAgICANCiAgICAgICAgICAg ICAgICAgICAgICAgICAgICAgICAgICAgICAgICAgICAgICAgICAgICAgICAgICAgICAgICAgICAgICAg ICAgICAgICAgICAgICAgICAgICAgICAgICAgICANCiAgICAgICAgICAgICAgICAgICAgICAgICAgICAg ICAgICAgICAgICAgICAgICAgICAgICAgICAgICAgIC AgICAgICAgICAgICAgICAgICAgICAgICAgICAgICAgICAgICAgICANCiAgICAgICAgICAgICAgICAgIC AgICAgICAgICAgICAgICAgICAgICAgICAgICAgICAgICAgICAgICAgICAgICAgICAgICAgICAgICAgIC AgICAgICAgICAgICAgICAgICAgICANCjw/jXKdG6oy oCNrimN4T7xdUp3WSi5BLG2dp4XyPGEiHVqrsbRcAxtHPsIvYYKrYfpZKgw0DOzyMK2ToXIhU2HaI8Ok QTesNM2TAUPgZFRwaQWtOWEkXTJyLlF0WLWiKQldWV7JtHZdLNxcSEHhDKQdTuTvCOYvKOQqELVaIUSt CUZPZOXsNZJvMuYdVKZnKOVdATurLGARKJ4BQkMkG9 GnhG38YPtTCt5+ALrtgaEsHovKVsKvZMYzp3UaMHu1OF3PYKAjLanwk3GoWDGuEYCLDDnmGQ5MCLD2BD L9VCLzNu5PTDQlL332qmYeJH7DPl6WBvUdBQ8gqa7DURPeGPAqRsaYRbo0KMhrBG5ToEAjMEhTKoEzEy yuXnGaMJTiVhGGcUptECY1MUZQHMJrcXT8JqB1GiRi DcPcSSB3MevuKX0oWPkmDQ7DIXQ3LUkaKJBrVGWkF1dJJxExUPRjBhSqxFheKC9QChBnT0CahwZyrEX0 MyAwIFINCj4+KZobuuYgKilCMyR2SMCcf7ZpBOs8IW0ZZAQiJCdeJT6KQCFcnA0gJXgpAJ5HVoM2BETc KOYUSwYsI75uoJLmQBy1M1NeGiYrXVEtIvtoVVDjWQ wvTmFtZXMgWyBdDQogID4+ID4+ZVyiAW7BCWbvfxXdEVRvVw4TATBtQITyAB8tQJMeXKWuC5F5yCkhZP YSWdVoD7testysEE7lYDEgO745tZzzhrKoOUOwIGDqVv8ZUBUqYSS2GSZtoQRpTKTvPXSORXgjXG3ToK WhAUU7jE4rJSqfTPQoLCRsK9iAFwKdpMraAR46vNtx bnVsbCBdDQo+Xw6XUT6kp9DcKQm7zqTbDIjeOHH6QFvlXQKaFJUzEVMzFKM4RET4APCHBoOiOMSsJAPu YWtlRMEyNRTops6FRROlDMHiYyMhDZDiDHUxVNOlMSogPJEuAAD4RdFcOJFkEGMjTI2DOhSqBKFbCXMi OZbkLVOkNMAiem6RGQOzLZHqZfi6ClKpIWCsTQNxTD cvPVIqETS5GEW6OPUhKTAuRS8PJnNsMCKqKMP5LFCzXRKbGVPvzl8EOQXaHUYwHsH8IGNfRWBpMOHqVL bqIOQiIQQzTlzgOIHfFPQmQR4FGlMxBMAiDSE8HvWsVZLaWEEshq2PTDJvHKYnTov4JXToUTNrCDYsHQ etHEMrNEE1XWW9JMZpSYYyUY1IMuXfVGUrQGj6XEOb PAGaOCXuvc1KVYDeWHKnFmk7IxSgLTSwNNIlKKdbNHWaVCNiMgy1OJMaGARfHT4TXjMmCXHtXuQ9AUXs DCKaHPGbre8HCFIpZDUuNyA6OzWbIQKnNNZuAHnpMAMrAAKnRrB7HOJyXTQrOY7FJvWfARXqXeAiDFcu JBPgNLSlet0VIHGsZSXyCTCxMSDjSVXiOGXaCNmoRJ PdEWL0Dmp5GVAxULUjXW3IMxVsCNPpPkY5ESxuWMKlXINflk5PSBFpYJTdBNk7GQZwGTAxPELiJMmyMI VnJDV5QRA4BCAmCGCcVC1XYsDlFHCiJbjoCVmvJUKnYMYkmj4TSEPeUIWxGdDsBGKtLXMpBBVnYRegAW QqIAP5Vrl3UMRgACYjGC2NIsIqNXRyHrJsOLRxVWPy LCRrdy7XRUNjGGUhQnL1MXRuFJLfCAJaDCagCFBnBEKyGzinNYBwPWSeKS1QJeLiDXChKuUdXnysWATr ZOMgde2VIJEgPJEaEiS0REVfTMHeHVOoHOfxDPPjMEOrNnofKRWtDHTnDW2IFtEbWBYoJeX2UzGzVNRb YDAjbt3UAZRqVAGoUir7OWSoVROqTDVnOLcsRPGsWW H8JvOyXUUhEQWbQU3HFsCqWSEcLhR4TEDtQTTpAPWdet9AXESpFRJxYBH1XLYePDBiQJByTBdmLFMtZO W6WZAyOVInJXNzFL7RRbUpFBLrYhDoNuJgTTUkMXSbiw9MGJSdKVBkZqYbSrYaODPxZOPtLWmmFPYyAB A1NIcdRCQqJKMoYZ1NXbUsAMYzQtjrRPCgNYToZNLf pi8JGLDvGPAoBZInUEFmQFWbDRSoSDkuHXQdPYB6ZSXsCYKdYADvUH3WMqJqVNuyBQFRWwd9CLjmY3a6 SNX7Zj4LQ6Car1AeYVXqDSCFVXynHY1qjhYlOYNjEd4UK6qOZuluIvI5G2N9DIHpOirbB8BlIUBeTkO3 LOCsCkupHyOjJT4nSIEhJmNbGrtsMTGvJ5M4HrY1Hq BmItL1MAJzFMCaXaQeFnQhCR7TBp5OMwD7HTM4bGQaXf3XGza6QBHAStBhKT4VQOi= ID Date Data Source [id number] 11/29/2020 12:08:09 PM EDT [facility] Name Value Range Interpretation Code Description Data Cathryn rce(s) Supporting Document(s) Consultation [facility] LOHGGm0cLiUGDfZc56/NLUldNVFec5TbHRmyIOh9NMxqZGGyM7FwZJC0wD2iTOC6MCqSPrUzNvVvTDJq lbm [file] [facility] [employer]ist EZm6kKuD1JNB9ZfrN40jYOIg57g5KJhGKCCaqtVagF XdOYeR1RlV65sk8p/7n4WiWScbddCayJYrET9SJfZpUM2jhu7JQfHhUG7aok0QDZW6OG5DIVDdTS2AhS TjK3WfL3EWUfGjPPQtDMSvMU70NFSkRQMHMHwaNIXlT6Yli962pxVukiCcCOBzQi6MLJJdTO1OOYUhQP WrhMLaAIOzRRJgOoE3BVNxCBwbPXHrX1OowsKgytKy SXPkSOLXWQipZMEhM6xyl0MoVVm8TV1ELO4PhsEav0NulvClL8bxE0VJVC9XZGUaZ4UTZ7DcL7kkQbNk r5XdM2hsGpOmq4UlDt6BBqGrQi2WYyKhHX4uqv8ZYNCbXG2jen3HQRE3CV2CdMb1MDVgR0VcLDImNLTc l4VjRW5GIM7lfYoxKaHfWW6+LUbhCRL4noQjbH0WPO RmZA5P62kQ/l6g/8MrsnZLUKYhdBXRPciQ8epZMlngQFBW6g/fniqMw2G5xfwa10rLvxJFY5IbpWawrH APRUJulpfge1xsqMupVY/98z/vRMa+73xU636RgBKh2f477q98mmEu5LDng6SW/enD43uZXhcxM78862 8+F31w68rj0z55Avbs/tl2zH7RjW2En3tHxllat8TX 9dWq+a+PWy9Rdk9+5N98mTtZO37js3S5/TUUHzP/ceSd/tC49yL3h2b77LQGs2u1wpcKAqj/gt9IN1eH 2yu4X2DS4klhlFk04m8tH3BAiNO94bwuoKA/vPOR9+NrcfMKXeUmkO9Ck4NhDtQfumUGEtBX2YQc2jOu gX9nvnKQONNDUdXQ9Xnyaj5J5gLKBUOZsvOXR5PJIY [file] MDAwMDAzMzAyOSAwMDAwMCBuDQowMDAwMDMzMzYwID QaXRCkUS0WVgEzUKDlBtV9JrilIJWoHCSfhi4KWSMlEFAtNwmjOfTjOZJbSNVoJIzuBEQwALAhEAgfAR VqSJIfZT9JElHiGGPuZuRnMjXkINRmOPMdbf7VPVQiEZVkIVl7PAIbSHUhSFHnDQvlOGSjNZL5EIO0GP MqSYCpHQ1OOuCxTHUzFoOtIgktBJUeYXPpbl6VmEQu uCvmir3WQBgMHc0CwDiyTVViIBvjYn0hgFEkRBXtYJNFCw3OtdZaRUDuQJSSQKukSVOgRUXyErLtUrUz QsX3YFBmPeJvJONxOex9QVTxJpI6C2AlTgO9S5WkZEUcEDDsVYy3VvGhWSC4YgLaUQksVhZiUUT3STU+ RH6zOLl+Ye1Jy5DgoyD6ehRdYVzsBfVkRY8LNELPG4OGXl== ID Date Data Source [id number] 11/29/2020 11:29:53 AM [facility] Name Value Range Interpretation Code Description Data Cathryn rce(s) Supporting Document(s) Cholesterol [Mass/volume] in Serum or Plasma 115 mg/dL <200 [facility] Triglyceride [Mass/volume] in Serum or Plasma 94 mg/dL <150 [facility] Cholesterol in HDL [Mass/volume] in Serum or Plasma 39 mg/dL >40 L [facility] Cholesterol in LDL [Mass/volume] in Serum or Plasma by calcu lation 57 mg/dL <100 [facility] Cholesterol in VLDL [Mass/volume] in Serum or Plasma by calc ulation 19 mg/dl 16-42 [facility] Cholesterol non HDL [Mass/volume] in Serum or Plasma 76 mg/dL <130 [facility] ID Date Data Source [id number] 11/29/2020 11:27:50 AM [facility] Value Range Interpretation Code Description Data Cathryn rce(s) Supporting Document(s) HIV 1+2 Ab+HIV1 p24 Ag [Presence] in Serum or Plasma by Immu noassay Non Reactive [facility] Negative for HIV-1 p24 antigenand HIV-1/ HIV-2 antibodies. Nolaboratory evidence of HIVinfection. ID Date Data Source [id number] 11/29/2020 11:17:43 AM [facility] Value Range Interpretation Code Description Data Cathryn rce(s) Supporting Document(s) Hemoglobin A1c/Hemoglobin.total in Blood by HPLC 4.9 % 4.0-6.0 [facility] (NOTE)<5.7% Average risk of diabetes (ADA)5.7-6.4% Increased risk of diabetes(ADA)>/= 6.5% Diagnostic for diabetes(ADA) Glucose mean value [Mass/volume] in Blood Estimated fr om glycated hemoglobin 94 mg/dL <126 [facility] ID Date Data Source [id number] 11/29/2020 11:40:23 AM [facility] Value Range Interpretation Code Description Data Cathryn rce(s) Supporting Document(s) [place] [Moles/volume] in Serum or Plasma 0.60-1.20 L [facility] ID Date Data Source [id number] 11/29/2020 11:36:13 AM EDT [facility] Name Value Range Interpretation Code Description Data Cathryn rce(s) Supporting Document(s) Hepatitis C virus Ab [Presence] in Serum or Plasma by Immuno assay Non Reactive [facility] Past or current Hepatitis C infection. S roselia forwarded to reference laboratory for quantitative HCV RNA testing. ID Date Data Source [id number] 11/27/2020 01:53:00 PM EDT [place] [facility]) Name Value Range Interpretation Code Description Data Catrhyn rce(s) Supporting Document(s) influenza B amplification negative negative Influenza B Amplification [place] ([facility]) influenza A amplification negative negative Influenza a Amplification [place] ([facility]) sars covid-19 amplification negative negative Sars Cov id-19 Amplification [facility]) RSV amplification negative negative RSV Amplification [facility]) ID Date Data Source [id number] 11/27/2020 01:53:00 PM EDT [facility] Name Value Range Interpretation Code Description Data Cathryn rce(s) Supporting Document(s) SARS coronavirus 2 RNA [Presence] in Res piratory specimen by ALLAN with probe detection NEGATIVE [facility] This lab was ordered by [facility] a nd reported by [facility]. ID Date Data Source [id number] 11/27/2020 08:53:00 AM EDT [facility]) Name Value Range Interpretation Code Description Data Cathryn rce(s) Supporting Document(s) lithium level < 0.20 0.60-1.20 Below low normal [place] Level AT [facility] ([facility]) ID Date Data Source [id number] 11/11/2020 12:00:00 AM EDT [facility] Name Value Range Interpretation Code Description Data Cathryn rce(s) Supporting Document(s) SARS-CoV2 Rapid Antigen Negative [facility] This lab was reported by [facility]. ID Date Data Source [id number] 05/06/2020 05:00:00 AM EST [facility] ([facility] Name Value Range Interpretation Code Description Data Cathryn rce(s) Supporting Document(s) UREA NITROGEN (BUN) 9.0 mg/dL [facility] ( [facility]) Glucose [Mass/volume] in Urine collected for unspecified duratio n 62.0 mg/dL [facility] ([facility]) SPECIMEN INTEGRITY COMPROMISED [facility] ([facility]) eGFR NON-AFR. BULGARIAN 119.0 mL/min/1.73m2 [facility] ([facility]) eGFR PIPO 138.0 mL/min/1.73m2 [facility] ([facility]) Creatinine [Interpretation] in Urine 0.78 mg/dL [facility] ([facility]) BUN/CREATININE RATIO NOT APPLICABLE [facility] ([facility]) Sodium [Moles/volume] in Serum, Plasma or Blood 143.0 mmol/L [facility] ([facility]) Potassium [Mass/volume] in Blood 5.1 mmol/L [facility] ([facility]) Chloride [Moles/volume] in Serum, Plasma or Blood 108.0 mmol/L [facility] ([facility]) Carbon dioxide [VFr/PPres] in Gas delivery system 25.0 mmol/L [facility] ([facility]) PROTEIN, TOTAL 7.1 g/dL [facility] ([facility]) Calcium [Moles/volume] in Urine collected for unspecified durati on 9.2 mg/dL [facility] ([facility]) Microalbumin [Mass/time] in Urine collected for unspecified dura tion 4.2 g/dL [facility] ([facility]) Globulin [Mass/time] in 24 hour Urine 2.9 g/dL (calc) [facility] ([facility]) ALBUMIN/GLOBULIN RATIO 1.4 (calc) [facility] ([facility]) Alkaline phosphatase [Enzymatic activity/volume] in Se rum, Plasma or Blood 101.0 U/L [facility] ([facility]) BILIRUBIN, TOTAL 0.4 mg/dL [facility] ([facility]) AST 10.0 U/L [facility] ([facility] ) Appearance of Abdomen CLOUDY [facility] ([facility]) Color of Peritoneal dialysis fluid YELLOW [facility] ([facility]) ALT 8.0 U/L [facility]) Glucose [Mass/volume] in Urine collected for unspecified duration N EGATIVE [facility] ([facility]) Specific gravity of Pericardial fluid by Refractometry 1.019 [facility] ([facility]) pH of Lower respiratory specimen 6.0 [facility] ([facility]) OCCULT BLOOD NEGATIVE [facility] Bilirubin [Presence] in Peritoneal fluid NEGATIVE [facility] ([facility]) Ketones [Presence] in Blood by Tablet NEGATIVE [facility] ([facility]) Protein [Mass/volume] in Lower respiratory specimen NEGATIVE [facility] ([facility]) Leukocyte esterase [Presence] in Body fluid by Automated test st rip NEGATIVE [facility] ([facility]) Nitrite [Presence] in Urine by Test strip NEGATIVE [facility] ([facility]) RBC 0-2 [facility] ([facility]) WBC NONE SEEN [facility] ([facility]) SQUAMOUS EPITHELIAL CELLS NONE SEEN [facility] ([facility]) TRANSITIONAL EPITHELIAL CELLS DNR [facility] ([facility]) Bacteria [Presence] in Prostatic fluid by Light microscopy NONE SEEN [facility] ([facility]) RENAL EPITHELIAL CELLS DNR [facility] ([facility]) Calcium oxalate crystals [Presence] in Urine sediment by Light m icroscopy DNR [facility] ([facility]) Triple phosphate crystals [Presence] in Urine sediment by Li ght microscopy DNR [facility] ([facility]) URIC ACID CRYSTALS DNR [facility] ([facility]) Amorphous sediment [Presence] in Urine sediment by Light microscopy D NR [facility] ([facility]) GRANULAR CAST DNR [facility] ([facility]) HYALINE CAST NONE SEEN [facility] Crystals [#/area] in Body fluid by Light microscopy DNR [facility] ([facility]) Casts [#/area] in Urine sediment by Automated count DNR [facility] ([facility]) Yeast [#/area] in Urine by Automated count DNR [facility] ([facility]) COMMENTS DNR [facility] ([facility] ) Nurse Note DNR [facility] ([facility]) RED BLOOD CELL COUNT 5.75 Million/uL [facility] ([facility]) Structure of plantar digital artery (body structure) 8.6 Thousand/uL [facility] ([facility]) Hematocrit [Pure volume fraction] of Blood by Automated count 47.6 % [facility] ([facility]) Hemoglobin [Mass/volume] in Mixed venous blood by Oximetry 16.3 g/dL [facility] ([facility]) MCV 82.8 fL [facility] ([facility] ) MCH 28.3 pg [facility]) RDW 13.3 % [facility]) PLATELET COUNT 227.0 Thousand/uL [facility] ([facility]) MCHC 34.2 g/dL [facility] ([facility] ) MPV 10.1 fL [facility] ([facility] ) ABSOLUTE BAND NEUTROPHILS DNR [facility] ([facility]) ABSOLUTE NEUTROPHILS 5435.0 cells/uL [facility] ([facility]) ABSOLUTE METAMYELOCYTES DNR [facility] ([facility]) ABSOLUTE MYELOCYTES DNR [facility] ( [facility]) ABSOLUTE PROMYELOCYTES DNR [facility] ([facility]) ABSOLUTE LYMPHOCYTES 2262.0 cells/uL [facility] ([facility]) ABSOLUTE MONOCYTES 731.0 cells/uL [facility] ([facility]) ABSOLUTE BLASTS DNR [facility]) ABSOLUTE BASOPHILS 43.0 cells/uL [facility] ([facility]) ABSOLUTE EOSINOPHILS 129.0 cells/uL [facility] ([facility]) Neutrophils [#] in Body fluid by Manual count 63.2 % [facility] ([facility]) BAND NEUTROPHILS DNR [facility] ([facility]) ABSOLUTE NUCLEATED RBC DNR [facility] ([facility]) Metamyelocytes [#] in Body fluid by Manual count DNR [facility] ([facility]) Myelocytes [#] in Body fluid by Manual count DNR [facility] ([facility]) Lymphocytes [#] in Body fluid by Manual count 26.3 % [facility] ([facility]) Promyelocytes [#] in Body fluid by Manual count DNR [facility] ([facility]) Eosinophils [#] in Body fluid by Manual count 1.5 % [facility] ([facility]) Monocytes [#/volume] in Cord blood 8.5 % NETSMART ([facility]) REACTIVE LYMPHOCYTES DNR NETSMART ([facility]) Basophils [#] in Body fluid by Manual count 0.5 % NETSMART ([facility]) NUCLEATED RBC DNR NETSMART ([facility]) Blasts [#] in Body fluid by Manual count DNR NETSMART ([facility]) SIGNAL TO CUT-OFF 19.8 NETSMART ([facility]) COMMENT(S) DNR NETSMART ([facility]) HEPATITIS C ANTIBODY REACTIVE NETSMART ([facility]) Methamphetamine [Mass/mass] in Hair DNR NETSMART ([facility]) Amphetamine [Mass/mass] in Hair by Confirmatory method DNR NETSMART ([facility]) Amphetamines [Presence] in Stool TNP NETSMART ([facility]) Confirmation Testing Performed at: DNR NETSMART ([facility]) Benzodiazepines [Presence] in Serum or Plasma by Screen method > 200 ng/mL TNP NETSMART ([facility]) Alphahydroxyalprazolam DNR NETSMAR T ([facility]) Alphahydroxytriazolam DNR NETSMART ([facility]) Aminoclonazepam DNR NETSMART ([facility]) Alphahydroxymidazolam DNR NETSMART ([facility]) Lorazepam [Moles/volume] in Unspecified specimen DNR NETSMART ([facility]) Hydroxyethylflurazepam [Mass/mass] in Tissue by Confirmatory method D NR NETSMART ([facility]) Nordiazepam [Moles/volume] in Unspecified specimen DNR NETSMART ([facility]) Confirmation Testing Performed at: DNR NETSMART ([facility]) Temazepam [Moles/volume] in Unspecified specimen DNR NETSMART ([facility]) Oxazepam [Moles/volume] in Unspecified specimen DNR NETSMART ([facility]) Comment [Interpretation] Left eye Narrative Ophthalmometer NETSMART ([facility]) Buprenorphine [Presence] in Blood by Screen method TNP NETSMART ([facility]) Buprenorphine [Presence] in Blood by Screen method DNR NETSMART ([facility]) Comment [Interpretation] Left eye Narrative Ophthalmometer NETSMART ([facility]) Norbuprenorphine [Mass/mass] in Meconium by Confirmatory method DNR NETSMART ([facility]) Confirmation Testing Performed at: DNR NETSMART ([facility]) Benzoylecgonine [Moles/volume] in Unspecified specimen DNR NETSMART ([facility]) Confirmation Testing Performed at: DNR NETSMART ([facility]) Cocaine Metabolite TNP NETSMART ([facility]) Comment [Interpretation] Left eye Narrative Ophthalmometer NETSMART ([facility]) Marijuana Metabolite DNR NETSMART ([facility]) Marijuana Metabolite 20 TNP NETSMA RT ([facility]) Comment [Interpretation] Left eye Narrative Ophthalmometer NETSMART ([facility]) Confirmation Testing Performed at: DNR NETSMART ([facility]) Codeine [Presence] in Saliva (oral fluid) by Confirmatory method DNR NETSMART ([facility]) Opiates [Presence] in Unknown substance by Confirmatory method TNP NETSMART ([facility]) Morphine [Mass/mass] in Hair DNR N ETSMART ([facility]) Hydromorphone [Presence] in Saliva (oral fluid) by Confirmatory met hod DNR NETSMART ([facility]) Hydrocodone [Z-score] in Urine DNR NETSMART ([facility]) Comment [Interpretation] Left eye Narrative Ophthalmometer NETSMART ([facility]) Confirmation Testing Performed at: DNR NETSMART ([facility]) Norhydrocodone [Presence] in Saliva (oral fluid) by Confirmatory me thod DNR NETSMART ([facility]) Noroxycodone [Mass/volume] in Saliva (oral fluid) by Confirmator y method DNR NETSMART ([facility]) Oxycodone [Mass/volume] in Serum, Plasma or Blood by Confirmator y method DNR NETSMART ([facility]) Oxycodone [Mass/volume] in Serum, Plasma or Blood by Confirmator y method TNP NETSMART ([facility]) Comment [Interpretation] Left eye Narrative Ophthalmometer NETSMART ([facility]) Oxymorphone [Z-score] in Urine DNR NETSMART ([facility]) Confirmation Testing Performed at: DNR NETSMART ([facility]) Comment [Interpretation] Left eye Narrative Ophthalmometer NETSMART ([facility]) Methadone Metabolite TNP NETSMART ([facility]) HCV RNA, QUANTITATIVE REAL TIME NETSMART ([facility]) RPR (DX) W/REFL TITER AND CONFIRMATORY TESTING NON-REACTIVE NETSMART ([facility]) Enhanced PDF Report [id number] NETSMART ([facility]) HCV RNA, QUANTITATIVE REAL TI NETSMART ([facility]) HCV RNA, QUANTITATIVE REAL TIME NETSMART ([facility]) HCV RNA, QUANTITATIVE REAL TI NETSMART ([facility]) HCV RNA, QUANTITATIVE REAL TI <1.18 NOT DETECTED NETSMART ([facility]) HCV RNA, QUANTITATIVE REAL TIME <15 NOT DETECTED NETSMART ([facility]) Comment [Interpretation] Left eye Narrative Ophthalmometer NETSMART ([facility]) ID Date Data Source [id number] 05/09/2020 06:24:00 AM EST [facility] Received: 05/07/2020 at 04:14:00 QPT : [facility], [address], [address] [place] [address], [phone], Nicholas Mullins MD Received: 05/07/2020 at 04:14:00 QPT : [facility], [address], [address] [place] [address], [phone], Nicholas Mullins MD Received: 05/07/2020 at 04:14:00 QPT : [facility], [address], [address] [place] [address], [phone], Nicholas Mullins MD Received: 05/07/2020 at 04:14:00 QPT : [facility], [address], [address] [place] [address], [phone], Nicholas Mullins MD Received: 05/07/2020 at 04:14:00 QPT : [facility], [address], [address] [place] [address], [phone] MD Received: 05/07/2020 at 04:14:00 QPT : [facility], [address], [address] [place] [address], [phone] MD Received: 05/07/2020 at 04:14:00 QPT : [facility], [address], [address] [place] [address], [phone] MD Received: 05/07/2020 at 04:14:00 QPT : [facility], [address], [address] [place], [address], Nicholas Mullins MD Received: 05/07/2020 at 04:14:00 QPT : [facility], [address], [address] [place], [address], Nicholas Mullins MD Received: 05/07/2020 at 04:14:00 QPT : [facility], [address], [address] [place], [address], Nicholas Mullins MD Received: 05/07/2020 at 04:14:00 QPT : [facility], [address], [address] [place] [address], [phone], Nicholas Mullins MD Received: 05/07/2020 at 04:14:00 QPT : [facility], [address], [address] [place] [address], [address], Nicholas Mullins MD Received: 05/07/2020 at 04:14:00 QPT : [facility], [address], [address] [place] [address], [phone], Nicholas Mullins MD Received: 05/07/2020 at 04:14:00 QPT : [facility], [address], [address] [place], [address], Nicholas Mullins MD Received: 05/07/2020 at 04:14:00 QPT : [facility], [address], [address] [place], [address], Nciholas Mullins MD Name Value Range Interpretation Code Description Data Cathryn rce(s) Supporting Document(s) SPECIMEN INTEGRITY COMPROMISED [facility] Whole blood, unspun or partially spun Nebula l barrier tubewas received more than 6 hours since collection. Afalse elevation of K, Phos and LD as well as a falsedecrease in glucose may occur due to prolonged contactwith red cells. ID Date Data Source [id number] 05/09/2020 06:24:00 AM EST [facility] Received: 05/07/2020 at 04:14:00 QPT : [facility], [address], [address] [place] [address], [phone], Nicholas Mullins MD Received: 05/07/2020 at 04:14:00 QPT : [facility], [address], [address] [place] [address], [address], Nicholas Mullnis MD Received: 05/07/2020 at 04:14:00 QPT : [facility], [address], [address] [place] [address], [address], Nicholas Mullins MD Received: 05/07/2020 at 04:14:00 QPT : [facility], [address], [address] [place] [address], [address], Nicholas Mullins MD Received: 05/07/2020 at 04:14:00 QPT : [facility], [address], [address] [place] [address], [address], Nicholas Mullins MD Received: 05/07/2020 at 04:14:00 QPT : [facility], [address], [address] [place] [address], [address], Nicholas Mullins MD Received: 05/07/2020 at 04:14:00 QPT : [facility], [address], [address] [place] [address], [address], Nicholas Mullins MD Received: 05/07/2020 at 04:14:00 QPT : [facility], [address], [address] [place] [address], [phone], Nicholas Mullins MD Received: 05/07/2020 at 04:14:00 QPT : [facility], [address], [address] [place] [address], [phone], Nicholas Mullins MD Received: 05/07/2020 at 04:14:00 QPT : [facility], [address], [address] [place] [address], [address], Nicholas Mullins MD Received: 05/07/2020 at 04:14:00 QPT : [facility], [address], [address] [place], [address], Nicholas Mullins MD Received: 05/07/2020 at 04:14:00 QPT : [facility], [address], [address] [place], [address]Nicholas MD Received: 05/07/2020 at 04:14:00 QPT : [facility], [address], [address] [place], [address], Nicholas Mullins MD Received: 05/07/2020 at 04:14:00 QPT : [facility], [address], [address] [place], [address]Nicholas MD Received: 05/07/2020 at 04:14:00 QPT : [facility], [address], [address] [place], [address], Nicholas Mullins MD Name Value Range Interpretation Code Description Data Cathryn rce(s) Supporting Document(s) Glucose [Mass/volume] in Serum or Plasma 62 mg/dL 65-99 Below low normal [facility] Fasting reference interval Urea nitrogen [Mass/volume] in Serum or Plasma 9 mg/dL 7 -25 Normal (applies to non-numeric results) [facility] Creatinine [Mass/volume] in Serum or Plasma 0.78 mg/dL 0.60 -1.35 Normal (applies to non-numeric results) [facility] Glomerular filtration rate/1.73 sq M.pre dicted [Volume Rate/Area] in Serum, Plasma or Blood by Creatinine-based formula (MDRD) 119 mL/min/1.73m2 > OR = 60 Normal (applies to non-numeric results) [facility] Glomerular filtration rate/1.73 sq M pre dicted among blacks [Volume Rate/Area] in Serum or Plasma by Creatinine-based formula (MDRD) 138 mL/min/1.73m2 > OR = 60 Normal (applies to non-numeric results) [facility] Urea nitrogen/Creatinine [Mass Ratio] in Serum or Plasma NOT APPLICABLE (calc) 6-22 [facility] Sodium [Moles/volume] in Serum or Plasma 143 mmol/L 135-146 Normal (applies to non-numeric results) [facility] Potassium [Moles/volume] in Serum or Plasma 5.1 mmol/L 3.5- 5.3 Normal (applies to non-numeric results) [facility] Chloride [Moles/volume] in Serum or Plasma 108 mmol/L 98-11 0 Normal (applies to non-numeric results) [facility] Carbon dioxide, total [Moles/volume] in Serum or Plasma 25 mmol/ L 20-32 Normal (applies to non-numeric results) [facility] Calcium [Mass/volume] in Serum or Plasma 9.2 mg/dL 8.6-10. 3 Normal (applies to non-numeric results) [facility] Protein [Mass/volume] in Serum or Plasma 7.1 g/dL 6.1-8.1 Normal (applies to non-numeric results) [facility] Albumin [Mass/volume] in Serum or Plasma 4.2 g/dL 3.6-5.1 Normal (applies to non-numeric results) [facility] Globulin [Mass/volume] in Serum by calculation 2.9 g/dL (calc) 1 .9-3.7 Normal (applies to non-numeric results) [facility] Albumin/Globulin [Mass Ratio] in Serum or Plasma 1.4 (calc) 1.0-2.5 Normal (applies to non-numeric results) [facility] Bilirubin.total [Mass/volume] in Serum or Plasma 0.4 mg/dL 0.2-1.2 Normal (applies to non-numeric results) [facility] Alkaline phosphatase [Enzymatic activity/volume] in Serum or Plasma 101 U/L 36-130 Normal (applies to non-numeric results) [facility] Aspartate aminotransferase [Enzymatic activity/volume] in Serum or Plasma 10 U/L 10-40 Normal (applies to non-numeric results) [facility] Alanine aminotransferase [Enzymatic activity/volume] in Seru m or Plasma 8 U/L 9-46 Below low normal [facility] ID Date Data Source [id number] 05/09/2020 06:24:00 AM EST [facility] Received: 05/07/2020 at 04:14:00 QPT : [facility], [address], [address] [place], [address], Nicholas Mullins MD Received: 05/07/2020 at 04:14:00 QPT : [facility], [address], [address] [place] [address], [phone], Nicholas Mullins MD Received: 05/07/2020 at 04:14:00 QPT : [facility], [address], [address] [place] [address], [phone], Nicholas Mullins MD Received: 05/07/2020 at 04:14:00 QPT : [facility], [address], [address] [place] [address], [address], Nicholas Mullins MD Received: 05/07/2020 at 04:14:00 QPT : [facility], [address], [address] [place] [address], [address], Nicholas Mullins MD Received: 05/07/2020 at 04:14:00 QPT : [facility], [address], [address] [place] [address], [address], Nicholas Mullins MD Received: 05/07/2020 at 04:14:00 QPT : [facility], [address], [address] [place] [address], [address], Nicholas Mullins MD Received: 05/07/2020 at 04:14:00 QPT : [facility], [address], [address] [place] [address], [phone], Nicholas Mullins MD Received: 05/07/2020 at 04:14:00 QPT : [facility], [address], [address] [place] [address], [address], Nicholas Mullins MD Received: 05/07/2020 at 04:14:00 QPT : [facility], [address], [address] [place] [address], [phone] MD Received: 05/07/2020 at 04:14:00 QPT : [facility], [address], [address] [place], [address], Nicholas Mullins MD Received: 05/07/2020 at 04:14:00 QPT : [facility], [address], [address] [place], [address], Nicholas Mullins MD Received: 05/07/2020 at 04:14:00 QPT : [facility], [address], [address] [place], [address]Nicholas MD Received: 05/07/2020 at 04:14:00 QPT : [facility], [address], [address] [place], [address], Nicholas Mullins MD Received: 05/07/2020 at 04:14:00 QPT : [facility], [address], [address] [place], [address], Nicholas Mullins MD Name Value Range Interpretation Code Description Data Cathryn rce(s) Supporting Document(s) Color of Urine YELLOW YELLOW Normal (applies to non-numeric r esults) [facility] Appearance of Urine CLOUDY CLEAR Abnormal (applies to non-nu meric results) [facility] Specific gravity of Urine by Test strip 1.019 1.001-1. 035 Normal (applies to non-numeric results) [facility] pH of Urine by Test strip 6.0 5.0-8.0 Normal (applies to non-numeric results) [facility] Glucose [Presence] in Urine by Test strip NEGATIVE NEGATI VE Normal (applies to non-numeric results) [facility] Bilirubin.total [Presence] in Urine by Test strip NEGATIVE NEGATIVE Normal (applies to non-numeric results) [facility] Ketones [Presence] in Urine by Test strip NEGATIVE NEGATI VE Normal (applies to non-numeric results) [facility] Hemoglobin [Presence] in Urine by Test strip NEGATIVE NEG ATIVE Normal (applies to non-numeric results) [facility] Protein [Presence] in Urine by Test strip NEGATIVE NEGATI VE Normal (applies to non-numeric results) [facility] Nitrite [Presence] in Urine by Test strip NEGATIVE NEGATI VE Normal (applies to non-numeric results) [facility] Leukocyte esterase [Presence] in Urine by Test strip NEGATIVE NEGATIVE Normal (applies to non-numeric results) [facility] Leukocytes [#/area] in Urine sediment by Microscopy hi gh power field NONE SEEN /HPF < OR = 5 Normal (applies to non-numeric results) [facility] Erythrocytes [#/area] in Urine sediment by Microscopy high p ower field 0-2 /HPF < OR = 2 Normal (applies to non-numeric results) [facility] Epithelial cells.squamous [#/area] in Ur ine sediment by Microscopy high power field NONE SEEN /HPF < OR = 5 Normal (applies to non-numeric results) [facility] Bacteria [#/area] in Urine sediment by Microscopy high power field NONE SEEN /HPF NONE SEEN Normal (applies to non-numeric results) [facility] Hyaline casts [#/area] in Urine sediment by Microscopy low power field NONE SEEN /LPF NONE SEEN Normal (applies to non-numeric results) [facility] ID Date Data Source [id number] 05/09/2020 06:24:00 AM EST [facility] Received: 05/07/2020 at 04:14:00 QPT : [facility], [address], [address] [place] [address], [phone], Nicholas Mullins MD Received: 05/07/2020 at 04:14:00 QPT : [facility], [address], [address] [place] [address], [phone], Nicholas Mullins MD Received: 05/07/2020 at 04:14:00 QPT : [facility], [address], [address] [place] [address], [phone] MD Received: 05/07/2020 at 04:14:00 QPT : [facility], [address], [address] [place] [address], [address]Nicholas MD Received: 05/07/2020 at 04:14:00 QPT : [facility], [address], [address] [place] [address], [address]Nicholas MD Received: 05/07/2020 at 04:14:00 QPT : [facility], [address], [address] [place] [address], [address], Nicholas Mullins MD Received: 05/07/2020 at 04:14:00 QPT : [facility], [address], [address] [place] [address], [address], Nicholas Mullins MD Received: 05/07/2020 at 04:14:00 QPT : [facility], [address], [address] [place] [address], [address], Nicholas Mullins MD Received: 05/07/2020 at 04:14:00 QPT : [facility], [address], [address] [place] [address], [address], Nicholas Mullins MD Received: 05/07/2020 at 04:14:00 QPT : [facility], [address], [address] [place] [address], [address], Nicholas Mullins MD Received: 05/07/2020 at 04:14:00 QPT : [facility], [address], [address] [place] [address], [address], Nicholas Mullins MD Received: 05/07/2020 at 04:14:00 QPT : [facility], [address], [address] [place] [address], [address], Nicholas Mullins MD Received: 05/07/2020 at 04:14:00 QPT : [facility], [address], [address] [place] [address], [address], Nicholas Mullins MD Received: 05/07/2020 at 04:14:00 QPT : [facility], [address], [address] [place] [address], [address], Nicholas Mullins MD Received: 05/07/2020 at 04:14:00 QPT : [facility], [address], [address] [place] [address], [address], Nicholas Mullins MD Name Value Range Interpretation Code Description Data Cathryn rce(s) Supporting Document(s) Leukocytes [#/volume] in Blood by Automated count 8.6 Thousand/u L 3.8-10.8 Normal (applies to non-numeric results) [facility] Erythrocytes [#/volume] in Blood by Automated count 5.75 Million /uL 4.20-5.80 Normal (applies to non-numeric results) [facility] Hemoglobin [Mass/volume] in Blood 16.3 g/dL 13.2-17.1 Normal (applies to non- numeric results) [facility] Hematocrit [Volume Fraction] of Blood by Automated count 47.6 % 38.5-50.0 Normal (applies to non-numeric results) [facility] Erythrocyte mean corpuscular volume [Entitic volume] by Auto mated count 82.8 fL 80.0-100.0 Normal (applies to non-numeric results) [facility] Erythrocyte mean corpuscular hemoglobin [Entitic mass] by Automated count 28.3 pg 27.0-33.0 Normal (applies to non-numeric results) [facility] Erythrocyte mean corpuscular hemoglobin concentration [Mass/volume] by Automated count 34.2 g/dL 32.0-36.0 Normal (applies to non-numeric results) [facility] Erythrocyte distribution width [Ratio] by Automated count 13.3 % 11.0-15.0 Normal (applies to non-numeric results) [facility] Platelets [#/volume] in Blood by Automated count 227 Thousand/uL 140-400 Normal (applies to non-numeric results) [facility] Platelet mean volume [Entitic volume] in Blood by Dennis 10. 1 fL 7.5-12.5 Normal (applies to non-numeric results) [facility] Neutrophils [#/volume] in Blood by Automated count 5435 cells/uL 9380-4964 Normal (applies to non-numeric results) [facility] Lymphocytes [#/volume] in Blood by Automated count 2262 cells/uL 850-3900 Normal (applies to non-numeric results) [facility] Monocytes [#/volume] in Blood by Automated count 731 cells/uL 200-950 Normal (applies to non-numeric results) [facility] Eosinophils [#/volume] in Blood by Automated count 129 cells/uL 15-500 Normal (applies to non-numeric results) [facility] Basophils [#/volume] in Blood by Automated count 43 cells/uL 0-200 Normal (applies to non-numeric results) [facility] Neutrophils/100 leukocytes in Blood by Automated count 63.2 % 38-80 Normal (applies to non-numeric results) [facility] Lymphocytes/100 leukocytes in Blood by Automated count 26.3 % 15-49 Normal (applies to non-numeric results) [facility] Monocytes/100 leukocytes in Blood by Automated count 8.5 % 0-13 Normal (applies to non-numeric results) [facility] Eosinophils/100 leukocytes in Blood by Automated count 1.5 % 0-8 Normal (applies to non-numeric results) [facility] Basophils/100 leukocytes in Blood by Automated count 0.5 % 0-2 Normal (applies to non-numeric results) [facility] ID Date Data Source [id number] 05/09/2020 06:24:00 AM EST [facility] Received: 05/07/2020 at 04:14:00 QPT : [facility], [address], [address] [place] [address], [address], Nicholas Mullins MD Received: 05/07/2020 at 04:14:00 QPT : [facility], [address], [address] [place] [address], [phone] MD Received: 05/07/2020 at 04:14:00 QPT : [facility], [address], [address] [place] [address], [address]Nicholas MD Received: 05/07/2020 at 04:14:00 QPT : [facility], [address], [address] [place] [address], [phone] MD Received: 05/07/2020 at 04:14:00 QPT : [facility], [address], [address] [place] [address], [address]Nicholas MD Received: 05/07/2020 at 04:14:00 QPT : [facility], [address], [address] [place] [address], [address]Nicholas MD Received: 05/07/2020 at 04:14:00 QPT : [facility], [address], [address] [place], [address], Nicholas Mullins MD Received: 05/07/2020 at 04:14:00 QPT : [facility], [address], [address] [place] [address], [address], Nicholas Mullins MD Received: 05/07/2020 at 04:14:00 QPT : [facility], [address], [address] [place] [address], [address], Nicholas Mullins MD Received: 05/07/2020 at 04:14:00 QPT : [facility], [address], [address] [place] [address], [address], Nicholas Mullins MD Received: 05/07/2020 at 04:14:00 QPT : [facility], [address], [address] [place] [address], [address], Nicholas Mullins MD Received: 05/07/2020 at 04:14:00 QPT : [facility], [address], [address] [place] [address], [address], Nicholas Mullins MD Received: 05/07/2020 at 04:14:00 QPT : [facility], [address], [address] [place] [address], [address]Nicholas MD Received: 05/07/2020 at 04:14:00 QPT : [facility], [address], [address] [place] [address], [phone] MD Received: 05/07/2020 at 04:14:00 QPT : [facility], [address], [address] [place] [address], [phone] MD Name Value Range Interpretation Code Description Data Cathryn rce(s) Supporting Document(s) Hepatitis C virus Ab [Presence] in Serum or Plasma by Immuno assay REACTIVE NON-REACTIVE Abnormal (applies to non-numeric results) [facility] Hepatitis C virus Ab Signal/Cutoff in Serum or Plasma by Imm unoassay 19.80 <1.00 Above high normal [facility] Based on this result, the sample will be testedfor HCV RNA by a Nucleic Acid Amplification Test (NAAT)to determine if the patient has a current activeinfection. ID Date Data Source [id number] 05/09/2020 06:24:00 AM EST [facility] Received: 05/07/2020 at 04:14:00 QPT : [facility], [address], [address] [place] [address], [address], Nicholas Mullins MD Received: 05/07/2020 at 04:14:00 QPT : [facility], [address], [address] [place] [address], [address]Nicholas MD Received: 05/07/2020 at 04:14:00 QPT : [facility], [address], [address] [place] [address], [address]Nicholas MD Received: 05/07/2020 at 04:14:00 QPT : [facility], [address], [address] [place] [address], [phone] MD Received: 05/07/2020 at 04:14:00 QPT : [facility], [address], [address] [place] [address], [phone] MD Received: 05/07/2020 at 04:14:00 QPT : [facility], [address], [address] [place] [address], [phone] MD Received: 05/07/2020 at 04:14:00 QPT : [facility], [address], [address] [place] [address], [address]Nicholas MD Received: 05/07/2020 at 04:14:00 QPT : [facility], [address], [address] [place], [address], Nicholas Mullins MD Received: 05/07/2020 at 04:14:00 QPT : [facility], [address], [address] [place], [address], Nicholas Mullins MD Received: 05/07/2020 at 04:14:00 QPT : [facility], [address], [address] [place], [address]Nicholas MD Received: 05/07/2020 at 04:14:00 QPT : [facility], [address], [address] [place] [address], [address], Nicholas Mullins MD Received: 05/07/2020 at 04:14:00 QPT : [facility], [address], [address] [place] [address], [phone], Nicholas Mullins MD Received: 05/07/2020 at 04:14:00 QPT : [facility], [address], [address] [place], [address]Nicholas MD Received: 05/07/2020 at 04:14:00 QPT : [facility], [address], [address] [place] [address], [phone] MD Received: 05/07/2020 at 04:14:00 QPT : [facility], [address], [address] [place] [address], [phone] MD Name Value Range Interpretation Code Description Data Cathryn rce(s) Supporting Document(s) Hepatitis C virus RNA [Units/volume] (vi ral load) in Serum or Plasma by Probe and target amplification method <15 NOT DETECTED IU/mL NOT DETECTED Yola l (applies to non-numeric results) [facility] Hepatitis C virus RNA [log units/volume] (viral load) in Serum or Plasma by Probe and target amplification method NOT DETECTED No rmal (applies to non- numeric results) [facility] HCV RNA is not detected. There is no la boratoryevidence of a current active HCV infection.This pattern of results (undetectable HCV RNA combinedwith reactive HCV antibody) could be consistent with aresolved past infection if the clinical history iscompatible with previous HCV exposure. However, if noprevious exposure is suspected, the reactive HCVantibody could be a biological false positive result. COMMENT Bringrs This test was performed using Real-Time Polymerase ChainReaction.Reportable Range: 15 IU/mL to 100,000,000 IU/mL(1.18 Log IU/mL to 8.00 Log IU/mL).The analytical performance characteristics of thisassay have been determined by [employer].The modifications have not been cleared or approved bythe FDA. This assay has been validated pursuant to theCLIA regulations and is used for clinical purposes.For more information on this test, go to:http://education.Trigemina/faq/SNR39g5(This link is being provided for informational/educational purposes only.)This assay is intended for use as an aid in thediagnosis of HCV infection and the management ofHCV infected patients undergoing anti-viral therapy. ID Date Data Source [id number] 05/09/2020 06:24:00 AM EST [facility] Received: 05/07/2020 at 04:14:00 QPT : [facility], [address], [address] [place] [address], [phone] MD Received: 05/07/2020 at 04:14:00 QPT : [facility], [address], [address] [place] [address], [address]Nicholas MD Received: 05/07/2020 at 04:14:00 QPT : [facility], [address], [address] [place] [address], [phone] MD Received: 05/07/2020 at 04:14:00 QPT : [facility], [address], [address] [place] [address], [phone] MD Received: 05/07/2020 at 04:14:00 QPT : [facility], [address], [address] [place], [address], Nicholas Mullins MD Received: 05/07/2020 at 04:14:00 QPT : [facility], [address], [address] [place], [address], Nicholas Mullins MD Received: 05/07/2020 at 04:14:00 QPT : [facility], [address], [address] [place], [address], Nicholas Mullins MD Received: 05/07/2020 at 04:14:00 QPT : [facility], [address], [address] [place] [address], [phone], Nicholas Mullins MD Received: 05/07/2020 at 04:14:00 QPT : [facility], [address], [address] [place] [address], [address], Nicholas Mullins MD Received: 05/07/2020 at 04:14:00 QPT : [facility], [address], [address] [place] [address], [address], Nicholas Mullins MD Received: 05/07/2020 at 04:14:00 QPT : [facility], [address], [address] [place] [address], [address], Nicholas Mullins MD Received: 05/07/2020 at 04:14:00 QPT : [facility], [address], [address] [place] [address], [address], Nicholas Mullins MD Received: 05/07/2020 at 04:14:00 QPT : [facility], [address], [address] [place] [address], [address], Nicholas Mullins MD Received: 05/07/2020 at 04:14:00 QPT : [facility], [address], [address] [place] [address], [address], Nicholas Mullins MD Received: 05/07/2020 at 04:14:00 QPT : [facility], [address], [address] [place] [address], [address], Nicholas Mullins MD Name Value Range Interpretation Code Description Data Cathryn rce(s) Supporting Document(s) Amphetamines [Presence] in Urine Normal (applie s to non-numeric results) [facility] UAT NOT ACCEPTABLE. PRESERVED URINE NOT ACCEPTABLETEST NOT PERFORMEDNo suitable specimen received. ID Date Data Source [id number] 05/09/2020 06:24:00 AM EST [facility] Received: 05/07/2020 at 04:14:00 QPT : [facility], [address], [address] [place] [address], [address], Nicholas Mullins MD Received: 05/07/2020 at 04:14:00 QPT : [facility], [address], [address] [place] [address], [address], Nicholas Mullins MD Received: 05/07/2020 at 04:14:00 QPT : [facility], [address], [address] [place] [address], [address]Nicholas MD Received: 05/07/2020 at 04:14:00 QPT : [facility], [address], [address] [place] [address], [address]Nicholas MD Received: 05/07/2020 at 04:14:00 QPT : [facility], [address], [address] [place] [address], [address]Nicholas MD Received: 05/07/2020 at 04:14:00 QPT : [facility], [address], [address] [place] [address], [address]Nicholas MD Received: 05/07/2020 at 04:14:00 QPT : [facility], [address], [address] [place] [address], [address]Nicholas MD Received: 05/07/2020 at 04:14:00 QPT : [facility], [address], [address] [place], [address], Nicholas Mullins MD Received: 05/07/2020 at 04:14:00 QPT : [facility], [address], [address] [place], [phone], Nicholas Mullins MD Received: 05/07/2020 at 04:14:00 QPT : [facility], [address], [address] [place] [address], [address], Nicholas Mullins MD Received: 05/07/2020 at 04:14:00 QPT : [facility], [address], [address] [place] [address], [address], Nicholas Mullins MD Received: 05/07/2020 at 04:14:00 QPT : [facility], [address], [address] [place] [address], [address], Nicholas Mullins MD Received: 05/07/2020 at 04:14:00 QPT : [facility], [address], [address] [place] [address], [address]Nicholas MD Received: 05/07/2020 at 04:14:00 QPT : [facility], [address], [address] [place] [address], [address]Nicholas MD Received: 05/07/2020 at 04:14:00 QPT : [facility], [address], [address] [place] [address], [address]Nicholas MD Name Value Range Interpretation Code Description Data Cathryn rce(s) Supporting Document(s) Benzodiazepines [Presence] in Urine Yola l (applies to non-numeric results) [facility] TEST NOT PERFORMEDNo suitable specimen r eceived. ID Date Data Source [id number] 05/09/2020 06:24:00 AM EST [facility] Received: 05/07/2020 at 04:14:00 QPT : [facility], [address], [address] [place], [address], Nicholas Mullins MD Received: 05/07/2020 at 04:14:00 QPT : [facility], [address], [address] [place] [address], [address], Nicholas Mullins MD Received: 05/07/2020 at 04:14:00 QPT : [facility], [address], [address] [place] [address], [address], Nicholas Mullins MD Received: 05/07/2020 at 04:14:00 QPT : [facility], [address], [address] [place] [address], [phone], Nicholas Mullins MD Received: 05/07/2020 at 04:14:00 QPT : [facility], [address], [address] [place] [address], [phone], Nicholas Mullins MD Received: 05/07/2020 at 04:14:00 QPT : [facility], [address], [address] [place] [address], [address], Nicholas Mullins MD Received: 05/07/2020 at 04:14:00 QPT : [facility], [address], [address] [place] [address], [address], Nicholas Mullins MD Received: 05/07/2020 at 04:14:00 QPT : [facility], [address], [address] [place] [address], [address], Nicholas Mullins MD Received: 05/07/2020 at 04:14:00 QPT : [facility], [address], [address] [place] [address], [phone], Nicholas Mullins MD Received: 05/07/2020 at 04:14:00 QPT : [facility], [address], [address] [place] [address], [address], Nicholas Mullins MD Received: 05/07/2020 at 04:14:00 QPT : [facility], [address], [address] [place], [address], Nicholas Mullins MD Received: 05/07/2020 at 04:14:00 QPT : [facility], [address], [address] [place], [address], Nicholas Mullins MD Received: 05/07/2020 at 04:14:00 QPT : [facility], [address], [address] [place] [address], [address], Nicholas Mullins MD Received: 05/07/2020 at 04:14:00 QPT : [facility], [address], [address] [place] [address], [address], Nicholas Mullins MD Received: 05/07/2020 at 04:14:00 QPT : [facility], [address], [address] [place] [address], [address], Nicholas Mullins MD Name Value Range Interpretation Code Description Data Cathryn rce(s) Supporting Document(s) Buprenorphine [Presence] in Urine Normal (appli es to non-numeric results) [facility] TEST NOT PERFORMEDNo suitable specimen r eceived. ID Date Data Source [id number] 05/09/2020 06:24:00 AM EST [facility] Received: 05/07/2020 at 04:14:00 QPT : [facility], [address], [address] [place] [address], [address]Nicholas MD Received: 05/07/2020 at 04:14:00 QPT : [facility], [address], [address] [place] [address], [address]Nicholas MD Received: 05/07/2020 at 04:14:00 QPT : [facility], [address], [address] [place] [address], [phone] MD Received: 05/07/2020 at 04:14:00 QPT : [facility], [address], [address] [place] [address], [address], Nicholas Mullins MD Received: 05/07/2020 at 04:14:00 QPT : [facility], [address], [address] [place] [address], [address], Nicholas Mullins MD Received: 05/07/2020 at 04:14:00 QPT : [facility], [address], [address] [place] [address], [address], Nicholas Mullins MD Received: 05/07/2020 at 04:14:00 QPT : [facility], [address], [address] [place] [address], [address], Nicholas Mullins MD Received: 05/07/2020 at 04:14:00 QPT : [facility], [address], [address] [place] [address], [address], Nicholas Mullins MD Received: 05/07/2020 at 04:14:00 QPT : [facility], [address], [address] [place] [address], [address], Nicholas Mullins MD Received: 05/07/2020 at 04:14:00 QPT : [facility], [address], [address] [place] [address], [address], Nicholas Mullins MD Received: 05/07/2020 at 04:14:00 QPT : [facility], [address], [address] [place] [address], [address], Nicholas Mullins MD Received: 05/07/2020 at 04:14:00 QPT : [facility], [address], [address] [place] [address], [address], Nicholas Mullins MD Received: 05/07/2020 at 04:14:00 QPT : [facility], [address], [address] [place] [address], [address]Nicholas Lee MD Received: 05/07/2020 at 04:14:00 QPT : [facility], [address], [address] [place], [address], Nicholas Mullins MD Received: 05/07/2020 at 04:14:00 QPT : [facility], [address], [address] [place], [address], Nicholas Mullins MD Name Value Range Interpretation Code Description Data Cathryn rce(s) Supporting Document(s) Benzoylecgonine [Presence] in Urine Yola l (applies to non-numeric results) [facility] TEST NOT PERFORMEDNo suitable specimen r eceived. ID Date Data Source [id number] 05/09/2020 06:24:00 AM EST [facility] Received: 05/07/2020 at 04:14:00 QPT : [facility], [address], [address] [place] [address], [address]Nicholas MD Received: 05/07/2020 at 04:14:00 QPT : [facility], [address], [address] [place] [address], [address]Nicholas MD Received: 05/07/2020 at 04:14:00 QPT : [facility], [address], [address] [place] [address], [address]Nicholas MD Received: 05/07/2020 at 04:14:00 QPT : [facility], [address], [address] [place] [address], [address]Nicholas MD Received: 05/07/2020 at 04:14:00 QPT : [facility], [address], [address] [place] [address], [address]Nicholas MD Received: 05/07/2020 at 04:14:00 QPT : [facility], [address], [address] [place] [address], [address]Nicholas MD Received: 05/07/2020 at 04:14:00 QPT : [facility], [address], [address] [place] [address], [phone], Nicholas Mullins MD Received: 05/07/2020 at 04:14:00 QPT : [facility], [address], [address] [place] [address], [phone], Nicholas Mullins MD Received: 05/07/2020 at 04:14:00 QPT : [facility], [address], [address] [place] [address], [address], Nicholas Mullins MD Received: 05/07/2020 at 04:14:00 QPT : [facility], [address], [address] [place] [address], [address], Nicholas Mullins MD Received: 05/07/2020 at 04:14:00 QPT : [facility], [address], [address] [place] [address], [address], Nicholas Mullins MD Received: 05/07/2020 at 04:14:00 QPT : [facility], [address], [address] [place] [address], [address], Nicholas Mullins MD Received: 05/07/2020 at 04:14:00 QPT : [facility], [address], [address] [place] [address], [address], Nicholas Mullins MD Received: 05/07/2020 at 04:14:00 QPT : [facility], [address], [address] [place] [address], [address], Nicholas Mullins MD Received: 05/07/2020 at 04:14:00 QPT : [facility], [address], [address] [place] [address], [address], Nicholas Mullins MD Name Value Range Interpretation Code Description Data Cathryn rce(s) Supporting Document(s) Tetrahydrocannabinol [Presence] in Urine by Screen method >20 ng /mL Normal (applies to non-numeric results) [facility] TEST NOT PERFORMEDNo suitable specimen r eceived. ID Date Data Source [id number] 05/09/2020 06:24:00 AM EST [facility] Received: 05/07/2020 at 04:14:00 QPT : [facility], [address], [address] [place], [address], Nicholas Mullins MD Received: 05/07/2020 at 04:14:00 QPT : [facility], [address], [address] [place] [address], [address], Nicholas Mullins MD Received: 05/07/2020 at 04:14:00 QPT : [facility], [address], [address] [place] [address], [address], Nicholas Mullins MD Received: 05/07/2020 at 04:14:00 QPT : [facility], [address], [address] [place] [address], [address], Nicholas Mullins MD Received: 05/07/2020 at 04:14:00 QPT : [facility], [address], [address] [place] [address], [address], Nicholas Mullins MD Received: 05/07/2020 at 04:14:00 QPT : [facility], [address], [address] [place] [address], [address]Nicholas MD Received: 05/07/2020 at 04:14:00 QPT : [facility], [address], [address] [place] [address], [phone] MD Received: 05/07/2020 at 04:14:00 QPT : [facility], [address], [address] [place] [address], [address]Nicholas MD Received: 05/07/2020 at 04:14:00 QPT : [facility], [address], [address] [place] [address], [address], Nicholas Mullins MD Received: 05/07/2020 at 04:14:00 QPT : [facility], [address], [address] [place] [address], [address], Nicholas Mullins MD Received: 05/07/2020 at 04:14:00 QPT : [facility], [address], [address] [place] [address], [address], Nicholas Mullins MD Received: 05/07/2020 at 04:14:00 QPT : [facility], [address], [address] [place] [address], [address], Nicholas Mullins MD Received: 05/07/2020 at 04:14:00 QPT : [facility], [address], [address] [place] [address], [address], Nicholas Mullins MD Received: 05/07/2020 at 04:14:00 QPT : [facility], [address], [address] [place] [address], [address], Nicholas Mullins MD Received: 05/07/2020 at 04:14:00 QPT : [facility], [address], [address] [place] [address], [address], Nicholas Mullins MD Name Value Range Interpretation Code Description Data Cathryn rce(s) Supporting Document(s) Opiates [Presence] in Urine Normal (applies to non-numeric results) [facility] TEST NOT PERFORMEDNo suitable specimen r eceived. ID Date Data Source [id number] 05/09/2020 06:24:00 AM EST [facility] Received: 05/07/2020 at 04:14:00 QPT : [facility], [address], [address] [place] [address], [address]Nicholas MD Received: 05/07/2020 at 04:14:00 QPT : [facility], [address], [address] [place] [address], [address]Nicholas MD Received: 05/07/2020 at 04:14:00 QPT : [facility], [address], [address] [place], [address], Nicholas Mullins MD Received: 05/07/2020 at 04:14:00 QPT : [facility], [address], [address] [place] [address], [address], Nicholas Mullins MD Received: 05/07/2020 at 04:14:00 QPT : [facility], [address], [address] [place] [address], [address], Nicholas Mullins MD Received: 05/07/2020 at 04:14:00 QPT : [facility], [address], [address] [place] [address], [address], Nicholas Mullins MD Received: 05/07/2020 at 04:14:00 QPT : [facility], [address], [address] [place] [address], [address], Nicholas Mullins MD Received: 05/07/2020 at 04:14:00 QPT : [facility], [address], [address] [place] [address], [address], Nicholas Mullins MD Received: 05/07/2020 at 04:14:00 QPT : [facility], [address], [address] [place] [address], [address], Nicholas Mullins MD Received: 05/07/2020 at 04:14:00 QPT : [facility], [address], [address] [place] [address], [address], Nicholas Mullins MD Received: 05/07/2020 at 04:14:00 QPT : [facility], [address], [address] [place] [address], [address], Nicholas Mullins MD Received: 05/07/2020 at 04:14:00 QPT : [facility], [address], [address] [place], [address], Nicholas Mullins MD Received: 05/07/2020 at 04:14:00 QPT : [facility], [address], [address] [place], [address], Nicholas Mullins MD Received: 05/07/2020 at 04:14:00 QPT : [facility], [address], [address] [place], [address]Nicholas MD Received: 05/07/2020 at 04:14:00 QPT : [facility], [address], [address] [place] [address], [address], Nicholas Mullins MD Name Value Range Interpretation Code Description Data Cathryn rce(s) Supporting Document(s) Oxycodone [Presence] in Urine Normal (applies t o non-numeric results) [facility] TEST NOT PERFORMEDNo suitable specimen r eceived. ID Date Data Source [id number] 05/09/2020 06:24:00 AM EST [facility] Received: 05/07/2020 at 04:14:00 QPT : [facility], [address], [address] [place] [address], [phone] MD Received: 05/07/2020 at 04:14:00 QPT : [facility], [address], [address] [place], [address]Nicholas MD Received: 05/07/2020 at 04:14:00 QPT : [facility], [address], [address] [place] [address], [address]Nicholas MD Received: 05/07/2020 at 04:14:00 QPT : [facility], [address], [address] [place] [address], [address]Nicholas MD Received: 05/07/2020 at 04:14:00 QPT : [facility], [address], [address] [place] [address], [address], Nicholas Mullins MD Received: 05/07/2020 at 04:14:00 QPT : [facility], [address], [address] [place] [address], [address], Nicholas Mullins MD Received: 05/07/2020 at 04:14:00 QPT : [facility], [address], [address] [place] [address], [phone], Nicholas Mullins MD Received: 05/07/2020 at 04:14:00 QPT : [facility], [address], [address] [place] [address], [address], Nicholas Mullins MD Received: 05/07/2020 at 04:14:00 QPT : [facility], [address], [address] [place] [address], [address], Nicholas Mullins MD Received: 05/07/2020 at 04:14:00 QPT : [facility], [address], [address] [place] [address], [phone], Nicholas Mullins MD Received: 05/07/2020 at 04:14:00 QPT : [facility], [address], [address] [place] [address], [address], Nicholas Mullins MD Received: 05/07/2020 at 04:14:00 QPT : [facility], [address], [address] [place] [address], [address], Nicholas Mullins MD Received: 05/07/2020 at 04:14:00 QPT : [facility], [address], [address] [place] [address], [address], Nicholas Mullins MD Received: 05/07/2020 at 04:14:00 QPT : [facility], [address], [address] [place] [address], [phone], Nicholas Mullins MD Received: 05/07/2020 at 04:14:00 QPT : [facility], [address], [address] [place], [phone], Nicholas Mullins MD Name Value Range Interpretation Code Description Data Cathryn rce(s) Supporting Document(s) 4-Phjtjaqbel-4,7-Khdhkczi-7,3-Diphenylpyrrolidine (EDDP) [Pr esence] in Urine Normal (applies to non-numeric results) [facility] TEST NOT PERFORMEDNo suitable specimen r eceived. COMMENT [facility] See Note 2Note 1This drug testing is for medical treatment only.Analysis was performed as non-forensic testing andthese results should be used only by healthcareproviders to render diagnosis or treatment, or tomonitor progress of medical conditions.For assistance with interpreting these drug results,please contact a [facility] ToxicologySpecialist: [phone] ( ), M-F,8am-6pm EST.Note 2This drug testing is for medical treatment only.The results are presumptive; based only on screeningmethods, and they have not been confirmed by adefinitive method. Analysis was performed asno n-forensic testing and these results should beused only by healthcare providers to renderdiagnosis or treatment, or to monitor progress ofmedical conditions.For assistance with interpreting these drug results,please contact a [facility] ToxicologySpecialist: [phone] M-F,8am-6pm EST. ID Date Data Source [id number] 05/09/2020 06:24:00 AM EST [facility] Received: 05/07/2020 at 04:14:00 QPT : [facility], [address], [address] [place], [address], Nicholas Mullins MD Received: 05/07/2020 at 04:14:00 QPT : [facility], [address], [address] [place], [address], Nicholas Mullins MD Received: 05/07/2020 at 04:14:00 QPT : [facility], [address], [address] [place] [address], [phone] MD Received: 05/07/2020 at 04:14:00 QPT : [facility], [address], [address] [place] [address], [phone], Nicholas Mullins MD Received: 05/07/2020 at 04:14:00 QPT : [facility], [address], [address] [place] [address], [phone], Nicholas Mullins MD Received: 05/07/2020 at 04:14:00 QPT : [facility], [address], [address] [place] [address], [phone], Nicholas Mullins MD Received: 05/07/2020 at 04:14:00 QPT : [facility], [address], [address] [place] [address], [phone], Nicholas Mullins MD Received: 05/07/2020 at 04:14:00 QPT : [facility], [address], [address] [place] [address], [phone], Nicholas Mullins MD Received: 05/07/2020 at 04:14:00 QPT : [facility], [address], [address] [place] [address], [phone], Nicholas Mullins MD Received: 05/07/2020 at 04:14:00 QPT : [facility], [address], [address] [place] [address], [phone], Nicholas Mullins MD Received: 05/07/2020 at 04:14:00 QPT : [facility], [address], [address] [place] [address], [phone], Nicholas Mullins MD Received: 05/07/2020 at 04:14:00 QPT : [facility], [address], [address] [place] [address], [phone], Nicholas Mullins MD Received: 05/07/2020 at 04:14:00 QPT : [facility], [address], [address] [place], [address], Nicholas Mullins MD Received: 05/07/2020 at 04:14:00 QPT : [facility], [address], [address] [place], [address], Nicholas Mullins MD Received: 05/07/2020 at 04:14:00 QPT : [facility], [address], [address] [place], [address], Nicholas Mullins MD Name Value Range Interpretation Code Description Data Cathryn rce(s) Supporting Document(s) Reagin Ab [Presence] in Serum by RPR NON-REACTIVE NON-REACTIV E Normal (applies to non-numeric results) [facility] ID Date Data Source [id number] 05/04/2020 12:00:00 AM EST [facility] Name Value Range Interpretation Code Description Data Cathryn rce(s) Supporting Document(s) SARS-CoV-2 (COVID-19) RNA [Presence] in Respiratory specimen by ALLAN with probe detection Not Detected [facility] This lab was ordered by EZEKIEL PRYOR [facility] and reported by [employer]. ID Date Data Source [id number] 02/15/2020 02:35:24 PM EST [facility] Name Value Range Interpretation Code Description Data Cathryn rce(s) Supporting Document(s) ED Provider Note [facility] SCGRTr8mWoOEWbRz29/WSYvcBIUuk2GxAEsvYOq7DMviMJFwO5CxOWW5pK8qOVD6IRwUXrQvAuUwQTM6 lbm [file] BpDtWoZdHtOzGeOXZpOKH7YlApRZ7IUr6BJgW7ZLC4kDIcCr5JAXM1HMtGFbLsCH9NWIu= ID Date Data Source [id number] 02/11/2020 08:15:52 AM EST [facility] Name Value Range Interpretation Code Description Data Cathryn rce(s) Supporting Document(s) Discharge Summary [facility] ZHHCNw7eNvVMIwSz42/EDVsyEYNnv0HpOEzxUVr7FOseYQPbJ4PqVZV8vC9kDHB9CGcPOyLdMuTvXHNx lbm [file] ICAgICAgICAgICAgICAgICAgICAgICAgICAgICAgICAgICAgICAgICAgICAgICAgICAgICAgICAgICAg ICAgICAgICAgICAgICAgICAgICAgICAgICAgICAgIC AgICAgICANCiAgICAgICAgICAgICAgICAgICAgICAgICAgICAgICAgICAgICAgICAgICAgICAgICAgIC AgICAgICAgICAgICAgICAgICAgICAgICAgICAgICAgICAgICAgICAgICAgICAgICANCiAgICAgICAgIC AgICAgICAgICAgICAgICAgICAgICAgICAgICAgICAg ICAgICAgICAgICAgICAgICAgICAgICAgICAgICAgICAgICAgICAgICAgICAgICAgICAgICAgICAgICAN CiAgICAgICAgICAgICAgICAgICAgICAgICAgICAgICAgICAgICAgICAgICAgICAgICAgICAgICAgICAg ICAgICAgICAgICAgICAgICAgICAgICAgICAgICAgIC AgICAgICAgICANCiAgICAgICAgICAgICAgICAgICAgICAgICAgICAgICAgICAgICAgICAgICAgICAgIC AgICAgICAgICAgICAgICAgICAgICAgICAgICAgICAgICAgICAgICAgICAgICAgICAgICANCiAgICAgIC AgICAgICAgICAgICAgICAgICAgICAgICAgICAgICAg ICAgICAgICAgICAgICAgICAgICAgICAgICAgICAgICAgICAgICAgICAgICAgICAgICAgICAgICAgICAg ICANCiAgICAgICAgICAgICAgICAgICAgICAgICAgICAgICAgICAgICAgICAgICAgICAgICAgICAgICAg ICAgICAgICAgICAgICAgICAgICAgICAgICAgICAgIC AgICAgICAgICAgICANCiAgICAgICAgICAgICAgICAgICAgICAgICAgICAgICAgICAgICAgICAgICAgIC AgICAgICAgICAgICAgICAgICAgICAgICAgICAgICAgICAgICAgICAgICAgICAgICAgICAgICANCiAgIC AgICAgICAgICAgICAgICAgICAgICAgICAgICAgICAg ICAgICAgICAgICAgICAgICAgICAgICAgICAgICAgICAgICAgICAgICAgICAgICAgICAgICAgICAgICAg ICAgICANCiAgICAgICAgICAgICAgICAgICAgICAgICAgICAgICAgICAgICAgICAgICAgICAgICAgICAg ICAgICAgICAgICAgICAgICAgICAgICAgICAgICAgIC AgICAgICAgICAgICAgICANCjw/aAUvK9hqeBDploY0H2vrHf9ZCh5HZK1eh6MgCTVjHKynjnBeZscLLe UpUZJaJdiSWok4TFpvFA1KuCZzT6AoR7JbIMwtFP1XVNRkRCTsaIQjELVlHCInCrN8SSQwHMtlYK2LkF RzIFsgNSAwIFIgNyAwIFIgOSAwIFIgMTEgMCBSIDEz ULXeZxTqSIXuHFJiWYwlROICCBQ8PPKqJnQuSCIfMDMrYwXlWVOAUT1CIlNgV6ObbV42HVOgBDo+Pg0K EF1ym9LmPOq9LtLsLR0bqh8UOMiAWuCaP8JfpgF7DTJ0HKPhSv0JVVYbCPRopXI0XDQbHKNGCjQqD1Dp qF53ONZEBa8+LOsmpnOcGrzOTfO1UDVlx1WiVAl3NS 2DPLWnLIk0xEPtFMdfT6oibjuaVUV0oA1cnefcOiptVyLjLQHoYQXRDZtmQFzcCAIcKSUuHVNgXJFgOh ZxOHAdMEqqATCXWNcVGtLyS8Nur3ReXjX7EGCdHnPzWJphDMNfVrH4PF45gOymAM6UCLYpMGOhOC63ZP VhMSXzMn3QPs0UDbDuDU7xdt2KGXWhXOXdFvaCVzn3 OWauLB8OdRQzD9SeeYRqd6mBIiExA0JKUJYtGLZjSj3WRMWpIbEwDDKqWWyoVN9yAGFbUFHQqNrnhfZ7 LZ9EOL8fhcDqSX2VMlPzKd1mMk5XRyNxK8OoQ3KmIJXzVJOAUYqbZI9MBBakNR5vNR5Jf7WDgLYhfN0x ik1OUPHwXNXvVpdguq9KPpkiE7P0mLrrGOMaCFEvOV CTXVmjWN3FDTRiSQT8TIK8OjWkASHMDnUfU46sBB7VJ7Bww39wVmS7XYRyBmSiVMfxWE25oBhwfwSemH VylUlgGJ6WKt0+EJffhyRdHmcLXienRFWZXcQmDKUPGeOdJYCiQKRwLUPmTcC0NlNxYu9JTVEhGEVbEW HmWdHoRTOpIRYqUCknRRMfZCQdUey9BDRwNHFqWM8R TxInQUPpDWY3XKsmVMQjBSDutx2AXKAfMNGpFXC3ToKnFGKtNAQmANxkZLWyOKY2JcHjNMAzTSXkZM7F NhBqBEAtVLY1TuKsKJCsRFWeop2EEGGfGFUeTVN8VRQaLJNqOLQyZDoxFWPgBMC6Nka7ANRxRONcBP5F AqNqGAFgTVKtNYGuJQCbBFHten0TVYOrDPZgEhQ0XD OmVKTtKEIgSUrhNUQxOZR2YvW8DKZbQOPpAH8PJmNmJZYvZRG6AoNoPZExQSYgst8AOFQlKNWlEIDlPn VhNJRuMFPfQGosJNMoVDB7TLGkACKxSMJqQP1ZWaTtVWLyZiJbArBjWAIlULOoqw9EYIUtRBDuIwT5Xh LbZEZjBUNeWJidDBAtQOM8Fjv1NEJvCRRjEG6IApGn TOFtTol5IOGpOVRyIKHljh4JQTTtEJPuRXa9AeFmWPMxICOdELtaDSQzDKHbQIn7XHWwKWQeAQ0BXpQa OGTsShD1BwTbHGPtDGIcqy8VMFQlAHQwEBObMJUuZQMcBTFdXOkvANOtXXR3JDWsUCUvGNSyEW2PZaYe UFLjCvUsIQQtBOLvWARpeg9BKDEwAHPmCHd1NeRpVV PlCLYdHDszBQLqLBW9XPpdNABlNYUfVS3CFsXlJCHjLsWaRXZoWRZvKDNozw8CFQJtCYMbReWtFRGwKX CwIKDxUDimDTNsMSY7YWS2LWYyVSTxNE2AYaTnMOEaWat3XOTvLDDrIHDhnh5DOJHbSKWnDEI8VEVpWX HkBXKyHSpuMVHiBCV5ZNB6XIBvNCKwLP0ATyHjCTAz UibtBOcsANXuKMAhkd7RXJOzETY4WIU4UDThBOZhDXTiRVcyFSBvOYZnCeFoOGVoJPDaGI8TSfIxBAUe AUM6CjOuNYCsVHTmhy0BSFGjYMY9WUYaWQHwGEZsOFPrYTnaNMPaQSCdLgS3PULvKOPiUP4HXgNgITFt FBUrNFvlBZLzKSQqtg3WQHGeLWG5UrF7WcZhLKOqSL RjYKjxAZTeRDFhQqh2MUEeDEVtNO3FTyRuGGExAWVaWHvdGUUfLSJhcq6JKVPiQUX4EXSjMWNsUBUsYH WjSOlmNCTlTCE6Yer2BBAkTQZvBL3RVjGxAYUbSEE0UiIhKVVpNUKzwe6LtAWscXlbmg7OPZsYVy2XdU kiUFK3GWbjSq6jbNH6TZSdFQZBAo2UtoMgTWBiRZCU UMizZXDzEVDlJuy1LCF1YYI0ZiUxMKy8PkroOxgtMPDlXSPrMZUbCeG4DPLpWrZ5RWthJrYgXQC4OJs9 R1NyCUL3YUP7WlN8EiU+YO4bHTm+Qh4Bk6LrwlM0lcNsTNe7ECE4SS8BVRZDV7DUVg== ID Date Data Source [id number] 02/08/2020 11:32:38 AM [facility] Name Value Range Interpretation Code Description Data Cathryn rce(s) Supporting Document(s) Amphetamine [Presence] in Urine by Screen method Negative [facility] Benzodiazepines [Presence] in Urine by Screen method [facility] Cannabinoids [Presence] in Urine by Screen method [facility] Benzoylecgonine [Presence] in Urine by Screen method [facility] Methadone [Presence] in Urine by Screen method Negative [facility] Opiates [Presence] in Urine by Screen method [facility] Oxycodone [Presence] in Urine by Screen method Negative [facility] Fentanyl+Norfentanyl [Presence] in Urine by Screen method Negative [facility] Service [facility] Results below the indicated cutoff (ng/m L), are reported as"Negative." Note: for medical purposes only; not valid for legalor employment testing. ID Date Data Source [id number] 02/06/2020 09:23:00 AM EST [facility] Exam Number: [id number] Reported By: - JONATHAN ERICKSON MD Signed By: JONATHAN ERICKSON MD Name Value Range Interpretation Code Description Data Cathryn rce(s) Supporting Document(s) ID Date Data Source [id number] 02/04/2020 12:37:33 PM EST [facility] Name Value Range Interpretation Code Description Data Cathryn rce(s) Supporting Document(s) ED Provider Note [facility] OWTBQi9sMmAMCsSp84/OSQtjMMYnz7RwCLtoGSp3NRzkWLTrP1EjQAB3tZ1yDFP2MQrZKdGsHkGkSRM5 lbm [file] XC3GVDA+Beatrice+Hx1BDNXqVUQfVCNzVrVlKBBKEhHaE9YkU5STz0MeI9KpFO79tFphhpHmJIkeBL8TWA0m MXWwTRZICB6NuFBplF6bgxG4VEEsPNVKObPsK29qcLVoUDBfKEL3EQYqYs5KNDWnP7UualBruFerhoTn MWWaVSNHUS4IUHlwmsSpsTWnzMdoCS79iUkbYI9FNd 1GNdWsPF2eht4UiLXgWi7QTGF7VQ9TNVYgVEZcSRBvREP1RWWuBaIlIKrpBYCrHUYyUCB6RAPdEZMqKD 1VMbAhMPHkQXG5VPujNBPqLFDgcj0OVYGfLWJ5SeF8NHAfUKCeJZEgQUnjGGFaTONuLTO7BYNgAJNbHT 7WNuXbZROfAZE7KVcrRJIiQBAbny8JTKUxNKZlNpSk IzElMYMbLESrVDzwMQVcWXP3RlK6KFTeABSxYR8JPqVsYLPpXMK8TKJqJXEzXXWgqm8BABEkHWWkBRU2 XNXyFZMhXXAcNYvnLUEgWJV6WfvoBSTvOMAzDG2KVwXqERZbIUP5PNNiYEHpYAZwnx9RSTIaNLOyCHwt ARZgYTQfSPIoOEheNJRcTJX3CcD8VPXxNENoPD8ADd FySTEqXUT3IZSfKWOlYRCtjz7TEXGfSSGbXunlTjUyTTQlYOIbNLzkDXFrHFY6PCMbDLQdSFApON9CLp MmAACoEMb1GAuhJVVfGRYvta5RLFNjOPYvTBV1YxQeVRHrOYOmSQmxDGDzCWKvDhG8YEOjWXAcYG6GUp TzBINeKfF0LCYvNJSpIDBdhk3POLUxNUVrVpU1IBSf LKVmKTFtBCnvDXYhZWS5Pen7BOKtOOGlBG5VSfOsXGVtLuBsGPEgGGBxQORgzu0VGNWkTASaAMAgAEFk LOVcLVNdZYagSOKxEFAsCCIcARJyJIQzOQ7NWiWtFNKfMxZlWkrkLSQsVLLboa6FJDGcSZVfQlx9JQXy JBIlKUKbCYtyWZSpZCM9JOn6RPHtPVBpAG4ITpDpAZ FlZzg6EDYxDZZzVSYaoj4DTSRwPWDzCso4JPQdPIZhNBEcQEkcCBNiIJT3IGXtVDCzRGIuFX3ZFtZdIF EzFtohVHiiTJThEBYupi5VUMQrXSKlRHQpIXIwWLEpGVCeMHjmASSvEQZrSKu2AYRwVHGrRM8OHtXeJO ItVZEcPKDuTUXoLHAmmy0EKCPgCXM3HYR1XDKfLVUs DPJbLVwwEZRjRQTiIYM8SUEyHVOiRL9BSaNuRBFnBCY4DfUyIPViYAYcpu0WIGKoQMY1BNsqUKXdFFIo HGEuUYyvCLBvKEIaDqK6FXIgYLFySV4GVeEdCEVfROO3SoCiRXQvTBYhbh9MFTFrBGC5WnbgJXMiTBRt XGKgFEovPDZhXVX2FXbnBPWjIVBbTV5YKjXrTJDyQK LmNFQxKPXzGPNqwd3IWWRtNCN2WSK0LOTlWBRdHJGqIKgmWBEgJIC9CnO3UPFpNIMiTV9GYxOnFGZzYY L1CxZgEXQkSCWctf7SLPApNXR6UGe1XKThGQVpSTCdPWatJJPaVBN3VFpzCDOtPSWlCK3HFhScKMVyUC o3GERoYOAuKUDitf8MOMZaLGD1RvgfIwYbFSXgEVEf RNylCBRtLJE1XOY1HUZhMYFkNY5WPrOnWHDnQUetAIPgXOFpULDhnc9DBEMvJSS4JBL9DBLbPIAnZJXp IDnqUVAkWNY3WAQ7AYFaUNUtYZ5UJwTqBTIpHLn2XWEiBDNiDAAueg8QEXKbUEO1HXa3IqYtRFCzBIQj CGpxFLMyEDG6OLOoAXHjLDHyIX8PRlRoINShZAueIF QrOCAkECCigz1ZKMAtYCJ5CCC1ZXZgRWJfNWRuISecVBXuHET9INR3TFLoZZYbBM8HNdYgIKUlGEh6RG rfATCyIOXxrd1CWLVkEBR0LYkxVnGnZKDtCYKbSUg1pwAscENoMCm9EB4CD5YmyhBxDcJHUe5Lz611AO UgCLFqXb8SF7fxVa3lYVFfEDDPYw5CHVm5GAGrK3Qw GwMrI6GpXnLvEOK8PIJ6VrAcNlYgIiGkXMT+QHacYUXgZpD5PsErOcToIXRwYrU6UMEcEPPzYUC2HUR6 XN1yASZHKo5+JQjzyQTdiJpvLFZKFgBwCBU5GOfiVJPNIi8Z ID Date Data Source [id number] 02/03/2020 04:07:22 PM EST [facility] Name Value Range Interpretation Code Description Data Cathryn rce(s) Supporting Document(s) ED Provider Note [facility] LPRSCk3fAbIUAzNa39/NGYvsRARjw4NnUFviYPp0VKlaPWFkD4IgXER6kQ7rOQV1FZtDAgHhSuPzMFJu lbm [file] 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/WcBTMlxErNxfe06LZRuHlmuFPgPCPOkJIw3ypVZL+ZA2hWxbk95BRtdviLjWfuaeduOEtDhmX5iUn Weg9d4LZ1YlVkFon9ohFu27U0+kvcl3mlJLMyLMKRpugEOtF2FVAGwgtyRXnms+OS5dpUz60VO/2E5dy T4jgla/9vzkzsQF5/pJ7PRcndsKZ/DxuJt0ZuhrA1A HZlbyfTsZXmRjObtybRonh5/YCHDBYJXlQLCOYbeRWKQWSs7wp0PPpQKMko7fogEEasskHahmL2LBVVn HrkjB4Mt/QcWqllIU9PS8k8N17ricXpsS+gcnWPZHIbGZqrHjlfn5wXpSIV6kN3umhetUDzDd7t7+cv8 3tpR4xyJT99yU5ChFeqWelEa/oGFSebOT26Akn7E1C V/lrIJGqqU9NO4tqCJa1DFOlIuFFLee341adMl1qLMfCH8zjnuqBb7EWJSfd9KVGLDurWbmkfDuAI1Gw +DwEF/D4FsUBzK/BAb2yfBNnFPpvQmxMkbGDwdfNvIPnm+Uo8xvoynpQiNshJmwQ43EpXTqwNDmzjjQ8 apTp9Fdt3qL/5sDb7r3axCvcxlgs7aeqjjdhbhkfrw [file] C5R7CcOdp3IRAvMMg9QrhxHtNvXG5CSg0XMiE1OGO4zZJaKj7WZBU9KCZFEcPgQM8PULq= ID Date Data Source [id number] 02/03/2020 10:04:33 AM [facility] Name Value Range Interpretation Code Description Data Cathryn rce(s) Supporting Document(s) [facility] HIVQGo1vWeSPNxZaw7NrPjYhTQXfVR3dxpu9K0L2tWDjM9BrqAZpf6ryG5FoS3EvSRUkKZOVUC7QwVHs jb2 [file] 6hCS25170OIz1dnd3jsYw1eZAfTD2rgQ361syBJ0f6 9+/uW/DCyFj6rTx9d6/YdC92cqzlAvrft/+kGzj21y/0usxX89k0ekA8/1+bF8aypjWqs/3aHLe75+82 Jrz3te7r+/hF948Mghv86n8hZgz/vPj5ef/pNc9O0dX/3oDy9//0VwxO660HX//TevueXi/ZrXXz2+ef XH16/+8Oyv12/psYw3c4bK/4jwlxHQS224+rN/8897 Sbv/+ekvP//th19/ev/Xx//65+T9T8599c8pc69/9+NvH5+9+/mH9z8+/vI/0vzLfzx++fn5z4/LxzaQ 8CwR5HK2Mo++/MkFm0d2+7W5/fTTx3/BppeU6Bnyu6t/pLkCw95SoxN7th5/5Kmtovvp+h76eqWGcuFg /pu/+lRm7eI7ZNJkMdU8wkXa4ooWUf9FW3pXmJ3mLj 68/9v7Z/fcffXJ4/Q6S33a7LO23tCiUy4/ma+G9oxln1JJz9//mq1E6el/Vgt5mug//2b04DhS1cUXbe 39jGffvf/5H797/PruH++Ptz+l+IDFCDsso4DN5Jh7eos19G4+4Bh9vx8+/sf7X//SivPQ66uE/rvXxx w8Gom2H/wIx75vb/3vJ/M//PLzh+54Q03G2z9P7Ih/ evvxn95+e5H1iekWv8zl13N1EGEwyJmwCm013FR44gB+YNFIwFdln5q7e27/avRJ98h2//v+7//66eyB S/2jF9/+5zWejXj9+ZX8+Oevf/lVU9e1RSz37uzosKmg8BA3//39u7//8O7nD/4fLU7CZr689H987zjz networking specialist+1lbaD2v9j5414aqGvzwaEQvGXpr+/vb99//18w /nM1o95EDKWMNkNgy//+R5jv13nrp//+f3//XDu3/8+sP3jy/f//WH79/9+Pj0x/bpol544/fazlvZy4 4COsx1l//9/pEev/zt/Hz78ek/Hi+fH/iVnZ210Y0hORCKx6Z89EFeh09+lI2cczQm5Gbu0dITx1VfYo apduXbfLPuCfH/QHza254PZA5rl6YbZWJuSvLzJV5i hkpuLXNlLQ5qgaq3V9YnnYbwPJoJXXOlZb8fuBYnIR7PFDV6NMyrPOOtKNNcS4RfnQ6oP19woSZjChIn KKSYSB4YfcS2ELV2BJF8MDTkIyVqGXMpCG18DEZqYDRXAy6iajOtPojOFrNiOW7dtkm9N0S3uYCmO983 gOabccBdON7Wg5XpgGPdUG8VeUDicYGvMOPpPROvH7 lch6NdEXyeGALBPh5bqpTxQjhMUwVkSJ1obru6U3A3xOxqnmTpWTZPHMnuWsfmYL9oyWqeteaeE3GyoN FfDPQiW2VoUOAcy73IYCPbVDmZPiLgVbPtRCGoSYLuGWgkCzRgHXYrDVMzUENqQQ6OuCJeJGJgFCEYUQ xbWcceQMFyaF6urNIVx7DiVSMUXCBvLEBPLOCTUYKw CmbyZtk6HEreW9G1ShpbI9OkLI1FE9CyQJGuASOTCKIosxLbFH8ZogLjfL2uOUrZZWQDIOnDMMahNcU7 n22vatBDSMBlPKRjQFtnVPGyTXBqAHYnVTAgMSSqNXNfMUAxGC8JU9SdQPVaOFZVGDB8w6AtGXBknwru rdvaHg2swnDpXhf+HwvzVXXvq6YjGHnoB4J8dEPwS5 OwS6LoOJ0HuCHyFDfvJRVkOWWsYTNkQ448uiDyGT7+LR6sn8LaSbtmJCLWXSQdEFRqPKKsBXE9NoBeSJ HhGONaVYWdHlW1HjWoRsICJUHkZOTgBHciKaMdFKCoZMUsAIqtJVRiLXB8YRxqOCAbBYVaSW1eLhFiYT TcFjt9FwJjCLNcLPAvpcYYETSrPYQmMTRuJYE7VEDf VXHfZBhuAOBfJWSbABI9IFArSFDrHR5jIsBkPKMtAWCfPwoeBOQiIJWupjPHJUZfTAFaFBJ5IoIwAHKq YKMoVFwfUCKtCRQwWyn0UUDjDITsEA8lGcVdIOAaGKP8CRurRDBzLVYaihKFPNPwYOXsEBDpRoGxZEIl MNOlXCfiIFBrWKKsXjKcTNSzRULfIP6jClXdFRGxET D8BAWpNGTpBDDtfoLVBHQlJVNyDJo2TCMzIKShNRAzVWojLWJlQSWwJOV2ZYGtVACsYD3qXaCmULVvXH QdHQBqXFOhNKAmswXVLKFhRWOuFIU5UQYkGWKxDURsSSnpGSXrRBGbUja2UPWgYIHrOE6pGhKyRUZbIN N3HBQgMZQtNFBeosWCIZCsBNRfQXP6ZfOhHQAdZJBs CZggILYdWTWcGrY8ZEAxDPEoVG4xPgAlZCPeJMR6HjKuYDJaPZSnwhUPPMVeQTPkGRJ5IhHiDWOfSBOl LQsqUUSxRSMbHFBmROH7VJU7CWKzIcZlVNavWCQAAQzMC0XnpwPvMsFSF0goRo6aUrIpMZNIV2Whq5Qs NSAwIFIKCj4+LcC6WKW8gLLxPkvkZFf7LjrkPTXWWd== ID Date Data Source [id number] 02/03/2020 08:48:19 AM EST [facility] Name Value Range Interpretation Code Description Data Cathryn rce(s) Supporting Document(s) History and Physical [facility] TNMHKg7tGyXZJkDs63/IDEbuTFKrr0OkQGtrTJw3EHvbZRAmZ0OfSCQ9cW1nYAR7HAwWOqItPjLeFMOg lbm [file] ICAgICAgICAgICAgICAgICAgICAgICAgICAgICAgICAgICAgICAgICAgICAgICAgICAgICAgICAgICAg ICANCiAgICAgICAgICAgICAgICAgICAgICAgICAgIC AgICAgICAgICAgICAgICAgICAgICAgICAgICAgICAgICAgICAgICAgICAgICAgICAgICAgICAgICAgIC AgICAgICAgICAgICANCiAgICAgICAgICAgICAgICAgICAgICAgICAgICAgICAgICAgICAgICAgICAgIC AgICAgICAgICAgICAgICAgICAgICAgICAgICAgICAg ICAgICAgICAgICAgICAgICAgICAgICANCiAgICAgICAgICAgICAgICAgICAgICAgICAgICAgICAgICAg ICAgICAgICAgICAgICAgICAgICAgICAgICAgICAgICAgICAgICAgICAgICAgICAgICAgICAgICAgICAg ICAgICANCiAgICAgICAgICAgICAgICAgICAgICAgIC AgICAgICAgICAgICAgICAgICAgICAgICAgICAgICAgICAgICAgICAgICAgICAgICAgICAgICAgICAgIC AgICAgICAgICAgICAgICANCiAgICAgICAgICAgICAgICAgICAgICAgICAgICAgICAgICAgICAgICAgIC AgICAgICAgICAgICAgICAgICAgICAgICAgICAgICAg ICAgICAgICAgICAgICAgICAgICAgICAgICANCiAgICAgICAgICAgICAgICAgICAgICAgICAgICAgICAg ICAgICAgICAgICAgICAgICAgICAgICAgICAgICAgICAgICAgICAgICAgICAgICAgICAgICAgICAgICAg ICAgICAgICANCiAgICAgICAgICAgICAgICAgICAgIC AgICAgICAgICAgICAgICAgICAgICAgICAgICAgICAgICAgICAgICAgICAgICAgICAgICAgICAgICAgIC AgICAgICAgICAgICAgICAgICANCiAgICAgICAgICAgICAgICAgICAgICAgICAgICAgICAgICAgICAgIC AgICAgICAgICAgICAgICAgICAgICAgICAgICAgICAg ICAgICAgICAgICAgICAgICAgICAgICAgICAgICANCiAgICAgICAgICAgICAgICAgICAgICAgICAgICAg ICAgICAgICAgICAgICAgICAgICAgICAgICAgICAgICAgICAgICAgICAgICAgICAgICAgICAgICAgICAg ICAgICAgICAgICANCjw/oYJgB1lacZDxdgL5O1ugBn 9VWq2LRK0qe0RbTMGmBIaivrVxDegJSrDiVMYtOtiWYvc5PDyhIB9DxMRgF4VfT3DzURplZB5XASDkAV KtnGSwKCSsXPAnVkH9OKAfWJeqPJ2FaGRiXZfyPDCsSLUzXpPdBMRqDZCmFUKyNLNuULOZQTSyUIGpGw OoJAYwLPQhKZoyVJUMOUE1LLMgUvMvOHkuIF3Qt0Xx fQP8ZJx+Ws3PJU0ji3KoTZr9EkPtJS0uis9FMMzRMiDgY0NswsK6UVN7OCLuYh5EDDRxKWFalLG8TITs GWLZMyLlW1LizG58DOGQLa8+SHvsxgWiCcgSCeP7GBOnp6DtMLo7WR6GZHFaOWn7iBTsCBRAASZ2CMNw lYGzWHNgX27bcR0owpY5yszdVJ6dARVePVBaYj5bXR McXFLmIyT9NNAATC3MYRIlNUPrpKYgCRWoGZGEJY2EJEoiLBR7VVCyerWiyPKiTKgzWG3AIKJpqoRsOK cgMCBSDQo+Tz4VEF9qf8HxPSl8MWSyCU2djz5MEHbFOvZpO8P4dYYvG3V6QXtwTj3MKVHfCYAkRRJuGA CQDInrET9AKL1wheQ5GT1AhEUuKSKuXIJthUUgJZn9 S87jbEJoSNrjAF4RWTV+Beatrice+Zp1QCWSsWSGyXEDkWdGyYQMADiZuW4WrO0WQs8CbQ2WhCI82wJyaeeNc LSxbMH3QFW6oASOeCHSJGY8ZjPQusU8iylF4PtKdNCBMLgYwB93yrKBqLRIsEMK1PZZnPx7WSLKkT3Ak wePevBggnkRbOEYuFIKUHO7RBBeqhoCbjNFleVujDH 67rUepYV8UIr3SAyRuXM3vyj6HiWXwJd1MVHR5AB0RHHLbJPKdBKGmPDX8RKUzLfLaWXafPICjDRBuQG V7BFDcIPSdSH3STtFvJSQpDTZ2NGBzRSDfYCCwrx9BNGDhAOU5MKHcBNJgXHWjCUJxICmfJQUrBGAgKP W0WHGvDBCyID4XWvGrHSAaWIV3JoiyREWhPZLesx4A PENhFGVxVWK8DmOlDKGxLFLfUWzsCWMrVPP7OWI5OPLjLYVhPK9AGiJcPGQtCDt3NJIkHDJlNAYtav5U XFDsDXPeVWV5NZZvPDXtCYZsCPliMMAqJNQnOTPiGTVoXHNcRN9IAmSnOCZaLXL9AoilAMGzQPLdrq7P UOTaBCMcBMz9QjFoCZVeTRGuHNglGZCsKTW4OQcbPO MjRAAqUF0DDhQtKIIeAZunDEDzSYWsVWVuhf8RHGOuVNWgJFg7HHHoTNWkIKBcXLvwRYGbSJVjOMS7KT SpXLTsCR2XRlTbNNYvBvH4QiMjEZNzKOJsod6SJVUkCFAfNHo8ZYCqTCHrJKYeNYhkWDYxSUD2INu9EA KvHAJwGS9MOgCkFLYsYwdnCLLsVYVxFWFfry7KGTAx WYHuOFI6QXCeLTYjYHXdQDqwTGSbNCXnTrG2REUxRBIzBE6KBfOnDBZyNxB9DzEzIIXkBYUmal5KAVLa ORNmQKS8ZFRbYRRbKGRjTAngDVGkRTZoTBviTSDnZYLwLU0BCoVaSMMgWjP6RqhdCLOrQZZlci2IIXVy KDGlAuoyXFPnYDFrAZEnAIewERBeXNHyYAY1BOOlRU UwWW6ZAvJmLHYdOyXzUYybQDYuJUNdru8HKSEuYMO9KQXxQPJwTGJgETVeIFifOMAlXMA0VYPgCXYeRP MlVH7NLtHbKRXfSMXpHrZfFRHrIYYgqx9USIJgTDX9JUR0SYZiPKAfJZRuDJqnWUFpWBZ7MFR2KPGxNW QiXI5SIuCkCVZkQEKrPqKdEVFzHSNvmb8DQQGmBNK8 XuR8MTJwRBGrUBFtNXeaBMRoIGC4WhA5FIAsUIDgWP8SXiCpPKKzTEj3ArndEKQqBVMapo6IGLOvREH5 Zhj3IeExNKLcTYKrQTtqXFTgEYE4VZS8YANeTDJtVO3UFdVnNYDqQLT6LRIaNVHdAJMfop5BHSAeDIR8 MzIyMCAwMDAwMCBuDQowMDAwMDUzNDMyIDAwMDAwIG 9KTxAbEGCiSLI7YvRhWWEbBXFafb2RNEFpDKH6MrveBDNqNCRbXTGvMDffWXBbERL2Lyg0PLReRADuSY 5BOlRfUZUhTUT7AyyuDJJpFLVzes9DOZXeYMY7YSk7XZRnLJKeLTUlAXrwXPRcWXI5BXktGRYjQCDzDG 9AVuKbKXfiDHMANbg4UUudQ3a9DCM3ZE9DQ3Mdi7Oa YYjdAEOAILiyUV8zorViZBSmQy3CJ2xCVrgdMgErNiFdBGBlBlAmXrK3YDTtLpTkXrQ5LelrHrQuMX5k QEJsSMB7GKJ5AtVrHMDgPqi9RnJ2JDWfEhamD1V0B5G1BoEeSY6IGk2GTzT3GRM2oZBxQk7DBPVnBqYE CzCnOJ4ZKNe= ID Date Data Source [id number] 02/03/2020 10:08:16 AM [facility] Name Value Range Interpretation Code Description Data Cathryn rce(s) Supporting Document(s) Calcidiol [Mass/volume] in Serum or Plasma 35 ng/mL >30 [facility] ID Date Data Source [id number] 02/03/2020 07:20:24 AM [facility] Name Value Range Interpretation Code Description Data Cathryn rce(s) Supporting Document(s) Leukocytes [#/volume] in Blood by Automated count 6.7 10*3/uL 4-10 [facility] Erythrocytes [#/volume] in Blood by Automated count 5.62 10*6/uL 4.6- 6.1 [facility] Hemoglobin [Mass/volume] in Blood 15.9 g/dL 13.5-18 [facility] Hematocrit [Volume Fraction] of Blood by Automated count 46.7 % 4 1-53 [facility] Erythrocyte mean corpuscular volume [Entitic volume] by Auto mated count 83.1 fL 80-96 [facility] Erythrocyte mean corpuscular hemoglobin [Entitic mass] by Automated count 28.3 pg 27-33 [facility] Erythrocyte mean corpuscular hemoglobin concentration [Mass/volume] by Automated count 34.0 g/dL 32.0-36.0 [facility] distribution width [Ratio] by Automated count 13.7 % 11.5-14.5 [facility] Platelets [#/volume] in Blood by Automated count 245 10*3/uL 150-400 [facility] Differential cell count method - Blood [facility] Neutrophils/100 leukocytes in Blood by Automated count 55 % [facility] Lymphocytes/100 leukocytes in Blood by Automated count 32 % [facility] Monocytes/100 leukocytes in Blood by Automated count 9 % [facility] Eosinophils/100 leukocytes in Blood by Automated count 3 % [facility] Basophils/100 leukocytes in Blood by Automated count 1 % [facility] Neutrophils [#/volume] in Blood by Automated count 3.74 10*3/uL 1.8-7 .0 [facility] Lymphocytes [#/volume] in Blood by Automated count 2.13 10*3/uL 1.2-4 .0 [facility] Monocytes [#/volume] in Blood by Automated count 0.58 10*3/uL 0-0.8 [facility] Eosinophils [#/volume] in Blood by Automated count 0.21 10*3/uL 0-0.5 [facility] Basophils [#/volume] in Blood by Automated count 0.04 10*3/uL 0-0.2 [facility] Nucleated erythrocytes/100 leukocytes [Ratio] in Blood by Automated count 0 /100{WBCs} 0-0 [facility] ID Date Data Source [id number] 02/03/2020 09:58:46 AM [facility] Name Value Range Interpretation Code Description Data Cathryn rce(s) Supporting Document(s) Thyroxine (T4) free [Mass/volume] in Serum or Plasma 1.73 ng/dL 0.93- 1.70 [facility] ID Date Data Source [id number] 02/03/2020 09:58:46 AM EST [facility] Name Value Range Interpretation Code Description Data Cathryn rce(s) Supporting Document(s) Albumin [Mass/volume] in Serum or Plasma by Bromocresol green (BCG) dye binding method 4.7 g/dL 3.5-5.2 [facility] Bilirubin.total [Mass/volume] in Serum or Plasma 0.5 mg/dL <1.2 [facility] Calcium [Mass/volume] in Serum or Plasma 9.2 mg/dL 8.6-10.0 [facility] Chloride [Moles/volume] in Serum or Plasma 104 mmol/L 98-107 [facility] Creatinine [Mass/volume] in Serum or Plasma 0.95 mg/dL 0.70-1.20 [facility] Glucose [Mass/volume] in Serum or Plasma 84 mg/dL 70-140 [facility] Alkaline phosphatase [Enzymatic activity/volume] in Serum or Plasma 84 U/L 40-129 [facility] Potassium [Moles/volume] in Serum or Plasma 3.8 mmol/L 3.4-5.1 [facility] Protein [Mass/volume] in Serum or Plasma 7.4 g/dL 6.4-8.3 [facility] Sodium [Moles/volume] in Serum or Plasma 144 mmol/L 136-145 [facility] Aspartate aminotransferase [Enzymatic activity/volume] in Se rum or Plasma 8 U/L <40 [facility] Urea nitrogen [Mass/volume] in Serum or Plasma 9 mg/dL 6-20 [facility] Osmolality of Serum or Plasma by calculation 296 mosm/kg 275-300 [facility] Creatinine/Urea nitrogen [Mass Ratio] in Serum or Plasma 9 [facility] Bicarbonate [Moles/volume] in Serum 26 mmol/L 22-29 [facility] Alanine aminotransferase [Enzymatic activity/volume] in Seru m or Plasma 7 U/L <41 [facility] Anion gap 3 in Serum or Plasma 14 mmol/L 8-15 [facility] Glomerular filtration rate/1.73 sq M pre dicted among non-blacks [Volume Rate/Area] in Serum or Plasma by Creatinine-based formula (MDRD) >6 0 [facility] Glomerular filtration rate/1.73 sq M pre dicted among blacks [Volume Rate/Area] in Serum or Plasma by Creatinine-based formula (MDRD) >60 [facility] ID Date Data Source [id number] 02/03/2020 09:58:46 AM [facility] Name Value Range Interpretation Code Description Data Cathryn rce(s) Supporting Document(s) Cholesterol [Mass/volume] in Serum or Plasma 128 mg/dL <200 [facility] Triglyceride [Mass/volume] in Serum or Plasma 101 mg/dL <150 [facility] Cholesterol in HDL [Mass/volume] in Serum or Plasma 38 mg/dL >40 L [facility] Cholesterol in LDL [Mass/volume] in Serum or Plasma by calcu lation 69 mg/dL <100 [facility] Cholesterol in VLDL [Mass/volume] in Serum or Plasma by calc ulation 20 mg/dl 16-42 [facility] Cholesterol non HDL [Mass/volume] in Serum or Plasma 90 mg/dL <130 [facility] ID Date Data Source [id number] 02/03/2020 09:58:46 AM [facility] Name Value Range Interpretation Code Description Data Cathryn rce(s) Supporting Document(s) Thyrotropin [Units/volume] in Serum or Plasma 1.490 u[IU]/mL 0.270-4. 200 [facility] ID Date Data Source [id number] 02/02/2020 02:01:05 PM [facility] Service Cmnt XXX-Imp : NoneRespiratory P CR Panel : PCR ResultsMicroorganism XXX Cult : See Labs Tab for 2019 nCoV RT-PCR resultsHAdV DNA QI ALLAN+non-probe : Not DetectedHCoV 229ERNA Nph QI ALLAN+non-probe : Not DetectedHCoV JWH9BGR Nph QI ALLAN+non-probe : Not PfxtvppxWLlXOX51 RNA Nph QI ALLAN+non-probe : Not VfxgdylkSFjJMB73 RNA Upper resp QI ALLAN+probe : Not DetectedhMPV RNA Nph QINAA+non-probe : Not DetectedRV+EV RNA Nph QI ALLAN+non-probe : Not DetectedFLUAV RNA Nph QI ALLAN+ non-probe : Not DetectedFLUBV RNA Nph QI ALLAN+non-probe : Not DetectedHPIV1 RNA NphQINAA+non-probe : Not DetectedHPIV2 RNA Nph QINAA+non-probe : Not DetectedHPVI3 RNA Nph ALALN+non-probe : Not DetectedHPIV4 RNA Nph Q ALLAN+non-probe : Not DetectedRSV RNA Nph Q ALLAN+non-probe : Not DetectedB pert.PT PrmtNph Q ALLAN+non-probe : Not DetectedC pneum DNA Nph Q ALLAN+non-probe : Not DetectedM pneum DNA Nph Q ALLAN+non-probe : Not DetectedB bypdvMK323 DNA Nph ALLAN+non-probe : Not Detected Name Value Range Interpretation Code Description Data Cathryn rce(s) Supporting Document(s) ID Date Data Source [id number] 02/02/2020 12:19:02 PM EST [facility] Name Value Range Interpretation Code Description Data Cathryn rce(s) Supporting Document(s) ED Provider Note [facility] SLSBCm4fYzNBUqAe63/KDKixFXNib4MjFAbeERq7IXgkHJIvH9MkBGH0dU5aELH8RVsDZbJbWvBvRTAi lbm [file] ieYcXjQW5FKu7PZpH8RBH8bAVzQi3NBADiPpEYAcMvKN0ACFp= ID Date Data Source [id number] 02/02/2020 02:00:22 PM [facility] Name Value Range Interpretation Code Description Data Cathryn rce(s) Supporting Document(s) Specimen source [Identifier] of Unspecified specimen [facility] SARS-CoV-2 RNA 2018 nCoV Real-Time RT-PCR: NOT DETECTED [facility] Assay Performed [facility] Patients first test for [facility] 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[facility] Patient has symptoms related to [facility] When did you start to experience these symptoms [Date and time] [Phen X] [facility] Patient was hospitalized because of this condition [facility] patient was admitted to ICU for [facility] Patient resides in a congregate care setting [facility] status [facility] ID Date Data Source [id number] 02/02/2020 12:14:00 PM [facility] Name Value Range Interpretation Code Description Data Cathryn rce(s) Supporting Document(s) SARS-CoV-2 RNA [facility] This lab was ordered by [facility] and reported by [facility]. ID Date Data Source [id number] 02/02/2020 11:42:03 AM [facility] Name Value Range Interpretation Code Description Data Cathryn rce(s) Supporting Document(s) ED Provider Note [facility] MRIUVf1yFiHTPwPi12/SUXedWKJgm4WfWNbzBRr4BMiuZOFvI4PyJXS8lK6wPQR0FEtESeMjHxTuYXNr lbm [file] QU4xFCl+Rk8Hq4XiypP3cuSxVPniVnT6UY9IXJXPG7XEZq== ID Date Data Source [id number] 02/01/2020 01:44:17 PM EST [facility] Name Value Range Interpretation Code Description Data Cathryn rce(s) Supporting Document(s) ED Provider Note [facility] WKUQIq3iPlJLHxWj86/TKEboDVVpt1VzUMqsGIr6SBuhMEQvL2MoWUW0vR8wFVV7LFdLKmGoZaSpGIEj lbm GtUtlJGtOkTDJaVuhXYlBbTUvtCvvkqNYbUW1LtKI6MRSyQ40xRSQoOOHnH4UyZXJ9ZFJ+Jn9WWFZsrE AdON6HTruD6J0Gi4y7Ax8o3poUQnSVLHkSUMLuuoS4yaxzpHoO7007b3Ws+TFjSx4/Adiel/PxIfERuCP7 [file] F1HMKzYKVtWcYcSY9GAb3DSkX6EQI0iTVbLz9KHqL2PSmUXyQkQV3NEBs= ID Date Data Source [id number] 02/01/2020 12:29:05 PM [facility] Name Value Range Interpretation Code Description Data Cathryn rce(s) Supporting Document(s) Consultation [facility] SZQHUn6uRoAKGuLp78/AXPzaEKCue6SiGZbfIVe1XQvcRSMpC9HlBXB6hQ8nWIJ1QGmIVmAiNcUzYEVf lbm [file] 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 [file] SoBQIbCGLzCj3vACKQFk2+QYywxFVrrGrcQMFZJaU7EaFgTJvtQWYPDx5A ID Date Data Source [id number] 02/01/2020 12:08:48 PM [facility] Name Value Range Interpretation Code Description Data Cathryn rce(s) Supporting Document(s) Consultation [facility] HOETBd3sTlSOVbWq96/NHOnfMCXlm2TrCBynERs7SGhgXYIaT2GcSYW5vD9iZQB8SEtIMpAnRyXsAXSl lbm [file] AgICAgICAgICAgICAgICAgICAgICAgICAgICAgICAgICAgICAgICAgICAgICAgICAgICAgICAgICAgIC AgICAgICANCiAgICAgICAgICAgICAgICAgICAgICAg ICAgICAgICAgICAgICAgICAgICAgICAgICAgICAgICAgICAgICAgICAgICAgICAgICAgICAgICAgICAg ICAgICAgICAgICAgICAgICANCiAgICAgICAgICAgICAgICAgICAgICAgICAgICAgICAgICAgICAgICAg ICAgICAgICAgICAgICAgICAgICAgICAgICAgICAgIC AgICAgICAgICAgICAgICAgICAgICAgICAgICANCiAgICAgICAgICAgICAgICAgICAgICAgICAgICAgIC AgICAgICAgICAgICAgICAgICAgICAgICAgICAgICAgICAgICAgICAgICAgICAgICAgICAgICAgICAgIC AgICAgICAgICANCiAgICAgICAgICAgICAgICAgICAg ICAgICAgICAgICAgICAgICAgICAgICAgICAgICAgICAgICAgICAgICAgICAgICAgICAgICAgICAgICAg ICAgICAgICAgICAgICAgICAgICANCiAgICAgICAgICAgICAgICAgICAgICAgICAgICAgICAgICAgICAg ICAgICAgICAgICAgICAgICAgICAgICAgICAgICAgIC AgICAgICAgICAgICAgICAgICAgICAgICAgICAgICANCiAgICAgICAgICAgICAgICAgICAgICAgICAgIC AgICAgICAgICAgICAgICAgICAgICAgICAgICAgICAgICAgICAgICAgICAgICAgICAgICAgICAgICAgIC AgICAgICAgICAgICANCiAgICAgICAgICAgICAgICAg ICAgICAgICAgICAgICAgICAgICAgICAgICAgICAgICAgICAgICAgICAgICAgICAgICAgICAgICAgICAg ICAgICAgICAgICAgICAgICAgICAgICANCiAgICAgICAgICAgICAgICAgICAgICAgICAgICAgICAgICAg ICAgICAgICAgICAgICAgICAgICAgICAgICAgICAgIC AgICAgICAgICAgICAgICAgICAgICAgICAgICAgICAgICANCiAgICAgICAgICAgICAgICAgICAgICAgIC AgICAgICAgICAgICAgICAgICAgICAgICAgICAgICAgICAgICAgICAgICAgICAgICAgICAgICAgICAgIC AgICAgICAgICAgICAgICANCjw/uVZvP5lpjJEstlH1 O8llKs4GSp5NGT7kj9NlLGDuRWbndiXeJyjVWlJsKMCkQdzCRtd1VEsgDY3LjDMhD5GbL2IxBLfrTL8K KJPmKPDiaUBzXZExBGQzAaT3JGYmAUkpJB1VzHGjRPnaFQOlHFYeYA9ZXGZhV608nuCeZM0ZPz2SPsBa NQ9qbo8VOPzlPDCvVuhKTpn3ICmqZM6LgCRyxPTyCD GzVZLNQmCgK1xrf8PdLMcaKTQCCVcnTH7Xg0MguEKeDHi+Ke8YLX5wl2QeMLlvPWRaSY1ezk8XVHxAJo GpM2OtlIrpJXPuxpT5wWPaEZW5YEIpaakycIKGPTHli49hEMFVROAsaSMzOX1gAC6pBTCpKAT2DlO8BS UVWE0PLUGfUULzzLHxTSGrHRTAUK9NVVemTML8GBNy nvTmaCNcIQurGX6RFODwmlKdURfyWZNXAYd+Xm7GBU4wc0EgBNteJXAnRR2bvj6XCYhKBuWpH3A6jNCh J9H9ZKsiAp2MEHDdJPHaZWGtXWNYSKmwYH2KHD7otfD5DP4AdPGpOIJxPRVptRAtAAf7Y26tmMMoHKkr KE1AAKR+Beatrice+Sx7YJSMaTWIhRAPiKbLwWTHMMuTyT5 DnA6OWu1IrV5PfHD76wRssejTgDNvwCL9DJN4vOJFuUIUVEN8RbYEbgR8disEqBqCsQLMUYnHgJ88cxW SpFCZaGQW4SOXaWa9NMIEaM3EkifDedEnrtxVlVNMcJZJVOK1XZAvayrFwaMKpyGveLS18bElwVI1PYg 8EGcPnVW2wui7EiBShHa8XNJIaHE3KSISpRBSuMFKc KLQ6HHOyEkLnGQzsJKIdTVMwDFB0QERuHTIhHW1KWbYmKLEzWKSvNncnIOTnYVAwbq3YMJYkBPTzBusv DmCcEVPrQLBcWXdtVTMyGASbHSX6ALVkOHRjOM9YCaXtNWHuIAV5JPamNZUhWKKoav2RIDDhYBHlUdWl JyLcPBEjGBYlUPwfHNGjKPZyZJfoIJMkIWQvCK0CAn EmAEXjNZKrBqrxVBMbPYWkcv3IGFJiRYYkYaZ2CsJtRTFbUCKuDMguNBPpWCG8RCB3COUsAFLgTP9QGs GvAVOwPAW5TGxgIPTxFJHsys5WOPUiDPSeUPkzZCTlUBLzYEYiXMrvTSCfLIH6KgQ1RJQtJGEoLJ4ZDo IlHUTrQGV7PqYvJOWrLTIgdh8XUMThLACsOaL9PYQk GLXvEIReGMdwHAKePLZ8RIP6PHQlZOYoSS9NHlWfTYBmSGdeABCeKORjPJPgwf8KMDKiXDZgXBI2WSGn FMCqXKRjWBcmTYIsGOT1CxJ4MXBdTSYuQQ8VQaWpAIugQBPCLda9IXfcF5k0VWNfHX4KZ5Pfl5BvTBrs PYCVPDzeRG7skqDuBCMqHw2IG5aKHix7A6GkSWPqBF yaHWVpDMR5LHd3Z6VwTft5RpZsSQB2Nd2qPFC8MPEfOtMtDSFwYHGxCAb4SmQ5RtBwNPquEJZwIzjdWk ZgFN9BOy7SPeD3YDV3rPYuHa8MSTN3Qu9KPOWOR1QREh== ID Date Data Source [id number] 01/31/2020 05:17:39 PM EDT [facility] Name Value Range Interpretation Code Description Data Cathryn rce(s) Supporting Document(s) Specimen source [Identifier] of Unspecified specimen [facility] SARS-CoV-2 RNA 2018 nCoV Real-Time RT-PCR: NOT DETECTED [facility] Assay Performed [facility] Patients first test for [facility] 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[facility] Patient has symptoms related to condition [facility] When did you start to experience these symptoms [Date and time] [Phen X] [facility] Patient was hospitalized because of this condition [facility] patient was admitted to ICU for condition [facility] Patient resides in a congregate care setting [facility] status [facility] ID Date Data Source [id number] 01/31/2020 03:01:00 PM EDT [facility] Name Value Range Interpretation Code Description Data Cathryn rce(s) Supporting Document(s) SARS-CoV-2 RNA [facility] This lab was ordered by [facility] and reported by [facility]. ID Date Data Source [id number] 01/31/2020 05:15:08 PM EDT [facility] Service Cmnt XXX-Imp : NoneRespiratory P CR Panel : PCR ResultsMicroorganism XXX Cult : See Labs Tab for 2019 nCoV RT-PCR resultsHAdV DNA QI ALLAN+non-probe : Not DetectedHCoV 229ERNA Nph QI ALLAN+non-probe : Not DetectedHCoV HSI3PBT Nph QI ALLAN+non-probe : Not WlrbezviSXaPRS71 RNA Nph QI ALLAN+non-probe : Not QzxqlifgIPbZXZ90 RNA Upper resp QI ALLAN+probe : Not DetectedhMPV RNA Nph QINAA+non-probe : Not DetectedRV+EV RNA Nph QI ALLAN+non-probe : Not DetectedFLUAV RNA Nph QI ALLAN+ non-probe : Not DetectedFLUBV RNA Nph QI ALLAN+non-probe : Not DetectedHPIV1 RNA NphQINAA+non-probe : Not DetectedHPIV2 RNA Nph QINAA+non-probe : Not DetectedHPVI3 RNA Nph ALLAN+non-probe : Not DetectedHPIV4 RNA Nph Q ALLAN+non-probe : Not DetectedRSV RNA Nph Q ALLAN+non-probe : Not DetectedB pert.PT PrmtNph Q ALLAN+non-probe : Not DetectedC pneum DNA Nph Q ALLAN+non-probe : Not DetectedM pneum DNA Nph Q ALLAN+non-probe : Not DetectedB wqpkxFA634 DNA Nph ALLAN+non-probe : Not Detected Name Value Range Interpretation Code Description Data Cathryn rce(s) Supporting Document(s) ID Date Data Source [id number] 01/30/2020 04:51:00 PM EDT [facility] Name Value Range Interpretation Code Description Data Cathryn rce(s) Supporting Document(s) AC[facility]AMINOPHEN < 2.0 ug[facility]mL [facility] Data Source [id number] 01/30/2020 04:51:00 PM EDT [facility] Name Value Range Interpretation Code Description Data Cathryn rce(s) Supporting Document(s) SALICYLATE < 1.7 mg/dL 0.0-20.0 [facility] ID Date Data Source [id number] 01/30/2020 04:51:00 PM EDT [facility] Name Value Range Interpretation Code Description Data Cathryn rce(s) Supporting Document(s) ETOH NONE DETECTED [facility] NONE DETECTED ID Date Data Source [id number] 01/30/2020 04:51:00 PM EDT [facility] Name Value Range Interpretation Code Description Data Cathryn rce(s) Supporting Document(s) GLU 95 mg/dL 70-110 [facility] Patients taking Sulfasalazine may have f alsely depressedGlucose levels. Patients taking Sulfapyridine may havefalsely elevated Glucose levels. Patients should be drawnfor Glucose before the initial administration of eitherdrug. BUN 11 mg/dL 7-23 [facility] CRE 0.928 mg/dL 0.500-1.300 [facility] GFR > 60 mL/min [facility] CHLORIDE 109 mmol/L 99-110 [facility] NA 142 mmol/L 136-147 [facility] POTASSIUM 3.7 mmol/L 3.5-5.1 [facility] TCO2 24 mmol/L 20-33 [facility] ANION GAP 12.7 10.0-20.0 [facility] CA 8.6 mg/dL 8.3-10.7 [facility] ALKALINE PHOS 104 U/L 45-117 [facility] TP 8.2 g/dL 6.0-7.[address] [facility] ALB 4.4 g/dL 3.5-5.0 [facility] ESRD Dialysis patient Albumin reference range: 2.9-4.4 g/dL GL 3.8 g/dL 2.3-3.[address] [facility] A/G 1.2 1.0-2.5 [facility] T. BILIRUBIN 0.5 mg/dL 0.1-1.1 [facility] [employer] [place] Total Bilirubin is n ot recommended forpatients undergoing treatment with eltrombopag (Promacta)due to the potential for falsely elevated results. ALTI 13 U/L 6-54 [facility] Patients taking Sulfasalazine and/or Sul fapyridine may havefalsely depressed ALT levels. Patients should be drawn forALT before the initial administration of either drug. AST 12 U/L 8-40 [facility] Patients taking Sulfasalazine and/or Sul fapyridine may havefalsely depressed AST levels. Patients should be drawn forAST before the initial administration of either drug. ID Date Data Source [id number] 01/30/2020 04:27:00 PM [facility] Name Value Range Interpretation Code Description Data Cathryn rce(s) Supporting Document(s) WBC 8.44 x10E3/uL 4.0-10.5 [facility] RBC 5.40 x10E6/uL 4.70-6.00 [facility] Hemoglobin 15.3 g/dL 14.0-18.0 [facility] Hematocrit 43.6 % 42.0-52.0 [facility] MCV 80.7 fL 81.0-99.[address] [facility] MCH 28.3 pg 27.0-31.0 [facility] MCHC 35.1 g/dL 32.7-35.6 [facility] RDW 12.7 % 11.5-14.0 [facility] Platelet count 276 x10E3/uL 150-450 [facility] ital MPV 9.2 fl 6.9-9.5 [facility] Neutrophils 65.0 % 34-[address] [facility] Lymphocytes 26.2 % 25-45 [facility] Monocytes 7.5 % 1.7-10.6 [facility] Eosinophils 0.6 % 0.4-7.0 [facility] Basophils 0.5 % 0.1-2.0 [facility] Imm. Gran. 0.2 % 0.1-2.0 [facility] Abs. Neutro. 5.49 x10E3/uL 1.2-7.6 N [facility] Abs. Lymph. 2.21 x10E3/uL 1.0-3.5 N [facility] Abs. [place]. 0.63 x10E3/uL 0.1-1.0 N [facility] Abs. Eosin. 0.05 x10E3/uL 0.1-0.7 L [facility] Abs. Baso. 0.04 x10E3/uL 0.0-0.1 N [facility] Abs. Imm. Gran. 0.02 x10E3/uL 0.0-0.1 [facility] spital ANRBC% 0 % 0 [facility] ID Date Data Source [id number] 01/30/2020 04:44:00 PM EDT [facility] Name Value Range Interpretation Code Description Data Cathryn rce(s) Supporting Document(s) PCP VISTA NEG NEGATIVE [facility] MINIMUM LEVEL OF DETECTION IS 25 ng/ml BENZODIAZEPINES NEG NEGATIVE [facility] al MINIMUM LEVEL OF DETECTION IS 200 ng/ml COCAINE VISTA NEG NEGATIVE [facility] MINIMUM LEVEL OF DETECTION IS 300 ng/ml AMPHETAMINES NEG NEGATIVE [facility] al MINIMUM LEVEL OF DETECTION IS 1000 ng/ml BARBITURATES NEG NEGATIVE [facility] al CUTOFF CONCENTRATION IS 200 ng/ml CANNABINOIDS NEG NEGATIVE [facility] al CUTOFF CONCENTRATION IS 50 ng/ml METHADONE VISTA NEG NEGATIVE [facility] al MINIMUM LEVEL OF DETECTION IS 300 ng/ml OPIATE VISTA NEG NEGATIVE [facility] MINIMUM DETECTION LEVEL IS 300 ng/ml ID Date Data Source [id number] 01/30/2020 04:29:00 PM EDT [facility] Name Value Range Interpretation Code Description Data Cathryn rce(s) Supporting Document(s) URINE COLOR DK YELLOW [facility] UAPR Clear [facility] UGLU Negative NEGATIVE [facility] URINE BILIRUBIN [facility] UKET 3+ NEGATIVE [facility] USG 1.024 1.010-1.025 [facility] UBLO Negative NEGATIVE [facility] UpH 6.5 5.0-8.0 [facility] UPRO Trace Negative [facility] UUB 1.0 mg/dL 0.2-1.0 [facility] UNIT Negative Negative [facility] ULEU Negative Negative [facility] ID Date Data Source [id number] 01/31/2020 08:13:00 AM EDT [facility] Physician DocumentationClaxRon Ricardo edical CenterName: Marbin PandyaAge: 34 yrsSex: MaleDOB: 1985MRN: [id number] Date: 01/30/2020Time: 15:47Account#: [id number] 2Private MD: Out of town provider, -ED Physician Noah GonzalezDisangela Summary:01/31/20 03:04Transfer OrderedTransfer [facility] ft7Datbjd: Capacity yx6Xaoezkwqv: Stable na8Ybdxfvc: an ongoing problem do5Isocpppd: are unchanged mw0Rehzwwztm Physician: Dr Green(01/31/20 08:13) zp6Rhiouujrt- Schizoaffective disorder, unspecified gp6Whmkt:- Medication Reconciliation th4- Medication Reconciliation Form - 2nd Copy th4HPI:12/3016:39 This 34 yrs old White Male presents to ER via Ambulance with afcomplaints of Psych Problem.17:39 The patient presents to the emergency department with depression. The afpatient presents to the emergency department with paranoia. Onset:The symptoms/episode began/occurred gradually. Past psychiatrichistory: Prior diagnosis: addiction history. Associated signs andsymptoms: The patient has no apparent associated signs or symptoms.Severity of symptoms: At their worst the symptoms were moderate inthe emergency department the symptoms are unchanged. The patient hasnot experienced similar symptoms in the past. The patient has notrecently seen a physician. SEE PSA EVALUATION FOR DETAILS.Historical:- Allergies: No known Allergies;- Home Meds:1. Abilify 2 mg oral tab 1 tab nightly2. Abilify 2.5mg oral tab afternoon3. Magnesium Oxide Oral4. magnesium oxide 400 mg magnesium Oral tab daily5. melatonin 3 mg Oral tab daily6. Super B Complex-Vitamin C oral tab daily7. Vitamin D3 2,000 unit oral tab daily8. clonidine HCl 0.1 mg Oral tab prn9. h ydroxyzine HCl 25 mg Oral tab prn- PMHx: opioid disorder; depression; PTSD; bladder cancer;- Immunization history: Flu vaccine is not up to date.- Family history: Reviewed and not pertinent.- Social history: Smoking status: Patient states was never smoker oftoba[place]andre de [place]. Patient/guardian denies using street drugs, ETOH statusDenies use of ETOH.- Advance Directives:: None.ROS:17:40 Constitutional: Negative for fever, chills, and weight loss, Eyes: afNegative for injury, pain, redness, and discharge, ENT: Negative forinjury, pain, and discharge, Neck: Negative for injury, pain, andswelling, Cardiovascular: Negative for chest pain, palpitations, andedema, Respiratory: Negative for shortness of breath, cough,wheezing, and pleuritic chest pain, Abdomen/GI: Negative forabdominal pain, nausea, vomiting, diarrhea, and constipation, Back:Negative for injury and pain, : Negative for injury, bleeding,discharge, and swelling, MS/Extremity: Negative for injury anddeformity, Skin: Negative for injury, rash, and discoloration. Psych:Positive for anxiety, depression.Exam:17:41 Constitutional: This is a well developed well nourished patient who afis awake alert and in no acute distress. Head/Face: Normoceph alic,atraumatic. Eyes: Pupils equal round and reactive to light,extra-ocular motions intact. Lids and lashes normal. Conjunctivaand sclera are non-icteric and not injected. Cornea within normallimits. Periorbital areas with no swelling, redness, or edema. ENT:Nares patent. No nasal discharge, no septal abnormalities noted.Tympanic membranes are normal and external auditory canals are clear.Oropharynx with no redness, swelling, or masses, exudates, orevidence of obstruction, uvula midline. Mucous membranes moist.Neck: Trachea midline, no thyromegaly or masses palpated, and nocervical lymphadenopathy. Supple, full range of motion withoutnuchal rigidity, or vertebral point tenderness. No Meningismus.Chest/axilla: Normal chest wall appearance and motion. Nontenderwith no deformity. No lesions are appreciated. Cardiovascular:Regular rate and rhythm with a normal S1 and S2. No gallops,murmurs, or rubs. Normal PMI, no JVD. No pulse deficits.Respiratory: Lungs have equal breath sounds bi laterally, clear toauscultation and percussion. No rales, rhonchi or wheezes noted. Noincreased work of breathing, no retractions or nasal flaring.Abdomen/GI: Soft, non-tender, with normal bowel sounds. Nodistension or tympany. No guarding or rebound. No evidence oftenderness throughout. Back: No spinal tenderness. Nocostovertebral tenderness. Full range of motion. Skin: Warm, drywith normal turgor. Normal color with no rashes, no lesions, and noevidence of cellulitis. MS/ Extremity: Pulses equal, no cyanosis.Neurovascular intact. Full, normal range of motion.17:41 Psych: Behavior/mood is cooperative, Affect is calm, Oriented toperson, place, time, Patient has no thoughts/intents to harm self orothers.Vital Signs:15:51 BP 137 / 98; Pulse 125; Resp 19; Temp 97.0(T); Pulse Ox 99% on R/A; jlHeight 5 ft. 11 in. (180.34 cm); Pain 0/10;12/3106:00 BP 117 / 74; Pulse 80; Resp 16; Temp 97.6; Pulse Ox 96% ; tp2MDM:01/3016:09 Patient medically screened. af17:42 Data reviewed: vital signs, nurses notes, lab test result(s). 2:32 ECG:. th403:04 ED course: Patient remained stable in the ER. I received this patient th4at change of shift. A change of shift patient was pending PSAevaluation and disposition. Patient has been seen and evaluated byPSA and presented to the psychiatrist. It is felt this patient needsinpatient care, however our unit is full so [facility] and [facility]. See PSAnote. Patient has been coope rative.. Order name: Acetaminophen Level; Complete Time: 17:: Order name: CBC with diff; Complete Time: 17:04 : Order name: CMP; Complete Time: 17:: Order name: ETOH; Complete Time: 17:: Order name: Glucose : Order name: Salicylate Level; Complete Time: 17:04 : Order name: Triage - Drug Screen; Complete Time: 17:04 : Order name: UA; Complete Time: 17:: Order name: Diet - Mental Health Tray (call dietary); Complete Time: :: Order name: Belongings List Order name: Document Weight and Height for BMI; Complete Time: 22:41 : Order name: Mental Health Evaluation Order name: Mental Health Level 3 2:22 Order name: EKG in Patient's Room; Complete Time: 02:33 : Order name: VS q shift; Complete Time: 22:41 7:04 Order name: Medically Cleared for Eval by-Psychosocial, Infrastructure Manager af(.PSA); Complete Time: :2:22 Order name: EKG.; Complete Time: 02:33 wv4Oynjvjwca Medications:No medications were administeredEC:32 Rate is 68 beats/min. Rhythm is regular, Normal Sinus Rhythm. QRS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 G] NETSMAR ([facility]) Oxygen saturation in Arterial blood by Pulse oximetry 98.0 % 98.0 % NETSMART ([facility]) ID Date Data Source [id number] 12/07/2020 05:06:24 PM [facility] Name Value Range Interpretation Code Description Data Source(s) TRANSFER FROM [facility] ID Date Data Source [id number] 02/15/2020 02:35:24 PM [facility] Name Value Range Interpretation Code Description Data Source(s) WEIGHT RECORDED 160.6 lb 160.6 lb [facility] Body height Measured 71 in 71 in [facility] TRANSFER FROM [facility] Patient Treatment Plan of Care Planned Activity Planned Date Details Description Data Source (s) Guanfacine 1 MG Oral Tablet 12/02/2020 08:00:00 AM [facility] Nicotine 2 MG Oral Lozenge 12/02/2020 12:00:00 AM [facility] Prazosin 2 MG Oral Capsule 12/02/2020 12:00:00 AM [facility] Melatonin 1 MG Oral Tablet 12/02/2020 12:00:00 AM [facility] Guanfacine 1 MG Oral Tablet 12/02/2020 12:00:00 AM [facility] Diphenhydramine Hydrochloride 50 MG Oral Capsule 12/01/2020 12:33:4 5 PM [facility] Prazosin 1 MG Oral Capsule 12/01/2020 10:59:26 AM [facility] Melatonin 5 MG Oral Tablet 11/30/2020 10:00:00 PM [facility] aripiprazole 10 MG Oral Tablet 02/10/2020 12:00:00 AM [facility] 2 ML aripiprazole 200 MG/ML Prefilled Syringe 02/10/2020 12:00:00 A M [facility] aripiprazole 10 MG Oral Tablet 02/10/2020 12:00:00 AM [facility] olanzapine 5 MG Oral Tablet 02/09/2020 07:32:03 PM [facility] Melatonin 1 MG Oral Tablet 02/09/2020 12:00:00 AM [facility] benztropine mesylate 1 MG Oral Tablet 02/09/2020 12:00:00 AM [facility] topiramate 25 MG Oral Tablet 02/09/2020 12:00:00 AM [facility] olanzapine 5 MG Oral Tablet 02/09/2020 12:00:00 AM [facility] Nicotine 2 MG Oral Lozenge 02/09/2020 12:00:00 AM [facility] Hydroxyzine Hydrochloride 50 MG Oral Tablet 02/09/2020 12:00:00 AM [facility] Docusate Sodium 100 MG Oral Capsule 02/09/2020 12:00:00 AM [facility] benztropine mesylate 1 MG Oral Tablet 02/02/2020 05:20:18 PM [facility] Nicotine 2 MG Oral Lozenge 02/02/2020 03:59:49 PM [facility] Acetaminophen 325 MG Oral Tablet 02/02/2020 03:10:01 PM [facility] Hydroxyzine Hydrochloride 50 MG Oral Tablet 02/02/2020 03:09:46 PM [facility] emtricitabine 200 MG / Tenofovir disopro xil fumarate 300 MG Oral Tablet [Truvada] FRANK ([facility]) Trazodone Hydrochloride 50 MG Oral Tablet FRANK ([facility]) topiramate 50 MG Oral Tablet FRANK ([facility]) topiramate 25 MG Oral Tablet FRANK ([facility]) Propranolol Hydrochloride 20 MG Oral Tablet FRANK ([facility]) Prazosin 2 MG Oral Capsule A THENA ([facility]) pantoprazole 40 MG Delayed Release Oral Tablet FRANK ([facility]) olanzapine 7.5 MG Oral Tablet FRANK ([facility]) [place] Carbonate 300 MG Oral Capsule FRANK ([facility]) [place] Carbonate 150 MG Oral Capsule FRANK ([facility]) Hydroxyzine Hydrochloride 50 MG Oral Tablet FRANK ([facility]) Escitalopram 20 MG Oral Tablet FRANK ([facility]) benztropine mesylate 1 MG Oral Tablet FRANK ([facility]) aripiprazole 30 MG Oral Tablet FRANK ([facility]) aripiprazole 10 MG Oral Tablet FRANK ([facility]) aripiprazole 400 MG Injection [Abilify] FRANK ([facility])
[2021-03-14] MEDS ORDERED: NALT50TA4 (14:01)
[2021-03-14] MEDS ORDERED: ARIS2.4I (14:01)
[2021-03-14] MEDS ORDERED: GUAN1TAB18 (14:01)
[2021-03-14 15:23] LABS: HEMATOCRIT 47.8 % (42.0-52.0); MEAN CORPUSCULAR HEMOGLOBIN 27.8 pg (27.0-33.0); MEAN CORPUSCULAR HGB CONC 33.5 g/dl (32.0-36.5); PLATELET COUNT, AUTOMATED 202 10^3/uL (150-450); RED BLOOD COUNT 5.76 10^6/uL (4.30-6.10)
[2021-03-14] MEDS ORDERED: KETOROLAC 30 MG/ML 1ML VIAL IV ONE (15:25)
--- NOTE | 2021-03-14 15:36 | REP ---
INDICATION: CP COMPARISON: 06/20/2018 TECHNIQUE: Portable AP view of the chest FINDINGS: The mediastinum and cardiac silhouette are stable and within normal limits for portable technique. The lung andrea are clear without acute consolidation, effusion, or pneumothorax. Skeletal structures are intact. IMPRESSION: No acute cardiopulmonary process appreciated. <Electronically signed by Nicola Long > 03/14/21 [id number]
[2021-03-14 15:49] LABS: BLOOD UREA NITROGEN 7 MG/DL (7-18); CARBON DIOXIDE LEVEL 31 MEQ/L (21-32); CHLORIDE LEVEL 105 MEQ/L (98-107); CREATININE FOR GFR 0.86 MG/DL (0.70-1.30); GLOMERULAR FILTRATION RATE > 60.0 (>60); GLUCOSE, FASTING 86 MG/DL (70-100); POTASSIUM SERUM 3.8 MEQ/L (3.5-5.1); SODIUM LEVEL 141 MEQ/L (136-145)
[2021-03-14 15:51] LABS: ALBUMIN 3.7 GM/DL (3.2-5.2); BILIRUBIN,DIRECT 0.1 MG/DL (0.0-0.2); BILIRUBIN,TOTAL 0.4 MG/DL (0.2-1.0); TOTAL PROTEIN 7.5 GM/DL (6.4-8.2)
[2021-03-14 15:54] LABS: CK-MB VALUE MASS < 1.0 NG/ML (<3.6); CPK CREATINE PHOSPHOKINASE 97 U/L (39-308); MB/CK RELATIVE INDEX 1.03 (< OR =4)
[2021-03-14] MEDS ORDERED: ISOVUE-370 76% 100ML VIAL As Ordered ONE (16:03)
--- NOTE | 2021-03-14 16:21 | REP ---
INDICATION: chest pain with SOB COMPARISON: None. TECHNIQUE: CT angiography of the chest after the intravenous administration of 75 cc Isovue 370. FINDINGS: There is excellent visualization of the pulmonary arterial vasculature. There are no focal filling defects present that would be considered consistent with acute pulmonary emboli. There is no mediastinal or hilar adenopathy. There are no pleural or pericardial effusions. The imaged upper abdomen and imaged osseous structures are within normal limits. Evaluation of the lung andrea shows no abnormal nodules, masses, or opacities. IMPRESSION: CT findings are within normal limits. <Electronically signed by Elijah Barnett > 03/14/21 [id number]
[2021-03-14] MEDS ORDERED: KETO10TAB PO (17:11)
--- OUTSIDE RECORDS SUMMARY | 2021-03-14 17:30 | CCD ---
Author Author [facility] Organization [facility] Address Unknown Phone Unavailable Care Team Providers Care Public Health Technician Name Role Phone Na Kuhn MD Unavailable Unavailable Na Kuhn MD Unavailable Unavailable Na Kuhn MD Unavailable Unavailable aN Kuhn MD Unavailable Unavailable Na Kuhn MD [...] Unavailable Unavailable Na Kuhn MD Unavailable Unavailable aN Kuhn MD Unavailable Unavailable Na Kuhn MD [...] Default Unavailable Unavailable Saleh, R Jose Manuel CONTOUR GRINDER Unavailable Unavailable Saleh, R Jose Manuel CONTOUR GRINDER Unavailable Unavailable Saleh, R Jose Manuel CONTOUR GRINDER Unavailable Unavailable NUÑEZ, D VANESSA DO Unavailable Unavailable NUÑEZ, D VANESSA DO Unavailable Unavailable NUÑEZ, D VANESSA DO Unavailable Unavailable NUÑEZ, D VANESSA DO Unavailable Unavailable NUÑEZ, D VANESSA DO Unavailable Unavailable NUÑEZ, D VANESSA DO Unavailable Unavailable NUÑEZ, D VANESSA DO Unavailable Unavailable NUÑEZ, D VANESSA DO Unavailable Unavailable NUÑEZ, D VANESSA DO Unavailable Unavailable NUÑEZ, D VANESSA DO Unavailable Unavailable UNÑEZ, D VANESSA DO Unavailable Unavailable NUÑEZ, D [...] ULBERG, Ann-Marie DEL ROSARIO MD Unavailable Unavailable ULBERG, Ann-Marie DEL RSOARIO MD Unavailable Unavailable ULBERG, Ann-Marie DEL ROSARIO MD Unavailable Unavailable ULBERG, Ann-Marie DEL ROSARIO MD Unavailable Unavailable ULMATEUS, Ann-Marie DEL ROSARIO MD Unavailable Unavailable ULMATEUS, Ann-Marie DEL ROSARIO MD Unavailable Unavailable ULAnn-Marie IGNACIO MD Unavailable Unavailable ULBERG, Ann-Marie DEL ROSARIO MD Unavailable Unavailable ULBERG, Ann-Marie DEL ROSARIO MD Unavailable Unavailable ULBERG, Ann-Marie DEL ROSARIO MD Unavailable Unavailable ULBERG, Ann-Marie DEL ROSARIO MD Unavailable Unavailable ULBERGAnn-Marie MD Unavailable Unavailable ULBERGAnn-Marie MD Unavailable Unavailable ULBERGAnn-Marie MD Unavailable Unavailable ULBERGAnn-Marie MD Unavailable Unavailable ULBERGAnn-Marie MD Unavailable Unavailable [facility], CVANHOY Unavailable Unavailable Kiki Phan MD Unavailable Unavailable PhanKiki mehta MD Unavailable Unavailable Kiki Phan MD Unavailable Unavailable PhanKiki mehta MD Unavailable Unavailable Claudio, A Mouna HOT METAL MIXER OPERATOR HELPER Unavailable Unavailable Claudio, A Mouna HOT METAL MIXER OPERATOR HELPER Unavailable Unavailable Cluadio, A Mouna HOT METAL MIXER OPERATOR HELPER Unavailable Unavailable Claudio, A Mouna HOT METAL MIXER OPERATOR HELPER Unavailable Unavailable Claudio, A Mouna HOT METAL MIXER OPERATOR HELPER Unavailable Unavailable Claudio, A Mouna HOT METAL MIXER OPERATOR HELPER Unavailable Unavailable Claudio, A Mouna HOT METAL MIXER OPERATOR HELPER Unavailable Unavailable Claudio, A Mouna HOT METAL MIXER OPERATOR HELPER Unavailable Unavailable Claudio, A Mouna HOT METAL MIXER OPERATOR HELPER Unavailable Unavailable Claudio, A Mouna HOT METAL MIXER OPERATOR HELPER Unavailable Unavailable Claudio, A Mouna HOT METAL MIXER OPERATOR HELPER Unavailable Unavailable Claudio, A Mouna HOT METAL MIXER OPERATOR HELPER Unavailable Unavailable Claudio, A Mouna HOT METAL MIXER OPERATOR HELPER Unavailable Unavailable Claudio, A Mouna HOT METAL MIXER OPERATOR HELPER Unavailable Unavailable Claudio, A Mouna HOT METAL MIXER OPERATOR HELPER Unavailable Unavailable Claudio, A Mouna HOT METAL MIXER OPERATOR HELPER Unavailable Unavailable Claudio, A Mouna HOT METAL MIXER OPERATOR HELPER Unavailable Unavailable Claudio, A Mouna HOT METAL MIXER OPERATOR HELPER Unavailable Unavailable Claudio, A Mouna HOT METAL MIXER OPERATOR HELPER Unavailable Unavailable Claudio, A Mouna HOT METAL MIXER OPERATOR HELPER Unavailable Unavailable Claudio, A Mouna HOT METAL MIXER OPERATOR HELPER Unavailable Unavailable Claudio, A Mouna HOT METAL MIXER OPERATOR HELPER Unavailable Unavailable Claudio, A Mouna HOT METAL MIXER OPERATOR HELPER Unavailable Unavailable Claudio, A Mouna HOT METAL MIXER OPERATOR HELPER Unavailable Unavailable Claudio, A Mouna HOT METAL MIXER OPERATOR HELPER Unavailable Unavailable Claudio, A Mouna HOT METAL MIXER OPERATOR HELPER Unavailable Unavailable Claudio, A Mouna HOT METAL MIXER OPERATOR HELPER Unavailable Unavailable Claudio, A Mouna HOT METAL MIXER OPERATOR HELPER Unavailable Unavailable Claudio, A Mouna HOT METAL MIXER OPERATOR HELPER Unavailable Unavailable Claudio, A Mouna HOT METAL MIXER OPERATOR HELPER Unavailable Unavailable Claudio, A Mouna HOT METAL MIXER OPERATOR HELPER Unavailable Unavailable Na Sánchez Unavailable Maryam Guerra Unavailable Unavailable NUÑEZ, L VANESSA CONTOUR GRINDER Unavailable Unavailable NUÑEZ, L VANESSA CONTOUR GRINDER Unavailable Unavailable NUÑEZ, L VANESSA CONTOUR GRINDER Unavailable Unavailable NUÑEZ, L VANESSA CONTOUR GRINDER Unavailable Unavailable NUÑEZ, L VANESSA CONTOUR GRINDER Unavailable Unavailable NUÑEZ, L VANESSA CONTOUR GRINDER Unavailable Unavailable NUÑEZ, L VANESSA CONTOUR GRINDER Unavailable Unavailable NUÑEZ, L VANESSA CONTOUR GRINDER Unavailable Unavailable NUÑEZ, L VANESSA CONTOUR GRINDER Unavailable Unavailable NUÑEZ, L VANESSA CONTOUR GRINDER Unavailable Unavailable NUÑEZ, L VANESSA CONTOUR GRINDER Unavailable Unavailable NUÑEZ, L VANESSA CONTOUR GRINDER Unavailable Unavailable NUÑEZ, L VANESSA CONTOUR GRINDER Unavailable Unavailable NUÑEZ, L VANESSA CONTOUR GRINDER Unavailable Unavailable NUÑEZ, L VANESSA CONTOUR GRINDER Unavailable Unavailable NUÑEZ, L VANESSA CONTOUR GRINDER Unavailable Unavailable Kai OSBORN Unavailable Unavailable Re-disclosure [...] is protected by Article 27-F of the [facility] Public Health law. If you continue you may have access to information: Regarding HIV / AIDS; Provided by facilities licensed or operated by the [facility] Office of Mental Health; or Provided by the [facility] Office for People With Developmental Disabilities. If such information is present, then the following [facility] mandated warning applies: This information has [...] law may result in a fine or assisted sentence or both. A general authorization for the release of medical or other information is NOT sufficient authorization for further disc losure. Allergies and Adverse Reactions Type Description Substance Reaction Status Data Source(s ) Propensity to adverse reactions to substance nkda 24 HR Bupropion Hydrochloride 150 MG Extended Release Oral Tablet Active [facility] ([facility]) Propensity to adverse reactions to substance nkda 24 HR Bupropion Hydrochloride 150 MG Extended Release Oral Tablet Active [facility] ([facility]) Allergy to substance Allergy to substance No known drug allergy [facility] ([facility]) Allergy to substance Allergy to substance Allergy to substance [facility] ([facility]) Allergy to substance Allergy to substance Allergy to substance [facility] ([facility]) Family History Family Member Name Family Member Gender Family Member Status Date o f Status Description Data Source(s) Unknown Male Diagnosis 12/10/2015 12:00:00 AM EDT [facility] ([facility]) Unknown Male Diagnosis 12/10/2015 12:00:00 AM EDT [facility] ([facility]) Encounters Encounter Providers Location Date Indications Data Source(s ) AOT Evaluation Attender: Pa Phan MD [facility] 02/08/2021 02:00:00 AM EST - 02/08/2021 02:00:00 AM EST [facility] ([facility]) Attender: Pa Phan MD 02/08/2021 12:00:00 AM EST [facility] ([facility]) [facility] 02/01/2021 12:00:00 AM EDT [facility] ([facility]) non-billable [facility] 12/29/2020 12:00:00 AM EDT [facility] ([facility]) CHERYLE Arrington-: [address], [place] [phone], Ph. Attender: Mouna LOBATO [facility] - [facility] Medical 12/17/2020 12:00:00 AM EDT [facility] ([facility]) non-billable [facility] 11/30/2020 12:00:00 AM EDT [facility] ([facility]) Inpatient Attender: Collin Irving tim: COLLIN Quinterosender: Samuel VELASCOCAttender: EMMANUELLE PATINO MDAdmitter: Samuel VELASCOCReferrer: Samuel Workman PA-C [id number] 11/27/2020 12:00:00 AM EDT - 12/02/2020 12:00:00 AM [facility] Patient discharged. non-billable [facility] Clinic 10/25/2020 12:00:00 AM EDT [facility] ([facility]) Crisis Intervention - Brief Attender: Anastasia Zimmer [facility] 09/17/2020 08:30:00 AM EDT - 09/17/2020 08:30:00 AM EDT [facility] ([facility]) Attender: Anastasia Hyatt 09/17/2020 12:00:00 AM E DT [facility] ([facility]) Attender: Anastasia Hyatt 09/15/2020 12:00:00 AM E DT [facility] ([facility]) Brief Individual Psychotherapy - 30 min Attender: Anastasia segovia [facility] 09/14/2020 08:30:00 AM EDT - 09/14/2020 08:30:00 AM EDT [facility] ([facility]) Extended Individual Psychotherapy - 45 min Attender: Amando Hyatt [facility] 09/08/2020 09:00:00 AM EDT - 09/08/2020 09:00:00 AM EDT [facility] ([facility]) Outpatient Attender: Jose Manuel Saleh NP [facility] 09/08/2020 08:30:00 AM EDT - 09/08/2020 08:30:00 AM EDT [facility] ([facility]) Attender: Anastasia Hyatt 09/08/2020 12:00:00 AM E DT [facility] ([facility]) Attender: Jose Manuel Saleh NP 09/08/2020 12:00:00 AM EDT [facility] ([facility]) Crisis Intervention - Brief Attender: Anastasia Hyatt [facility] 09/03/2020 08:30:00 AM EDT - 09/03/2020 08:30:00 AM EDT [facility] ([facility]) Attender: Anastasia Hyatt 09/03/2020 12:00:00 AM E DT [facility] ([facility]) Extended Individual Psychotherapy - 45 min Attender: Amando Hyatt [facility] 08/26/2020 09:45:00 AM EDT - 08/26/2020 09:45:00 AM EDT [facility] ([facility]) Attender: Anastasia Hyatt 08/26/2020 12:00:00 AM E DT [facility] ([facility]) Crisis Intervention - Brief Attender: Anastasia Hyatt [facility] 08/17/2020 08:45:00 AM EDT - 08/17/2020 08:45:00 AM EDT [facility] ([facility]) Attender: Anastasia Hyatt 08/17/2020 12:00:00 AM E DT [facility] ([facility]) Outpatient Attender: Jose Manuel Saleh NP [facility] 08/12/2020 08:30:00 AM EDT - 08/12/2020 08:30:00 AM EDT [facility] ([facility]) Attender: Jose Manuel Saleh NP 08/12/2020 12:00:00 AM EDT [facility] ([facility]) Group Home - Case Management Attender: Anastasia Hyatt [facility] 07/21/2020 02:00:00 AM EDT - 07/21/2020 02:00:00 AM EDT [facility] ([facility]) Attender: Anastasia Hyatt 07/21/2020 12:00:00 AM E DT [facility] ([facility]) Telemed Diagnostic Eval Attender: Jose Manuel Saleh NP [facility] nt Group Home 07/13/2020 09:00:00 AM EDT - 07/13/2020 09:00:00 AM EDT [facility] ([facility]) Attender: Jose Manuel Saleh NP 07/13/2020 12:00:00 AM EDT [facility] ([facility]) Attender: Anastasia Hyatt 07/02/2020 12:00:00 AM E DT [facility] ([facility]) Brief Individual Psychotherapy - 30 min Attender: Anastasia segovia [facility] 07/01/2020 01:00:00 AM EDT - 07/01/2020 01:00:00 AM EDT [facility] ([facility]) Unlisted evaluation and management service Performer: Brandie mcelroy 05/06/2020 03:49:00 PM EST - 05/27/2020 02:11:00 PM EST [facility] ([facility]) Unlisted evaluation and management service 04/22/2020 01:29:00 PM EST - 05/06/2020 03:48:00 PM EST [facility] ([facility]) Collin Kuhn MD: [address] [place] [phone], Ph. Attender: Collin Kuhn MD [facility] Medical 03/31/2020 12:00:00 AM EST [facility] ([facility]) Collin Kuhn MD: [address] [place] [phone], Ph. Attender: Collin Kuhn MD [facility] Medical 03/31/2020 12:00:00 AM EST [facility] ([facility]) Collin Kuhn MD: [address] [place] [phone], Ph. Attender: Collin Kuhn MD [facility] - [facility] Medical 03/31/2020 12:00:00 AM EST [facility] ([facility]) Attender: Scar PALENCIA [place] 03/02 10:05:00 AM EST - 03/16/2020 10:05:00 AM EST [facility] ([facility]) Outpatient [address] [address] [id number] Integration Team 03/16/2020 12:00:00 AM EST [facility] ([facility]) Patient admitted. Outpatient Att[facility] 03/07/2020 05:33:[address] [facility] Attender: COLLIN GARSIA MD 02/02/2020 12:00:00 A M EST [facility] ([facility]) Inpatient Attender: Kim Vasquez tender: Samuel KRISHNAMURTHY-CAttender: BILLY DENISE MDAttender: OMAR WONG MDAttender: Willem Ozuna MDAttender: DIANE FUNES MDAdmitter: Samuel KRISHNAMURTHY-CReferrer: KAYLYNN OSBORN [id number] 01/31/2020 12:00:00 AM EDT - 02/10/2020 12:18:00 PM EST Unspecified psychosis not due to a substance or known physiological condition [facility] Unspecified psychosis not due to a subst ance or known physiological condition Patient discharged. Emergency Attender: ANETTE QUEEN MD ER-ER 1 03:48:00 PM EDT - 01/31/2020 08:13:00 AM EDT [facility] Patient discharged. AOT Evaluation Attender: COLLIN GARSIA MD [facility] 01/29/2020 02:00:00 AM EDT - 01/29/2020 02:00:00 AM EDT [facility] ([facility]) Outpatient Attender: VANESSA NUÑEZ DOAttender: VANESSA KENNETH BLEVINS CONTOUR GRINDER ER-LAB-PNP 01/22/2020 09:24:00 PM EDT [facility] Group Home - Case Management Attender: Anastasia Hyatt [facility] J ail 01/15/2020 08:50:00 AM EDT - 01/15/2020 08:50:00 AM EDT [facility] ([facility]) Attender: Anastasia Hyatt 01/15/2020 12:00:00 AM E DT [facility] ([facility]) Attender: Anastasia Hyatt 01/15/2020 12:00:00 AM E DT [facility] ([facility]) Brief Individual Psychotherapy - 30 min Attender: Anastasiaeddie segovia [facility] 01/14/2020 10:00:00 AM EDT - 01/14/2020 10:00:00 AM EDT [facility] ([facility]) Functional Status Immunizations Vaccine Date Status Description Data Source(s) COVID-19, mRNA, LNP-S, PF, 100 mcg/0.5 mL dose 03/31/2020 03 :19:23 PM EST completed 03/31/20200.5 mL [facility] ([facility]) COVID-19, mRNA, LNP-S, PF, 100 mcg/0.5 mL dose 03/31/2020 03 :19:23 PM EST completed 03/31/20200.5 mL [facility] ([facility]) COVID-19, mRNA, LNP-S, PF, 100 mcg/0.5 mL dose 03/31/2020 03 :19:23 PM EST completed 03/31/20200.5 mL [facility] ([facility]) COVID-19 VACCINE Moderna 03/31/2020 12:00:00 AM EST completed [place]SIIS Vaccine Series Complete: NOThis Data was Submitted to [facility] Via [employer] New in 2011. IIV4 02/02/2020 12:00:00 AM EST completed <t d ID="[id number]">Influenza Quad IM Pres Free (0.5 mL dose)</td><td>02/02/2020</td><td></td> [facility] Medications Medication Brand Name Start Date [...] signs before administering. Hold for BP <100/60
[facility] Medication administered onsite Guanfacine 1 MG [...] dose if symptomatic. Avoid taking before bedtime. [facility] Prazosin 2 MG Oral Capsule Prazosin HCl 2 MG Oral Caps ule (MINIPRESS) Prazosin HCl 2 MG Oral Capsule (MINIPRESS) 12/02/2020 12:00:00 AM EDT 2 mg Oral active Take 1 capsule by mo uth nightly as needed (for nightmares) for up to 7 days [facility] Melatonin 1 MG Oral Tablet Melatonin 1 MG Oral Tablet 2020 12:00:00 AM EDT 10 mg Oral active Take 10 tablets b y mouth nightly as needed (Sleep) [facility] Nicotine 2 MG Oral Lozenge Nicotine Uriah crilex 2 MG Mouth/Throat Lozenge (NICORETTE) Nicotine Polacrilex 2 MG Mouth/Throat Lozenge (NICORET TE) 12/02/2020 12:00:00 AM EDT [address] 1 lozenge inside cheek every 4 (four) hours as needed for Smoking cessation for up to 7 days [facility] Guanfacine 1 MG Oral Tablet guanFACINE (TENEX) tablet 1 mg guanFACINE (TENEX) tablet 1 mg 12/01/2020 02:00:00 PM EDT 1 mg Oral active 1 mg, Oral, Daily Standard, First dose (after last modification) on Sun12/01/20 at 1400, For 30 doses
Check vital signs before administering. Hold for BP <100/60
[facility] Medication administered onsite Diphenhydramine Hydrochloride 50 MG Oral Capsule diphenhydrAMINE (BENADRYL) capsule 50 mg diphenhydrAMINE (BENADRYL) capsule 50 mg 12/01/2020 12 :33:45 PM EDT 50 mg Oral active 50 mg, O ral, Every 6 hours PRN, for agitation and sleep, Starting on Sun12/01/20 at 1233, For 671 hours [facility] Medication administered onsite Prazosin 1 MG Oral Capsule prazosin (MINIPRESS) capsul e 1 mg prazosin (MINIPRESS) capsule 1 mg 12/01/2020 10:59:26 AM EDT 1 mg Oral active 1 mg, Oral, Nightly PRN, for nightmares, Starting on Sun12/01/20 at 1059, For 30 doses
Check vital signs before administering. Hold for BP <100/60
[facility] Medication administered onsite Melatonin 5 MG Oral Tablet melatonin tablet 10 mg melatonin tablet 10 mg 11/30/2020 10:00:00 PM EDT 10 mg Oral active 10 mg, Oral, Nightly, First dose on Sun11/30/20 at 2200, For 30 doses [facility] Medication administered onsite Diphenhydramine Hydrochloride 50 MG Oral Capsule diphenhydrAMINE (BENADRYL) capsule 50 mg diphenhydrAMINE (BENADRYL) capsule 50 mg 11/29/2020 10 :00:00 PM EDT 50 mg Oral aborted 50 mg, O ral, Nightly, First dose on Sun11/29/20 at 2200, For 30 days [facility] Medication administered onsite Haloperidol 5 MG Oral Tablet haloperidol (HALDOL) tabl et 7.5 mg haloperidol (HALDOL) tablet 7.5 mg 11/29/2020 08:00:00 PM EDT 7.5 mg Oral completed 7.5 mg, Oral, Once, On Sun11/29/20 at 2000, For 1 dose [facility] Medication administered onsite Guanfacine 1 MG Oral Tablet guanFACINE (TENEX) tablet 1 mg guanFACINE (TENEX) tablet 1 mg 11/29/2020 02:00:00 PM EDT 1 mg Oral aborte d 1 mg, Oral, 2 Times Daily, First dose on Sun11/29/20 at 1400, For 30 days
Check vital signs before administering
[facility] Medication administered onsite Haloperidol 5 MG Oral Tablet haloperidol (HALDOL) tabl et 2.5 mg haloperidol (HALDOL) tablet 2.5 mg 11/29/2020 12:30:00 PM EDT 2.5 mg Oral completed 2.5 mg, Oral, Once, On Sun11/29/20 at 1230, For 1 dose [facility] Medication administered onsite Prazosin 2 MG Oral Capsule prazosin (MINIPRESS) capsul e 2 mg prazosin (MINIPRESS) capsule 2 mg 11/28/2020 10:00:00 PM EDT 2 mg Oral aborted 2 mg, Oral, Nightly, First dose on Sun11/28/20 at 2200, For 30 days
Check vital signs before administering
[facility] Medication administered onsite topiramate 100 MG Oral Tablet topiramate (TOPAMAX) tab let 100 mg topiramate (TOPAMAX) tablet 100 mg 11/28/2020 08:00:00 AM EDT 100 mg Oral aborted 100 mg, Oral, Every 12 hours Standard (2 times per day), First dose on Sun11/28/20 at 0800, For 30 days [facility] Medication administered onsite Nicotine 2 MG Oral Lozenge nicotine (NICORETTE) lozeng e 2 mg nicotine (NICORETTE) lozenge 2 mg 11/28/2020 01:49:20 AM EDT 2 mg Mouth/Th roat active 2 mg, Mouth/Throat, Every 4 hours PRN, Smoking cessation, Starting on Sun11/28/20 at 0149, For 30 days
Should not be chewed or swallowed; allow to dissolve slowly (~20-30 minutes)
[facility] Medication administered onsite [place] Carbonate 300 MG Oral Capsule lithium carbonate 12:00:00 AM EDT 300 mg by mouth completed <td ID="MedicationRxNorm_3">715246</td><td ID="MedicationMedication_3">lithium carbonate</td><td ID="MedicationRoute_3">by mouth</td><td ID="MedicationRouteConcept_3">N25450</td><td ID="MedicationStartDate_3">09/08/2020</td><td ID="MedicationStopDate_3">03/07/2021</td><td ID="MedicationDosageFrequency_3">at bedtime</td><td ID="MedicationDuration_3">30</td><td ID="MedicationFormulaStrength_3">300 mg</td><td ID="MedicationDosageForm_3">capsule</td><td ID="MedicationDosageFormCode_3"></td><td ID="MedicationDosageDescription_3"></td><td ID="MedicationMedicationId_3">[id number]</td><td ID="MedicationAccount_3">[id number]</td><td ID="MedicationNpid_3">[id number]</td><td ID="MedicationAuthorFirstName_3">Jose Manuel</td><td ID="MedicationAuthorLastName_3">Saleh</td><td ID="MedicationTaxonomyCode_3">[id number]</td><td ID="MedicationTaxonomyDesc_3">Nurse Practitioner</td><td ID="MedicationPhoneNumber_3">[phone]</td> [facility] ([facility]) [place] Carbonate 150 MG Oral Capsule lithium carbonate 12:00:00 AM EDT 150 mg by mouth completed <td ID="MedicationRxNorm_2">266889</td><td ID="MedicationMedication_2">lithium carbonate</td><td ID="MedicationRoute_2">by mouth</td><td ID="MedicationRouteConcept_2">C30710</td><td ID="MedicationStartDate_2">09/08/2020</td><td ID="MedicationStopDate_2">03/07/2021</td><td ID="MedicationDosageFrequency_2">every morning</td><td ID="MedicationDuration_2">30</td><td ID="MedicationFormulaStrength_2">150 mg</td><td ID="MedicationDosageForm_2">capsule</td><td ID="MedicationDosageFormCode_2"></td><td ID="MedicationDosageDescription_2"> </td><td ID="MedicationMedicationId_2">[id number]</td><td ID="MedicationAccount_2">[id number]</td><td ID="MedicationNpid_2">[id number]</td><td ID="MedicationAuthorFirstName_2">Jose Manuel</td><td ID="MedicationAuthorLastName_2">Saleh</td><td ID="MedicationTaxonomyCode_2">[id number]</td><td ID="MedicationTaxonomyDesc_2">Nurse Practitioner</td><td ID="MedicationPhoneNumber_2">[phone]</td> [facility] ([facility]) Trazodone Hydrochloride 100 MG Oral Tablet Trazodone HCL 08/12/2020 12:00:00 AM EDT ORAL active [facility] Aristada Aristada 07/13/2020 12:00:00 AM EDT activ e [facility] ([facility]) Aristada Aristada 07/13/2020 12:00:00 AM EDT 882 mg/3.2 completed <td ID="MedicationRxNorm_1">[id number]</td><td ID="MedicationMedication_1">Aristada</td><td ID="MedicationRoute_1"></td><td ID="MedicationRouteConcept_1"></td><td ID="MedicationStartDate_1">07/13/2020</td><td ID="MedicationStopDate_1">06/14/2021</td><td ID="MedicationDosageFrequency_1"></td><td ID="MedicationDuration_1">56</td><td ID="MedicationFormulaStrength_1">882 mg/3.2 mL</td><td ID="MedicationDosageForm_1">suspension,extended rel syring</td><td ID="MedicationDosageFormCode_1"></td><td ID="MedicationDosageDescription_1"></td><td ID="MedicationMedicationId_1">[id number]</td><td ID="MedicationAccount_1">[id number]</td><td ID="MedicationNpid_1">[id number]</td><td ID="MedicationAuthorFirstName_1">Jose Manuel</td><td ID="MedicationAuthorLastName_1">Saleh</td><td ID="MedicationTaxonomyCode_1">[id number]</td><td ID="MedicationTaxonomyDesc_1"> Nurse Practitioner</td><td ID="MedicationPhoneNumber_1">[phone]</td> [facility] ([facility] Aristada Aristada 07/13/2020 12:00:00 AM EDT 882 mg/3.2 completed <td ID="MedicationRxNorm_4">0281983</td><td ID="MedicationMedication_4">Aristada</td><td ID="MedicationRoute_4"></td><td ID="MedicationRouteConcept_4"></td><td ID="MedicationStartDate_4">07/13/2020</td><td ID="MedicationStopDate_4">06/14/2021</td><td ID="MedicationDosageFrequency_4"></td><td ID="MedicationDuration_4">56</td><td ID="MedicationFormulaStrength_4">882 mg/3.2 mL</td><td ID="MedicationDosageForm_4">suspension,extended rel syring</td><td ID="MedicationDosageFormCode_4"></td><td ID="MedicationDosageDescription_4"></td><td ID="MedicationMedicationId_4">[id number]</td><td ID="MedicationAccount_4">[id number]</td><td ID="MedicationNpid_4">[id number]</td><td ID="MedicationAuthorFirstName_4">Jose Manuel</td><td ID="MedicationAuthorLastName_4">Saleh</td><td ID="MedicationTaxonomyCode_4">[id number]</td><td ID="MedicationTaxonomyDesc_4"> Nurse Practitioner</td><td ID="MedicationPhoneNumber_4">[phone]</td> [facility] ([facility]) Aristada Ari07/13/2020 12:00:00 AM EDT 882 mg/3.2 completed <td ID="MedicationRxNorm_3">[id number]</td><td ID="MedicationMedication_3">[place]</td><td ID="MedicationRoute_3"></td><td ID="MedicationRouteConcept_3"></td><td ID="MedicationStartDate_3">07/13/2020</td><td ID="MedicationStopDate_3">06/14/2021</td><td ID="MedicationDosageFrequency_3"></td><td ID="MedicationDuration_3">56</td><td ID="MedicationFormulaStrength_3">882 mg/3.2 mL</td><td ID="MedicationDosageForm_3">suspension,extended rel syring</td><td ID="MedicationDosageFormCode_3"></td><td ID="MedicationDosageDescription_3"></td><td ID="MedicationMedicationId_3">[id number]</td><td ID="MedicationAccount_3">[id number]</td><td ID="MedicationNpid_3">[id number]</td><td ID="MedicationAuthorFirstName_3">Jose Manuel</td><td ID="MedicationAuthorLastName_3">Saleh</td><td ID="MedicationTaxonomyCode_3">[id number]</td><td ID="MedicationTaxonomyDesc_3"> Nurse Practitioner</td><td ID="MedicationPhoneNumber_3">[phone]</td> [facility] ([facility]) Escitalopram 10 MG Oral Tablet Escitalopram Oxalate 07/13/2020 1 2:00:00 AM EDT ORAL active [facility] Trazodone Hydrochloride 50 MG Oral Tablet Trazodone HCL 07/13/2020 12:00:00 AM EDT ORAL completed [facility] ([facility]) Escitalopram 10 MG Oral Tablet escitalopram oxalate 07/13/2020 1 2:00:00 AM EDT 10 mg by mouth completed <td ID="Medic ationRxNorm_2">[id number]</td><td ID="MedicationMedication_2">escitalopram oxalate</td><td ID="MedicationRoute_2">by mouth</td><td ID="MedicationRouteConcept_2">Q17363</td><td ID="MedicationStartDate_2">07/13/2020</td><td ID="MedicationStopDate_2">01/09/2021</td><td ID="MedicationDosageFrequency_2">at bedtime</td><td ID="MedicationDuration_2">30</td><td ID="MedicationFormulaStrength_2">10 mg</td><td ID="MedicationDosageForm_2">tablet</td><td ID="MedicationDosageFormCode_2"></td><td ID="MedicationDosageDescription_2"></td><td ID="MedicationMedicationId_2">[id number]</td><td ID="MedicationAccount_2">[id number]</td><td ID="MedicationNpid_2">[id number]</td><td ID="MedicationAuthorFirstName_2">Jose Manuel</td><td ID="MedicationAuthorLastName_2">Saleh</td><td ID="MedicationTaxonomyCode_2">[id number]</td><td ID="MedicationTaxonomyDesc_2">Nurse Practitioner</td><td ID="MedicationPhoneNumber_2">[phone]</td> [facility] ([facility]) Escitalopram 10 MG Oral Tablet escitalopram oxalate 07/13/2020 1 2:00:00 AM EDT 10 mg by mouth completed <td ID="Medic ationRxNorm_1">[id number]</td><td ID="MedicationMedication_1">escitalopram oxalate</td><td ID="MedicationRoute_1">by mouth</td><td ID="MedicationRouteConcept_1">E08269</td><td ID="MedicationStartDate_1">07/13/2020</td><td ID="MedicationStopDate_1">01/09/2021</td><td ID="MedicationDosageFrequency_1">at bedtime</td><td ID="MedicationDuration_1">30</td><td ID="MedicationFormulaStrength_1">10 mg</td><td ID="MedicationDosageForm_1">tablet</td><td ID="MedicationDosageFormCode_1"></td><td ID="MedicationDosageDescription_1"></td><td ID="MedicationMedicationId_1">[id number]</td><td ID="MedicationAccount_1">[id number]</td><td ID="MedicationNpid_1">[id number]</td><td ID="MedicationAuthorFirstName_1">Jose Manuel</td><td ID="MedicationAuthorLastName_1">Saleh</td><td ID="MedicationTaxonomyCode_1">[id number]</td><td ID="MedicationTaxonomyDesc_1">Nurse Practitioner</td><td ID="MedicationPhoneNumber_1">[phone]</td> [facility] ([facility]) topiramate 25 MG Oral Tablet Topiramate 06/17/2020 12:00:00 AM EDT ORAL active [facility] ([facility]) Prazosin 2 MG Oral Capsule Prazosin HCL 06/17/2020 12:00:00 AM EDT ORAL active [facility] ([facility]) 2 ML aripiprazole 200 MG/ML Prefilled Sy ringe ARIPiprazole ER 400 MG Intramuscular Prefilled Syringe (ABILIFY MAINTENA) ARIPiprazole ER 400 MG Intramuscular Prefilled Syringe (ABILIFY MAINTENA) 02/10/2020 12:00:00 AM EST 400 mg Intramuscular active Inject 400 mg into the muscle once for 1 dose [facility] aripiprazole 10 MG Oral Tablet ARIPiprazole 10 MG Oral Tablet (ABILIFY) ARIPiprazole 10 MG Oral Tablet (ABILIFY) 02/10/2020 12:00:00 AM EST 10 mg Oral active Take 1 tablet by gardenia th daily [facility] aripiprazole 10 MG Oral Tablet ARIPiprazole 10 MG Oral Tablet (ABILIFY) ARIPiprazole 10 MG Oral Tablet (ABILIFY) 02/10/2020 12:00:00 AM EST 10 mg Oral aborted Take 1 tablet by gardenia th daily [facility] olanzapine 5 MG Oral Tablet OLANZapine (ZYPREXA) table t 5 mg OLANZapine (ZYPREXA) tablet 5 mg 02/09/2020 07:32:03 PM EST 5 mg Oral active 5 mg, Oral, Every 6 hours PRN, For agitation or anxiety, MDD 20 mg daily, Starting 02/09/20 at 1932, For 30 days [facility] Medication administered onsite Hydroxyzine Hydrochloride 50 MG Oral Tab let hydrOXYzine HCl 50 MG Oral Tablet (ATARAX) hydrOXYzine HCl 50 MG Oral Tablet (ATARAX) 02/09/2020 12:00: 00 AM EST 50 mg Oral active Take 1 tablet by mouth every 6 (six) hours as needed (Anxiety or sleep) [facility] Melatonin 1 MG Oral Tablet Melatonin 1 MG Oral Tablet 2019 12:00:00 AM EST 1 mg Oral aborted Take 1 tablet by mouth nightly as needed (Sleep) [facility] Nicotine 2 MG Oral Lozenge Nicotine Uriah crilex 2 MG Mouth/Throat Lozenge (NICORETTE) Nicotine Polacrilex 2 MG Mouth/Throat Lozenge (NICORET TE) 02/09/2020 12:00:00 AM EST [address] 1 lozenge inside cheek every hour as needed for Smoking cessation [facility] olanzapine 5 MG Oral Tablet OLANZapine 5 MG Oral Table t (ZYPREXA) OLANZapine 5 MG Oral Tablet (ZYPREXA) 02/09/2020 12:00:00 AM EST 5 mg Oral active Take 1 tablet by mouth every 6 (six) hours as needed (For agitation or anxiety, MDD 20 mg daily) [facility] topiramate 25 MG Oral Tablet Topiramate 25 MG Oral Tab let (TOPAMAX) Topiramate 25 MG Oral Tablet (TOPAMAX) 02/09/2020 12:00:00 AM EST 25 mg Oral active Take 1 tablet by mouth every 12 (twelve) hours [facility] benztropine mesylate 1 MG Oral Tablet Be nztropine Mesylate 1 MG Oral Tablet (COGENTIN) Benztropine Mesylate 1 MG Oral Tablet (COGENTIN) 02/08 12:00:00 AM EST 1 mg Oral active Take 1 t ablet by mouth every 6 (six) hours as needed (For EPS reversal) [facility] Docusate Sodium 100 MG Oral Capsule Docu sate Sodium 100 MG Oral Capsule (COLACE) Docusate Sodium 100 MG Oral Capsule (COLACE) 02/09/2020 12:00:00 AM EST 100 mg Oral active Take 1 capsule by mouth every evening [facility] Docusate Sodium 100 MG Oral Capsule docusate sodium (C OLACE) capsule 100 mg docusate sodium (COLACE) capsule 100 mg 02/07/2020 09:00:00 PM EST 100 mg Oral active 100 mg, Oral, Every evening, First dose on 02/07/20 at 2100, For 30 days [facility] Medication administered onsite aripiprazole 5 MG Oral Tablet ARIPiprazole (ABILIFY) t ablet 10 mg ARIPiprazole (ABILIFY) tablet 10 mg 02/05/2020 08:00:00 AM EST 10 mg Oral active 10 mg, Oral, Daily Standard, First dose (after last modification) on Sun02/05/20 at 0800, For 28 doses [facility] Medication administered onsite topiramate 25 MG Oral Tablet topiramate (TOPAMAX) tabl et 25 mg topiramate (TOPAMAX) tablet 25 mg 02/04/2020 08:00:00 PM EST 25 mg Oral active 25 mg, Oral, Every 12 hours Standard (2 times per day), First dose on Sun02/04/20 at 2000, For 30 days [facility] Medication administered onsite aripiprazole 5 MG Oral Tablet ARIPiprazole (ABILIFY) t ablet 5 mg ARIPiprazole (ABILIFY) tablet 5 mg 02/03/2020 08:00:00 AM EST 5 mg Oral aborted 5 mg, Oral, Daily Standard, First dose on Sun02/03/20 at 0800, For 30 days [facility] Medication administered onsite Nicotine 4 MG/ACTUAT [...] stimulant effects Do not exceed 16 cartridges/day
[facility] Medication administered onsite benztropine mesylate 1 MG Oral Tablet benztropine (COG ENTIN) tablet 1 mg benztropine (COGENTIN) tablet 1 mg 02/02/2020 05:20:18 PM EST 1 mg Oral active 1 mg, Oral, Every 6 hours PRN, To give with Haldol for agitation, Starting Sun02/02/20 at 1720, For 30 days [facility] Medication administered onsite Nicotine 2 MG [...] swallowed; allow to dissolve slowly (~20-30 minutes)
[facility] Medication administered onsite Melatonin 1 MG Oral Tablet melatonin tablet 1 mg melatonin t ablet 1 mg 02/02/2020 03:58:59 PM EST 1 mg Oral active 1 mg, Oral, Nightly PRN, Sleep, Starting Sun02/02/20 at 1558, For 30 days [facility] Medication administered onsite influenza vac split quad (FLUARIX) injection 6 months and ol tim 0.5 mL [id number] 02/02/2020 03:12:16 PM EST 0.5 mL Intramuscular complet ed 0.5 mL, Intramuscular, Give Now, Starting Sun02/02/20 at 1512, For 1 dose [facility] Medication administered onsite Acetaminophen 325 MG [...] mg from all sources in 24 hours.
[facility] Medication administered onsite Hydroxyzine Hydrochloride 50 MG Oral Tablet hydrOXYzin e (ATARAX) tablet 50 mg hydrOXYzine (ATARAX) tablet 50 mg 02/02/2020 03:09:46 PM EST 50 mg Oral active 50 mg, Oral, Every 6 hours PRN, Anxiety, Sleep, Starting 02/02/20 at 1509, For 30 days [facility] Medication administered onsite haloperidol (HALDOL) tablet 2.5 mg 02/02/2020 09:45:00 AM EST 2.5 mg Oral completed 2.5 mg, Oral, Once, Mon 02/01 at 0945, For 1 dose [facility] Medication administered onsite haloperidol (HALDOL) tablet 2.5 mg 02/01/2020 04:30:00 PM EST 2.5 mg Oral completed 2.5 mg, Oral, Once, [place] 01/31 at 1630, For 1 dose [facility] Medication administered onsite Trazodone Hydrochloride 50 MG Oral Tablet trazodone 2018 12:00:00 AM EDT 50 mg completed <td ID="Medica tionRxNorm_2">[id number]</td><td ID="MedicationMedication_2">trazodone</td><td ID="MedicationRoute_2"></td><td ID="MedicationRouteConcept_2"></td><td ID="MedicationStartDate_2">11/05/2018</td><td ID="MedicationStopDate_2">01/09/2021</td><td ID="MedicationDosageFrequency_2"></td><td ID="MedicationDuration_2">30</td><td ID="MedicationFormulaStrength_2">50 mg</td><td ID="MedicationDosageForm_2">tablet</td><td ID="MedicationDosageFormCode_2"></td><td ID="MedicationDosageDescription_2"></td><td ID="MedicationMedicationId_2">[id number]</td><td ID="MedicationAccount_2">[id number]</td><td ID="MedicationNpid_2">[id number]</td><td ID="MedicationAuthorFirstName_2">Jose Manuel</td><td ID="MedicationAuthorLastName_2">Saleh</td><td ID="MedicationTaxonomyCode_2">[id number]</td><td ID="MedicationTaxonomyDesc_2">Nurse Practitioner</td><td ID="MedicationPhoneNumber_2">[phone]</td> [facility] ([facility]) Trazodone Hydrochloride 100 MG Oral Tablet trazodone 11/05 12:00:00 AM EDT 100 mg completed <td ID="Medica tionRxNorm_1">[id number]</td><td ID="MedicationMedication_1">trazodone</td><td ID="MedicationRoute_1"></td><td ID="MedicationRouteConcept_1"></td><td ID="MedicationStartDate_1">11/05/2018</td><td ID="MedicationStopDate_1">01/09/2021</td><td ID="MedicationDosageFrequency_1"></td><td ID="MedicationDuration_1">30</td><td ID="MedicationFormulaStrength_1">100 mg</td><td ID="MedicationDosageForm_1">tablet</td><td ID="MedicationDosageFormCode_1"></td><td ID="MedicationDosageDescription_1"></td><td ID="MedicationMedicationId_1">[id number]</td><td ID="MedicationAccount_1">[id number]</td><td ID="MedicationNpid_1">[id number]</td><td ID="MedicationAuthorFirstName_1">Jose Manuel</td><td ID="MedicationAuthorLastName_1">Saleh</td><td ID="MedicationTaxonomyCode_1">[id number]</td><td ID="MedicationTaxonomyDesc_1">Nurse Practitioner</td><td ID="MedicationPhoneNumber_1">[phone]</td> [facility] ([facility]) [place] Carbonate 150 MG Oral Capsule li thium carbonate 150 mg capsule TAKE ONE CAPSULE BY MOUTH EVERY MORNING lithium carbonate 150 mg capsule TAKE ON E CAPSULE BY MOUTH EVERY MORNING completed lithium carbonate 150 MG Oral Capsule [facility] ([facility]) Hydroxyzine Hydrochloride 50 MG Oral Tab let hydroxyzine HCl 50 mg tablet TAKE ONE TABLET BY MOUTH EVERY 6 HOURS NEEDED FOR AGITATION hydroxyzine HCl 50 mg tablet TAKE ONE TABLET BY MOUTH EVERY 6 HOURS NEEDED FOR AGITATION completed hydroxyzine hydrochloride 50 MG Oral Tablet [facility] ([facility]) aripiprazole 10 MG Oral Tablet aripipraz ole 10 mg tablet TAKE ONE TABLET BY MOUTH EVERY DAY FOR MOOD aripiprazole 10 mg tablet TAKE ONE TABLE T BY MOUTH EVERY DAY FOR MOOD completed tremaine piprazole 10 MG Oral Tablet [facility] ([facility]) Trazodone Hydrochloride 50 MG Oral Table t trazodone 50 mg tablet TAKE ONE TABLET BY MOUTH EVERY DAY AT BEDTIME NEEDED FOR SLEEP trazodone 50 mg tablet TAKE ONE TABLET BY MOUTH EVERY DAY AT BEDTIME NEEDED FOR SLEEP completed trazodone hydrochloride 50 MG Or al Tablet [facility] ([facility]) [place] Carbonate 300 MG Oral Capsule li thium carbonate 300 mg capsule TAKE ONE CAPSULE BY MOUTH AT BEDTIME lithium carbonate 300 mg capsule TAKE ON E CAPSULE BY MOUTH AT BEDTIME completed lithium carbonate 300 MG Oral Capsule [facility] ([facility]) Prazosin 2 MG Oral Capsule prazosin 2 mg capsule TAKE ONE CAPSULE BY MOUTH AT BEDTIME NEEDED prazosin 2 mg capsule TAKE ONE CAPSULE B Y MOUTH AT BEDTIME NEEDED completed prazosin 2 MG O ral Capsule [facility] ([facility]) olanzapine 7.5 MG Oral Tablet olanzapine 7.5 mg tablet TAKE ONE TABLET BY MOUTH THREE TIMES DAILY olanzapine 7.5 mg tablet TAKE ONE TABLET BY MOUTH THREE TIMES DAILY completed olanzapine 7.5 M G Oral Tablet [place] ([facility]) topiramate 25 MG Oral Tablet topiramate 25 mg tablet TAKE ONE TABLET BY MOUTH TWICE DAILY topiramate 25 mg tablet TAKE ONE TABLET BY MOUTH TWICE DAILY completed topiramate 25 MG Ora l Tablet [place] ([facility]) aripiprazole 400 MG Injection [Abilify] Abilify Maintena 400 mg intramuscular suspension,extended release inject 400 milligrams into THE muscle ONCE a MONTH Abilify Maintena 400 mg intramuscular suspension,extended release inject 400 milligrams into THE muscle ONCE a MONTH completed aripiprazole 400 MG Injection [Abilify] [place] ([facility]) emtricitabine 200 MG / Tenofovir disopro xil fumarate 300 MG Oral Tablet [Truvada] Truvada 200 mg-300 mg tablet TAKE ONE TABLET BY MOUTH EVERY DAY Truvada 200 mg-300 mg tablet TAKE ONE TABLET BY MOUTH EVERY DAY completed emtricitabine 200 MG / tenofovir disoproxil fumarate 300 MG Oral Tablet [Truvada] [place] ([facility]) topiramate 50 MG Oral Tablet topiramate 50 mg tablet TAKE ONE TABLET BY MOUTH TWICE DAILY topiramate 50 mg tablet TAKE ONE TABLET BY MOUTH TWICE DAILY completed topiramate 50 MG Ora l Tablet [place] ([facility]) Propranolol Hydrochloride 20 MG Oral Tab let propranolol 20 mg tablet TAKE ONE TABLET BY MOUTH TWICE A DAY FOR ANXIETY propranolol 20 mg tablet TAKE ONE TABLET BY MOUTH TWICE A DAY FOR ANXIETY comp leted propranolol hydrochloride 20 MG Oral Tablet [place] ([facility]) aripiprazole 30 MG Oral Tablet aripiprazole 30 mg tabl et aripiprazole 30 mg tablet completed aripiprazole 30 MG Oral Tablet [place] ([facility]) benztropine mesylate 1 MG Oral Tablet be nztropine 1 mg tablet TAKE ONE TABLET BY MOUTH EVERY MORNING benztropine 1 mg tablet TAKE ONE TABLET BY MOUTH EVERY MORNING completed benztropine me sylate 1 MG Oral Tablet [place] ([facility]) pantoprazole 40 MG Delayed Release Oral Tablet pantoprazole 40 mg tablet,delayed release TAKE ONE TABLET BY MOUTH EVERY DAY FOR GERD pantoprazole 40 mg tablet,delayed release TAKE ONE TABLET BY MOUTH EVERY DAY FOR GERD completed pantoprazole 40 MG Delayed Relea se Oral Tablet [place] ([facility]) Escitalopram 20 MG Oral Tablet escitalop kimberlee 20 mg tablet TAKE ONE TABLET BY MOUTH EVERY DAY FOR MOOD escitalopram 20 mg tablet TAKE ONE TABLE T BY MOUTH EVERY DAY FOR MOOD completed esc italopram 20 MG Oral Tablet [facility] ([facility]) Insurance Providers Payer name Policy type / Coverage type Policy ID Covered libertarian ID Covered libertarian's relationship to dolan Policy Dolan Plan Information STEWART [id number] SP [id number] STEWART I [id number] Self [id number] STEWART [id number] SP [id number] Managed Care [place] P [id number] S [id number] MEDICAID M [id number] Self [id number] MEDICAID PROF FEES UNAVAILABLE S UNAVAILABLE MEDICAID UNAVAILABLE S UNAVAILA BLE [facility] OFFICE OF MENTAL HEALTH [id number] S [id number] [facility] OFFICE OF MENTAL HEALTH [id number] S [id number] Medicaid S [id number] S [id number] Managed Care Stewart P [id number] S [id number] Managed Care Stewart P UNAVAILABLE S UNAVAILABLE Medicaid S UNAVAILABLE S UNAVAILA BLE Medicaid [facility] Part B [id number] Self [id number] [employer] [place] Medicaid [id number] Self [id number] [facility]-Medicaid [id number] ANSI-Commercial [id number] ANSI-Commercial [id number] ANSI-Medicaid [id number] ANSI-Commercial [id number] ANSI-Medicaid [id number] ANSI-Commercial [id number] ANSI-Medicaid [id number] ANSI-Medicaid [id number] ANSI-Commercial [id number] ANSI-Commercial [id number] ANSI-Medicaid [id number] ANSI-Medicaid [id number] ANSI-Commercial [id number] ANSI-Commercial [id number] [facility]-Medicaid [id number] ANSI-Commercial [id number] [facility]-Medicaid [id number] ANSI-Commercial [id number] [facility]-Medicaid [id number] ANSI-Commercial [id number] [facility]-Medicaid [id number] ANSI-Commercial [id number] [facility]-Medicaid [id number] ANSI-Commercial [id number] ANSI-Medicaid [id number] ANSI-Commercial [id number] [facility] [id number] [employer] [id number] ANSI-Medicaid [id number] ANSI-Commercial [id number] [facility] [id number] ANSI-Commercial [id number] [facility] [id number] [facility] [id number] ANSI-Commercial [id number] ANSI-Medicaid [id number] ANSI-Commercial [id number] MEDICAID [id number] SP [id number] ANSI-Commercial [id number] ANSI-Medicaid [id number] ANSI-Commercial [id number] ANSI-Medicaid [id number] ANSI-Commercial [id number]-138w-43q3-6448ygcipm3x [id number]-188q-25q5-7408svtiwb2h ANSI-Medicaid [id number] ANSI-Medicaid [id number] ANSI-Commercial [id number]-[id number] [facility] [id number] ANSI-Commercial [id number]-0626-8087-h87o-[id number] [id number] [facility] [id number] ANSI-Commercial [id number]-[id number] [facility] [id number] ANSI-Commercial [id number] ANSI-Commercial [id number]-0n84-64u5-23ut-[id number] [id number]-[id number] [facility]-Medicaid [id number] [facility]-Medicaid [id number] ANSI-Medicaid [id number] ANSI-Medicaid [id number] ANSI-Medicaid [id number] ANSI-Medicaid [id number] ANSI-Commercial [id number]-0345-647f-xgv9-[id number]-mud8-[id number] [facility] [place] [id number] S [id number] [employer] [place] PPO 302/307 [id number] SP [id number] [facility] [id number] SP [id number] SELF PAY ONLY UNAVAILABLE UNAV AILABLE SELF PAY UNAVAILABLE SP UNAVAILA BLE [employer] [place] PPO 302/307 [id number] SP [id number] [employer] BC-BS PPO 306 [id number] SP [id number] [facility] [id number] [employer] [id number] [id number] [facility] [id number] [place] [id number] SP [id number] D [id number] STEWART [id number] SP [id number] [place] [id number] SP [id number] EMEDNY [id number] SP [id number] SELF PAY ONLY [id number] SP [id number] Problems, Conditions, and Diagnoses Code Display Name Description Problem Type Effective Dates Data Source(s) F32.3 Major depressive disorder, single episod e, severe with psychotic features Major depressive disorder, Single episode, With psychotic features Diagnosis 03/16/2020 12:00:00 AM [facility]) F25.9 Schizoaffective disorder, unspecified Sc hizoaffective disorder, unspecified Diagnosis 02/03/2020 08:49:33 AM [facility] F29 Unspecified psychosis not du e to a substance or known physiological condition Unspecified psychosis not due to a subst ance or known physiological condition Diagnosis 02/03/2020 08:49:33 AM [facility] F32.9 Major depressive disorder, single episod e, unspecified Major depressive disorder, single episode, unspecified Diagnosis 01/31/2020 03:25:26 PM [facility] F22 Delusional disorders Delusional disorders Diagnosis 01/31/2020 10:28:00 AM [facility] Z20.828 Contact with and (suspected) exposure to other viral communicable diseases Contact with and (suspected) exposure to other viral communicable diseases Diagnosis 01/31/2020 10:28:00 AM [facility] Depression Depression Diagnosis 01/31/2020 10:28:00 AM [facility] F43.10 Post-traumatic stress disorder, unspecif ied POST-TRAUMATIC STRESS DISORDER, UNSPECIFIED Diagnosis 01/30/2020 03:48:00 PM EDT [facility] F11.10 Opioid abuse, uncomplicated OPIOID ABUSE, UNCOMPLICATE D Diagnosis 01/30/2020 03:48:[facility] F25.9 Schizoaffective disorder, unspecified SC HIZOAFFECTIVE DISORDER, UNSPECIFIED Diagnosis 01/30/2020 03:48:00 PM EDT [facility] F32.9 Major depressive disorder, single episod e, unspecified MAJOR DEPRESSIVE DISORDER, SINGLE EPISODE, UNSPECIFIED Diagnosis 01/30/2020 03:48:00 [facility] F15.20 Other stimulant dependence, uncomplicate d OTHER STIMULANT DEPENDENCE, UNCOMPLICATED Diagnosis 01/22/2020 09:24:00 PM EDT [facility] F15.20 Other stimulant dependence, uncomplicate d Stimulant Use Disorder, Severe: Amphetamine-type substance Condition 02/08/2021 12:00:00 AM EST [facility] ([facility]) F15.20 Other stimulant dependence, uncomplicate d Stimulant Use Disorder, Severe: Amphetamine-type substance Condition 02/08/2021 12:00:00 AM EST [facility] ([facility]) F10.20 Alcohol dependence, uncomplicated Alcohol Use Di sorder, Moderate Condition 02/08/2021 12:00:00 AM EST [facility] ([facility]) F25.0 Schizoaffective disorder, bipolar type S chizoaffective Disorder, Bipolar type Condition 02/08/2021 12:00:00 AM EST [facility] ( e [facility]) [id number] Tobacco dependence caused by cigarettes Tobacco Dependence Caused by Cigarettes Problem 12/20/2020 12:00:00 AM EDT [facility] ([facility]) [id number] Adult health examination Adult Health Examination Prob colin 12/20/2020 12:00:00 AM EDT [facility] ([facility]) [id number] Psychoactive substance abuse Psychoactive Substance Ab use Problem 12/20/2020 12:00:[facility] [id number] 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 and Depressive Disorder Problem 12/20/2020 12:00:[facility] F43.9 Reaction to severe stress, unspecified U nspecified Trauma- and Stressor- Related Disorder Condition 09/17/2020 12:00:00 AM EDT [facility] ([facility]) [id number] 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 02/18/2020 12:00:00 AM EST [employer] ([facility]) [id number] 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 02/18/2020 12:00:00 AM EST [employer] ([facility]) [id number] 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 02/18/2020 12:00:00 AM EST [employer] ([facility] [id number] 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 02/18/2020 12:00:00 AM EST [employer] ([facility]) [id number] 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 02/18/2020 12:00:00 AM EST [employer] ([facility]) 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 02/18/2020 12:00:00 AM EST [employer] ([facility]) [id number] 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 02/18/2020 12:00:00 AM EST [employer] ([facility]) [id number] 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 02/18/2020 12:00:00 AM EST [employer] ([facility]) F15.20 Other stimulant dependence, uncomplicate d Stimulant Use Disorder, Severe: Amphetamine-type substance Condition 01/15/2020 12:00:00 AM EDT [facility] ([facility]) Surgeries/Procedures Procedure Description Date Indications Data Source(s) AOT Evaluation 02/08/2021 12:00:00 AM EST - 02/08/2021 12:00:00 AM EST [facility] ([facility]) AOT Evaluation 02/08/2021 12:00:00 AM EST [facility] ([facility]) IAAD EIA HIV-1 AG W/HIV-1&HIV-2 ANTBDY SINGLE <td>HIV AG AB COMBO SCREEN</td><td>Routine</td><td>11/29/2020 9:37 AM EDT</td><td></td><td> </td> [facility] <td>HEPATITIS C ANTIBODY</td ><td>Routine</td><td>11/29/2020 9:37 AM EDT</td><td></td><td> </td> 11/29/2020 09:37:00 AM [facility] HEMOGLOBIN GLYCOSYLATED A1C <td>HEMOGLOBIN A1C</td><td>Routine</td><td>11/29/2020 9:37 AM EDT</td><td></td><td> </td> 11/29/2020 09:37:00 AM [facility] DRUG SCREEN QUALITATIVE LITHIUM <td>LITHIUM LEVEL</td><td>Routine</td><td>11/29/2020 9:37 AM EDT</td><td></td><td> </td> 11/29/2020 09:37:00 AM [facility] LIPID PANEL <td>LIPID PANEL</td><td>Rout ine</td><td>11/29/2020 9:37 AM EDT</td><td></td><td> </td> 11/29/2020 09:37:00 AM [facility] Crisis intervention service, per 15 minutes 09/17/2020 12:00:00 AM EDT - 09/17/2020 12:00:00 AM EDT [facility] ([facility]) Crisis intervention service, per 15 minutes 09/17/2020 12:00:00 AM EDT [facility] ([facility]) Brief Individual Psychotherapy - 30 min 09/15/2020 12:00:00 AM EDT - 09/15/2020 12:00:00 AM EDT [facility] ([facility]) Brief Individual Psychotherapy - 30 min 09/14/2020 12: 00:00 AM EDT [facility] ([facility]) Extended Individual Psychotherapy - 45 min 09/08/2020 12:00:00 AM EDT - 09/08/2020 12:00:00 AM EDT [facility] ([facility]) Extended Individual Psychotherapy - 45 min 12:00:00 AM EDT [facility] ([facility]) MHC Telemed E/M Lvl 3--Est pt 09/08/2020 12:00:00 AM EDT - 09/08/2020 12:00:00 AM EDT [facility] ([facility]) Telemed A/O 30" 09/08/2020 12:00:00 AM EDT [facility] ([facility]) MHC Telemed E/M Lvl 3--Est pt 09/08/2020 12:00:00 AM E DT [facility] ([facility]) Crisis intervention service, per 15 minutes 09/03/2020 12:00:00 AM EDT - 09/03/2020 12:00:00 AM EDT [facility] ([facility]) Crisis intervention service, per 15 minutes 09/03/2020 12:00:00 AM EDT [facility] ([facility]) Extended Individual Psychotherapy - 45 min 08/26/2020 12:00:00 AM EDT - 08/26/2020 12:00:00 AM EDT [facility] ([facility]) Extended Individual Psychotherapy - 45 min 12:00:00 AM EDT [facility] ([facility]) Crisis intervention service, per 15 minutes 08/17/2020 12:00:00 AM EDT - 08/17/2020 12:00:00 AM EDT [facility] ([facility]) Crisis intervention service, per 15 minutes 08/17/2020 12:00:00 AM EDT [facility] ([facility]) MHC Telemed E/M Lvl 3--Est pt 08/12/2020 12:00:00 AM EDT - 08/12/2020 12:00:00 AM EDT [facility] ([facility]) MHC Telemed E/M Lvl 3--Est pt 08/12/2020 12:00:00 AM E DT [facility] ([facility]) Group Home - Case Management 07/21/2020 12:00: 00 AM EDT - 07/21/2020 12:00:00 AM EDT [facility] ([facility]) Group Home - Case Management 07/21/2020 12:00:00 AM EDT [facility] ([facility]) Telemed Diagnostic Eval 07/13/2020 12:00 :00 AM EDT - 07/13/2020 12:00:00 AM EDT [facility] ([facility]) Telemed Diagnostic Eval 07/13/2020 12:00:00 AM EDT [facility] ([facility]) Brief Individual Psychotherapy - 30 min 07/02/2020 12:00:00 AM EDT - 07/02/2020 12:00:00 AM EDT [facility] ([facility]) Brief Individual Psychotherapy - 30 min 07/01/2020 12: 00:00 AM EDT [facility] ([facility]) DRUGS OF ABUSE, URINE <td>DRUGS OF ABUSE, URINE</t d><td>STAT</td><td>02/08/2020 9:43 AM EST</td><td></td><td> </td> 02/08/2020 09:43:00 AM [facility] CARDIAC REPORT <td>CARDIAC REPORT</td><td>< /td><td>02/03/2020 12:36 PM EST</td><td></td><td></td> 02/03/2020 12:36:54 PM [facility] 25 HYDROXY INCLUDES FRACTIONS IF PERFORMED <td>VITAMIN D 25 HYDROXY, TOTAL</td><td>Routine</td><td>02/03/2020 6:51 AM EST</td><td></td><td> </td> 02/03/2020 06:51:00 AM [facility] BLOOD COUNT COMPLETE AUTO&AUTO DIFRNTL WBC COUNT <td>C BC AND DIFFERENTIAL</td><td>Routine</td><td>02/03/2020 6:51 AM EST</td><td></td><td> </td> 02/03/2020 06:51:00 AM [facility] THYROID STIMULATING HORMONE TSH <td>TSH</td><td>Routin e</td><td>02/03/2020 6:51 AM EST</td><td></td><td> </td> 02/03/2020 06:51:00 AM [facility] THYROXINE FREE <td>T4, FREE</td><td>Routine </td><td>02/03/2020 6:51 AM EST</td><td></td><td> </td> 02/03/2020 06:51:00 AM [facility] LIPID PANEL <td>LIPID PANEL</td><td>Rout ine</td><td>02/03/2020 6:51 AM EST</td><td></td><td> </td> 02/03/2020 06:51:00 AM [facility] COMPREHENSIVE METABOLIC PANEL <td>COMPREHENSIVE METABO LIC PANEL</td><td>Routine</td><td>02/03/2020 6:51 AM EST</td><td></td><td> </td> 02/03/2020 06:51:00 AM [facility] EKG 12-LEAD - CMAXX REPORT <td>EKG 12-LEAD - CMAXX REPORT</td><td></td><td>02/02/2020 6:30 PM EST</td><td></td><td></td> 02/02/2020 06:30:20 PM [facility] EKG 12-LEAD <td>EKG 12-LEAD</td><td>Rout ine</td><td>02/02/2020 6:30 PM EST</td><td></td><td></td> 02/02/2020 06:30:20 PM [facility] EKG 12-LEAD - CMAXX REPORT <td>EKG 12-LEAD - CMAXX REPORT</td><td></td><td>02/02/2020 6:30 PM EST</td><td></td><td></td> 02/02/2020 06:30:03 PM [facility] EKG 12-LEAD - CMAXX REPORT <td>EKG 12-LEAD - CMAXX REPORT</td><td></td><td>02/02/2020 6:30 PM EST</td><td></td><td></td> 02/02/2020 06:30:03 PM [facility] EKG 12-LEAD <td>EKG 12-LEAD</td><td>Rout ine</td><td>02/02/2020 6:30 PM EST</td><td></td><td></td> 02/02/2020 06:30:03 PM [facility] EKG 12-LEAD <td>EKG 12-LEAD</td><td>Rout ine</td><td>02/02/2020 6:30 PM EST</td><td></td><td> </td> 02/02/2020 06:30:03 PM [facility] RESPIRATORY PATHOGEN PANEL <td>RESPIRATORY PATHOGEN PANEL</td><td>Routine</td><td>02/02/2020 1:03 PM EST</td><td></td><td> </td> 02/02/2020 01:03:00 PM [facility] COVID-19 PCR <td>COVID-19 PCR</td><td>Rou moon</td><td>02/02/2020 12:14 PM EST</td><td></td><td> </td> 02/02/2020 12:14:00 PM [facility] AOT Evaluation 02/02/2020 12:00:00 AM EST - 02/02/2020 12:00:00 AM EST [facility] ([facility]) RESPIRATORY PATHOGEN PANEL <td>RESPIRATORY PATHOGEN PANEL</td><td>Routine</td><td>01/31/2020 3:01 PM EDT</td><td></td><td> </td> 01/31/2020 03:01:00 PM EDT [facility] COVID-19 PCR <td>COVID-19 PCR</td><td>Rou moon</td><td>01/31/2020 3:01 PM EDT</td><td></td><td> </td> 01/31/2020 03:01:00 PM EDT [facility] AOT Evaluation 01/29/2020 12:00:00 AM EDT [facility] ([facility]) Group Home - Case Management 01/15/2020 12:00: 00 AM EDT - 01/15/2020 12:00:00 AM EDT [facility] ([facility]) Group Home - Case Management 01/15/2020 12:00:00 AM EDT [facility] ([facility]) Brief Individual Psychotherapy - 30 min 01/15/2020 12:00:00 AM EDT - 01/15/2020 12:00:00 AM EDT [facility] ([facility]) Brief Individual Psychotherapy - 30 min 01/14/2020 12: 00:00 AM EDT [facility] ([facility]) Results ID Date Data Source [id number] 01/23/2021 12:00:00 AM EDT [facility] Name Value Range Interpretation Code Description Data Cathryn rce(s) Supporting Document(s) SARS-CoV2 Rapid Antigen [facility] This lab was ordered by [facility] and reported by [facility]. ID Date Data Source [id number] 12/03/2020 04:45:29 PM EDT [facility] Name Value Range Interpretation Code Description Data Cathryn rce(s) Supporting Document(s) Discharge Summary [facility] XQDRPt9cMnEYGrMt29/VDWinTLMis3MuMTliZIh2IJttPNOwA3EgEGV7pE8rFKY7MRpITqNtUlAqPJSg lbm [file] o2xY2uC+bzX/qXd/F2b38Zd6lFGBknm2T4Llp/20d2yO4L35lnMj9+Medical Sociologist/ccyInLCdf//TdTyd/dan6/3 [file] ICAgICAgICAgICAgICAgICAgICAgICAgICAgICAgICAgICAgICAgICAgICAgICAgICAgICAgICAgICAg ICAgICAgICAgICAgICAgICAgICAgDQogICAgICAgIC AgICAgICAgICAgICAgICAgICAgICAgICAgICAgICAgICAgICAgICAgICAgICAgICAgICAgICAgICAgIC AgICAgICAgICAgICAgICAgICAgICAgICAgICAgICAgDQogICAgICAgICAgICAgICAgICAgICAgICAgIC AgICAgICAgICAgICAgICAgICAgICAgICAgICAgICAg ICAgICAgICAgICAgICAgICAgICAgICAgICAgICAgICAgICAgICAgICAgDQogICAgICAgICAgICAgICAg ICAgICAgICAgICAgICAgICAgICAgICAgICAgICAgICAgICAgICAgICAgICAgICAgICAgICAgICAgICAg ICAgICAgICAgICAgICAgICAgICAgICAgDQogICAgIC AgICAgICAgICAgICAgICAgICAgICAgICAgICAgICAgICAgICAgICAgICAgICAgICAgICAgICAgICAgIC AgICAgICAgICAgICAgICAgICAgICAgICAgICAgICAgICAgDQogICAgICAgICAgICAgICAgICAgICAgIC AgICAgICAgICAgICAgICAgICAgICAgICAgICAgICAg ICAgICAgICAgICAgICAgICAgICAgICAgICAgICAgICAgICAgICAgICAgICAgDQogICAgICAgICAgICAg ICAgICAgICAgICAgICAgICAgICAgICAgICAgICAgICAgICAgICAgICAgICAgICAgICAgICAgICAgICAg ICAgICAgICAgICAgICAgICAgICAgICAgICAgDQogIC AgICAgICAgICAgICAgICAgICAgICAgICAgICAgICAgICAgICAgICAgICAgICAgICAgICAgICAgICAgIC AgICAgICAgICAgICAgICAgICAgICAgICAgICAgICAgICAgICAgDQogICAgICAgICAgICAgICAgICAgIC AgICAgICAgICAgICAgICAgICAgICAgICAgICAgICAg ICAgICAgICAgICAgICAgICAgICAgICAgICAgICAgICAgICAgICAgICAgICAgICAgDQogICAgICAgICAg ICAgICAgICAgICAgICAgICAgICAgICAgICAgICAgICAgICAgICAgICAgICAgICAgICAgICAgICAgICAg ICAgICAgICAgICAgICAgICAgICAgICAgICAgICAgDQ d8U3bbOSTtXYFdIG0jBZq6Jp8+XGsIMnQlZYX1xsZrpW2OAG8yw2HrTSdbGBBlt1WvFOn8WV9JVIPkIF tpNA5RAXelbx9IIXIoCLVznYVUk6jxPxPcFJH0LPQpVeyuDM2TBYYgF9gyzaNxUQGgXHTPLVfgJBCURV spFBRCETSzWPTpGwGqHhOsFJZbVQMgZKMCLTO3BAWx HvSdMUDdJOOqWhAvFUZLMJ2IKzGoU5SnzD36ILiTQn9+BBbsidOuLkpQLtG8GHItm2XrNJl3MO6UBAOb Botbl7MlALNmJQMCMNtcBK0KFXJ6QVSoJOOqIf4WXQRiE845ucByXB6KJv9SKsHrIV7bxc7HNFGaTXKh PzbZBno5JMvdCN0UlBEsKBwRjYWvhDRhO2LpO6TpvZ TzrQIvkUQGa6XmLP9kOGJMBKshI48vhlvfFARzKYNhRI2bNaHnStSfRCr9QheaSP4fKJtaPY0BVXW9DM boRKGlFZZwN7sFFkChXXXiZMTvdLkyLM0NMtCfK4PqokRpyWP5EQOkSARJKx2+DQplbmRvYmoNCjUxID Yzz1PlAMf1MQ9TQJSyNQqnXR7SOPLonM6gQJwqXE9O GeK6BrGwDNPCSyZbL30tqAEgQVe9H4PrKwQvGSGzFpfeHPMzNFevQiNrONAbUbCzHXlfDD4+ID4+DQog YV8DPKnfskPvBYJfDi7NTAHbHQGaVA4sXKUqVSGcQ5Y7zGvkMNFWDbKtO2ustkkvOQ2yLTJjH465hIwy rsWvFZK9MRCvDl3MRKQeRPV8YJKrpLJzLTniQGEVWH ymDR6OkLGrHQI8kT7ePRkpGYBaWTAjS2sBVxYpoIbgWS84eAbtvmCauOUlEAo+Sw0QNH9ql9AiDAw1mo DrIKwdSIXnZZslQVTyQESmQTTyBGP5LYF9RJWOYcHfTMDzNSXdALxcBFUhXSRtyu4OMWNqKCX9CAUpQQ QcRRFnZDOrUJtgOLNgGCXmLRi4OQKgWGHaBQ6PDiGg HXYyUROmZJjfMEGiCPEyau3DNNLbCSEtSEE9SEXmBLMxFKVvYLbhRIDtYMK2Zpx5PDNsROVfQN1RUeNz UZAcVBonTaFbHJAwHZQdab2BLHRdUBXxZXJ6WjGzZMEjIEMcIYtcMREdILZrGJsoRRPuXBRnEL3ZOzWh ZSZeADSzFTZgAWTuQZBtsd4SBADxGBYpDdv8FTJiQQ XfQZZqYSmiPBJmATK3LPB4HOWzERCkNB9CTyUnTKEsStIvYKhvPMNdSDXbkb4JKNYaZTVlDMUyRzKjMZ CkZFKfVLzdEGQeFGZqDRi9MUYfQCCpME5XRoXdWZZhVeYwNGQtJFKuVRTolz4LEVQlPNEzQsM0MmZuQF ZzUXVoLJghQZVjQWH3EEQvCRSvCAVfOS3MKiZcGDGm OxGbEgKiVXMeSQVbyv3GHJJwQSLwGVA1JkFuUWNsSXDuWOaaKLVyUZBtZCFtDMAfVCCnRK5RKhQpBOKn NlB6TNYgZYPqEPZttu5UTHEyKKHxGHKyNpWkFRGhFABdNQuqVYWyLHL4JLXyXPWvGJOpHT3KGfPtOLKt YvD1QGMmHPTwTIMebr6MNTMzUJBqKBz1WJEvFYKrHW DwPXbyAJUwBXP1BAS9AAWcCWSmST3IJbFqSXVmApFbMCPhQXCxFOMhez4LOVAqKKVtBtLzDQQvSKDoYO LdEZkqTGIqFBC2WPBdHZIjHUVhTJ2ZRgPxYJCgMsl0HVXkGGFyJVNbag9RAEMhOGO3ZQN9PPPwJHXcOY GvQCaaFEKnTAU7Ora1METiWUGzXC2IYzDqLZEgKZe5 GLktRGYsWHLtii6EADXwOFZ4QYvuUdIcKLKuKTUxOSiaLSIcEOW1OLplOTVgABRbXY3THcNgUCVdHQY7 RsLuMDJqWKDkku7GHHQtMJJ8NFPrDTCvSPIyZVKkAHhtYNTmZFXqEtwdCRQuTJAdTZ0OPcEzGJFgFADc LNgxWBKfCYJvwp9OEQKhQJO9FyD5PYXnMIKaGCFcUX dtWPUvFKM4Pqp9CNAqWJJeFY4RMoHmIYSvTFM5CWezSOUuYINwho8JEJZpBBE4QcJ6TCMmHHNlDIVdKA uaIBFgZCK9ODG8SXDpXISgCU1WPvGcFJSwYYbwSMHqMDVqBNHebr0DYUReZQB9GOX2XkDjLTUqCYXfST dlQHEoSCW9ADT4TSAxOREhNX7UYzMwGARbFtPhFPJv EPKnWVCsnx7SXHVjDUD8OOLqKWEvVMLiBDCjOTvnOZDkFTLhLFX0ZHIzNQGwIU2FHnNtGDoaGSIBJuo6 GQysR2d0URD6Ph3HS3Lpf7JdRJCfUNBTBHdkJA6smwVxKNZmMp0RK1aLApl8RFLoGZDfFJO6RKY7MCKf MVMtEZVrBXceMeycIZqlKR4oCRw3GSRxYWWnIFUyHg s9LtCuCKVrHXW2UbA4GSC8KNCcHqAvSQ1CQh8VMzM9RFL2vYSwYp8GBiZ8QKsPQzAcGS2FHUs= ID Date Data Source [id number] 11/29/2020 04:30:20 PM EDT [facility] Name Value Range Interpretation Code Description Data Cathryn rce(s) Supporting Document(s) History and Physical [facility] BTFVNs9cFlLHMcKn79/NBDurYBSst1YxBEesUBt4MKefNUEsB5WyIAJ0nX5kEPN7JTgVXsVqLkKkBHFd lbm [file] q+Diversity Intern+4qyJ6K0/OKk6Rrnn9P4TTV9tK0v6KQTRlFSkK7jjEX0yuCyHnzDQiiCiycVIfrME0KUn1QcGI/Z [file] AgICAgICAgICAgICAgICAgICAgICAgICAgICAgICAgICAgICAgICAgICAgICAgICAgICAgICAgICAgIC AgICAgICAgICAgICANCiAgICAgICAgICAgICAgICAg ICAgICAgICAgICAgICAgICAgICAgICAgICAgICAgICAgICAgICAgICAgICAgICAgICAgICAgICAgICAg ICAgICAgICAgICAgICAgICAgICAgICANCiAgICAgICAgICAgICAgICAgICAgICAgICAgICAgICAgICAg ICAgICAgICAgICAgICAgICAgICAgICAgICAgICAgIC AgICAgICAgICAgICAgICAgICAgICAgICAgICAgICAgICANCiAgICAgICAgICAgICAgICAgICAgICAgIC AgICAgICAgICAgICAgICAgICAgICAgICAgICAgICAgICAgICAgICAgICAgICAgICAgICAgICAgICAgIC AgICAgICAgICAgICAgICANCiAgICAgICAgICAgICAg ICAgICAgICAgICAgICAgICAgICAgICAgICAgICAgICAgICAgICAgICAgICAgICAgICAgICAgICAgICAg ICAgICAgICAgICAgICAgICAgICAgICAgICANCiAgICAgICAgICAgICAgICAgICAgICAgICAgICAgICAg ICAgICAgICAgICAgICAgICAgICAgICAgICAgICAgIC AgICAgICAgICAgICAgICAgICAgICAgICAgICAgICAgICAgICANCiAgICAgICAgICAgICAgICAgICAgIC AgICAgICAgICAgICAgICAgICAgICAgICAgICAgICAgICAgICAgICAgICAgICAgICAgICAgICAgICAgIC AgICAgICAgICAgICAgICAgICANCiAgICAgICAgICAg ICAgICAgICAgICAgICAgICAgICAgICAgICAgICAgICAgICAgICAgICAgICAgICAgICAgICAgICAgICAg ICAgICAgICAgICAgICAgICAgICAgICAgICAgICANCiAgICAgICAgICAgICAgICAgICAgICAgICAgICAg ICAgICAgICAgICAgICAgICAgICAgICAgICAgICAgIC AgICAgICAgICAgICAgICAgICAgICAgICAgICAgICAgICAgICAgICANCiAgICAgICAgICAgICAgICAgIC AgICAgICAgICAgICAgICAgICAgICAgICAgICAgICAgICAgICAgICAgICAgICAgICAgICAgICAgICAgIC AgICAgICAgICAgICAgICAgICAgICANCjw/uNIdN9sk rUNyhbW4I7jgVv6DWi4ZPJ1ud1TvDTVdUQlkrzYeQbkJJsPoDHXeFidQIms1HLtrPV1NnSRfU3DdE9Fk NQscSY2UWUDbAXEggUYqDPIfWLFzYtO2RXXkICwjDH2QdYBvRUflRVAsIZOrCxKoNYFaXWCdNGVsDHXn XHOJCYBkXHVwOoGzFVEjQHOyGWoyCBJKPC4HIfUzU3 WkvW88OTlFQb6+JEwzwtIdGevJKkBqOJYpf8CmWYe6GQ7CZHZmCdehb5DgLUPuYROYJMgiNW1PURK8NS X7GWQyUf0NGADsF512dpGsYI6BFa5GYzNnJY9jnx5VQLXrIZSaHmeDDxx7MWyzMB2MvSNuNOqJXnZlCl wjUzOcQBLdHsAObBedFYX1UOOGGZHpgGO7TlO5SfIn AxPdUYL3GfggSC2lGNikNB3PMTP8DTqtTTHpMUCnJ0dIUzFoVSHpGgXyzCacUQ9RCaBrE4RqthGhsQO5 MyAwIFINCj4+NYjxvaLnByaUOqH2UZDil6TpFYr9HD2GZZWvIGzkBQ4EGYEjtV6rAEchFU0AHwD5MHNr ZFBEMgEwD38npOVoWMo4N5FkQnOdNVQrXxovTOJwSK wvTmFtZXMgWyBdDQogID4+ID4+BNgeBX4DBFdxclWjCRBfQf4XCLUoCJZdOF9xWCJkKPBbS2I2kJkfBX DBJpSzG2efaogxAK2hUWOiJ647eJkxbfEmWNSdWSTgSd3MJPCbWZH9AXRquEOzJLOmRJTVCXocSR8AwS ChCOC0bI2wIKmxXVEqHTTnP0dKUjHqvYfqCC00uGzh bnVsbCBdDQo+Di2YLB9ns4OuWZw6khTbMCfgTAL6CSmsVPWaWBUfNMJgLLP9CNE5RIIAIlHqEXIwYZCu FKreDCUlCUUdzw5UHXTsXVXxQyAcVHMiTAJlWQIzUSntPKDpYNO5EyCqXMGfWUGjJU4YZmMtDTEtIRGw AWjjWXMzLCIyzq1ZZHBeNZIiHxh0JcVjFQMmGLDdLH gpTIRnQMF0LJT8KRZiHEXtRY0RKtIzMKEuOYT1WOOrRTRqZPColp8NBDXaPUGpWhR4VVAtRZIeGAPmFE smGVOrPCNbHwudFSHeLBBzHE5TOfElMXXnSAH9OeWvPZAkUVBafh6IBIGcJVNzBuy7VSArRUSpEPAuKK uxBBRaSRN8YHA0CIEgQCTtPC7WRuJxQXNsNXk8LZPy BNMfBFFceb9GJDOmASCjPzh8SlJsVCNgTKApELbkCCNtXCVtBmh4FQFpLUKsLX9QVlLeFYChBaM7UTVx CXIfEHAojz8GCCBaNEGiTvY3BoCgKHNtSELdTDevNNSrLVUyDiT5GRWuYLNwCN2MCqKqGJAiUlPwSQeb AJTfUXOjif0RVWJoYYQeGHOoHCCgRMTvCVDrYMzsKG FsPVD2Rct4KHNdHTLaFP1UDaQoLJXjIiT0YGupCXXgPXUmot6ZXUHgFAWcDJo3HNKzQYAcHNQkCWrjTX MdVGV0QUV9UCPaLAHwNT5EMkEjRSZaDdkmVTanLJJbTLHbze7CNRYyJKHjFfFdOJReNMGmAVUmSZohGY HzPZY4Vxn0HXGsEMNxGP3TTaDeBYQoRdHgVVEyRDWy MKPbsr8TBRGaLRMtPpX0KKRoHSNbVSPfOAtkLQKuESAaBhejFQQzCZQzJV7RAmVlIUMeCcOrOmffRBYh KXMbnn5LPVIlLHKvUqK7WHXrNFKrQEMsZJvmMGShWHUxKioeCHKvEJUzDJ0GZjBbIDZfKsQ5JvPmMTUz KBOkyp1JNUZcPAAtTaj9OVKzEQGlEFLhEOyrBQKbNE E0IzDiOQGcFVDpEW7RLbVoWEUjLnS0ULQxDHEkXEKwfw0UZJZzRJMvXAE3LBBmJZJwGUOrFKgdICUyMI W6AKHvZNPpUJChVG4GAlYhYLFoSzEpIdIcGBBbUFPfrt0YDVDjGUYsNzPwZeOtPGHmPZIeGTuwRTZzKT M6VDghGRLwFCTyFH9IFwFgMURdFwfnWMEqMKFvIGMx lz0GOWAhYVOkUCCrMWNxYMChVMImYVfgENKtNXY7FYTkQDZeFFPbHK8HVsRmKDthULYLHdm9APrpV9w9 MLC3Oo9ES6Ivi8WcBYXuRBDMIYsrCM3qwjQwWTPaVm7OJ8cGBukoDsR6Z2I7DYNlWqdvI5NaXEPyKgT2 QHUqBghcYuPrBK6iBVZkPmLiJgjpVKRsW4O5OwK1Cs ViDkN2YRMiOZZmUgKuGcVySB3IOt4FAiE1GGW7qYKyRj1IKrs4GYSTLqKmTR6BLPr= ID Date Data Source [id number] 11/29/2020 12:08:09 PM EDT [facility] Name Value Range Interpretation Code Description Data Cathryn rce(s) Supporting Document(s) Consultation [facility] XEITMa5ePuABJdUj30/VIYmrJSZgx0EwLIniZUi1UJugWUZpF6WlWVA5fI9dDVC1ORfDEnUcAzBdDFIh lbm [file] pxeUfJ6hyVt9lN1GZtXxzUIGVGOm4qiTZKIsZG6i5CMpQCZN96OwstpBGbz2SQad9URzLHzrGchD+Journal[employer] Other Writers VXn4qGpC7HYQ2XghV05jCITm87t9UCvMTIFioiJggX XxCEpS7JfY88vn8j/1g1FcSFybrrPouUXlPS2EHdEjFF3lcb6WCxXyDG1nbu5LCWH2FO8GWYNaMH7FwM ZhV9HeU6HUIaDhPJCbEZOaIB48FORzZBYWSDrrIIGnD3Jbq504lhJqkyOfNMDgJz2LLDCgCZ8LOKOoQV CnsSDjWZLeEBObWtS6BVTyOEnrBLKrA6JoqcPfgmSb OURmBXYBXSqcQSIxY2mya8PxZKz4TT4DVX6GlfTsp2KsnvRqJ6blV1IZXV4TNOYrY0KWX1CvO6tsIvEb r9QeG4wjXwHka6PwPs0MZdCiEz6VYwVdPF2tvp2XYSUhDG8bib6YNYF6BI3GgQb2YUSwI4LfXOKjAJQz d5YsRF2RUO7tcSpuKeXqLB7+PCxgQUG6azWakX5SKD DrRG9Q77dC/l6g/5HfihRXPJCzjOBFMtzI3pqKQragFTBX4u/kayuSb3G9ezpe15bXgiMSO9GvnLijeE ISLFSaqkfnn4nfcKclHO/98z/vRMa+19qX633MjFGz4j906r27zdOe4HXxv6KH/mnS89vCLrjsY56123 8+R30a74jb2n75Iqjs/rg4qT9FhY5Gs4cAtvuxw1HP 9dWq+a+MSm0Ozp8+0T49kZlCT69zc9M9/TUUHzP/ceSd/kQ19wM4b3p64DICe6u5bijSOpt/tm2LF0yN 6pv7D1JI0wtwoHl73d6mD9AEvSG58qwavTL/vPOR9+QaayHTUuMylQ1Lj2RoPoLeofUZZvPW2XVt0lUo cF7hfnOENUQMQiEH7Trctd9O3pZTQYTMdnXRL7MTIE [file] MDAwMDAzMzAyOSAwMDAwMCBuDQowMDAwMDMzMzYwID ToAIXzXQ3PGxTuJMOuHtP9YdedUHErFFQgry7SPXYnBWXaPigyNlNmTPSiURFaWLljSJGkXSAvVWpjSA NjUMEaYR5RGeFzMRZqLaOxAhLgUKNiQWTnui3HHAJrFYQrKCy9INHpDNLnLKRiVKjqJOToETZ8SAE3QM BqKJEvKS0ECgZvCGNnIhUzPajnEJInKOUgdo1CbOXf jGkmeb4SEYlPFo5AuVpbULErPXuyQb3xlAHtKJPqZEIQXo5OvwFfDCCsMGLJDNtmWDDiPAKaWeYpRcDb WaK9RMWhLoUxRDAbUoe8ROXgSgE3P4TdVkB9M5TlPTSbFKUzSEi7FcKyMSO2AoFbDKvcXuZiPYD3TXJ+ HV7yIKz+Ma4Vg3MrziF2xqAkSBabZtYpDT9UFBPNU5EEHh== ID Date Data Source [id number] 11/29/2020 11:29:53 AM [facility] Name Value Range Interpretation Code Description Data Cathryn rce(s) Supporting Document(s) Cholesterol [Mass/volume] in Serum or Plasma 115 mg/dL <200 [facility] Triglyceride [Mass/volume] in Serum or Plasma 94 mg/dL <150 [facility] Cholesterol in HDL [Mass/volume] in Serum or Plasma 39 mg/dL >40 L [facility] Cholesterol in LDL [Mass/volume] in Serum or Plasma by calcu lation 57 mg/dL <100 [facility] Cholesterol in VLDL [Mass/volume] in Serum or Plasma by calc ulation 19 mg/dl 16-42 [facility] Cholesterol non HDL [Mass/volume] in Serum or Plasma 76 mg/dL <130 [facility] ID Date Data Source [id number] 11/29/2020 11:27:50 AM [facility] Value Range Interpretation Code Description Data Cathryn rce(s) Supporting Document(s) HIV 1+2 Ab+HIV1 p24 Ag [Presence] in Serum or Plasma by Immu noassay Non Reactive [facility] Negative for HIV-1 p24 antigenand HIV-1/ HIV-2 antibodies. Nolaboratory evidence of HIVinfection. ID Date Data Source [id number] 11/29/2020 11:17:43 AM [facility] Value Range Interpretation Code Description Data Cathryn rce(s) Supporting Document(s) Hemoglobin A1c/Hemoglobin.total in Blood by HPLC 4.9 % 4.0-6.0 [facility] (NOTE)<5.7% Average risk of diabetes (ADA)5.7-6.4% Increased risk of diabetes(ADA)>/= 6.5% Diagnostic for diabetes(ADA) Glucose mean value [Mass/volume] in Blood Estimated fr om glycated hemoglobin 94 mg/dL <126 [facility] ID Date Data Source [id number] 11/29/2020 11:40:23 AM [facility] Value Range Interpretation Code Description Data Cathryn rce(s) Supporting Document(s) [place] [Moles/volume] in Serum or Plasma 0.60-1.20 L [facility] ID Date Data Source [id number] 11/29/2020 11:36:13 AM EDT [facility] Name Value Range Interpretation Code Description Data Cathryn rce(s) Supporting Document(s) Hepatitis C virus Ab [Presence] in Serum or Plasma by Immuno assay Non Reactive A [facility] Past or current Hepatitis C infection. S roselia forwarded to reference laboratory for quantitative HCV RNA testing. ID Date Data Source [id number] 11/27/2020 01:53:00 PM EDT [facility] ([facility]) Name Value Range Interpretation Code Description Data Cathryn rce(s) Supporting Document(s) influenza B amplification negative negative Influenza B Amplification [place] ([facility]) influenza A amplification negative negative Influenza a Amplification [place] ([facility]) sars covid-19 amplification negative negative Sars Cov id-19 Amplification [facility]) RSV amplification negative negative RSV Amplification [facility]) ID Date Data Source [id number] 11/27/2020 01:53:00 PM EDT [facility] Name Value Range Interpretation Code Description Data Cathryn rce(s) Supporting Document(s) SARS coronavirus 2 RNA [Presence] in Res piratory specimen by ALLAN with probe detection NEGATIVE [facility] This lab was ordered by [facility] a nd reported by [facility]. ID Date Data Source [id number] 11/27/2020 08:53:00 AM EDT [facility]) Name Value Range Interpretation Code Description Data Cathryn rce(s) Supporting Document(s) lithium level < 0.20 0.60-1.20 Below low normal [place] Level AT [facility] ([facility]) ID Date Data Source [id number] 11/11/2020 12:00:00 AM EDT [facility] Name Value Range Interpretation Code Description Data Cathryn rce(s) Supporting Document(s) SARS-CoV2 Rapid Antigen Negative [facility] This lab was reported by [facility]. ID Date Data Source [id number] 05/06/2020 05:00:00 AM EST [facility] ([facility]) Name Value Range Interpretation Code Description Data Cathryn rce(s) Supporting Document(s) UREA NITROGEN (BUN) 9.0 mg/dL [facility] ( [facility]) Glucose [Mass/volume] in Urine collected for unspecified duratio n 62.0 mg/dL [facility] ([facility]) SPECIMEN INTEGRITY COMPROMISED [facility] ([facility]) eGFR NON-AFR. DUTCH 119.0 mL/min/1.73m2 [facility] ([facility]) eGFR PIPO 138.0 mL/min/1.73m2 [facility] ([facility]) Creatinine [Interpretation] in Urine 0.78 mg/dL [facility] ([facility]) BUN/CREATININE RATIO NOT APPLICABLE [facility] ([facility]) Sodium [Moles/volume] in Serum, Plasma or Blood 143.0 mmol/L [facility] ([facility]) Potassium [Mass/volume] in Blood 5.1 mmol/L [facility] ([facility]) Chloride [Moles/volume] in Serum, Plasma or Blood 108.0 mmol/L [facility] ([facility]) Carbon dioxide [VFr/PPres] in Gas delivery system 25.0 mmol/L [facility] ([facility]) PROTEIN, TOTAL 7.1 g/dL [facility] ([facility]) Calcium [Moles/volume] in Urine collected for unspecified durati on 9.2 mg/dL [facility] ([facility]) Microalbumin [Mass/time] in Urine collected for unspecified dura tion 4.2 g/dL [facility] ([facility]) Globulin [Mass/time] in 24 hour Urine 2.9 g/dL (calc) [facility] ([facility]) ALBUMIN/GLOBULIN RATIO 1.4 (calc) [facility] ([facility]) Alkaline phosphatase [Enzymatic activity/volume] in Se rum, [...] collected for unspecified duration N EGATIVE [facility] ([facility]) Specific gravity of Pericardial fluid by Refractometry 1.019 [facility] ([facility]) pH of Lower respiratory specimen 6.0 [facility] ([facility]) OCCULT BLOOD NEGATIVE [facility] Bilirubin [Presence] in Peritoneal fluid NEGATIVE [facility] ([facility]) Ketones [Presence] in Blood by Tablet NEGATIVE [facility] ([facility]) Protein [Mass/volume] in Lower respiratory specimen NEGATIVE [facility] ([facility]) Leukocyte esterase [Presence] in Body fluid by Automated test st rip NEGATIVE [facility] ([facility]) Nitrite [Presence] in Urine by Test strip NEGATIVE [facility] ([facility]) RBC 0-2 [facility] ([facility]) WBC NONE SEEN [facility] ([facility]) SQUAMOUS EPITHELIAL CELLS NONE SEEN [facility] ([facility]) TRANSITIONAL EPITHELIAL CELLS DNR [facility] ([facility]) Bacteria [Presence] in Prostatic fluid by Light microscopy NONE SEEN [facility] ([facility]) RENAL EPITHELIAL CELLS DNR [facility] T ([facility]) Calcium oxalate crystals [Presence] in Urine sediment by Light m icroscopy DNR [facility] ([facility]) Triple phosphate crystals [Presence] in Urine sediment by Li ght microscopy DNR [facility] ([facility]) URIC ACID CRYSTALS DNR [facility]) Amorphous sediment [Presence] in Urine sediment by Light microscopy D NR [facility] ([facility]) GRANULAR CAST DNR [facility] ([facility]) HYALINE CAST NONE SEEN [facility] Crystals [#/area] in Body fluid by Light microscopy DNR [facility] ([facility]) Casts [#/area] in Urine sediment by Automated count DNR [facility] ([facility]) Yeast [#/area] in Urine by Automated count DNR [facility] ([facility]) COMMENTS DNR [facility] ([facility] ) Nurse Note DNR [facility] ([facility]) RED BLOOD CELL COUNT 5.75 Million/uL [facility] ([facility]) Structure of plantar digital artery (body structure) 8.6 Thousand/uL [facility] ([facility]) Hematocrit [Pure volume fraction] of Blood by Automated count 47.6 % [facility] ([facility]) Hemoglobin [Mass/volume] in Mixed venous blood by Oximetry 16.3 g/dL [facility] ([facility]) MCV 82.8 fL [facility] ([facility] ) MCH 28.3 pg [facility] ([facility] ) RDW 13.3 % [facility] ([facility] ) PLATELET COUNT 227.0 Thousand/uL [facility] ([facility] [...] Body fluid by Manual count DNR [facility] ([facility]) SIGNAL TO CUT-OFF 19.8 [facility] ([facility]) COMMENT(S) [facility] HEPATITIS C ANTIBODY REACTIVE [facility] ([facility]) Methamphetamine [Mass/mass] in Hair DNR [facility] ([facility]) Amphetamine [Mass/mass] in Hair by Confirmatory method DNR [facility] ([facility]) Amphetamines [Presence] in Stool TNP [facility] ([facility]) Confirmation Testing Performed at: DNR [facility] ([facility]) Benzodiazepines [Presence] in Serum or Plasma by Screen method > 200 ng/mL TNP [facility] ([facility]) Alphahydroxyalprazolam DNR [facility] ([facility]) Alphahydroxytriazolam DNR [facility] ([facility]) Aminoclonazepam DNR [facility] ([facility]) Alphahydroxymidazolam DNR [facility] ([facility]) Lorazepam [Moles/volume] in Unspecified specimen DNR [facility] ([facility]) Hydroxyethylflurazepam [Mass/mass] in Tissue by Confirmatory method D NR [facility] ([facility]) Nordiazepam [Moles/volume] in Unspecified specimen DNR [facility] ([facility]) Confirmation Testing Performed at: DNR [facility] ([facility]) Temazepam [Moles/volume] in Unspecified specimen DNR [facility] ([facility]) Oxazepam [Moles/volume] in Unspecified specimen DNR [facility] ([facility]) Comment [Interpretation] Left eye Narrative Ophthalmometer [facility] ([facility]) Buprenorphine [Presence] in Blood by Screen method TNP [facility] ([facility]) Buprenorphine [Presence] in Blood by Screen method DNR [facility] ([facility]) Comment [Interpretation] Left eye Narrative Ophthalmometer [facility] ([facility]) Norbuprenorphine [Mass/mass] in Meconium by Confirmatory method DNR [facility] ([facility]) Confirmation Testing Performed at: DNR [facility] ([facility]) Benzoylecgonine [Moles/volume] in Unspecified specimen DNR [facility] ([facility]) Confirmation Testing Performed at: DNR [facility] ([facility]) Cocaine Metabolite TNP [facility] () Comment [Interpretation] Left eye Narrative Ophthalmometer [facility] ([facility]) Marijuana Metabolite DNR [facility] ([facility]) Marijuana Metabolite 20 TNP [facility] ([facility]) Comment [Interpretation] Left eye Narrative Ophthalmometer [facility] ([facility]) Confirmation Testing Performed at: DNR [facility] ([facility]) Codeine [Presence] in Saliva (oral fluid) by Confirmatory method DNR [facility] ([facility]) Opiates [Presence] in Unknown substance by Confirmatory method TNP [facility] ([facility]) Morphine [Mass/mass] in Hair DNR N [facility] ([facility]) Hydromorphone [Presence] in Saliva (oral fluid) by Confirmatory met hod DNR [facility] ([facility]) Hydrocodone [Z-score] in Urine DNR [facility] ([facility]) Comment [Interpretation] Left eye Narrative Ophthalmometer [facility] ([facility]) Confirmation Testing Performed at: DNR [facility] ([facility]) Norhydrocodone [Presence] in Saliva (oral fluid) by Confirmatory me thod DNR [facility] ([facility]) Noroxycodone [Mass/volume] in Saliva (oral fluid) by Confirmator y method DNR [facility] ([facility]) Oxycodone [Mass/volume] in Serum, Plasma or Blood by Confirmator y method DNR [facility] ([facility]) Oxycodone [Mass/volume] in Serum, Plasma or Blood by Confirmator y method TNP [facility] ([facility]) Comment [Interpretation] Left eye Narrative Ophthalmometer [facility] ([facility]) Oxymorphone [Z-score] in Urine DNR [facility] ([facility]) Confirmation Testing Performed at: DNR [facility] ([facility]) Comment [Interpretation] Left eye Narrative Ophthalmometer [facility] ([facility]) Methadone Metabolite TNP [facility] ([facility]) HCV RNA, QUANTITATIVE REAL TIME [facility] ([facility]) RPR (DX) W/REFL TITER AND CONFIRMATORY TESTING NON-REACTIVE [facility] ([facility]) Enhanced PDF Report [id number] [facility] ([facility]) HCV RNA, QUANTITATIVE REAL TI [facility] ([facility]) HCV RNA, QUANTITATIVE REAL TIME [facility] ([facility]) HCV RNA, QUANTITATIVE REAL TI [facility] ([facility]) HCV RNA, QUANTITATIVE REAL TI <1.18 NOT DETECTED [facility] ([facility]) HCV RNA, QUANTITATIVE REAL TIME <15 NOT DETECTED [facility] ([facility]) Comment [Interpretation] Left eye Narrative Ophthalmometer [facility] ([facility]) ID Date Data Source [id number] 05/09/2020 06:24:00 AM EST [facility] Received: 05/07/2020 at 04:14:00 QPT : [facility], [address], [address] [place] [address], [phone], Nicholas Mullins MD Received: 05/07/2020 at 04:14:00 QPT : [facility], [address], [address] [place] [address], [phone], Nicholas Mullins MD Received: 05/07/2020 at 04:14:00 QPT : [facility], [address], [address] [place] [address], [phone], Nicholas Mullins MD Received: 05/07/2020 at 04:14:00 QPT : [facility], [address], [address] [place] [address], [phone], Nicholas Mullins MD Received: 05/07/2020 at 04:14:00 QPT : [facility], [address], [address] [place] [address], [phone] MD Received: 05/07/2020 at 04:14:00 QPT : [facility], [address], [address] [place] [address], [phone] MD Received: 05/07/2020 at 04:14:00 QPT : [facility], [address], [address] [place] [address], [phone] MD Received: 05/07/2020 at 04:14:00 QPT : [facility], [address], [address] [place], [address], Nicholas Mlulins MD Received: 05/07/2020 at 04:14:00 QPT : [facility], [address], [address] [place], [address], Nicholas Mullins MD Received: 05/07/2020 at 04:14:00 QPT : [facility], [address], [address] [place], [address], Nicholas Mullins MD Received: 05/07/2020 at 04:14:00 QPT : [facility], [address], [address] [place] [address], [phone], Nicholas Mullins MD Received: 05/07/2020 at 04:14:00 QPT : [facility], [address], [address] [place], [address], Nicholas Mullins MD Received: 05/07/2020 at 04:14:00 QPT : [facility], [address], [address] [place] [address], [phone], Nicholas Mullins MD Received: 05/07/2020 at 04:14:00 QPT : [facility], [address], [address] [place], [address], Nicholas Mullins MD Received: 05/07/2020 at 04:14:00 QPT : [facility], [address], [address] [place], [phone], Nicholas Mullins MD Name Value Range Interpretation Code Description Data Cathryn rce(s) Supporting Document(s) SPECIMEN INTEGRITY COMPROMISED [facility] Whole blood, unspun or partially spun [employer] l barrier tubewas received more than 6 hours since collection. Afalse elevation of K, Phos and LD as well as a falsedecrease in glucose may occur due to prolonged contactwith red cells. ID Date Data Source [id number] 05/09/2020 06:24:00 AM EST [facility] Received: 05/07/2020 at 04:14:00 QPT : [facility], [address], [address] [place] [address], [phone], Nicholas Mullins MD Received: 05/07/2020 at 04:14:00 QPT : [facility], [address], [address] [place], [address], Nicholas Mullins MD Received: 05/07/2020 at 04:14:00 QPT : [facility], [address], [address] [place] [address], [phone], Nicholas Mullins MD Received: 05/07/2020 at 04:14:00 QPT : [facility], [address], [address] [place] [address], [phone], Nicholas Mullins MD Received: 05/07/2020 at 04:14:00 QPT : [facility], [address], [address] [place] [address], [phone], Nicholas Mullins MD Received: 05/07/2020 at 04:14:00 QPT : [facility], [address], [address] [place] [address], [phone], Nicholas Mullins MD Received: 05/07/2020 at 04:14:00 QPT : [facility], [address], [address] [place] [address], [phone], Nicholas Mullins MD Received: 05/07/2020 at 04:14:00 QPT : [facility], [address], [address] [place] [address], [phone] MD Received: 05/07/2020 at 04:14:00 QPT : [facility], [address], [address] [place] [address], [phone] MD Received: 05/07/2020 at 04:14:00 QPT : [facility], [address], [address] [place] [address], [phone] MD Received: 05/07/2020 at 04:14:00 QPT : [facility], [address], [address] [place], [address], Nicholas Mullins MD Received: 05/07/2020 at 04:14:00 QPT : [facility], [address], [address] [place], [phone] MD Received: 05/07/2020 at 04:14:00 QPT : [facility], [address], [address] [place], [address], Nicholas Mullins MD Received: 05/07/2020 at 04:14:00 QPT : [facility], [address], [address] [place], [address]Nicholas MD Received: 05/07/2020 at 04:14:00 QPT : [facility], [address], [address] [place], [address], Nicholas Mullins MD Name Value Range Interpretation [...] normal [facility] ID Date Data Source [id number] 05/09/2020 06:24:00 AM EST [facility] Received: 05/07/2020 at 04:14:00 QPT : [facility], [address], [address] [place], [address], Nicholas Mullins MD Received: 05/07/2020 at 04:14:00 QPT : [facility], [address], [address] [place] [address], [phone], Nicholas Mullins MD Received: 05/07/2020 at 04:14:00 QPT : [facility], [address], [address] [place] [address], [phone], Nicholas Mullins MD Received: 05/07/2020 at 04:14:00 QPT : [facility], [address], [address] [place] [address], [phone], Nicholas Mullins MD Received: 05/07/2020 at 04:14:00 QPT : [facility], [address], [address] [place] [address], [phone], Nicholas Mullins MD Received: 05/07/2020 at 04:14:00 QPT : [facility], [address], [address] [place] [address], [phone], Nicholas Mullins MD Received: 05/07/2020 at 04:14:00 QPT : [facility], [address], [address] [place] [address], [phone], Nicholas Mullins MD Received: 05/07/2020 at 04:14:00 QPT : [facility], [address], [address] [place] [address], [phone], Nicholas Mullins MD Received: 05/07/2020 at 04:14:00 QPT : [facility], [address], [address] [place] [address], [phone], Nicholas Mullins MD Received: 05/07/2020 at 04:14:00 QPT : [facility], [address], [address] [place] [address], [phone], Nicholas Mullins MD Received: 05/07/2020 at 04:14:00 QPT : [facility], [address], [address] [place], [address], Nicholas Mullins MD Received: 05/07/2020 at 04:14:00 QPT : [facility], [address], [address] [place], [address], Nicholas Mullins MD Received: 05/07/2020 at 04:14:00 QPT : [facility], [address], [address] [place], [address]Nicholas MD Received: 05/07/2020 at 04:14:00 QPT : [facility], [address], [address] [place], [address], Nicholas Mullins MD Received: 05/07/2020 at 04:14:00 QPT : [facility], [address], [address] [place], [address], Nicholas Mullins MD Name Value Range Interpretation [...] [facility] ID Date Data Source [id number] 05/09/2020 06:24:00 AM EST [facility] Received: 05/07/2020 at 04:14:00 QPT : [facility], [address], [address] [place] [address], [phone], Nicholas Mullins MD Received: 05/07/2020 at 04:14:00 QPT : [facility], [address], [address] [place] [address], [phone], Nicholas Mullins MD Received: 05/07/2020 at 04:14:00 QPT : [facility], [address], [address] [place] [address], [phone] MD Received: 05/07/2020 at 04:14:00 QPT : [facility], [address], [address] [place] [address], [phone] MD Received: 05/07/2020 at 04:14:00 QPT : [facility], [address], [address] [place] [address], [phone] MD Received: 05/07/2020 at 04:14:00 QPT : [facility], [address], [address] [place] [address], [phone], Nicholas Mullins MD Received: 05/07/2020 at 04:14:00 QPT : [facility], [address], [address] [place], [address], Nicholas Mullins MD Received: 05/07/2020 at 04:14:00 QPT : [facility], [address], [address] [place] [address], [phone], Nicholas Mullins MD Received: 05/07/2020 at 04:14:00 QPT : [facility], [address], [address] [place] [address], [phone], Nicholas Mullins MD Received: 05/07/2020 at 04:14:00 QPT : [facility], [address], [address] [place] [address], [phone], Nicholas Mullins MD Received: 05/07/2020 at 04:14:00 QPT : [facility], [address], [address] [place] [address], [phone], Nicholas Mullins MD Received: 05/07/2020 at 04:14:00 QPT : [facility], [address], [address] [place] [address], [phone], Nicholas Mullins MD Received: 05/07/2020 at 04:14:00 QPT : [facility], [address], [address] [place] [address], [phone] MD Received: 05/07/2020 at 04:14:00 QPT : [facility], [address], [address] [place] [address], [phone] MD Received: 05/07/2020 at 04:14:00 QPT : [facility], [address], [address] [place] [address], [phone], Nicholas Mullins MD Name Value Range Interpretation [...] in Blood by Automated count 5435 cells/uL [id number] Normal (applies to non-numeric results) [facility] [...] results) [facility] ID Date Data Source [id number] 05/09/2020 06:24:00 AM EST [facility] Received: 05/07/2020 at 04:14:00 QPT : [facility], [address], [address] [place] [address], [phone], Nicholas Mullins MD Received: 05/07/2020 at 04:14:00 QPT : [facility], [address], [address] [place] [address], [phone] MD Received: 05/07/2020 at 04:14:00 QPT : [facility], [address], [address] [place] [address], [phone] MD Received: 05/07/2020 at 04:14:00 QPT : [facility], [address], [address] [place] [address], [phone] MD Received: 05/07/2020 at 04:14:00 QPT : [facility], [address], [address] [place] [address], [phone] MD Received: 05/07/2020 at 04:14:00 QPT : [facility], [address], [address] [place] [address], [phone] MD Received: 05/07/2020 at 04:14:00 QPT : [facility], [address], [address] [place], [address], Nicholas Mullins MD Received: 05/07/2020 at 04:14:00 QPT : [facility], [address], [address] [place] [address], [phone], Nicholas Mullnis MD Received: 05/07/2020 at 04:14:00 QPT : [facility], [address], [address] [place] [address], [phone], Nicholas Mullins MD Received: 05/07/2020 at 04:14:00 QPT : [facility], [address], [address] [place] [address], [phone], Nicholas Mullins MD Received: 05/07/2020 at 04:14:00 QPT : [facility], [address], [address] [place] [address], [phone], Nicholas Mullins MD Received: 05/07/2020 at 04:14:00 QPT : [facility], [address], [address] [place] [address], [phone], Nicholas Mullins MD Received: 05/07/2020 at 04:14:00 QPT : [facility], [address], [address] [place] [address], [phone], Nicholas Mullins MD Received: 05/07/2020 at 04:14:00 QPT : [facility], [address], [address] [place] [address], [phone] MD Received: 05/07/2020 at 04:14:00 QPT : [facility], [address], [address] [place] [address], [phone] MD Name Value Range Interpretation Code Description [...] a current activeinfection. ID Date Data Source [id number] 05/09/2020 06:24:00 AM EST [facility] Received: 05/07/2020 at 04:14:00 QPT : [facility], [address], [address] [place] [address], [phone], Nicholas Mullins MD Received: 05/07/2020 at 04:14:00 QPT : [facility], [address], [address] [place] [address], [phone] MD Received: 05/07/2020 at 04:14:00 QPT : [facility], [address], [address] [place] [address], [phone] MD Received: 05/07/2020 at 04:14:00 QPT : [facility], [address], [address] [place] [address], [phone] MD Received: 05/07/2020 at 04:14:00 QPT : [facility], [address], [address] [place] [address], [phone] MD Received: 05/07/2020 at 04:14:00 QPT : [facility], [address], [address] [place] [address], [phone] MD Received: 05/07/2020 at 04:14:00 QPT : [facility], [address], [address] [place] [address], [phone] MD Received: 05/07/2020 at 04:14:00 QPT : [facility], [address], [address] [place], [address], Nicholas Mullins MD Received: 05/07/2020 at 04:14:00 QPT : [facility], [address], [address] [place], [address], Nicholas Mullins MD Received: 05/07/2020 at 04:14:00 QPT : [facility], [address], [address] [place], [address]Nicholas MD Received: 05/07/2020 at 04:14:00 QPT : [facility], [address], [address] [place] [address], [phone] MD Received: 05/07/2020 at 04:14:00 QPT : [facility], [address], [address] [place] [address], [phone] MD Received: 05/07/2020 at 04:14:00 QPT : [facility], [address], [address] [place] [address], [phone] MD Received: 05/07/2020 at 04:14:00 QPT : [facility], [address], [address] [place] [address], [phone] MD Received: 05/07/2020 at 04:14:00 QPT : [facility], [address], [address] [place] [address], [phone] MD Name Value Range Interpretation Code Description [...] be a biological false positive result. COMMENT [employer] This test was performed using Real-Time Polymerase ChainReaction.Reportable Range: 15 IU/mL to 100,000,000 IU/mL(1.18 Log IU/mL to 8.00 Log IU/mL).The analytical performance characteristics of thisassay have been determined by [employer].The modifications have not been cleared or approved bythe FDA. This assay has been validated pursuant to theCLIA regulations and is used for clinical purposes.For more information on this test, go to:http://education.[employer]/faq/QUS48c8(This link is being provided for informational/educational purposes only.)This assay is intended for use as an aid in thediagnosis of HCV infection and the management ofHCV infected patients undergoing anti-viral therapy. ID Date Data Source [id number] 05/09/2020 06:24:00 AM EST [employer] [facility] Received: 05/07/2020 at 04:14:00 QPT : [facility], [address], [address] [place] [address], [phone] MD Received: 05/07/2020 at 04:14:00 QPT : [facility], [address], [address] [place] [address], [phone] MD Received: 05/07/2020 at 04:14:00 QPT : [facility], [address], [address] [place] [address], [phone] MD Received: 05/07/2020 at 04:14:00 QPT : [facility], [address], [address] [place] [address], [phone] MD Received: 05/07/2020 at 04:14:00 QPT : [facility], [address], [address] [place], [address], Nicholas Mullins MD Received: 05/07/2020 at 04:14:00 QPT : [facility], [address], [address] [place], [address], Nicholas Mullins MD Received: 05/07/2020 at 04:14:00 QPT : [facility], [address], [address] [place], [address], Nicholas Mullins MD Received: 05/07/2020 at 04:14:00 QPT : [facility], [address], [address] [place] [address], [phone], Nicholas Mullins MD Received: 05/07/2020 at 04:14:00 QPT : [facility], [address], [address] [place] [address], [phone], Nicholas Mullins MD Received: 05/07/2020 at 04:14:00 QPT : [facility], [address], [address] [place] [address], [phone], Nicholas Mullins MD Received: 05/07/2020 at 04:14:00 QPT : [facility], [address], [address] [place] [address], [phone], Nicholas Mullins MD Received: 05/07/2020 at 04:14:00 QPT : [facility], [address], [address] [place] [address], [phone], Nicholas Mullins MD Received: 05/07/2020 at 04:14:00 QPT : [facility], [address], [address] [place] [address], [address], Nicholas Mullins MD Received: 05/07/2020 at 04:14:00 QPT : [facility], [address], [address] [place] [address], [phone], Nicholas Mullins MD Received: 05/07/2020 at 04:14:00 QPT : [facility], [address], [address] [place] [address], [phone], Nicholas Mullins MD Name Value Range Interpretation Code Description Data Cathryn rce(s) Supporting Document(s) Amphetamines [Presence] in Urine Normal (applie s to non-numeric results) [facility] UAT NOT ACCEPTABLE. PRESERVED URINE NOT ACCEPTABLETEST NOT PERFORMEDNo suitable specimen received. ID Date Data Source [id number] 05/09/2020 06:24:00 AM EST [facility] Received: 05/07/2020 at 04:14:00 QPT : [facility], [address], [address] [place] [address], [address], Nicholas Mullins MD Received: 05/07/2020 at 04:14:00 QPT : [facility], [address], [address] [place] [address], [phone], Nicholas Mullins MD Received: 05/07/2020 at 04:14:00 QPT : [facility], [address], [address] [place] [address], [phone] MD Received: 05/07/2020 at 04:14:00 QPT : [facility], [address], [address] [place] [address], [phone] MD Received: 05/07/2020 at 04:14:00 QPT : [facility], [address], [address] [place] [address], [phone] MD Received: 05/07/2020 at 04:14:00 QPT : [facility], [address], [address] [place] [address], [phone] MD Received: 05/07/2020 at 04:14:00 QPT : [facility], [address], [address] [place] [address], [phone] MD Received: 05/07/2020 at 04:14:00 QPT : [facility], [address], [address] [place], [address], Nicholas Mullins MD Received: 05/07/2020 at 04:14:00 QPT : [facility], [address], [address] [place], [address], Nicholas Mullins MD Received: 05/07/2020 at 04:14:00 QPT : [facility], [address], [address] [place] [address], [phone], Nicholas Mullins MD Received: 05/07/2020 at 04:14:00 QPT : [facility], [address], [address] [place] [address], [phone], Nicholas Mullins MD Received: 05/07/2020 at 04:14:00 QPT : [facility], [address], [address] [place] [address], [phone], Nicholas Mullins MD Received: 05/07/2020 at 04:14:00 QPT : [facility], [address], [address] [place] [address], [phone], Nicholas Mulilns MD Received: 05/07/2020 at 04:14:00 QPT : [facility], [address], [address] [place] [address], [phone] MD Received: 05/07/2020 at 04:14:00 QPT : [facility], [address], [address] [place] [address], [phone] MD Name Value Range Interpretation Code Description Data Cathryn rce(s) Supporting Document(s) Benzodiazepines [Presence] in Urine Yola l (applies to non-numeric results) [facility] TEST NOT PERFORMEDNo suitable specimen r eceived. ID Date Data Source [id number] 05/09/2020 06:24:00 AM EST [facility] Received: 05/07/2020 at 04:14:00 QPT : [facility], [address], [address] [place], [address], Nicholas Mullins MD Received: 05/07/2020 at 04:14:00 QPT : [facility], [address], [address] [place], [address], Nicholas Mullins MD Received: 05/07/2020 at 04:14:00 QPT : [facility], [address], [address] [place] [address], [address], Nicholas Mullins MD Received: 05/07/2020 at 04:14:00 QPT : [facility], [address], [address] [place] [address], [address], Nicholas Mullins MD Received: 05/07/2020 at 04:14:00 QPT : [facility], [address], [address] [place] [address], [phone], Nicholas Mullins MD Received: 05/07/2020 at 04:14:00 QPT : [facility], [address], [address] [place] [address], [phone], Nicholas Mullins MD Received: 05/07/2020 at 04:14:00 QPT : [facility], [address], [address] [place] [address], [phone], Nicholas Mullins MD Received: 05/07/2020 at 04:14:00 QPT : [facility], [address], [address] [place] [address], [address], Nicholas Mullins MD Received: 05/07/2020 at 04:14:00 QPT : [facility], [address], [address] [place] [address], [address], Nicholas Mullins MD Received: 05/07/2020 at 04:14:00 QPT : [facility], [address], [address] [place] [address], [address], Nicholas Mullins MD Received: 05/07/2020 at 04:14:00 QPT : [facility], [address], [address] [place], [address], Nicholas Mullins MD Received: 05/07/2020 at 04:14:00 QPT : [facility], [address], [address] [place], [address], Nicholas Mullins MD Received: 05/07/2020 at 04:14:00 QPT : [facility], [address], [address] [place] [address], [phone], Nicholas Mullins MD Received: 05/07/2020 at 04:14:00 QPT : [facility], [address], [address] [place] [address], [address], Nicholas Mullins MD Received: 05/07/2020 at 04:14:00 QPT : [facility], [address], [address] [place] [address], [address], Nicholas Mullins MD Name Value Range Interpretation Code Description Data Cathryn rce(s) Supporting Document(s) Buprenorphine [Presence] in Urine Normal (appli es to non-numeric results) [facility] TEST NOT PERFORMEDNo suitable specimen r eceived. ID Date Data Source [id number] 05/09/2020 06:24:00 AM EST [facility] Received: 05/07/2020 at 04:14:00 QPT : [facility], [address], [address] [place] [address], [phone] MD Received: 05/07/2020 at 04:14:00 QPT : [facility], [address], [address] [place] [address], [phone] MD Received: 05/07/2020 at 04:14:00 QPT : [facility], [address], [address] [place] [address], [phone] MD Received: 05/07/2020 at 04:14:00 QPT : [facility], [address], [address] [place], [address], Nicholas Mullins MD Received: 05/07/2020 at 04:14:00 QPT : [facility], [address], [address] [place] [address], [address], Nicholas Mullins MD Received: 05/07/2020 at 04:14:00 QPT : [facility], [address], [address] [place] [address], [address], Nicholas Mullins MD Received: 05/07/2020 at 04:14:00 QPT : [facility], [address], [address] [place] [address], [address], Nicholas Mullins MD Received: 05/07/2020 at 04:14:00 QPT : [facility], [address], [address] [place] [address], [phone], Nicholas Mullins MD Received: 05/07/2020 at 04:14:00 QPT : [facility], [address], [address] [place] [address], [address], Nicholas Mullins MD Received: 05/07/2020 at 04:14:00 QPT : [facility], [address], [address] [place] [address], [phone], Nicholas Mullins MD Received: 05/07/2020 at 04:14:00 QPT : [facility], [address], [address] [place] [address], [address], Nicholas Mullins MD Received: 05/07/2020 at 04:14:00 QPT : [facility], [address], [address] [place] [address], [address], Nicholas Mullins MD Received: 05/07/2020 at 04:14:00 QPT : [facility], [address], [address] [place] [address], [phone] MD Received: 05/07/2020 at 04:14:00 QPT : [facility], [address], [address] [place], [address], Nicholas Mullins MD Received: 05/07/2020 at 04:14:00 QPT : [facility], [address], [address] [place], [address], Nicholas Mullins MD Name Value Range Interpretation Code Description Data Cathryn rce(s) Supporting Document(s) Benzoylecgonine [Presence] in Urine Yola l (applies to non-numeric results) [facility] TEST NOT PERFORMEDNo suitable specimen r eceived. ID Date Data Source [id number] 05/09/2020 06:24:00 AM EST [facility] Received: 05/07/2020 at 04:14:00 QPT : [facility], [address], [address] [place] [address], [address]Nicholas MD Received: 05/07/2020 at 04:14:00 QPT : [facility], [address], [address] [place] [address], [phone] MD Received: 05/07/2020 at 04:14:00 QPT : [facility], [address], [address] [place], [address]Nicholas MD Received: 05/07/2020 at 04:14:00 QPT : [facility], [address], [address] [place] [address], [phone] MD Received: 05/07/2020 at 04:14:00 QPT : [facility], [address], [address] [place] [address], [phone] MD Received: 05/07/2020 at 04:14:00 QPT : [facility], [address], [address] [place] [address], [phone] MD Received: 05/07/2020 at 04:14:00 QPT : [facility], [address], [address] [place] [address], [phone], Nicholas Mullins MD Received: 05/07/2020 at 04:14:00 QPT : [facility], [address], [address] [place] [address], [address], Nicholas Mullins MD Received: 05/07/2020 at 04:14:00 QPT : [facility], [address], [address] [place] [address], [address], Nicholas Mullins MD Received: 05/07/2020 at 04:14:00 QPT : [facility], [address], [address] [place] [address], [address], Nicholas Mullins MD Received: 05/07/2020 at 04:14:00 QPT : [facility], [address], [address] [place] [address], [address], Nicholas Mullins MD Received: 05/07/2020 at 04:14:00 QPT : [facility], [address], [address] [place] [address], [address], Nicholas Mullins MD Received: 05/07/2020 at 04:14:00 QPT : [facility], [address], [address] [place] [address], [phone], Nicholas Mullins MD Received: 05/07/2020 at 04:14:00 QPT : [facility], [address], [address] [place] [address], [address], Nicholas Mullins MD Received: 05/07/2020 at 04:14:00 QPT : [facility], [address], [address] [place] [address], [address], Nicholas Mullins MD Name Value Range Interpretation Code Description Data Cathryn rce(s) Supporting Document(s) Tetrahydrocannabinol [Presence] in Urine by Screen method >20 ng /mL Normal (applies to non-numeric results) [facility] TEST NOT PERFORMEDNo suitable specimen r eceived. ID Date Data Source [id number] 05/09/2020 06:24:00 AM EST [facility] Received: 05/07/2020 at 04:14:00 QPT : [facility], [address], [address] [place], [address], Nicholas Mullins MD Received: 05/07/2020 at 04:14:00 QPT : [facility], [address], [address] [place] [address], [address], Nicholas Mullins MD Received: 05/07/2020 at 04:14:00 QPT : [facility], [address], [address] [place] [address], [address], Nicholas Mullins MD Received: 05/07/2020 at 04:14:00 QPT : [facility], [address], [address] [place] [address], [phone], Nicholas Mullins MD Received: 05/07/2020 at 04:14:00 QPT : [facility], [address], [address] [place] [address], [phone] MD Received: 05/07/2020 at 04:14:00 QPT : [facility], [address], [address] [place] [address], [address]Nicholas MD Received: 05/07/2020 at 04:14:00 QPT : [facility], [address], [address] [place] [address], [address]Nicholas MD Received: 05/07/2020 at 04:14:00 QPT : [facility], [address], [address] [place] [address], [phone] MD Received: 05/07/2020 at 04:14:00 QPT : [facility], [address], [address] [place] [address], [phone] MD Received: 05/07/2020 at 04:14:00 QPT : [facility], [address], [address] [place] [address], [phone], Nicholas Mullins MD Received: 05/07/2020 at 04:14:00 QPT : [facility], [address], [address] [place] [address], [phone] MD Received: 05/07/2020 at 04:14:00 QPT : [facility], [address], [address] [place] [address], [address], Nicholas Mullins MD Received: 05/07/2020 at 04:14:00 QPT : [facility], [address], [address] [place] [address], [phone] MD Received: 05/07/2020 at 04:14:00 QPT : [facility], [address], [address] [place] [address], [phone] MD Received: 05/07/2020 at 04:14:00 QPT : [facility], [address], [address] [place] [address], [address], Nicholas Mullins MD Name Value Range Interpretation Code Description Data Cathryn rce(s) Supporting Document(s) Opiates [Presence] in Urine Normal (applies to non-numeric results) [facility] TEST NOT PERFORMEDNo suitable specimen r eceived. ID Date Data Source [id number] 05/09/2020 06:24:00 AM EST [facility] Received: 05/07/2020 at 04:14:00 QPT : [facility], [address], [address] [place] [address], [phone] MD Received: 05/07/2020 at 04:14:00 QPT : [facility], [address], [address] [place] [address], [phone] MD Received: 05/07/2020 at 04:14:00 QPT : [facility], [address], [address] [place], [address], Nicholas Mullins MD Received: 05/07/2020 at 04:14:00 QPT : [facility], [address], [address] [place], [address], Nicholas Mullins MD Received: 05/07/2020 at 04:14:00 QPT : [facility], [address], [address] [place] [address], [phone], Nicholas Mullins MD Received: 05/07/2020 at 04:14:00 QPT : [facility], [address], [address] [place] [address], [phone], Nicholas Mullins MD Received: 05/07/2020 at 04:14:00 QPT : [facility], [address], [address] [place] [address], [phone], Nicholas Mullins MD Received: 05/07/2020 at 04:14:00 QPT : [facility], [address], [address] [place] [address], [phone], Nicholas Mullins MD Received: 05/07/2020 at 04:14:00 QPT : [facility], [address], [address] [place] [address], [phone], Nicholas Mullins MD Received: 05/07/2020 at 04:14:00 QPT : [facility], [address], [address] [place] [address], [phone], Nicholas Mullins MD Received: 05/07/2020 at 04:14:00 QPT : [facility], [address], [address] [place], [address], Nicholas Mullins MD Received: 05/07/2020 at 04:14:00 QPT : [facility], [address], [address] [place], [address], Nicholas Mullins MD Received: 05/07/2020 at 04:14:00 QPT : [facility], [address], [address] [place], [address]Nicholas MD Received: 05/07/2020 at 04:14:00 QPT : [facility], [address], [address] [place] [address], [phone] MD Received: 05/07/2020 at 04:14:00 QPT : [facility], [address], [address] [place] [address], [phone], Nicholas Mullins MD Name Value Range Interpretation Code Description Data Cathryn rce(s) Supporting Document(s) Oxycodone [Presence] in Urine Normal (applies t o non-numeric results) [facility] TEST NOT PERFORMEDNo suitable specimen r eceived. ID Date Data Source [id number] 05/09/2020 06:24:00 AM EST [facility] Received: 05/07/2020 at 04:14:00 QPT : [facility], [address], [address] [place] [address], [phone] MD Received: 05/07/2020 at 04:14:00 QPT : [facility], [address], [address] [place], [phone] MD Received: 05/07/2020 at 04:14:00 QPT : [facility], [address], [address] [place] [address], [phone] MD Received: 05/07/2020 at 04:14:00 QPT : [facility], [address], [address] [place] [address], [phone] MD Received: 05/07/2020 at 04:14:00 QPT : [facility], [address], [address] [place] [address], [phone], Nicholas Mullins MD Received: 05/07/2020 at 04:14:00 QPT : [facility], [address], [address] [place] [address], [phone], Nicholas Mullins MD Received: 05/07/2020 at 04:14:00 QPT : [facility], [address], [address] [place] [address], [phone], Nicholas Mullins MD Received: 05/07/2020 at 04:14:00 QPT : [facility], [address], [address] [place] [address], [phone], Nicholas Mullins MD Received: 05/07/2020 at 04:14:00 QPT : [facility], [address], [address] [place] [address], [phone], Nicholas Mullins MD Received: 05/07/2020 at 04:14:00 QPT : [facility], [address], [address] [place] [address], [phone], Nicholas Mullins MD Received: 05/07/2020 at 04:14:00 QPT : [facility], [address], [address] [place] [address], [phone], Nicholas Mullins MD Received: 05/07/2020 at 04:14:00 QPT : [facility], [address], [address] [place] [address], [phone], Nicholas Mullins MD Received: 05/07/2020 at 04:14:00 QPT : [facility], [address], [address] [place] [address], [phone], Nicholas Mullins MD Received: 05/07/2020 at 04:14:00 QPT : [facility], [address], [address] [place] [address], [phone], Nicholas Mullins MD Received: 05/07/2020 at 04:14:00 QPT : [facility], [address], [address] [place], [address], Nicholas Mullins MD Name Value Range Interpretation Code Description Data Cathryn rce(s) Supporting Document(s) 4-Jvnemebawf-3,8-Tavlcvvt-8,3-Diphenylpyrrolidine (EDDP) [Pr esence] in Urine Normal (applies [...] with interpreting these drug results,please contact a [facility] ToxicologySpecialist: [phone] ( ), M-F,8am-6pm EST.Note 2This drug testing is for medical treatment only.The results are presumptive; based only on screeningmethods, and they have not been confirmed by adefinitive method. Analysis was performed asno n-forensic testing and these results should beused only by healthcare providers to renderdiagnosis or treatment, or to monitor progress ofmedical conditions.For assistance with interpreting these drug results,please contact a [facility] ToxicologySpecialist: [phone] ( ), M-F,8am-6pm EST. ID Date Data Source [id number] 05/09/2020 06:24:00 AM EST [facility] Received: 05/07/2020 at 04:14:00 QPT : [facility], [address], [address] [place] [address], [phone], Nicholas Mullins MD Received: 05/07/2020 at 04:14:00 QPT : [facility], [address], [address] [place], [address], Nicholas Mullins MD Received: 05/07/2020 at 04:14:00 QPT : [facility], [address], [address] [place] [address], [phone], Nicholas Mullins MD Received: 05/07/2020 at 04:14:00 QPT : [facility], [address], [address] [place], [address], Nicholas Mullins MD Received: 05/07/2020 at 04:14:00 QPT : [facility], [address], [address] [place] [address], [phone], Nicholas Mullins MD Received: 05/07/2020 at 04:14:00 QPT : [facility], [address], [address] [place] [address], [phone], Nicholas Mullins MD Received: 05/07/2020 at 04:14:00 QPT : [facility], [address], [address] [place] [address], [phone], Nicholas Mullins MD Received: 05/07/2020 at 04:14:00 QPT : [facility], [address], [address] [place] [address], [phone], Nicholas Mullins MD Received: 05/07/2020 at 04:14:00 QPT : [facility], [address], [address] [place] [address], [phone], Nicholas Mullins MD Received: 05/07/2020 at 04:14:00 QPT : [facility], [address], [address] [place] [address], [phone], Nicholas Mullins MD Received: 05/07/2020 at 04:14:00 QPT : [facility], [address], [address] [place] [address], [phone], Nicholas Mullins MD Received: 05/07/2020 at 04:14:00 QPT : [facility], [address], [address] [place] [address], [phone], Nicholas Mullins MD Received: 05/07/2020 at 04:14:00 QPT : [facility], [address], [address] [place], [phone], Nicholas Mullins MD Received: 05/07/2020 at 04:14:00 QPT : [facility], [address], [address] [place], [address], Nicholas Mullins MD Received: 05/07/2020 at 04:14:00 QPT : [facility], [address], [address] [place], [address], Nicholas Mullins MD Name Value Range Interpretation Code Description Data Cathryn rce(s) Supporting Document(s) Reagin Ab [Presence] in Serum by RPR NON-REACTIVE NON-REACTIV E Normal (applies to non-numeric results) [facility] ID Date Data Source [id number] 05/04/2020 12:00:00 AM EST [facility] Name Value Range Interpretation Code Description Data Cathryn rce(s) Supporting Document(s) SARS-CoV-2 (COVID-19) RNA [Presence] in Respiratory specimen by ALLAN with probe detection Not Detected [facility] This lab was ordered by [facility] and reported by [facility]. ID Date Data Source [id number] 02/15/2020 02:35:24 PM EST [facility] Name Value Range Interpretation Code Description Data Cathryn rce(s) Supporting Document(s) ED Provider Note [facility] QMGIOv2nZbRFEbNv45/GSTxkKQDln7PhESosLDj4VNpwIVCrG0SoGNK8kI7hCIE6JFmWRtXgAuUzDIR9 lbm [file] OrMxNiXcQaKiWrLPMrWJU4DhAbHP3AEd9UYpR7VTV0sFQjMx6BBKJ4XCrNMbNfGR6NVHn= ID Date Data Source [id number] 02/11/2020 08:15:52 AM EST [facility] Name Value Range Interpretation Code Description Data Cathryn rce(s) Supporting Document(s) Discharge Summary [facility] LIQONb2qGmCZOnGo17/FOPofSAHom2WlYQmbDKo5SUgiTOXoH1FuACM8oO1zLCN3BQxUVuQdZnPzOAJa lbm [file] ICAgICAgICAgICAgICAgICAgICAgICAgICAgICAgICAgICAgICAgICAgICAgICAgICAgICAgICAgICAg ICAgICAgICAgICAgICAgICAgICAgICAgICAgICAgIC AgICAgICANCiAgICAgICAgICAgICAgICAgICAgICAgICAgICAgICAgICAgICAgICAgICAgICAgICAgIC AgICAgICAgICAgICAgICAgICAgICAgICAgICAgICAgICAgICAgICAgICAgICAgICANCiAgICAgICAgIC AgICAgICAgICAgICAgICAgICAgICAgICAgICAgICAg ICAgICAgICAgICAgICAgICAgICAgICAgICAgICAgICAgICAgICAgICAgICAgICAgICAgICAgICAgICAN CiAgICAgICAgICAgICAgICAgICAgICAgICAgICAgICAgICAgICAgICAgICAgICAgICAgICAgICAgICAg ICAgICAgICAgICAgICAgICAgICAgICAgICAgICAgIC AgICAgICAgICANCiAgICAgICAgICAgICAgICAgICAgICAgICAgICAgICAgICAgICAgICAgICAgICAgIC AgICAgICAgICAgICAgICAgICAgICAgICAgICAgICAgICAgICAgICAgICAgICAgICAgICANCiAgICAgIC AgICAgICAgICAgICAgICAgICAgICAgICAgICAgICAg ICAgICAgICAgICAgICAgICAgICAgICAgICAgICAgICAgICAgICAgICAgICAgICAgICAgICAgICAgICAg ICANCiAgICAgICAgICAgICAgICAgICAgICAgICAgICAgICAgICAgICAgICAgICAgICAgICAgICAgICAg ICAgICAgICAgICAgICAgICAgICAgICAgICAgICAgIC AgICAgICAgICAgICANCiAgICAgICAgICAgICAgICAgICAgICAgICAgICAgICAgICAgICAgICAgICAgIC AgICAgICAgICAgICAgICAgICAgICAgICAgICAgICAgICAgICAgICAgICAgICAgICAgICAgICANCiAgIC AgICAgICAgICAgICAgICAgICAgICAgICAgICAgICAg ICAgICAgICAgICAgICAgICAgICAgICAgICAgICAgICAgICAgICAgICAgICAgICAgICAgICAgICAgICAg ICAgICANCiAgICAgICAgICAgICAgICAgICAgICAgICAgICAgICAgICAgICAgICAgICAgICAgICAgICAg ICAgICAgICAgICAgICAgICAgICAgICAgICAgICAgIC AgICAgICAgICAgICAgICANCjw/kVEaW9rzrGJtzjK8Y0weHj5KFh3PSN9yx7FnDOTeWLrkecKzPbrETd VpUFXnOtzVKjw0HQzuTF6TzMDlC2LdS9FkYFlwEF0ADTTwMSGtlFJlWVMiGYOsUxE0KFRaXWwvNO0NjS RzIFsgNSAwIFIgNyAwIFIgOSAwIFIgMTEgMCBSIDEz KWRlDnKqWLBhSTLmPJlpLBHOTKG7DXDcVkKgYZJzOLFgUeJlNRODRJ6FEvGaG8QjnQ22YKFzJQb+Pg0K QH0oe0IlFAe5UtUkNY2tsx8JMCnHCiBcG1ZounD3EPK3YVNvTf0QRQMbLJFkwBY2YWOeIEQESyJiX5Vs yZ29RMTCUr4+EUqsjnStMudXNfO3SYCot7GaLEp5BR 2NLPTfLWn2mAYfMKmzK3eonmsyYSL4wQ7nnlicNjrpXeZgVDQfZMZIFTjlIYrlAYQuTLQzBUJqXWXcZl FlXCKgSWscDQLQBYrKJrPxF9Wct3RxYcH3WNGhOhHoWDckXZWlIaN5FL31dFljUS6OJFAfPNCmND96RV EbBRQoQp2YIp6BTaGsDC3bbp5NARSnEVZaXjbNDxg9 CXvnAD3CsRFcB4VsuRBmc7gQXfMvT8WPOJCkAZCxTm8KLNWrXaCzADBlFSznBJ5sOEEuPMKViImnuzN0 BH2SQG3gfrKdMB7FLuMrNv9dRb0PUuKzK2VeD3SnMXPeMSWZZQyeZB8SMStyML2eQF7Dy8CDmWUkgN2r mf3FUIQaYVNwZpemal0WLiotG6G3lPkqPEPcZOPeDY QQPHmiHZ7QMXGeFDI6CUV7TrUyYZAITmWtG34aEC5PC9Crs93tYfN1BEXsBbLrSUvtCB02qPgbetEyuQ VnfVleJI2YOp6+NJznkzNxUkzPPzbfRVAHYiDgQVZTUlIwFUYwCCZuSIIuSgU2BqAvBc0HDIIqKVQlZD BfDbNgPLTjLVFlANslRUGvMESvLlt2IKVjCHFdGU6I ByCdKRDvTXP8CRlmAOBhZRWtox6HJLMpFNOlCXB2OyJtWTRyHNIvRPduFEDrASS3CbShTLFsLYDtFE0Q QeZyQUHwEXE4PeJnQUKbERLbuk9SBQNeWHGqVPC1IYNuCWAjYMCjGKtdXJGtRIO7Dgv9COSmWICcTN0X KuGaJYBgRKUxIFWvOLJxGMYlno5PXNXdAJNsGsY7AR WgUAOhPARxYXauMECoQDJ8KkU1BVUwTCVkAZ6ZTeUmBFGmJXX4TyEqUVEkSNIbdj4DQULqACPaTRSaNn CbYGSpSKFqRPdaDKRaFYX9WGHxWLOcEZJbVP5KSnImTWWuKaTqNgZvBHPoSRKwcn5PTGKlQIJoTkP3Qh XkXJNoYPSfXMetFWBaYUM4Rjg5EPTbNRHhSA9CXnEf JVJkPxs4DHVbMGJgHTBkmw0WVLAlSIFuQEg9QnEiXVYsCLCbVDomMGUzDOXeAFu2IXVnLLQnFX4FIkLl WEKpLjP9CcKiTINfKWAmbo1XNHXeUJFuEGFjPXQpXYSwTASbQRvxIACdRFI1XIBzJILmWHAvOH7RHwOk RZNcVdNkSZGqHNXpGVKcfu2KPCRiRHQoLQf9FcPsCF KhXMPmCOmiCOOzUGA0JCouIUAyFSTiKW5ZTiZyVFTrYyIzCNLdUHEhDKSivn3SJPEiXCQtRcXlIFGhNP SuLINiRZucWRHpTLO0CLJ1XTPnYEAkMX7AKlXqZTRqWxm9PNKtRPXjMPOfjq0MVOTkSBEfMYW8RCZgAY SmWJXjYOfwYRUhVNG5QPP4QCJzWKRtBA4IBgCvOANf HeggLYmyNBPbYNLpzl2PCMXpSSP7QZX0TGRnPGWhCSKxNGmyNVCyWJDvXfTpIPLxYBHtUV1LUiNyWEUv PKO6JqOdBKFmWVTsyf5CMGRhLYZ1TWYpLJUyBVOyHZTuYIzvAQHrDSZpMzQ5UAJgCERwSP5OZdBmGRUf GLYcVFgeTMQuYSQmsn9STLKiYCR9JiF0NoQlZVXpES OuEGytSSLtVMNzTur6UAKcNUViDC8PUmLyGTHgRINbDKfnFSNcQCZlab3MRKVtWTT3NWOmVYKcEIZhFG WkSDfrTNAwZGP0Jyl3APPrFOFtAA0FSpEuRJUoTXE8ZoGkYASmQGQsak7ApFDnxGxzyl0GHWvTQn6QkC inUCP7WDckMx3cwAH5DVIoBISMLe9NrdUsNZNxOZES KCxwNHBpBPLfCet6JIH8SBL4FtBqRTa2NdllRgwvHEJbRIJyNCYoZiB8OBWwMtL7CEwrZjDsPWR0FWx2 Z8XhOCJ8XUR5PsK6OgE+NC0yVRs+Lz6Yi9XxzaG1fkXpIPz8XMB9WU9RPMNTG7BUVd== ID Date Data Source [id number] 02/08/2020 11:32:38 AM EST [facility] Name Value Range Interpretation Code Description Data Cathryn rce(s) Supporting Document(s) Amphetamine [Presence] in Urine by Screen method Negative [facility] Benzodiazepines [Presence] in Urine by Screen method [facility] Cannabinoids [Presence] in Urine by Screen method [facility] Benzoylecgonine [Presence] in Urine by Screen method [facility] Methadone [Presence] in Urine by Screen method Negative [facility] Opiates [Presence] in Urine by Screen method Negative [facility] Oxycodone [Presence] in Urine by Screen method Negative [facility] Fentanyl+Norfentanyl [Presence] in Urine by Screen method Negative [facility] Service [facility] Results below the indicated cutoff (ng/m L), are reported as"Negative." Note: for medical purposes only; not valid for legalor employment testing. ID Date Data Source [id number] 02/06/2020 09:23:00 AM EST [facility] Exam Number: [id number] Reported By: - JONATHAN ERICKSON MD Signed By: JONATHAN ERICKSON MD Name Value Range Interpretation Code Description Data Cathryn rce(s) Supporting Document(s) ID Date Data Source [id number] 02/04/2020 12:37:33 PM EST [facility] Name Value Range Interpretation Code Description Data Cathryn rce(s) Supporting Document(s) ED Provider Note [facility] DOZQLh4yAiZCHbMg75/OYFpcVVZrj8UoJVimNZc6NRtcBZNlO1LxABU8rH9hSBS6FEhHWrTaEhQpXUB4 lbm [file] EA3NVDV+Beatrice+Kg7RUEHmJQEoODRcUzVjLDOWYxTjV5AfE2SLc8LfC6CjLI46eWkdyqUiOUnuNN2BPG6u LAHbQDGCVR1XpIRwgZ7jloN6HCNaEHAAKvSsU06ezMApKOUhXTI5PEFwBb6XVGYmY3IvygJimLsdvhSe KGUoQMCWJU0SBUcgakWtiWUrcMnpEF78gPngAL7ZXl 1TYjXvVN2zks9UzITfCh1RBLL6ND8JSAUkXQJhXWOkYFU3VXLlBfAqGWnyGBXdUYYpPQC8ZZWsSIEoUE 2YDgJiOMDjVAI6GRthKXVnAUBmez5TGZNbURV0DrM7NDQdRPQyVWTlKVwuADPcOYZgSTN4SIWvRZQcMQ 9NQxSvABPwFVJ7URicABBkGNJioz1RZROsXVWkHcSf MgVpVQJeTSPuLPsyQULqTVF2SjC3JJCvRRHeWV5XVmHySHPyZAT6CNOxWQKqMXJsol9WWYAwDSRfOQD9 YSSbPSImDBGeECdzDPWvAMD3KvwuYAEaUYMnAW0NBdUoAKZgRZS9EGZjEWZyDNRbys4HAVMxXAZxMBcl LHHxQBQbIXUdUAfeDMNtJUZ4BjV7WLDjJYNqRR2FYx YjLZZrYPK3LVQgANDjHHTggu5FZCOrCQMyTqxxDlPcDULkPITbYAwuHTWbYDY7LFAaXXIxZIQbIO7FDk LqPVCcFPy1OSstSKYwZQHqhm8LTMPxRUTpMQC9UsIhNGGgKDWmOKziVSXhDAQqMsM7ZHCfHTEgSO0RKx BtIOArQzW3HFXzYYBpBCHsfp9XOYRwLILsEsL7UXOa QTNoLGIaKWleDOCkGFK4Zyj7HMHaETHbVN9FEwAaJITpNfHuRGTdIMXdTTAmin0YQZGrWKGxPAVqWJXd PWXnHAMuGZylAZSnGQLcIYLhZTXyHUAtPO0ZEtLiUVZqSxRqYkauGSTbYZTjzm9CLPMjAUYtUlp7RZDe QTLpJWNpHHbdFDBgIJC0RFx4HBVqPHPsQO0WJsWtUK VxSeg0LYPvAEVqKMBwfz6LDCCtPDOxKii6TGQjCFEmSEUcJGtnMYZbPMR1LMJhSYTbKCWiZO4URrDpNT FaRptnARlkPSFlDNVzpp9DMCSdCTZtYIDjHOCdSRYcZEVoIXyyKRSiXAEgLMj6PEJcCQJrDC1OPnPsYN DaHQBtPGQeMTIsBDPpua9IZVHhQGX1MCB5EPOeYBYs UMJvIQpiUHIpONXkTYN6DNCrPTJiFT3AKxDlWWOsDOW5MmSlAERdTBOrrh1PIBEqQSA2XZvlXPGnHNYs QJSiNYerLNXcARBzKxR1GZQvJOSiGT0NDfBqRBThUGI7KeFmFXIsQBKdnb5RXHGsGTH1OshuPNVsOKAd VWDzKYcnMYDxLMR0VWepVABhSWDvHQ9ENjHbDMLnBH ElEMOwFYBuJEQilm2GRRQdQYX8UHI3MCSnPCClXEXjKDpqTMAoAWI2AoI9IFUuEHKxIR8JGdKsWJUfUD S6RfYxXJCeZATzun1UUEPiQBS2SQi7OYYeFUIqWXIsZNngDTHnBWE8EUpaGVPzBXUqMP0IWhFiYKYlRD l9NGOxDVQqFKVggd1YLTNiJRW0TvggYpRqORWkIQSg KTkfLOGzUCC9RSJ2IUChKYAwXC8QJtNlSKYaIDuaJRCuMTOiTNIdhx1ENARhONG2PLD2IJVdRCAaSBCg JEdxYESdCES4AHK7PQJpFIYhUA7CKkCsVSBjCAs4NHPtWKQgMKLkqz8PELGdUAA7CRs6TaNvNLWkKHIc UOssUXOaCYM7ZYKvOGUuXANvVX0HUwKrBVBcHPflOM YvNGIhCNEaur2ISNDfHEK6GFX9SVToUPDvOPCcQKxeWZWmFUJ9ZIM7LNLrWOJaSV2HZmNzLEImAOr9TM ceYNYaAGTmvt5DALOaOSN4ZYxwNvHbRNUmJPPtBRt2qtYldNFwLWr0EE8WH8OibuUfRsLIMi8Gm680HI ZnTEVkBh1YL5gdWk5vWTFmIGQTVl2SXGj1LFWgG6Fg EhNaV0TjHtSjCUW9PNZ1AsAzHgUcLjNcJLX+CSsiBLFtPtT0GqIiEfVaTFHuYyC6QQFfFLTdNGI7XRG7 JE0dLHQGLj4+UTzfmSWvtLedSVFSVzZfXNF5BLjgAZKDKr3C ID Date Data Source [id number] 02/03/2020 04:07:22 PM EST [facility] Name Value Range Interpretation Code Description Data Cathryn rce(s) Supporting Document(s) ED Provider Note [facility] RBHVJb8qJgMRDiUv66/JISwlLDNle8AkXMfqHLe1JYsuISPiI6ZyLBD4mR7rHZF3GHiVQkBvGmJcCXQg lbm [file] Medical Sociologist/NmIYOuaLuSxtb60YGHtHivpMYzXUPFlHDr6xlDAT+WB0zHlej03QKoycaMqZkrotalSHwHkbX5aOo Jsy8z6UG0GjGgBbk9twUh89X7+rcht1xjCBLlMZPXfieYRdX1LTACeqlyMWhnm+MI4vbPi03YU/2E5dy T4jgla/1eamkoXC3/wL3FNrlklMV/LqxJv9SdteD7R HZlbyfTsZXmRjObtybRonh5/LPSKGDWJfRGSSCzuCNFCLOs7ep6KXgBOMyv8fkiZSsffmFhzxC4AMPDv ZdtpD2Cx/NhTruiTR1ZC5p8E27lmwQasG+sexMXAIGuXUifUpydy9rNiYNC2vH5avsqqXVcSw6i1+cv8 3ieF1vrGB00iR6ZgDegJgjVn/nDJVxjLX86Bsk4A6R V/maNBAxhT1ON6mlWVq0DIYuCvLDZvc168wzZx0jFFhSJ0cvgqsWb5EUSOqi2HPLXZylJqgyhMbBV9Fp +DwEF/J3KwJXvT/GBw3fkWVpYLsvYasCfdTJqaqIdSYll+Zu3vqakbkUaCmiSzrB47NsLEqqQFlxfkB2 biJe4Xta1aN/4mOa1x7cdIilfbkr4omnrmfatgztyt [file] U0S3AxZfc7YKWoCMr0ZnqrKjJbUV6UEi4IQvH5TMY2rVQxFs5OMMP4XGLASgAhKC8WHOr= ID Date Data Source [id number] 02/03/2020 10:04:33 AM [facility] Name Value Range Interpretation Code Description Data Cathryn rce(s) Supporting Document(s) [facility] GGDOEs7nDuSSLcTyi6GgNmUuHRIjRR2gaon7R4G7yKKuL2CmsSWmm5auV4ChQ8DqESUgYNTEFV0FaBZh jb2 [file] 9iLZ98876FIx4ncl6fiHn5gORwZC4pgH908odSO7x7 9+/uW/NXmZk4jSa4n7/CwO49grujWodlt/+zYct48q/6swxI24t1whR1/1+qO3uamlNml/0tSXx77+82 Nrv8gi3x+/bH443Oxiu01w8cBhq/vPj5ef/eHf1J2nW/3oDy9//8CugD144SN//TevueXi/ZrXXz2+ef XH16/+8Oyv12/sgRd3d0mP/1azuxOWK937+rN/8897 Sbv/+ekvP//th19/ev/Xx//65+H0R6300w3ft65/9+NvH5+9+/mH9z8+/vI/0vzLfzx++fn5z4/LxzaQ 4BgV9JH2Gz++/NiMg2j1+7W5/fTTx3/NcwkE3Mvmm8t/gSvHv72ZgcB0ki4/5Kmtovvp+j76hfCDuzWs /pu/+yOo0rM5LECxNkN9deVy4gqEDp6UJ3iMvV7kYs 68/9v7Z/fcffXJ4/M9O01w6YK80oFxMw6/ma+S8rczz2NYq7//ye0A6qy/Sgx7bbz//5w34NdY9zUUoj 39jGffvf/5H797/PruH++Ptz+l+MVMJApeo5HO0Ga0noi74S2+7Dy4yr8+/sf7X//BqhTN55gJ/rvXxx e9Nyr3P/sBg98dh/3vJ/M//PLzh+39N97K1g9N3Ga/ evvxn95+f3Z0wztIu8um67Q9KMDkmJwkHo197IP76nR+AIDFxXnfx0h8t10/zrRJ61m7//v+7//66eyB S/2jF9/+6zQizAm6+ZX8+Oevf/cGT8y0PYe56olzxHkd6SL1//39u7//8O7nD/8uQT7SVy217I795wtz credit checker+5kzjL0x5l5269raJjbmpHJdKLvi+/vb99//18w /mX4h84UXBEURfBtw//+E9ak86axx//+f3//XDu3/8+sP3jy/f//WH79/9+Pj0x/snjw060/fazlvZy4 4OSlu8c//9/pEev/zt/Hz78ek/Hi+fH/lYpC291G3qUYEUr9T03ZOev42+yX6ubxIo4Jrg6oFBa8XhUt apduXbfLPuCfH/GTfn891FWH0jg4OpGHReQgOpMG6s ayfsHZPkWI7wpnn9R2WawIjrVIyCCQGbFr9cvBTaME4NEFN9NPemEAPbMEUmX4AsuI3gC79xqCLxIkUz PRLEBT8PysF4GTB2WVP5TBRtKxAlCSIgQM94IRSbUUTWWs2umeWxEkgKZpPvKH7kirv9R9Q4nZGbL791 gIugskXgZC2Xm1SywPInDC3KrGDuiJEnLZHiPWZnS0 ffs0GyXRklLRGHXw7mclAzJraSNnFgNP2izht9S1I6xXweypSgQIGNLApvMwpjDR2xkIqynltvK0IuxD SeHPNxL2XmHATcn62ZLWIuLYbVFxCuSdUiNAAjBDSeVOphWxXkIXLzHANfIKZxST5JhIAtXCWuDPNDMW mmFplyMVDmvO1clIMNf3CxBZTDILKcHUYTOCVDGMFd DelvOyy3QLhgP8A6JkqrX2CnYO7PU8NdNLIuMGMELDAvvjUdYI0IohOohC9hCQnLDEUQVZvTPRwxCaZ1 d95jfkURHGPxZNGiXGnkOHBdGQAnVIRtHEIoGXMiSLEbTSVcEE8HG8UdBKFoAEGLJWB5m3RsCZGbnjwe qruiFk4lgmMyJdq+DozxKDYgy1GmAOssO9D9qIZxJ1 VxQ0ItJP8RrNFkAMgrYBRhKIVcLTImU253kqAvVB0+LG4dr4TiWexdCRGHOHFfYQGdFFHgAHP8PgSuTK ApNYDlOCUzIqQ1KmQvZcPDGFBvTPWwKRjwLoUuGJUxZJUrXLpxXJCmDDB9IMnzAGVtWMMkOG6bHvXwHY QiFpy7NwJbXZKoHTYawlQUYXIfQGXmIAGgWEA6JQZq TGNpINysQFPiVXCuBPO3YPWsLHOkUG2yTjPrFOSkPXTxMllsZTRcQPKfgpPBNLJmQHOdUSU6JzOwSDUq ZLSsLKpzLXKtREHaVov6PKQaZVBmYY6lCiIwIBEzDOH4RTuiWYOlRROvppJRWRMsCWBuKTOfGwBvYJPv JMHmFLvtHNHnASDwNzSxKPCxMNFiVC6uFyKiSFGsXK E7RUFzQJGsROLiakRQSJErTPDoROl2MRDeQPQfKNBkFYdqDRCpQPQpZHZ3SLSqRLYcUK2lGaFxKMIjYU TiLTAbLCJiLRYcytGRDPPzGMCwSUW9TFQuPUTsHJEyNChsNCMjCXXvUot2SQTrIZBdOE0wFoAvSFFoHY H4IQClENAcGADnquFLUCQwPLNpTSH5UdKcHRGbDWMl EYubBPKyPOZxOwV8UGWoKZPaOQ9rVxXpHYYgFGK6HdWcAADcYHAwxuEJFAFrCGZcOOL7YqAkCVZnASYf ZJisDPKzFFFsLKWzBUN9COD5LRDrSjIxUAwaIUYIQLxLG6UzmxYpBqUAL0ktGs7rSyMlWRUIY4Jqb6Mc NSAwIFIKCj4+SzW3ZZA5pCGsDbsqPDf4BbctCKSJXz== ID Date Data Source [id number] 02/03/2020 08:48:19 AM EST [facility] Name Value Range Interpretation Code Description Data Cathryn rce(s) Supporting Document(s) [facility]i0xLjQNCiXi48/EYDsgVJPan2KlDRdgILx5BYekNLUdU0ZuLPQ6lH8lKKE4BHyNQuCuUlGlKUJj lbm [file] ICAgICAgICAgICAgICAgICAgICAgICAgICAgICAgICAgICAgICAgICAgICAgICAgICAgICAgICAgICAg ICANCiAgICAgICAgICAgICAgICAgICAgICAgICAgIC AgICAgICAgICAgICAgICAgICAgICAgICAgICAgICAgICAgICAgICAgICAgICAgICAgICAgICAgICAgIC AgICAgICAgICAgICANCiAgICAgICAgICAgICAgICAgICAgICAgICAgICAgICAgICAgICAgICAgICAgIC AgICAgICAgICAgICAgICAgICAgICAgICAgICAgICAg ICAgICAgICAgICAgICAgICAgICAgICANCiAgICAgICAgICAgICAgICAgICAgICAgICAgICAgICAgICAg ICAgICAgICAgICAgICAgICAgICAgICAgICAgICAgICAgICAgICAgICAgICAgICAgICAgICAgICAgICAg ICAgICANCiAgICAgICAgICAgICAgICAgICAgICAgIC AgICAgICAgICAgICAgICAgICAgICAgICAgICAgICAgICAgICAgICAgICAgICAgICAgICAgICAgICAgIC AgICAgICAgICAgICAgICANCiAgICAgICAgICAgICAgICAgICAgICAgICAgICAgICAgICAgICAgICAgIC AgICAgICAgICAgICAgICAgICAgICAgICAgICAgICAg ICAgICAgICAgICAgICAgICAgICAgICAgICANCiAgICAgICAgICAgICAgICAgICAgICAgICAgICAgICAg ICAgICAgICAgICAgICAgICAgICAgICAgICAgICAgICAgICAgICAgICAgICAgICAgICAgICAgICAgICAg ICAgICAgICANCiAgICAgICAgICAgICAgICAgICAgIC AgICAgICAgICAgICAgICAgICAgICAgICAgICAgICAgICAgICAgICAgICAgICAgICAgICAgICAgICAgIC AgICAgICAgICAgICAgICAgICANCiAgICAgICAgICAgICAgICAgICAgICAgICAgICAgICAgICAgICAgIC AgICAgICAgICAgICAgICAgICAgICAgICAgICAgICAg ICAgICAgICAgICAgICAgICAgICAgICAgICAgICANCiAgICAgICAgICAgICAgICAgICAgICAgICAgICAg ICAgICAgICAgICAgICAgICAgICAgICAgICAgICAgICAgICAgICAgICAgICAgICAgICAgICAgICAgICAg ICAgICAgICAgICANCjw/cAZqX5oczPXyfeG8Q5xfIh 7YDq9PIN5zu7XsQYWwEEglvmVqUypQMuQdVWIwUynVWnp0KZpdET3YfMSzF2KoW2BbVSyrKL4NZQBxXM JrbKXaYANxDVTrGyI1LJYjYSlyPG3HjNVgTIggFZKpWGJqYqCiXPYwASMdEUTnHNNkJTPPSUQpSZEuRn ViNXDkCJFtMSqtGMJWETV1FPOdNlEyOClhFK3Zd7Ey zDV3RKf+Ww4YXK4bl8TtXXm2WfUnGV0kbi7BIMoHRkYvR6FqbpG5PNM5LHAsNi4QDDPhZHYblEE9IDPr PJYFFwGyM6WqfK00KWBUDw1+WTbworQdYegPTmL2OKDtv8BuZSk8QS3VNVHuWPq0vJCrOUZOJPH8WHKh wYMtPRSuH76zvT5dheP0xddwJA4mXJZzCDInQr1pWG TfFKXtMxV6CMMIXS9LKXCsLKKbzNDxMCEeAQCDCJ0AVHocJYE3WYTjfvSqlOPmCXfuXJ5UMZKycrWdXF cgMCBSDQo+Zt2LQN8ql7LiKLb9LXRcJJ7eek4VZBwOGzQdV0Q7bLYuN4H8SCkgVy2PSEPvYQMiSUNgGG RHVBzqNO4ATG2ierN3HV4HjJFaWCAhGBMreHPsMHn3 E85faBUhTOwnZW4NMJR+Beatrice+Gv7DXBUfIXTxURPvEgRaJSUTFkAnB8SqC8WNo0SdT4CvAI39fFcmoxFk FMvfOH6ASP5pWTDmBXBRVT4KtDHoqQ3rdvT8SyFoYMCJVoJpA78ohPBaYLEyYRJ7DMHbXy6LXMAeF7Ap jgZzdRjytiXhPRPmNFZRUA7BXHhcanBxrYAshTjcME 57lJtmVN0SDx1MCgAiWE6bul0WmMStNl3FMWO0ZQ8XMRMqFLVdJJAwJLJ2EWAcFvVvTGwhHHDrMIZeYZ T3MSEfEIAiHW2ZPiPiGVKzSMU2GGQsEFNzVCUdcm7RHFDoWGL1PVOvWTYvSVCyCIFaKFukXFRtKAGkWA K6GLJqCAKmPN6BPfQrREGiTOQ0XgnuSHXlNDNxto9D UZCoDJCxUHB0KqGfCJCwAYEfOUlnFDXnDJV6SAR0NIXdWMNoEZ8FKtJyFPLrCTa0METpDQJkVAYdcp5R LQSsVBErZNY6HOPgFJDtQYBhHZpmNBQwIWWrOSWhVLPuLOAoQG2JLcVsECGsBQQ3JiwbARWoAOUstb2Q ZIKoVIHwTYg5KjEcMRLwWZRkTKipBRVeWDO0TFvwKA WsBOLaDS9EFmAbMOWgYCidEDSzTGGyYQYebw8DNSIvJPZzMGb7PZTpICMuJYIdYKnqJQWdGAYiANR5WX DhUQXjDV9DJqCdVBOjJdS9SsEnVGWfSFJspp9NHMGaEGUoYZi3EEMrYKClFVRpFCsqZIAsRUR0EAa2VB ZdGPVkJC2CIcUvPGRjBfmaESSwGVEcRISdga5JLATm JNUbUGJ3QDQtAAFpHOGjGHthSHRtGFJsZoA9PIJjIDWeKZ8VRoLiHZHqUfJ9BlQoKIYoCGHzwy8HXFGa BALcQQY9QJHyGMSdQXViYFjeAIIqNCNrMHnmFNFdOFGtRD3TWmWrVVJjVeK9KxnjUSEpRNEivf5VVTGo XVXjPdlhAFGiYDDcIANkLScrRNWtXGLhBPX6KLWzLW RpSD2HAwAwRNBrTyOzINbmBBEsMCTukx3ZXZLgQOT4AHFaTFTcHJQqIOYaUNeiPGBhRJX2QKCfRRRvPE WuZN5LRnJhFQKtUHUvQaHkJUPfNVAjvi4UZATsSPI3GQQ1ILEaIJLjLVPeZClwWMHhLNJ3BIJ2QQIeLI UzPS5FBcHzFLPhYYWaYxIkWTErOMDnxi1SHKItKKE7 FjY5VJEqIBPcWWOvBWaxZTAwTCS7VsX8WMCjNJNrVZ1QDaJxRBYbAKs5ZwafHMIlLMOrbg2ZMPIyXHL2 Jaj6WjKlPJOaZEIhPQmaETCaTIE4YZZ0ZEKgVJYqZK7OYjPjWTOnHTD8LRRzKPCzVKIddg4DYMOjQCS8 MzIyMCAwMDAwMCBuDQowMDAwMDUzNDMyIDAwMDAwIG 2ULlYiZPIzMVH1BvZbDPUwSNUfon5WDSDeYLQ1IltwJQQtQSPcSQSmAAzsDTUtVTQ9Umc2HAMhZHYlRN 6YYxGwJESqNMN4BhudGHEoMXJjmm2LQMAfZBH6JPt7TAVpRFHjCBXlLUpvIIDjXHE9SLykECBzOSVoGI 9BUhFoOZlxPHVMSql7NWjkO5w6PNA5TU5XL7Hmd2Ti MLajHDURVYgaBJ5zfwFhDPNrZc3BB4zABcxwJeEgNrZlEMKjPpCjZfA6YCVvFkXvAtP5BiqwWkLlFI9w FTHvRIZ9NJQ2KbTfNFXcCzw7SxB8OQOaKdiuP2G7Q8M1KpIdXO9RXt0YLvX3AKN8dLRvGn6LYPAmLwNK SaVnZU3SUEk= ID Date Data Source [id number] 02/03/2020 10:08:16 AM [facility] Name Value Range Interpretation Code Description Data Cathryn rce(s) Supporting Document(s) Calcidiol [Mass/volume] in Serum or Plasma 35 ng/mL >30 [facility] ID Date Data Source [id number] 02/03/2020 07:20:24 AM [facility] Name Value Range Interpretation Code Description Data Cathryn rce(s) Supporting Document(s) Leukocytes [#/volume] in Blood by Automated count 6.7 10*3/uL 4-10 [facility] Erythrocytes [#/volume] in Blood by Automated count 5.62 10*6/uL 4.6- 6.1 [facility] Hemoglobin [Mass/volume] in Blood 15.9 g/dL 13.5-18 [facility] Hematocrit [Volume Fraction] of Blood by Automated count 46.7 % 4 1-53 [facility] Erythrocyte mean corpuscular volume [Entitic volume] by Auto mated count 83.1 fL 80-96 [facility] Erythrocyte mean corpuscular hemoglobin [Entitic mass] by Automated count 28.3 pg 27-33 [facility] Erythrocyte mean corpuscular hemoglobin concentration [Mass/volume] by Automated count 34.0 g/dL 32.0-36.0 [facility] distribution width [Ratio] by Automated count 13.7 % 11.5-14.5 [facility] Platelets [#/volume] in Blood by Automated count 245 10*3/uL 150-400 [facility] Differential cell count method - Blood [facility] Neutrophils/100 leukocytes in Blood by Automated count 55 % [facility] Lymphocytes/100 leukocytes in Blood by Automated count 32 % [facility] Monocytes/100 leukocytes in Blood by Automated count 9 % [facility] Eosinophils/100 leukocytes in Blood by Automated count 3 % [facility] Basophils/100 leukocytes in Blood by Automated count 1 % [facility] Neutrophils [#/volume] in Blood by Automated count 3.74 10*3/uL 1.8-7 .0 [facility] Lymphocytes [#/volume] in Blood by Automated count 2.13 10*3/uL 1.2-4 .0 [facility] Monocytes [#/volume] in Blood by Automated count 0.58 10*3/uL 0-0.8 [facility] Eosinophils [#/volume] in Blood by Automated count 0.21 10*3/uL 0-0.5 [facility] Basophils [#/volume] in Blood by Automated count 0.04 10*3/uL 0-0.2 [facility] Nucleated erythrocytes/100 leukocytes [Ratio] in Blood by Automated count 0 /100{WBCs} 0-0 [facility] ID Date Data Source [id number] 02/03/2020 09:58:46 AM [facility] Name Value Range Interpretation Code Description Data Cathryn rce(s) Supporting Document(s) Thyroxine (T4) free [Mass/volume] in Serum or Plasma 1.73 ng/dL 0.93- 1.70 H [facility] ID Date Data Source [id number] 02/03/2020 09:58:46 AM EST [facility] Name Value Range Interpretation Code Description Data Cathryn rce(s) Supporting Document(s) Albumin [Mass/volume] in Serum or Plasma by Bromocresol green (BCG) dye binding method 4.7 g/dL 3.5-5.2 [facility] Bilirubin.total [Mass/volume] in Serum or Plasma 0.5 mg/dL <1.2 [facility] Calcium [Mass/volume] in Serum or Plasma 9.2 mg/dL 8.6-10.0 [facility] Chloride [Moles/volume] in Serum or Plasma 104 mmol/L 98-107 [facility] Creatinine [Mass/volume] in Serum or Plasma 0.95 mg/dL 0.70-1.20 [facility] Glucose [Mass/volume] in Serum or Plasma 84 mg/dL 70-140 [facility] Alkaline phosphatase [Enzymatic activity/volume] in Serum or Plasma 84 U/L 40-129 [facility] Potassium [Moles/volume] in Serum or Plasma 3.8 mmol/L 3.4-5.1 [facility] Protein [Mass/volume] in Serum or Plasma 7.4 g/dL 6.4-8.3 [facility] Sodium [Moles/volume] in Serum or Plasma 144 mmol/L 136-145 [facility] Aspartate aminotransferase [Enzymatic activity/volume] in Se rum or Plasma 8 U/L <40 [facility] Urea nitrogen [Mass/volume] in Serum or Plasma 9 mg/dL 6-20 [facility] Osmolality of Serum or Plasma by calculation 296 mosm/kg 275-300 [facility] Creatinine/Urea nitrogen [Mass Ratio] in Serum or Plasma 9 [facility] Bicarbonate [Moles/volume] in Serum 26 mmol/L 22-29 [facility] Alanine aminotransferase [Enzymatic activity/volume] in Seru m or Plasma 7 U/L <41 [facility] Anion gap 3 in Serum or Plasma 14 mmol/L 8-15 [facility] Glomerular filtration rate/1.73 sq M pre dicted among non-blacks [Volume Rate/Area] in Serum or Plasma by Creatinine-based formula (MDRD) >6 0 [facility] Glomerular filtration rate/1.73 sq M pre dicted among blacks [Volume Rate/Area] in Serum or Plasma by Creatinine-based formula (MDRD) >60 [facility] ID Date Data Source [id number] 02/03/2020 09:58:46 AM [facility] Name Value Range Interpretation Code Description Data Cathryn rce(s) Supporting Document(s) Cholesterol [Mass/volume] in Serum or Plasma 128 mg/dL <200 [facility] Triglyceride [Mass/volume] in Serum or Plasma 101 mg/dL <150 [facility] Cholesterol in HDL [Mass/volume] in Serum or Plasma 38 mg/dL >40 L [facility] Cholesterol in LDL [Mass/volume] in Serum or Plasma by calcu lation 69 mg/dL <100 [facility] Cholesterol in VLDL [Mass/volume] in Serum or Plasma by calc ulation 20 mg/dl 16-42 [facility] Cholesterol non HDL [Mass/volume] in Serum or Plasma 90 mg/dL <130 [facility] ID Date Data Source [id number] 02/03/2020 09:58:46 AM [facility] Name Value Range Interpretation Code Description Data Cathryn rce(s) Supporting Document(s) Thyrotropin [Units/volume] in Serum or Plasma 1.490 u[IU]/mL 0.270-4. 200 [facility] ID Date Data Source [id number] 02/02/2020 02:01:05 PM [facility] Service Cmnt XXX-Imp : NoneRespiratory P CR Panel : PCR ResultsMicroorganism XXX Cult : See Labs Tab for 2019 nCoV RT-PCR resultsHAdV DNA QI ALLAN+non-probe : Not DetectedHCoV [id number] Nph QI ALLAN+non-probe : Not DetectedHCoV [id number] Nph QI ALLAN+non-probe : Not [id number] RNA Nph QI ALLAN+non-probe : Not [id number] RNA Upper resp QI ALLAN+probe : Not [...] DNA Nph Q ALLAN+non-probe : Not DetectedB [id number] DNA Nph ALLAN+non-probe : Not Detected Name Value Range Interpretation Code Description Data Cathryn rce(s) Supporting Document(s) ID Date Data Source [id number] 02/02/2020 12:19:02 PM EST [facility] Name Value Range Interpretation Code Description Data Cathryn rce(s) Supporting Document(s) ED Provider Note [facility] VRVOSe1cKwPRQnVx38/DBSqvBIVws8HkPVosRQj8HYegUJYhO5RkYSM3mP1kYXX1GFfQQwWsYzFaWPUe lbm [file] msLyUpZT2XSm7THiE7APV2cLYwAa0HEPNsWlRLDaQpUI9KOQl= ID Date Data Source [id number] 02/02/2020 02:00:22 PM [facility] Name Value Range Interpretation Code Description Data Cathryn rce(s) Supporting Document(s) Specimen source [Identifier] of Unspecified specimen [facility] SARS-CoV-2 RNA 2018 nCoV Real-Time RT-PCR: NOT DETECTED [facility] Assay Performed [facility] Patients first test for [facility] 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[facility] Patient has symptoms related to [facility] When did you start to experience these symptoms [Date and time] [Phen X] [facility] Patient was hospitalized because of this condition [facility] patient was admitted to ICU for [facility] Patient resides in a congregate care setting [facility] status [facility] ID Date Data Source [id number] 02/02/2020 12:14:00 PM [facility] Name Value Range Interpretation Code Description Data Cathryn rce(s) Supporting Document(s) SARS-CoV-[address] [facility] This lab was ordered by [facility] and reported by [facility]. ID Date Data Source [id number] 02/02/2020 11:42:03 AM [facility] Name Value Range Interpretation Code Description Data Cathryn rce(s) Supporting Document(s) ED Provider Note [facility] VYQVYr8xMmJFMnWz59/UENhwXZNrg2TwWSlyRAv0TEwhVTDcV8KwOPI5cY5rNEZ3RAcLUdHiDmEmIKDl lbm [file] JU0wTKm+Ku9Oz2LetzH0ctUeAJzvYzA9UL7DUZNIB0HADl== ID Date Data Source [id number] 02/01/2020 01:44:17 PM EST [facility] Name Value Range Interpretation Code Description Data Cathryn rce(s) Supporting Document(s) ED Provider Note [facility] ZOVDKf3jGbJKSrHf11/AVExpGFTrp5ByFKftDRt9BXhpPXNxP5KaYIS8sS3iBGE7MQvANkGuJsDkWKPa lbm CdZgnTGfNpGLRwAbcIKrFbJHgjUedhqYUnBF1IeAE9OCGvJ59lLRTwXEXkI1NoQHJ9ZBB+Tv5MSDEhmS TjBA9FLijR3X7Li8s6Jb8w8hjXZqOYUXuMSVOlemQ0meyobXuV8773v0Rt+TFjSx4/Adiel/PxIfERuCP7 [file] O2LMBcHIZwAwEqWR7QEu3GHeT2OST1tIMjPt8JVmG8NBvTSdAyNB7AXId= ID Date Data Source [id number] 02/01/2020 12:29:05 PM [facility] Name Value Range Interpretation Code Description Data Cathryn rce(s) Supporting Document(s) Consultation [facility] PJNXSq8yKoJJPpFi90/WMUmjSDCfj3XrPTwpWJr8VXkiWTMgO4LxBCS9bE9uWYN1WWrFMpBiEmZjFVId lbm [file] DRnjeum0XRF6PtSvdBzX4tiazWbRBJYsYI5W+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 [file] CbTVFdQAEnNf0xVIRATo9+FRluqVBizHpwIIZCPwS7AoJbVAifJOKXPo1H ID Date Data Source [id number] 02/01/2020 12:08:48 PM [facility] Name Value Range Interpretation Code Description Data Cathryn rce(s) Supporting Document(s) Consultation [facility] RGIIVs8cDaUPChXr34/JHRuyMZMua7WdENroBTh4DXnwZHYoB9KzRTD2jQ3uHNQ7IIzFSgYrAbUzTCMf lbm [file] AgICAgICAgICAgICAgICAgICAgICAgICAgICAgICAgICAgICAgICAgICAgICAgICAgICAgICAgICAgIC AgICAgICANCiAgICAgICAgICAgICAgICAgICAgICAg ICAgICAgICAgICAgICAgICAgICAgICAgICAgICAgICAgICAgICAgICAgICAgICAgICAgICAgICAgICAg ICAgICAgICAgICAgICAgICANCiAgICAgICAgICAgICAgICAgICAgICAgICAgICAgICAgICAgICAgICAg ICAgICAgICAgICAgICAgICAgICAgICAgICAgICAgIC AgICAgICAgICAgICAgICAgICAgICAgICAgICANCiAgICAgICAgICAgICAgICAgICAgICAgICAgICAgIC AgICAgICAgICAgICAgICAgICAgICAgICAgICAgICAgICAgICAgICAgICAgICAgICAgICAgICAgICAgIC AgICAgICAgICANCiAgICAgICAgICAgICAgICAgICAg ICAgICAgICAgICAgICAgICAgICAgICAgICAgICAgICAgICAgICAgICAgICAgICAgICAgICAgICAgICAg ICAgICAgICAgICAgICAgICAgICANCiAgICAgICAgICAgICAgICAgICAgICAgICAgICAgICAgICAgICAg ICAgICAgICAgICAgICAgICAgICAgICAgICAgICAgIC AgICAgICAgICAgICAgICAgICAgICAgICAgICAgICANCiAgICAgICAgICAgICAgICAgICAgICAgICAgIC AgICAgICAgICAgICAgICAgICAgICAgICAgICAgICAgICAgICAgICAgICAgICAgICAgICAgICAgICAgIC AgICAgICAgICAgICANCiAgICAgICAgICAgICAgICAg ICAgICAgICAgICAgICAgICAgICAgICAgICAgICAgICAgICAgICAgICAgICAgICAgICAgICAgICAgICAg ICAgICAgICAgICAgICAgICAgICAgICANCiAgICAgICAgICAgICAgICAgICAgICAgICAgICAgICAgICAg ICAgICAgICAgICAgICAgICAgICAgICAgICAgICAgIC AgICAgICAgICAgICAgICAgICAgICAgICAgICAgICAgICANCiAgICAgICAgICAgICAgICAgICAgICAgIC AgICAgICAgICAgICAgICAgICAgICAgICAgICAgICAgICAgICAgICAgICAgICAgICAgICAgICAgICAgIC AgICAgICAgICAgICAgICANCjw/vYOnM2mgtBIigrU6 P5nzJv2SUi5SZK5xr8LnBESuRUlbqiEfDegJStArJZLaUdjJIxh7GFrmWB7QtCAvY9IkS7AxPXftRU7Z CYYqMFQykSCuTHWkQJEmEuO3AKExYFpfWD2NeFUgTDxcXVUwZTTpSP4ZYOSfG539frTtEI7NTy6IVlBg NK8pcu3ZWYgrFMIaXjxNSgl0HSymJQ4JxUOgqTPeKB IgPGSCWoPrF7nlg0VsTAkvZFANLBokKX4Uh7AbaQIuPFf+Sm4BHI2ju1MoQWueIHSaMD6ets4ZLPjIHe PfC2MpqAeoMZAmylC8aJYqJBH1OKBtpjkniJNCRYVke58yJXHSLMGsiHXeZX4oUV5cCLJcXAI2SxY9MA GJRW5PDWDoOFUtpKDaFMOpNISOHR3XGWpjIBZ5ALGh nxDdqQUwPJsyKR1EGXKgicJlBEgyCMGKEJt+Kp7KIR2gs3GfAXraZGPkND1xre2FNZkLLiWmS4S7oTMd G6F9LJhkHj6ZWSYfTBQkLCYqXZYQWSwlVD3EZH5dyvR2DQ3FwHHiXXVfTDLmkCIuCUm1B29yiGQoJNvw HF5AZYQ+Beatrice+Vk1ZDRUcGTAxNDQzDeBuJTECKpPjS4 HmE1MZb8YzY4XrCK64iCbpjdKcSVbfGU2SMI0wJRQmJHIRAP9UqEIbjA5fmrEzMlJmCHWNSeGiO54oxX KcUHOtSDS8PDZeLq6FLAJdA8IskfZgrHzfxlMpHYEtNWLGRG5CLCniinYjqWPvjYbrTC53nQxyAM8KVl 7CVmQuAD7eme8YuJToZi6QVXWrVH5MJGQoDIBeOTBe SFH8DERfFcAnKPlmHWRgSLXiETY3ZAVcZSPcNH4TQbTcCINwUTCrEgdeLJAlBUJyqq4BCLIwKAXfJlqg VfQyJUMzXCKvURazJHPaUDXbORK7LCTzTOVsQD3ITdBnETMrAEH4NFajYDIpOMStwb7XYWMwWAGuTvJf TrSmEDLaJVEeQZxwZJJtYXBeYEyqXBEkDWIuMN0ZLz QzOUTnAVKpTsuaWMMeZZUxzi9BHKJjSZKaUqH5XzXoLUOtBRGvHSxfZTLbZTW3FIE7RDZtFTNySH4BCa YvNCJxKVB8KGszUAOoYCGpai0DXLJuCTArMBsbEPGiXZZdLIKpMMsdQJHgBNS1ScH6WKDaLCClSC0GZj GeNFBeVKQ2AdOdPETjLJWwho5LWAUvSNRdMgI1MPEz MRDtTVMuJGpvPFGeUWM6IGR0LCFsULVnVI8XUjTzXOKdISjaENJsQSDdMAZapo4JAXAtHJTrGAG5EJNn YHAdWEJfFDqwUHNgEUO5StH4YPNaTNGpNT1FVnPzVWxlVLFMFyu6EAbhL0a5OHDuWS1XN3Uhr5CrGXak BNHLEQpeWL0kfzNrFPWsHy0JO2yZGxt8N9CiRWMzIE gzJDZuGUK8RKs8I8BmZwq5GqTvSGU1Im3eBYB6DGIuCwIuGPLoHTBmMNx8LkQ1DnIpNCcmWVNzMxkrPf NoMO8LHw0LJfU1DVZ6xKTlSu3OQHE6Rp6CFZENU5TRLg== ID Date Data Source [id number] 01/31/2020 05:17:39 PM EDT [facility] Name Value Range Interpretation Code Description Data Cathryn rce(s) Supporting Document(s) Specimen source [Identifier] of Unspecified specimen [facility] SARS-CoV-2 RNA 2018 nCoV Real-Time RT-PCR: NOT DETECTED [facility] Assay Performed [facility] Patients first test for [facility] 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[facility] Patient has symptoms related to condition [facility] When did you start to experience these symptoms [Date and time] [Phen X] [facility] Patient was hospitalized because of this condition [facility] patient was admitted to ICU for [facility] Patient resides in a congregate care setting [facility] status [facility] ID Date Data Source [id number] 01/31/2020 03:01:00 PM EDT [facility] Name Value Range Interpretation Code Description Data Cathryn rce(s) Supporting Document(s) SARS-CoV-[address] [facility] This lab was ordered by [facility] and reported by [facility]. ID Date Data Source [id number] 01/31/2020 05:15:08 PM EDT [facility] Service Cmnt XXX-Imp : NoneRespiratory P CR Panel : PCR ResultsMicroorganism XXX Cult : See Labs Tab for 2019 nCoV RT-PCR resultsHAdV DNA QI ALLAN+non-probe : Not DetectedHCoV [id number] Nph QI ALLAN+non-probe : Not DetectedHCoV [id number] Nph QI ALLAN+non-probe : Not GtpjtwazURcACZ44 RNA Nph QI ALLAN+non-probe : Not RmzkbrqpILgEQC93 RNA Upper resp QI ALLAN+probe : Not [...] DNA Nph Q ALLAN+non-probe : Not DetectedB [id number] DNA Nph ALLAN+non-probe : Not Detected Name Value Range Interpretation Code Description Data Cathryn rce(s) Supporting Document(s) ID Date Data Source [id number] 01/30/2020 04:51:00 PM EDT [facility] Name Value Range Interpretation Code Description Data Cathryn rce(s) Supporting Document(s) ACETAMINOPHEN < 2.0 ug/mL 0-30 [facility] ID Date Data Source [id number] 01/30/2020 04:51:00 PM EDT [facility] Name Value Range Interpretation Code Description Data Cathryn rce(s) Supporting Document(s) SALICYLATE < 1.7 mg/dL 0.0-20.0 [facility] ID Date Data Source [id number] 01/30/2020 04:51:00 PM EDT [facility] Name Value Range Interpretation Code Description Data Cathryn rce(s) Supporting Document(s) ETOH NONE DETECTED [facility] NONE DETECTED ID Date Data Source [id number] 01/30/2020 04:51:00 PM EDT [facility] Name Value Range Interpretation Code Description Data Cathryn rce(s) Supporting Document(s) GLU 95 mg/dL 70-110 [facility] Patients taking Sulfasalazine may have f alsely depressedGlucose levels. Patients taking Sulfapyridine may havefalsely elevated Glucose levels. Patients should be drawnfor Glucose before the initial administration of eitherdrug. BUN 11 mg/dL 7-23 [facility] CRE 0.928 mg/dL 0.500-1.300 [facility] GFR > 60 mL/min [facility] CHLORIDE 109 mmol/L 99-110 [facility] NA 142 mmol/L 136-147 [facility] POTASSIUM 3.7 mmol/L 3.5-5.1 [facility] TCO2 24 mmol/L 20-33 [facility] ANION GAP 12.7 10.0-20.0 [facility] CA 8.6 mg/dL 8.3-10.7 [facility] ALKALINE PHOS 104 U/L 45-117 [facility] TP 8.2 g/dL 6.0-7.8 H [facility] ALB 4.4 g/dL 3.5-5.0 [facility] ESRD Dialysis patient Albumin reference range: 2.9-4.4 g/dL GL 3.8 g/dL 2.3-3.5 H [facility] A/G 1.2 1.0-2.5 [facility] T. BILIRUBIN 0.5 mg/dL 0.1-1.1 [facility] [employer] [place] Total Bilirubin is n ot recommended forpatients undergoing treatment with eltrombopag (Promacta)due to the potential for falsely elevated results. ALTI 13 U/L 6-54 [facility] Patients taking Sulfasalazine and/or Sul fapyridine may havefalsely depressed ALT levels. Patients should be drawn forALT before the initial administration of either drug. AST 12 U/L 8-40 [facility] Patients taking Sulfasalazine and/or Sul fapyridine may havefalsely depressed AST levels. Patients should be drawn forAST before the initial administration of either drug. ID Date Data Source [id number] 01/30/2020 04:27:00 PM [facility] Name Value Range Interpretation Code Description Data Cathryn rce(s) Supporting Document(s) WBC 8.44 x10E3/uL 4.0-10.5 [facility] RBC 5.40 x10E6/uL 4.70-6.00 [facility] Hemoglobin 15.3 g/dL 14.0-18.0 [facility] Hematocrit 43.6 % 42.0-52.0 [facility] MCV 80.7 fL 81.0-99.0 L [facility] MCH 28.3 pg 27.0-31.0 [facility] MCHC 35.1 g/dL 32.7-35.6 [facility] RDW 12.7 % 11.5-14.0 [facility] Platelet count 276 x10E3/uL 150-450 [facility] ital MPV 9.2 fl 6.9-9.5 [facility] Neutrophils 65.0 % 34-64 H [facility] Lymphocytes 26.2 % 25-45 N [facility] Monocytes 7.5 % 1.7-10.6 [facility] Eosinophils 0.6 % 0.4-7.0 [facility] Basophils 0.5 % 0.1-2.0 [facility] Imm. Gran. 0.2 % 0.1-2.0 [facility] Abs. Neutro. 5.49 x10E3/uL 1.2-7.6 [facility] Abs. Lymph. 2.21 x10E3/uL 1.0-3.5 N [facility] Abs. Isabela. 0.63 x10E3/uL 0.1-1.0 [facility] Abs. Eosin. 0.05 x10E3/uL 0.1-0.7 L [facility] Abs. Baso. 0.04 x10E3/uL 0.0-0.1 N [facility] l Abs. Imm. Gran. 0.02 x10E3/uL 0.0-0.1 [facility] spital ANRBC% 0 % 0 [facility] ID Date Data Source [id number] 01/30/2020 04:44:00 PM EDT [facility] Name Value Range Interpretation Code Description Data Cathryn rce(s) Supporting Document(s) PCP VISTA NEG NEGATIVE [facility] MINIMUM LEVEL OF DETECTION IS 25 ng/ml BENZODIAZEPINES NEG NEGATIVE [facility] al MINIMUM LEVEL OF DETECTION IS 200 ng/ml COCAINE VISTA NEG NEGATIVE [facility] MINIMUM LEVEL OF DETECTION IS 300 ng/ml AMPHETAMINES NEG NEGATIVE [facility] al MINIMUM LEVEL OF DETECTION IS 1000 ng/ml BARBITURATES NEG NEGATIVE [facility] CUTOFF CONCENTRATION IS 200 ng/ml CANNABINOIDS NEG NEGATIVE [facility] al CUTOFF CONCENTRATION IS 50 ng/ml METHADONE VISTA NEG NEGATIVE [facility] al MINIMUM LEVEL OF DETECTION IS 300 ng/ml OPIATE VISTA NEG NEGATIVE [facility] MINIMUM DETECTION LEVEL IS 300 ng/ml ID Date Data Source [id number] 01/30/2020 04:29:00 PM EDT [facility] Name Value Range Interpretation Code Description Data Cathryn rce(s) Supporting Document(s) URINE COLOR DK YELLOW N [facility] UAPR Clear [facility] UGLU Negative NEGATIVE [facility] URINE BILIRUBIN Negative NEGATIVE [facility] UKET 3+ NEGATIVE [facility] USG 1.024 1.010-1.025 [facility] UBLO Negative NEGATIVE [facility] UpH 6.5 5.0-8.0 [facility] UPRO Trace Negative [facility] UUB 1.0 mg/dL 0.2-1.0 [facility] UNIT Negative Negative [facility] ULEU Negative Negative [facility] ID Date Data Source [id number] 01/31/2020 08:13:00 AM EDT [facility] Physician DocumentationClaxbull-Louisa Ricardo edical CenterName: Marbin PandyaAge: 34 yrsSex: MaleDOB: 1985MRN: [id number] Date: 01/30/2020Time: 15:47Account#: [id number] 2Private MD: Out of town provider, -ED Physician Noah GonzalezDisangela Summary:01/31/20 03:04[facility] ei[facility]Ytnufi: Capacity cj0Vyfotzfdg: Stable wa5Xwjeyob: an ongoing problem is2Vmvupuwl: are unchanged jp4Nywarpatt Physician: Dr Green(01/31/20 08:13) fl3Cjjhcovgj- Schizoaffective disorder, unspecified qm3Edyss:- Medication Reconciliation th4- Medication Reconciliation Form - [...] Smoking status: Patient states was never smoker oftobacco. Patient/guardian denies using street drugs, ETOH statusDenies [...] is full so patient will [facility]ransferred [facility] and treatment. See PSAnote. Patient has been coope rative.. Order name: Acetaminophen Level; Complete Time: 17:: Order name: CBC with diff; Complete Time: 17:04 : Order name: CMP; Complete Time: 17:: Order name: ETOH; Complete Time: 17:: Order name: Glucose : Order name: Salicylate Level; Complete Time: 17:: Order name: Triage - Drug Screen; Complete Time: 17:: Order name: UA; Complete Time: 17:: Order [...] Order name: Medically Cleared for Eval by-Psychosocial, Sizing End Bander af(.PSA); Complete Time: :2:22 Order name: EKG.; Complete Time: 02:33 yk5Tnlutlypa Medications:No medications were administeredEC:32 Rate is 68 beats/min. Rhythm is regular, Normal Sinus Rhythm. QRS gf5Ixac is Normal. WV interval is normal. QRS interval is normal. QTinterval is normal. No Q waves. T waves are Normal. ST Segment iselevated in leads V2, V3, V4, V5, <1mm. Clinical impression: Benignearly repolarization. Interpreted by me.Signatures:Dispatcher [employer] Anette Germain MD MD afwFelicity RN RN jf3EaabdzzNoah Gonzalez MD MD rf6AhPfjmdShalonda Ortiz RN RN jlPutBhumika coleman RN RN bx6Itpyhkvnkdi: (The following items were deleted from the chart)12/3014:59 15:53 Allergies: No known Allergies; [facility]10/3108:13 03:04 Dr Green th4 wd1 Name Value Range Interpretation Code Description Data Cathryn rce(s) Supporting Document(s) ID Date Data Source [id number] 01/31/2020 08:13:00 AM EDT [facility] terName: Marbin PandyaAge: 34 yrsSex: MaleDOB: 1985MRN: [id number] Date: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
[2021-03-14 17:43] VITALS: BP 123/82
--- NOTE | 2021-03-14 18:35 | ECGEPIP ---
[facility] - ED Test Date: 2021-03-14 Pat Name: CRISTOBAL PANDYA Department: Room: - Gender: Male Valuation Consultant: MARCIA : 1985 Requested By: Loren Barnes Order Number: [id number] Reading MD: Rod Bermudez Measurements Intervals [place] Rate: 91 P: 81 CO: 142 QRS: 88 QRSD: 92 T: 63 QT: 334 QTc: 410 Interpretive Statements Normal sinus rhythm Possible Left atrial enlargement Incomplete right bundle branch block Similar to tracing done 11-27-20 Electronically Signed on 03-14-2021 18:34:55 EST by Rod Bermudez
== END 2021-03-14 17:50 | disposition home or self-care (01) ==
LOC: M ED 13:50
DX: M94.0 Chondrocostal junction syndrome [Tietze] (principal); R94.5 Abnormal results of liver function studies; I45.19 Other right bundle-branch block; I10 Essential (primary) hypertension; K21.9 Gastro-esophageal reflux disease without esophagitis; F43.10 Post-traumatic stress disorder, unspecified; Z86.19 Personal history of other infectious and parasitic diseases; F19.10 Other psychoactive substance abuse, uncomplicated; F17.200 Nicotine dependence, unspecified, uncomplicated; Z85.51 Personal history of malignant neoplasm of bladder; Z79.899 Other long term (current) drug therapy; Z88.0 Allergy status to penicillin
CPT/HCPCS: 71045; 71275; 80048; 80076; 82550; 82553; 83690; 85027; 93005; 96374; 99284; J1885; Q9967

== ENCOUNTER → 2021-05-16 | Outpatient (CLI) | payer OTHER ==
[~2021-05-16] MED LIST changes: +ARIS2.4I; +GUAN1TAB18; -HALO5TA PO; +HALO5TAB33 PO; +KETO10TAB PO; +NALT50TA4
== END ==
LOC: M OUTALCOH 08:37
PROVIDERS: ATTEND Psychiatry & Neurology Psychiatry
DX: Z13.39 Encounter for screening examination for other mental health and behavioral disorders (principal)

== ENCOUNTER 2021-06-21 08:00 | Outpatient (RCR) | payer OTHER | END 2021-06-30 | LOC: M OUTALCOH 08:00 | PROVIDERS: ATTEND Psychiatry & Neurology Psychiatry | DX: F15.20 Other stimulant dependence, uncomplicated (principal); F16.10 Hallucinogen abuse, uncomplicated ==

== ENCOUNTER 2021-07-05 10:33 | Outpatient (RCR) | payer OTHER | END 2021-07-30 | LOC: M OUTALCOH 10:33 | PROVIDERS: ATTEND Psychiatry & Neurology Psychiatry | DX: F15.20 Other stimulant dependence, uncomplicated (principal); F16.10 Hallucinogen abuse, uncomplicated ==

== ENCOUNTER 2023-07-07 09:23 | Emergency (ER) | payer MEDICAID, OTHER ==
[~2023-07-07] VITALS: Ht 180.3 cm; Wt 73.1 kg
[~2023-07-07 09:23] MED LIST changes: +BENZ0.5T2 PO; -BENZ0.5T23 PO; -GABA-283 PO; +GABA-284 PO; +MEPH5TAB6 PO; -PHYT5TA PO; +TOPI-21 PO; -TOPI50TA9 PO
[2023-07-07] MEDS ORDERED: KETOROLAC 60MG 2ML VIAL IM ONE (11:10)
[2023-07-07] MEDS: KETOROLAC 30 MG/ML 1ML VIAL IV ONE (11:37)
[2023-07-07 11:41] LABS: BASO % 0.4 % (0.0-1.0); EOS # 0.2 10^3/uL (0.0-0.5); EOS % 3.2 % (0.0-3.0); HEMOGLOBIN 14.4 g/dl (13.5-17.5); LYMPH # 2.2 10^3/uL (1.5-5.0); LYMPH % 30.8 % (24.0-44.0); MEAN CORPUSCULAR HEMOGLOBIN 28.6 pg (27.0-33.0); MEAN CORPUSCULAR HGB CONC 34.3 g/dl (32.0-36.5); MEAN CORPUSCULAR VOLUME 83.5 fl (80.0-96.0); MONO # 0.3 10^3/uL (0.0-0.8); MONO % 4.5 % (2.0-8.0); NEUTROPHILS # 4.3 10^3/uL (1.5-8.5); NEUTROPHILS % 60.8 % (36.0-66.0); PLATELET COUNT, AUTOMATED 193 10^3/uL (150-450); RED BLOOD COUNT 5.03 10^6/uL (4.30-6.10); WHITE BLOOD COUNT 7.1 10^3/uL (4.0-10.0)
[2023-07-07 11:48] LABS: ERYTHROCYTE SEDIMENTATION RATE 8 mm/hr (0-15)
[2023-07-07] MEDS ORDERED: ISOVUE-370 76% 100ML VIAL As Ordered ONE (11:52)
[2023-07-07 12:09] LABS: C REACTIVE PROTEIN QUANTITATIV < 0.40 MG/DL (<1.0)
[2023-07-07 12:10] LABS: ALBUMIN 3.9 G/DL (3.2-5.2); ALKALINE PHOSPHATASE 118 U/L (46-116); ALT/SGPT 15 U/L (7.0-40); AST/SGOT 17 U/L (<34); BILIRUBIN,DIRECT < 0.1 MG/DL (<0.4); BILIRUBIN,TOTAL 0.3 MG/DL (0.3-1.2)
[2023-07-07 19:24] VITALS: BP 122/75; TEMP 98.3; O2SAT 98
== END 2023-07-07 19:52 | disposition short-term general hospital (02) ==
LOC: M ED 09:23
DX: J34.89 Other specified disorders of nose and nasal sinuses (principal); H05.20 Unspecified exophthalmos; I10 Essential (primary) hypertension; E78.5 Hyperlipidemia, unspecified; Z85.51 Personal history of malignant neoplasm of bladder; F17.290 Nicotine dependence, other tobacco product, uncomplicated; F19.11 Other psychoactive substance abuse, in remission
CPT/HCPCS: 70450; 70487; 80047; 80076; 85025; 85652; 86140; 96374; 99284; J1885; Q9967

== ENCOUNTER → 2023-08-20 | Outpatient (CLI) | payer MEDICAID | LOC: M PLARAD 08:02 | PROVIDERS: ATTEND Internal Medicine Hematology & Oncology | DX: C08.9 Malignant neoplasm of major salivary gland, unspecified (principal) | CPT/HCPCS: 78815; A9552 ==

== ENCOUNTER → 2023-09-17 | Outpatient (CLI) | payer MEDICAID, OTHER ==
[~2023-09-17] MED LIST changes: +BUSP15TA47 PO; +DULO1CAP5 PO; +METH5TA PO
== END ==
LOC: M ONCR 13:30
PROVIDERS: ATTEND General Practice
DX: C30.0 Malignant neoplasm of nasal cavity (principal); Z71.2 Person consulting for explanation of examination or test findings; F17.210 Nicotine dependence, cigarettes, uncomplicated; Z79.891 Long term (current) use of opiate analgesic; Z88.1 Allergy status to other antibiotic agents; Z79.899 Other long term (current) drug therapy

== ENCOUNTER 2023-09-27 12:02 | Outpatient (RCR) | payer OTHER ==
[~2023-09-27 12:02] MED LIST changes: +DEXA4TA PO
[2023-09-27] MEDS ORDERED: AMOX500C PO (12:27)
[2023-09-28] MEDS ORDERED: FENT1PAT25 TD (13:59)
[2023-09-28] MEDS ORDERED: MELO15TA28 PO (14:01)
[2023-10-01] MEDS ORDERED: NORV5TAB PO (12:27)
== END 2023-09-30 ==
LOC: M ONCR 12:02
PROVIDERS: ATTEND General Practice
DX: Z51.0 Encounter for antineoplastic radiation therapy (principal); C30.0 Malignant neoplasm of nasal cavity

== ENCOUNTER 2023-09-28 11:18 | Emergency (ER) | payer OTHER ==
[~2023-09-28] VITALS: Ht 177.8 cm; Wt 73.2 kg
[~2023-09-28 11:18] MED LIST changes: +AMOX500C PO
[2023-09-28 12:05] LABS: BASO % 0.1 % (0.0-1.0); EOS % 0.1 % (0.0-3.0); HEMATOCRIT 41.8 % (42.0-52.0); LYMPH # 0.5 10^3/uL (1.5-5.0); LYMPH % 2.8 % (24.0-44.0); MEAN CORPUSCULAR HEMOGLOBIN 23.1 pg (27.0-33.0); MEAN CORPUSCULAR HGB CONC 31.1 g/dl (32.0-36.5); MEAN CORPUSCULAR VOLUME 74.2 fl (80.0-96.0); MONO # 1.5 10^3/uL (0.0-0.8); MONO % 8.2 % (2.0-8.0); NEUTROPHILS # 15.8 10^3/uL (1.5-8.5); NEUTROPHILS % 88.4 % (36.0-66.0); PLATELET COUNT, AUTOMATED 348 10^3/uL (150-450); RED BLOOD COUNT 5.63 10^6/uL (4.30-6.10); WHITE BLOOD COUNT 17.9 10^3/uL (4.0-10.0)
[2023-09-28] MEDS ORDERED: ISOVUE-370 76% 100ML VIAL As Ordered ONE (12:12)
[2023-09-28] MEDS: METOCLOPRAMIDE INJ 10MG/2ML VIAL IV ONE (12:26)
[2023-09-28] MEDS: NS 1,000 ML IV ONE (12:26)
[2023-09-28 12:29] LABS: ERYTHROCYTE SEDIMENTATION RATE 77 mm/hr (0-15)
[2023-09-28] MEDS: fentaNYL 100 MCG/2 ML INJECTION IV ONE ×2 (13:02→14:00)
[2023-09-28] MEDS ORDERED: HOME MED LIST COMPLETE! XX SCH (13:30)
[2023-09-28] MEDS ORDERED: FENT1PAT25 TD (13:59)
[2023-09-28] MEDS ORDERED: MELO15TA28 PO (14:01)
[2023-09-28 14:05] VITALS: BP 167/97; TEMP 97.9; O2SAT 99
[2023-10-01] MEDS ORDERED: NORV5TAB PO (12:27)
== END 2023-09-28 14:11 | disposition home or self-care (01) ==
LOC: M ED 11:18
DX: C08.9 Malignant neoplasm of major salivary gland, unspecified (principal); F17.200 Nicotine dependence, unspecified, uncomplicated; I10 Essential (primary) hypertension; F43.10 Post-traumatic stress disorder, unspecified; C67.9 Malignant neoplasm of bladder, unspecified; B17.9 Acute viral hepatitis, unspecified; Z88.1 Allergy status to other antibiotic agents; Z86.16 Personal history of COVID-19; Z79.2 Long term (current) use of antibiotics; Z79.899 Other long term (current) drug therapy
CPT/HCPCS: 70487; 80047; 83605; 85025; 85652; 86140; 87040; 96361; 96374; 99284; J3010; Q9967

== ENCOUNTER → 2023-10-03 | Outpatient (CLI) | payer OTHER ==
[~2023-10-03] VITALS: Ht 180.3 cm; Wt 71.1 kg
[~2023-10-03] MED LIST changes: +DULO1CAP6 PO; +FENT1PAT25 TD; +FLUC10TA PO; +LORA1TAB23 PO; +MELATAB3 PO; +MELO15TA28 PO; +MIRA3350 PO; +MORP15TA2 PO; +NORV5TAB PO; +ONDA-83 PO; +SENN-186 PO; +TOBRSUS8 OD; +TOBRSUS8 OS; +[UNRECOGNIZED DRUG - CODE] OD
[2023-10-03 13:08] VITALS: BP 147/103; O2SAT 99
[2023-10-03 14:39] VITALS: BP 150/118
== END ==
LOC: M PAL 12:38
PROVIDERS: ATTEND Nurse Practitioner Adult Health
DX: C30.0 Malignant neoplasm of nasal cavity (principal); G89.3 Neoplasm related pain (acute) (chronic); G89.29 Other chronic pain; F41.0 Panic disorder [episodic paroxysmal anxiety]; R53.83 Other fatigue; R06.02 Shortness of breath; Z51.5 Encounter for palliative care; Z85.51 Personal history of malignant neoplasm of bladder; F10.21 Alcohol dependence, in remission; F15.21 Other stimulant dependence, in remission; Z62.810 Personal history of physical and sexual abuse in childhood; Z91.419 Personal history of unspecified adult abuse; Z79.891 Long term (current) use of opiate analgesic; Z79.2 Long term (current) use of antibiotics; Z79.52 Long term (current) use of systemic steroids; Z88.1 Allergy status to other antibiotic agents; B18.2 Chronic viral hepatitis C; F17.210 Nicotine dependence, cigarettes, uncomplicated; Z92.3 Personal history of irradiation; K59.00 Constipation, unspecified

== ENCOUNTER 2023-10-15 12:12 | Outpatient (RCR) | payer OTHER ==
[~2023-10-15 12:12] MED LIST changes: -DULO1CAP6 PO; -LORA1TAB23 PO
[2023-10-16] MEDS ORDERED: DULO1CAP6 PO (14:35)
[2023-10-16] MEDS ORDERED: LORA1TAB23 PO (14:45)
== END 2023-10-31 ==
LOC: M ONCR 12:12
PROVIDERS: ATTEND General Practice
DX: Z51.0 Encounter for antineoplastic radiation therapy (principal); C30.0 Malignant neoplasm of nasal cavity

== ENCOUNTER → 2023-10-16 | Outpatient (CLI) | payer OTHER ==
[~2023-10-16] VITALS: Ht 180.3 cm; Wt 70.3 kg
[~2023-10-16] MED LIST changes: +DULO1CAP6 PO; +LORA1TAB23 PO
[2023-10-16 14:00] VITALS: BP 128/86; O2SAT 100
== END ==
LOC: M PAL 13:29
PROVIDERS: ATTEND Nurse Practitioner Adult Health
DX: C30.0 Malignant neoplasm of nasal cavity (principal); G89.3 Neoplasm related pain (acute) (chronic); F41.0 Panic disorder [episodic paroxysmal anxiety]; G89.29 Other chronic pain; R06.02 Shortness of breath; Z51.5 Encounter for palliative care; Z85.51 Personal history of malignant neoplasm of bladder; F10.21 Alcohol dependence, in remission; F15.21 Other stimulant dependence, in remission; Z62.810 Personal history of physical and sexual abuse in childhood; Z91.419 Personal history of unspecified adult abuse; Z79.2 Long term (current) use of antibiotics; Z79.52 Long term (current) use of systemic steroids; Z79.891 Long term (current) use of opiate analgesic; Z79.899 Other long term (current) drug therapy; Z88.1 Allergy status to other antibiotic agents; B18.2 Chronic viral hepatitis C; F17.210 Nicotine dependence, cigarettes, uncomplicated; Z92.3 Personal history of irradiation; K59.00 Constipation, unspecified; Z66 Do not resuscitate

== ENCOUNTER 2023-11-02 21:40 | Emergency (ER) | payer OTHER ==
[~2023-11-02] VITALS: Ht 188 cm; Wt 72.7 kg
[2023-11-02 21:52] VITALS: TEMP 96.8
[2023-11-02] MEDS: NS 1,000 ML IV ONE (21:55)
[2023-11-02 22:13] LABS: VENOUS BASE EXCESS 3.2 (-2.0-2.0); VENOUS HCO3 30.5 MMOL/L (23.0-27.0); VENOUS PARTIAL PRESSURE CO2 58.6 mmHg (38.0-50.0); VENOUS PARTIAL PRESSURE O2 50.5 mmHg (30.0-50.0); VENOUS PH 7.334 UNITS (7.330-7.430); VENOUS TOTAL CO2 32.3 MMOL/L (24.0-28.0)
[2023-11-02 22:15] LABS: IONIZED CALCIUM 4.5 MG/DL (4.5-5.3)
[2023-11-02 22:27] LABS: BASO % 0.1 % (0.0-1.0); HEMATOCRIT 38.7 % (42.0-52.0); HEMOGLOBIN 12.1 g/dl (13.5-17.5); LYMPH # 0.6 10^3/uL (1.5-5.0); LYMPH % 4.8 % (24.0-44.0); MEAN CORPUSCULAR HEMOGLOBIN 22.7 pg (27.0-33.0); MEAN CORPUSCULAR HGB CONC 31.3 g/dl (32.0-36.5); MEAN CORPUSCULAR VOLUME 72.6 fl (80.0-96.0); MONO # 0.7 10^3/uL (0.0-0.8); MONO % 6.3 % (2.0-8.0); PLATELET COUNT, AUTOMATED 256 10^3/uL (150-450); RED BLOOD COUNT 5.33 10^6/uL (4.30-6.10); WHITE BLOOD COUNT 11.4 10^3/uL (4.0-10.0)
[2023-11-02 22:38] LABS: ETHYL ALCOHOL (ETHANOL) < 0.003 % (0.000-0.010)
[2023-11-02 22:40] LABS: ALBUMIN 3.5 G/DL (3.2-5.2); ALKALINE PHOSPHATASE 121 U/L (46-116); ALT/SGPT 20 U/L (7.0-40); AST/SGOT 12 U/L (<34); BILIRUBIN,DIRECT 0.1 MG/DL (<0.4); BILIRUBIN,TOTAL 0.4 MG/DL (0.3-1.2); BLOOD UREA NITROGEN 16 MG/DL (9-23); CALCIUM LEVEL 8.4 MG/DL (8.5-10.1); CARBON DIOXIDE LEVEL 31 MMOL/L (20-31); CHLORIDE LEVEL 107 MMOL/L (98-107); CREATININE FOR GFR 0.72 MG/DL (0.70-1.30); GLOMERULAR FILTRATION RATE > 60.0 (>60); GLUCOSE, FASTING 101 MG/DL (60-100); MAGNESIUM LEVEL 1.9 MG/DL (1.8-2.4); PHOSPHORUS LEVEL 6.3 MG/DL (2.5-4.9); POTASSIUM SERUM 3.9 MMOL/L (3.5-5.1); SODIUM LEVEL 142 MMOL/L (136-145); TOTAL PROTEIN 6.6 G/DL (5.7-8.2)
[2023-11-02 23:34] LABS: CPK CREATINE PHOSPHOKINASE 91 U/L (46-171)
[2023-11-02 23:37] LABS: PROLACTIN 0.61 NG/ML (2.1-17.7)
[2023-11-03] VITALS: BP 116/90; O2SAT 94
[2023-11-03 01:15] LABS: APPEARANCE, URINE HAZY (CLEAR); BACTERIA, URINE AUTO NEGATIVE (NEGATIVE); BILIRUBIN, URINE AUTO NEGATIVE (NEGATIVE); BLOOD, URINE BLOOD NEGATIVE (NEGATIVE); COLOR, URINE YELLOW (YELLOW); GLUCOSE, URINE (UA) AUTO NEGATIVE (NEGATIVE); KETONE, URINE AUTO NEGATIVE (NEGATIVE); LEUKOCYTE ESTERASE, URINE AUTO NEGATIVE (NEGATIVE); MUCUS, URINE SMALL (NEGATIVE); NITRITE, URINE AUTO NEGATIVE (NEGATIVE); PROTEIN, URINE AUTO NEGATIVE (NEGATIVE); RBC, URINE AUTO 0 /HPF (0-3); SPECIFIC GRAVITY URINE AUTO 1.014 (1.002-1.035); SQUAMOUS EPITHELIAL CELL UR AU 0 /HPF (0-6); UROBILINOGEN, URINE AUTO 0.2 mg/dL (0.0-2.0); WBC, URINE AUTO 0 /HPF (0-3)
[2023-11-03 01:33] LABS: BARBITURATES URINE NEGATIVE (NEGATIVE); BENZODIAZEPINES URINE NEGATIVE (NEGATIVE); CANNABINOIDS URINE NEGATIVE (NEGATIVE); COCAINE METABOLITE URINE NEGATIVE (NEGATIVE); METHADONE URINE NEGATIVE (NEGATIVE); PHENCYCLIDINE URINE NEGATIVE (NEGATIVE)
[2023-11-03 01:35] LABS: AMPHETAMINES LEVEL URINE POSITIVE (NEGATIVE); OPIATES URINE POSITIVE (NEGATIVE)
== END 2023-11-03 01:58 | disposition home or self-care (01) ==
LOC: M ED 21:40
DX: F19.10 Other psychoactive substance abuse, uncomplicated (principal); C08.9 Malignant neoplasm of major salivary gland, unspecified; K59.00 Constipation, unspecified; F32.A Depression, unspecified; I10 Essential (primary) hypertension; Z88.1 Allergy status to other antibiotic agents; Z79.83 Long term (current) use of bisphosphonates; Z79.899 Other long term (current) drug therapy

== ENCOUNTER 2023-11-04 18:49 | Emergency (ER) | payer OTHER ==
[~2023-11-04] VITALS: Ht 180.3 cm; Wt 69.3 kg
[2023-11-04 19:32] LABS: HEMATOCRIT 39.7 % (42.0-52.0); HEMOGLOBIN 12.5 g/dl (13.5-17.5); MEAN CORPUSCULAR HEMOGLOBIN 22.7 pg (27.0-33.0); MEAN CORPUSCULAR HGB CONC 31.5 g/dl (32.0-36.5); MEAN CORPUSCULAR VOLUME 72.1 fl (80.0-96.0); PLATELET COUNT, AUTOMATED 267 10^3/uL (150-450); RED BLOOD COUNT 5.51 10^6/uL (4.30-6.10)
[2023-11-04] MEDS: LORazepam 1 MG TAB PO STA (19:52)
[2023-11-04] MEDS: MORPHINE 15 MG SA TAB PO ONE (19:53)
[2023-11-04 19:56] LABS: ETHYL ALCOHOL (ETHANOL) < 0.003 % (0.000-0.010)
[2023-11-04 19:58] LABS: ALBUMIN 3.3 G/DL (3.2-5.2); ALKALINE PHOSPHATASE 141 U/L (46-116); ALT/SGPT 20 U/L (7.0-40); AST/SGOT 13 U/L (<34); BILIRUBIN,DIRECT < 0.1 MG/DL (<0.4); BILIRUBIN,TOTAL 0.2 MG/DL (0.3-1.2); BLOOD UREA NITROGEN 23 MG/DL (9-23); CALCIUM LEVEL 8.3 MG/DL (8.5-10.1); CARBON DIOXIDE LEVEL 28 MMOL/L (20-31); CHLORIDE LEVEL 104 MMOL/L (98-107); CREATININE FOR GFR 0.94 MG/DL (0.70-1.30); GLOMERULAR FILTRATION RATE > 60.0 (>60); GLUCOSE, FASTING 123 MG/DL (60-100); POTASSIUM SERUM 3.9 MMOL/L (3.5-5.1); SALICYLATE LEVEL < 3.0 MG/DL (<30); SODIUM LEVEL 136 MMOL/L (136-145); TOTAL PROTEIN 6.3 G/DL (5.7-8.2)
[2023-11-04 20:00] LABS: THYROID STIMULATING HORMONE 4.894 uIU/ML (0.55-4.78)
[2023-11-04 20:26] LABS: BARBITURATES URINE NEGATIVE (NEGATIVE)
[2023-11-04 20:27] LABS: BENZODIAZEPINES URINE NEGATIVE (NEGATIVE); COCAINE METABOLITE URINE NEGATIVE (NEGATIVE); METHADONE URINE NEGATIVE (NEGATIVE); PHENCYCLIDINE URINE NEGATIVE (NEGATIVE)
[2023-11-04 20:48] LABS: AMPHETAMINES LEVEL URINE POSITIVE (NEGATIVE); CANNABINOIDS URINE POSITIVE (NEGATIVE); OPIATES URINE POSITIVE (NEGATIVE)
[2023-11-05] MEDS: MORPHINE SULFATE ORAL SOLN 10 MG/5 ML UD SL ONE (11:37)
[2023-11-05 17:05] VITALS: BP 124/74; TEMP 98.6; O2SAT 99
[2023-11-05] MEDS: LORazepam 1 MG TAB PO ONE (17:42)
== END 2023-11-05 17:44 | disposition home or self-care (01) ==
LOC: M ED 18:49
DX: F32.A Depression, unspecified (principal); F15.10 Other stimulant abuse, uncomplicated; C08.9 Malignant neoplasm of major salivary gland, unspecified; F17.200 Nicotine dependence, unspecified, uncomplicated; F10.10 Alcohol abuse, uncomplicated; Z88.1 Allergy status to other antibiotic agents; Z86.16 Personal history of COVID-19; Z79.899 Other long term (current) drug therapy; Z79.83 Long term (current) use of bisphosphonates

== ENCOUNTER 2023-12-27 08:20 | Emergency (ER) | payer OTHER ==
[~2023-12-27] VITALS: Ht 177.8 cm; Wt 71.4 kg
[2023-12-27] MEDS ORDERED: ABIL1INJ2 IM (08:42)
[2023-12-27 09:42] LABS: BASO % 0.3 % (0.0-1.0); EOS # 0.2 10^3/uL (0.0-0.5); EOS % 2.4 % (0.0-3.0); HEMOGLOBIN 15.3 g/dl (13.5-17.5); LYMPH # 1.4 10^3/uL (1.5-5.0); LYMPH % 15.4 % (24.0-44.0); MEAN CORPUSCULAR HGB CONC 31.9 g/dl (32.0-36.5); MEAN CORPUSCULAR VOLUME 78.6 fl (80.0-96.0); MONO # 0.8 10^3/uL (0.0-0.8); MONO % 8.9 % (2.0-8.0); NEUTROPHILS # 6.3 10^3/uL (1.5-8.5); NEUTROPHILS % 72.4 % (36.0-66.0); PLATELET COUNT, AUTOMATED 253 10^3/uL (150-450); RED BLOOD COUNT 6.11 10^6/uL (4.30-6.10); WHITE BLOOD COUNT 8.7 10^3/uL (4.0-10.0)
[2023-12-27] MEDS: LORazepam 2 MG/ML 1ML VIAL IV STA (09:51)
[2023-12-27] MEDS: MORPHINE 4 MG/ML 1ML VIAL IV ONE (09:52)
[2023-12-27 10:17] LABS: BLOOD UREA NITROGEN 7 MG/DL (9-23); CALCIUM LEVEL 9.6 MG/DL (8.5-10.1); CARBON DIOXIDE LEVEL 34 MMOL/L (20-31); CHLORIDE LEVEL 103 MMOL/L (98-107); CREATININE FOR GFR 0.69 MG/DL (0.70-1.30); GLOMERULAR FILTRATION RATE > 60.0 (>60); GLUCOSE, FASTING 84 MG/DL (60-100); POTASSIUM SERUM 4.3 MMOL/L (3.5-5.1); SODIUM LEVEL 140 MMOL/L (136-145)
[2023-12-27 10:31] LABS: BARBITURATES URINE NEGATIVE (NEGATIVE); BENZODIAZEPINES URINE NEGATIVE (NEGATIVE); CANNABINOIDS URINE NEGATIVE (NEGATIVE); COCAINE METABOLITE URINE NEGATIVE (NEGATIVE); METHADONE URINE NEGATIVE (NEGATIVE); OPIATES URINE NEGATIVE (NEGATIVE); PHENCYCLIDINE URINE NEGATIVE (NEGATIVE)
[2023-12-27 10:32] LABS: AMPHETAMINES LEVEL URINE POSITIVE (NEGATIVE)
[2023-12-27] MEDS ORDERED: MORP15TA2 PO (11:12)
[2023-12-27 11:30] VITALS: BP 152/108
[2023-12-27 11:35] VITALS: O2SAT 98
[2023-12-27 11:41] VITALS: TEMP 96.6
== END 2023-12-27 11:49 | disposition home or self-care (01) ==
LOC: M ED 08:20
DX: C08.9 Malignant neoplasm of major salivary gland, unspecified (principal); F15.10 Other stimulant abuse, uncomplicated; I10 Essential (primary) hypertension; K21.9 Gastro-esophageal reflux disease without esophagitis; C67.9 Malignant neoplasm of bladder, unspecified; B19.20 Unspecified viral hepatitis C without hepatic coma; Z88.1 Allergy status to other antibiotic agents; Z79.899 Other long term (current) drug therapy
CPT/HCPCS: 80048; 80307; 85025; 96374; 96375; 99284; J2060

== ENCOUNTER 2023-12-28 12:54 | Outpatient (RCR) | payer OTHER ==
[~2023-12-28 12:54] MED LIST changes: -ARIP10TA32; -ARIP10TA32 PO; +ARIP10TA63; +ARIP10TA63 PO; +GABA-1172 PO; -GABA-282 PO
== END 2023-12-31 ==
LOC: M ONCR 12:54
PROVIDERS: ATTEND General Practice
DX: Z51.0 Encounter for antineoplastic radiation therapy (principal); C30.0 Malignant neoplasm of nasal cavity

== ENCOUNTER 2024-01-01 09:16 | Outpatient (RCR) | payer OTHER ==
[~2024-01-01] VITALS: Ht 177.8 cm; Wt 72.1 kg
[~2024-01-01 09:16] MED LIST changes: -ABIL400I IM; +ARIP400S IM; +BUPR150T15 PO; -BUPR1TAB53 PO; +MELA5TAB44 PO; -MELA5TAB7 PO; +TOPI-256 PO; -TOPI25TA10 PO
[2024-01-01 09:22] VITALS: BP 142/98; O2SAT 98
[2024-01-01 10:27] LABS: BASO % 0.4 % (0.0-1.0); EOS # 0.4 10^3/uL (0.0-0.5); EOS % 4.7 % (0.0-3.0); HEMOGLOBIN 15.4 g/dl (13.5-17.5); LYMPH # 1.2 10^3/uL (1.5-5.0); LYMPH % 15.9 % (24.0-44.0); MEAN CORPUSCULAR HEMOGLOBIN 25.1 pg (27.0-33.0); MEAN CORPUSCULAR HGB CONC 32.1 g/dl (32.0-36.5); MEAN CORPUSCULAR VOLUME 78.2 fl (80.0-96.0); MONO # 0.7 10^3/uL (0.0-0.8); MONO % 9.1 % (2.0-8.0); NEUTROPHILS # 5.1 10^3/uL (1.5-8.5); NEUTROPHILS % 69.2 % (36.0-66.0); PLATELET COUNT, AUTOMATED 250 10^3/uL (150-450); RED BLOOD COUNT 6.14 10^6/uL (4.30-6.10); WHITE BLOOD COUNT 7.4 10^3/uL (4.0-10.0)
[2024-01-01 10:43] LABS: PROTHROMBIN TIME 12.9 SECONDS (12.5-14.5)
[2024-01-01 10:59] LABS: ALBUMIN 4.1 G/DL (3.2-5.2); ALKALINE PHOSPHATASE 158 U/L (46-116); ALT/SGPT 11 U/L (7.0-40); AST/SGOT 10 U/L (<34); BILIRUBIN,TOTAL 0.4 MG/DL (0.3-1.2); BLOOD UREA NITROGEN 12 MG/DL (9-23); CALCIUM LEVEL 9.5 MG/DL (8.5-10.1); CARBON DIOXIDE LEVEL 33 MMOL/L (20-31); CHLORIDE LEVEL 102 MMOL/L (98-107); CREATININE FOR GFR 0.75 MG/DL (0.70-1.30); GLOMERULAR FILTRATION RATE > 60.0 (>60); GLUCOSE, FASTING 91 MG/DL (60-100); MAGNESIUM LEVEL 2.2 MG/DL (1.8-2.4); POTASSIUM SERUM 4.2 MMOL/L (3.5-5.1); SODIUM LEVEL 138 MMOL/L (136-145); TOTAL PROTEIN 7.7 G/DL (5.7-8.2)
[2024-01-01 11:00] LABS: HEPATITIS B SURFACE ANTIBODY POSITIVE (POSITIVE)
[2024-01-01 11:13] LABS: HEPATITIS B SURFACE ANTIGEN NEGATIVE (NEGATIVE)
[2024-01-01 11:26] LABS: HIV 1&2 SCREEN NEGATIVE (NEGATIVE)
[2024-01-01 11:33] LABS: HEPATITIS B CORE ANTIBODY IGM NEGATIVE (NEGATIVE)
[2024-01-01 11:46] LABS: HEPATITIS C VIRUS ABY INDEX > 11.00 INDEX (<0.8)
[2024-01-03 10:08] LABS: HCV RNA QUANTITATION <15 NOT DETECTED IU/mL (NOT DETECTED); HCV RNA log10 <1.18 NOT DETECTED Log IU/mL (NOT DETECTED)
[2024-01-07] MEDS ORDERED: FENT1PAT25 TD (15:04)
[2024-01-07] MEDS ORDERED: MS C30TA6 PO (15:18)
[2024-01-07] MEDS ORDERED: MORP15TA2 PO (15:18)
[2024-01-07] MEDS ORDERED: SENN-186 PO (15:23)
[2024-01-07] MEDS ORDERED: MIRA3350 PO (15:23)
[2024-01-23] MEDS ORDERED: NYST-38 PO (08:22)
[2024-02-02] MEDS ORDERED: LIDO15SO8 PO (12:55)
[2024-02-02] MEDS ORDERED: AMOX500C PO (12:55)
[2024-02-06] MEDS ORDERED: MS C30TA6 PO (09:36)
[2024-03-11] MEDS ORDERED: MORP-69 PO (12:41)
[2024-03-11] MEDS ORDERED: MAGICMW SSP (12:41)
[2024-03-11] MEDS ORDERED: CEPH500C PO (12:41)
[2024-03-11] MEDS ORDERED: AMLO1TAB24 PO (12:41)
[2024-03-12] MEDS ORDERED: NARC1SPR NARES (08:22)
[2024-04-18] MEDS ORDERED: MORP-69 PO (10:55)
[2024-04-23] MEDS ORDERED: AMOX875T2 PO (16:26)
[2024-05-28] MEDS ORDERED: PERC5TAB12 PO (05:51)
[2024-05-28] MEDS ORDERED: ONDA-282 PO (05:51)
[2024-07-16] MEDS ORDERED: HYOS125TA PO (09:39)
[2024-07-16] MEDS ORDERED: ATIV1TAB10 PO (09:39)
[2024-07-16] MEDS ORDERED: MORP1SOL5 PO (09:39)
[2024-07-28] MEDS ORDERED: FENT1DIS14 TOP (09:36)
[2024-07-28] MEDS ORDERED: MORP1SOL5 PO (09:36)
== END 2024-07-31 | disposition expired ==
LOC: M ONCM 09:16
PROVIDERS: ATTEND Internal Medicine Hematology & Oncology
DX: C30.0 Malignant neoplasm of nasal cavity (principal); Z85.51 Personal history of malignant neoplasm of bladder; F17.210 Nicotine dependence, cigarettes, uncomplicated; Z79.899 Other long term (current) drug therapy
CPT/HCPCS: 36415; 80053; 83735; 85025; 85610; 85730; 86705; 86706; 86803; 87340; 87389; 87522; G0463

== ENCOUNTER 2024-01-02 09:14 | Outpatient (RCR) | payer OTHER ==
[~2024-01-02 09:14] MED LIST changes: +ABIL400I IM; -ARIP400S IM; -BUPR150T15 PO; +BUPR1TAB53 PO; -MELA5TAB44 PO; +MELA5TAB7 PO; -TOPI-256 PO; +TOPI25TA10 PO
[2024-01-07] MEDS ORDERED: FENT1PAT25 TD (15:04)
[2024-01-07] MEDS ORDERED: MS C30TA6 PO (15:18)
[2024-01-07] MEDS ORDERED: MORP15TA2 PO (15:18)
[2024-01-07] MEDS ORDERED: SENN-186 PO (15:23)
[2024-01-07] MEDS ORDERED: MIRA3350 PO (15:23)
[2024-01-23] MEDS ORDERED: NYST-38 PO (08:22)
== END 2024-01-31 ==
LOC: M ONCR 09:14
PROVIDERS: ATTEND General Practice
DX: Z51.0 Encounter for antineoplastic radiation therapy (principal); C30.0 Malignant neoplasm of nasal cavity

== ENCOUNTER → 2024-01-07 | Outpatient (CLI) | payer OTHER ==
[~2024-01-07] VITALS: Ht 177.8 cm; Wt 72.5 kg
[~2024-01-07] MED LIST changes: +MS C30TA6 PO
[2024-01-07 15:05] VITALS: BP 162/106; O2SAT 99
== END ==
LOC: M PAL 15:02
PROVIDERS: ATTEND Family Medicine
DX: C30.0 Malignant neoplasm of nasal cavity (principal); Z92.3 Personal history of irradiation; Z79.891 Long term (current) use of opiate analgesic; K59.00 Constipation, unspecified; Z51.5 Encounter for palliative care; Z79.899 Other long term (current) drug therapy; Z88.1 Allergy status to other antibiotic agents

== ENCOUNTER → 2024-01-23 | Outpatient (CLI) | payer OTHER ==
[~2024-01-23] MED LIST changes: +NYST-38 PO
== END ==
LOC: M ONCR 08:02
PROVIDERS: ATTEND General Practice
DX: R22.9 Localized swelling, mass and lump, unspecified (principal)

== ENCOUNTER 2024-01-29 07:51 | Outpatient (RCR) | payer OTHER | END 2024-01-31 | LOC: M ONCR 07:51 | PROVIDERS: ATTEND General Practice | DX: Z51.0 Encounter for antineoplastic radiation therapy (principal); C30.0 Malignant neoplasm of nasal cavity ==

== ENCOUNTER 2024-02-02 10:37 | Emergency (ER) | payer OTHER ==
[~2024-02-02] VITALS: Ht 180.3 cm; Wt 73.8 kg
[2024-02-02 12:17] LABS: BASO # 0.1 10^3/uL (0.0-0.2); BASO % 0.5 % (0.0-1.0); EOS # 0.2 10^3/uL (0.0-0.5); EOS % 1.5 % (0.0-3.0); HEMOGLOBIN 14.6 g/dl (13.5-17.5); LYMPH # 1.1 10^3/uL (1.5-5.0); LYMPH % 9.7 % (24.0-44.0); MEAN CORPUSCULAR HEMOGLOBIN 25.7 pg (27.0-33.0); MEAN CORPUSCULAR HGB CONC 33.2 g/dl (32.0-36.5); MEAN CORPUSCULAR VOLUME 77.3 fl (80.0-96.0); MONO % 9.4 % (2.0-8.0); NEUTROPHILS # 8.2 10^3/uL (1.5-8.5); PLATELET COUNT, AUTOMATED 233 10^3/uL (150-450); RED BLOOD COUNT 5.69 10^6/uL (4.30-6.10); WHITE BLOOD COUNT 10.9 10^3/uL (4.0-10.0)
[2024-02-02 12:41] LABS: BLOOD UREA NITROGEN 14 MG/DL (9-23); CALCIUM LEVEL 8.7 MG/DL (8.5-10.1); CARBON DIOXIDE LEVEL 30 MMOL/L (20-31); CHLORIDE LEVEL 104 MMOL/L (98-107); CREATININE FOR GFR 0.64 MG/DL (0.70-1.30); GLOMERULAR FILTRATION RATE > 60.0 (>60); GLUCOSE, FASTING 84 MG/DL (60-100); POTASSIUM SERUM 3.9 MMOL/L (3.5-5.1); SODIUM LEVEL 139 MMOL/L (136-145)
[2024-02-02] MEDS ORDERED: LIDO15SO8 PO (12:55)
[2024-02-02] MEDS ORDERED: AMOX500C PO (12:55)
[2024-02-02 13:00] VITALS: BP 132/87; TEMP 98.1; O2SAT 100
== END 2024-02-02 13:00 | disposition home or self-care (01) ==
LOC: M ED 10:37
DX: K12.30 Oral mucositis (ulcerative), unspecified (principal); C08.9 Malignant neoplasm of major salivary gland, unspecified; E78.5 Hyperlipidemia, unspecified; I10 Essential (primary) hypertension; F31.9 Bipolar disorder, unspecified; F43.10 Post-traumatic stress disorder, unspecified; Z85.51 Personal history of malignant neoplasm of bladder; Z88.8 Allergy status to other drugs, medicaments and biological substances; Z79.2 Long term (current) use of antibiotics; Z79.899 Other long term (current) drug therapy; Z86.16 Personal history of COVID-19

== ENCOUNTER → 2024-02-06 | Outpatient (CLI) | payer OTHER ==
[~2024-02-06] VITALS: Ht 180.3 cm; Wt 70.6 kg
[~2024-02-06] MED LIST changes: +LIDO15SO8 PO
[2024-02-06 08:31] VITALS: BP 130/90; O2SAT 99
== END ==
LOC: M PAL 08:21
PROVIDERS: ATTEND Nurse Practitioner Adult Health
DX: G89.3 Neoplasm related pain (acute) (chronic) (principal); C30.0 Malignant neoplasm of nasal cavity; R06.00 Dyspnea, unspecified; K59.00 Constipation, unspecified; F17.210 Nicotine dependence, cigarettes, uncomplicated; Z92.3 Personal history of irradiation; Z51.5 Encounter for palliative care; Z79.891 Long term (current) use of opiate analgesic; Z79.899 Other long term (current) drug therapy; Z88.1 Allergy status to other antibiotic agents; Z85.51 Personal history of malignant neoplasm of bladder

== ENCOUNTER 2024-02-26 08:49 | Outpatient (RCR) | payer OTHER | END 2024-03-01 | LOC: M ONCR 08:49 | PROVIDERS: ATTEND General Practice | DX: Z51.0 Encounter for antineoplastic radiation therapy (principal); C30.0 Malignant neoplasm of nasal cavity ==

== ENCOUNTER → 2024-03-11 | Outpatient (CLI) | payer OTHER ==
[~2024-03-11] VITALS: Ht 180.3 cm; Wt 72.8 kg
[~2024-03-11] MED LIST changes: +AMLO1TAB24 PO; +MAGICMW SSP; +MORP-69 PO; +NARC1SPR NARES
[2024-03-11 08:13] VITALS: BP 130/100; O2SAT 97
== END ==
LOC: M PAL 07:50
PROVIDERS: ATTEND Nurse Practitioner Adult Health
DX: G89.3 Neoplasm related pain (acute) (chronic) (principal); C30.0 Malignant neoplasm of nasal cavity; R06.00 Dyspnea, unspecified; K59.00 Constipation, unspecified; F17.210 Nicotine dependence, cigarettes, uncomplicated; Z92.3 Personal history of irradiation; Z51.5 Encounter for palliative care; Z79.891 Long term (current) use of opiate analgesic; Z79.899 Other long term (current) drug therapy; Z88.1 Allergy status to other antibiotic agents; Z85.51 Personal history of malignant neoplasm of bladder

== ENCOUNTER 2024-04-18 09:07 | Emergency (ER) | payer OTHER ==
[~2024-04-18] VITALS: Ht 177.8 cm; Wt 68.9 kg
[2024-04-18 09:10] VITALS: BP 142/103; TEMP 97.7; O2SAT 99
[2024-04-18] MEDS ORDERED: MORP-69 PO (10:55)
== END 2024-04-18 10:55 | disposition left against medical advice (07) ==
LOC: M ED 09:07
DX: Z53.21 Procedure and treatment not carried out due to patient leaving prior to being seen by health care provider (principal)

== ENCOUNTER 2024-04-23 13:20 | Emergency (ER) | payer OTHER ==
[~2024-04-23] VITALS: Ht 177.8 cm; Wt 66.2 kg
[2024-04-23 14:25] LABS: BASO % 0.3 % (0.0-1.0); EOS # 0.1 10^3/uL (0.0-0.5); EOS % 0.8 % (0.0-3.0); HEMATOCRIT 39.9 % (42.0-52.0); HEMOGLOBIN 13.2 g/dl (13.5-17.5); LYMPH # 0.7 10^3/uL (1.5-5.0); LYMPH % 6.5 % (24.0-44.0); MEAN CORPUSCULAR HEMOGLOBIN 25.8 pg (27.0-33.0); MEAN CORPUSCULAR HGB CONC 33.1 g/dl (32.0-36.5); MEAN CORPUSCULAR VOLUME 78.1 fl (80.0-96.0); MONO # 0.7 10^3/uL (0.0-0.8); MONO % 6.9 % (2.0-8.0); NEUTROPHILS # 8.7 10^3/uL (1.5-8.5); NEUTROPHILS % 85.1 % (36.0-66.0); PLATELET COUNT, AUTOMATED 422 10^3/uL (150-450); RED BLOOD COUNT 5.11 10^6/uL (4.30-6.10); WHITE BLOOD COUNT 10.2 10^3/uL (4.0-10.0)
[2024-04-23 14:30] LABS: ERYTHROCYTE SEDIMENTATION RATE 93 mm/hr (0-15)
[2024-04-23 15:15] LABS: BLOOD UREA NITROGEN 9 MG/DL (9-23); CARBON DIOXIDE LEVEL 30.4 MMOL/L (20-31); CHLORIDE LEVEL 102 MMOL/L (98-107); CREATININE FOR GFR 0.74 MG/DL (0.70-1.30); GLOMERULAR FILTRATION RATE > 60.0 (>60); GLUCOSE, FASTING 108 MG/DL (60-100); SODIUM LEVEL 137 MMOL/L (136-145)
[2024-04-23 15:16] LABS: ALKALINE PHOSPHATASE 113 U/L (40-129); ALT/SGPT 34 U/L (7.0-40); AST/SGOT 22 U/L (<34); BILIRUBIN,DIRECT 0.1 MG/DL (<0.4); BILIRUBIN,TOTAL 0.3 MG/DL (0.3-1.2); C REACTIVE PROTEIN QUANTITATIV 8.79 MG/DL (<1.0); CALCIUM LEVEL 8.8 MG/DL (8.5-10.1); TOTAL PROTEIN 7.5 G/DL (5.7-8.2)
[2024-04-23] MEDS ORDERED: ISOVUE-370 76% 100ML VIAL As Ordered ONE (15:18)
[2024-04-23] MEDS ORDERED: AMOX875T2 PO (16:26)
[2024-04-23 16:30] VITALS: BP 125/86; TEMP 98.3; O2SAT 99
[2024-04-23] MEDS: AUGMENTIN 875 MG TAB PO ONE (16:40)
== END 2024-04-23 16:55 | disposition home or self-care (01) ==
LOC: M ED 13:20
DX: J01.90 Acute sinusitis, unspecified (principal); C67.9 Malignant neoplasm of bladder, unspecified; F32.9 Major depressive disorder, single episode, unspecified; F20.9 Schizophrenia, unspecified; F43.10 Post-traumatic stress disorder, unspecified; F17.200 Nicotine dependence, unspecified, uncomplicated; Z79.2 Long term (current) use of antibiotics; Z79.899 Other long term (current) drug therapy; Z88.1 Allergy status to other antibiotic agents
CPT/HCPCS: 36415; 70487; 80048; 80076; 83605; 85025; 85652; 86140; 87040; 87070; 87077; 87186; 99284; Q9967

== ENCOUNTER 2024-05-28 02:36 | Emergency (ER) | payer OTHER ==
[~2024-05-28] VITALS: Ht 177.8 cm; Wt 65.1 kg
[~2024-05-28 02:36] MED LIST changes: +AMOX875T2 PO
[2024-05-28 02:40] VITALS: TEMP 98.3
[2024-05-28 03:51] LABS: BASO # 0.1 10^3/uL (0.0-0.2); BASO % 0.5 % (0.0-1.0); EOS # 0.1 10^3/uL (0.0-0.5); EOS % 1.3 % (0.0-3.0); HEMATOCRIT 35.4 % (42.0-52.0); HEMOGLOBIN 11.5 g/dl (13.5-17.5); LYMPH # 1.3 10^3/uL (1.5-5.0); MEAN CORPUSCULAR HEMOGLOBIN 24.5 pg (27.0-33.0); MEAN CORPUSCULAR HGB CONC 32.5 g/dl (32.0-36.5); MEAN CORPUSCULAR VOLUME 75.3 fl (80.0-96.0); MONO # 1.2 10^3/uL (0.0-0.8); MONO % 11.9 % (2.0-8.0); NEUTROPHILS # 7.2 10^3/uL (1.5-8.5); NEUTROPHILS % 72.5 % (36.0-66.0); PLATELET COUNT, AUTOMATED 411 10^3/uL (150-450)
[2024-05-28 04:00] VITALS: BP 145/85; O2SAT 97
[2024-05-28 04:15] LABS: BLOOD UREA NITROGEN 10 MG/DL (9-23); C REACTIVE PROTEIN QUANTITATIV 4.11 MG/DL (<1.0); CARBON DIOXIDE LEVEL 29 MMOL/L (20-31); CHLORIDE LEVEL 100 MMOL/L (98-107); CREATININE FOR GFR 0.48 MG/DL (0.70-1.30); GLOMERULAR FILTRATION RATE > 60.0 (>60); GLUCOSE, FASTING 100 MG/DL (60-100); POTASSIUM SERUM 4.5 MMOL/L (3.5-5.1); SODIUM LEVEL 137 MMOL/L (136-145)
[2024-05-28 04:25] LABS: PROCALCITONIN 0.08 ng/ml
[2024-05-28] MEDS ORDERED: PERC5TAB12 PO (05:51)
[2024-05-28] MEDS ORDERED: ONDA-282 PO (05:51)
[2024-05-28] MEDS: OXYCODONE/APAP 5MG/325MG(HOME DOSE PACK) PO ONE (05:55)
== END 2024-05-28 07:19 | disposition home or self-care (01) ==
LOC: M ED 02:36
DX: C08.9 Malignant neoplasm of major salivary gland, unspecified (principal); F41.9 Anxiety disorder, unspecified; F43.10 Post-traumatic stress disorder, unspecified; Z88.1 Allergy status to other antibiotic agents; Z79.2 Long term (current) use of antibiotics; Z79.83 Long term (current) use of bisphosphonates; Z79.899 Other long term (current) drug therapy; Z86.16 Personal history of COVID-19

== ENCOUNTER 2024-07-16 08:48 | Emergency (ER) | payer OTHER ==
[~2024-07-16] VITALS: Ht 172.7 cm; Wt 68.2 kg
[~2024-07-16 08:48] MED LIST changes: +ONDA-282 PO; +PERC5TAB12 PO
[2024-07-16 08:59] VITALS: TEMP 96.2
[2024-07-16] MEDS ORDERED: MORP1SOL5 PO (09:39)
[2024-07-16] MEDS ORDERED: ATIV1TAB10 PO (09:39)
[2024-07-16] MEDS ORDERED: HYOS125TA PO (09:39)
[2024-07-16 10:00] VITALS: BP 140/93
[2024-07-16 10:03] VITALS: O2SAT 98
[2024-07-16] MEDS: MORPHINE 10MG/0.5ML ORAL CONCENTRATE SOLUTION U/D SL PRN (10:09)
[2024-07-16] MEDS: SCOPOLAMINE 1MG TRANSDERMAL PATCH TOP PRN (10:10)
== END 2024-07-16 10:22 | disposition home or self-care (01) ==
LOC: EDBD 08:48 → M ED 08:48
DX: C30.0 Malignant neoplasm of nasal cavity (principal); Z51.5 Encounter for palliative care; E78.5 Hyperlipidemia, unspecified; I10 Essential (primary) hypertension; F43.10 Post-traumatic stress disorder, unspecified; F31.9 Bipolar disorder, unspecified; Z86.16 Personal history of COVID-19; Z79.899 Other long term (current) drug therapy; Z88.1 Allergy status to other antibiotic agents

== ENCOUNTER → 2024-07-28 | Outpatient (CLI) | payer OTHER ==
[~2024-07-28] VITALS: Ht 175.3 cm; Wt 60.0 kg
[~2024-07-28] MED LIST changes: +ATIV1TAB10 PO; +BUPR150T15 PO; -BUPR1TAB53 PO; +FENT1DIS14 TOP; +HYOS125TA PO; +MORP1SOL5 PO; +TOPI-256 PO; -TOPI25TA10 PO
[2024-07-28 09:06] VITALS: BP 141/98; O2SAT 98
== END ==
LOC: M PAL 08:52
PROVIDERS: ATTEND Physician Assistant
DX: Z51.5 Encounter for palliative care (principal); Z66 Do not resuscitate; C30.0 Malignant neoplasm of nasal cavity; Z79.891 Long term (current) use of opiate analgesic; Z88.8 Allergy status to other drugs, medicaments and biological substances; Z79.899 Other long term (current) drug therapy

== ENCOUNTER 2024-07-31 00:24 | Emergency (ER) | payer OTHER ==
[~2024-07-31] VITALS: Ht 175.3 cm; Wt 68.2 kg
[2024-07-31 00:38] VITALS: TEMP 99.4
[2024-07-31] MEDS: OXYMETAZOLINE 0.05% NASAL SPRAY ONE (00:40)
[2024-07-31] MEDS: ACETAMINOPHEN 325MG/10.15ML UDC PO ONE (01:35)
[2024-07-31] MEDS ORDERED: MORPHINE 10 MG/ML 1ML VIAL IM ONE (01:35)
[2024-07-31] MEDS ORDERED: HYDROMORPHONE HCL 0.5 MG/ 0.5 ML SYRINGE IM ONE (01:40)
[2024-07-31] MEDS: HYDROmorphone HCL 2MG/ML 1ML VIAL IM ONE (01:57)
[2024-07-31] MEDS: CIPROFLOXACIN 0.3% OPHTH SOLN 2.5ML OU ONE (02:28)
[2024-07-31 02:30] VITALS: BP 113/79; O2SAT 92
== END 2024-07-31 02:44 | disposition home or self-care (01) ==
LOC: M ED 00:24
DX: R04.0 Epistaxis (principal); G50.1 Atypical facial pain; R22.0 Localized swelling, mass and lump, head; C08.9 Malignant neoplasm of major salivary gland, unspecified; C67.9 Malignant neoplasm of bladder, unspecified; I10 Essential (primary) hypertension; F43.10 Post-traumatic stress disorder, unspecified; F31.9 Bipolar disorder, unspecified; F19.10 Other psychoactive substance abuse, uncomplicated; Z79.899 Other long term (current) drug therapy; Z88.1 Allergy status to other antibiotic agents
CPT/HCPCS: 96372; 99284; J1171

== ENCOUNTER 2024-08-01 15:07 | Inpatient (IN) | payer OTHER ==
[2024-08-01 15:09] VITALS: BP 129/88; TEMP 98.7; O2SAT 82
[2024-08-01] MEDS: MORPHINE 4 MG/ML 1ML VIAL IV PRN ×2 (16:04→17:57)
[2024-08-01] MEDS ORDERED: ATROPINE SULFATE 1% OPHTH SOLN 2ML BTL SL PRN (16:40)
[2024-08-01] MEDS ORDERED: ONDANSETRON 4MG 2ML VIAL IV PRN (16:40)
[2024-08-01] MEDS ORDERED: SCOPOLAMINE 1MG TRANSDERMAL PATCH TOP PRN (16:40)
[2024-08-01] MEDS: LORazepam 2 MG/ML 1ML VIAL IV PRN (17:13)
[2024-08-01] MEDS: MORPHINE SULFATE INJ 100 MG in NS 90 ML IV SCH ×2 (18:40→23:46)
[2024-08-01] MEDS: fentaNYL 25 MCG/HR PATCH TOP SCH (23:44)
[2024-08-04] MEDS ORDERED: FENTANYL REMOVAL DOCUMENTATION MISC XX SCH (19:00)
== END 2024-08-02 03:15 | disposition expired | DRG 861 ==
LOC: EDBD 15:07 → M ED 15:07 → M ED INP 16:37 → M MS5PR 17:45
PROVIDERS: ADMIT Student in an Organized Health Care Education/Training Program; ATTEND Student in an Organized Health Care Education/Training Program
DX: G89.3 Neoplasm related pain (acute) (chronic) (principal); J96.01 Acute respiratory failure with hypoxia; G93.41 Metabolic encephalopathy; C79.89 Secondary malignant neoplasm of other specified sites; F20.9 Schizophrenia, unspecified; C30.0 Malignant neoplasm of nasal cavity; C67.9 Malignant neoplasm of bladder, unspecified; B19.20 Unspecified viral hepatitis C without hepatic coma; F32.A Depression, unspecified; F43.10 Post-traumatic stress disorder, unspecified; Z51.5 Encounter for palliative care; Z79.899 Other long term (current) drug therapy; F19.10 Other psychoactive substance abuse, uncomplicated